=== PATIENT | female | born 1960 | race Caucasian/White ===

== ENCOUNTER 2017-03-10 05:35 | Inpatient (IN) | payer MEDICAID ==
[~2017-03-10] VITALS: Ht 157.5 cm; Wt 135.6 kg
[2017-03-10] VITALS (7 sets, daily range): BP systolic 151–189; BP diastolic 50–89
[~2017-03-10 05:35] MED LIST: AMARYL4 MG PO; AMLODIPINE BESY10 MG ORAL; APOTEX PO; APRESOLINE50 MG ORAL; ASPIR 8181 MG ORAL; ATORVASTATIN CA10 MG ORAL; ATORVASTATIN CA40 MG ORAL; BACITRACIN1 EACH TOPIC; CATAPRES0.2 MG ORAL; CEPHALEXIN500 MG ORAL; CLONIDINE 0.2M0.2 MG ORAL; COREG3.125 MG ORAL; COUMADIN7.5 MG ORAL; GLIPIZIDE5 MG ORAL; HUMALOG100 UNIT/3 SUBQ; HUMULIN N100 UNIT/1 SUBQ; HUMULIN R100 UNIT/1 SUBQ; HYDRALAZINE HC100 MG ORAL; HYDROCHLOROTHIA25 MG ORAL; INSULIN CHARG5 UNITS SUBQ; KENALOG IN ORABA1 EA APPLIC; LASIX40 MG ORAL; LEVEMIR FL100 UNIT/1 SUBQ; LOSARTAN POTASS50 MG ORAL; MECLIZINE HCL12.5 MG PO; METOPROLOL TAR100 M1 ORAL; NORMODYNE100 MG ORAL; NORMODYNE200 MG ORAL; NORVASC10 MG ORAL; NORVASC5 MG ORAL; NOVOLIN R100 UNIT/1 SUBQ; NOVOLOG100 UNIT/3 SUBQ; NOVOLOG100 UNITS1 SUBQ; TYLENOL #31 TAB PO
[2017-03-10] MEDS ORDERED: Morphine Sulfate 4mg/ml Inj IVP ONE ×2 (06:00→08:00)
--- NOTE | 2017-03-10 06:02 | Emergency Room Report ---
History of Present Illness General Chief Complaint: Abdominal Pain Source: Patient, Family Member (Jagdeep Tran M.D.) Present Illness HPI The patient presents with several problems this morning. Her primary complaint was right flank pain radiating to her groin. This began after midnight. The pain is 5/10, constant. She has had renal stones and renal infections in the past. She denies dysuria. In addition to that she's also had a dyspnea and an irregular heartbeat. She denies any chest pain but has dyspnea on exertion and feels weak. The patient has lymphedema and is on Coumadin. She has some pain in her left calf. She has had renal insufficiency. There is no evidence of prior dialysis in records. No fevers, no productive cough, chest pain (there is pressure). There is a chronic facial rash. No headache. She has diabetes and states her sugars are out of control. She has chronic anemia. Denies melena. (Jagdeep Tran M.D.) Allergies: Coded Allergies: BENAZEPRIL (Verified Allergy, Intermediate, Shortness of Breath, 07/01/14) FUROSEMIDE (Unverified Allergy, Intermediate, Rash, 11/18/16) Per Kyleigh Berrios TALENT DEVELOPMENT DIRECTOR, Pt does not have allegy to Lasix and able to start Lasxi tx. NIFEDIPINE (Verified Allergy, Intermediate, Shortness of Breath, 06/28/14) NITROGLYCERIN (Verified Allergy, Intermediate, Shortness of Breath, 06/28/14 ) SOB and BLE swelling Patient History Past Medical History: see triage record Social History: Denies: smoking Social History Narrative at home with daughter Last Menstrual Period: Menopause Now: No (Jagdeep Tran M.D.) Nursing Documentation-PMH Hx Cardiac Problems: Yes Hx Hypertension: Yes Hx Diabetes: Yes - Type 2 Hx Cancer: No Hx Gastrointestinal Problems: Yes Hx Neurological Problems: Yes Hx Cerebrovascular Accident: Yes - 1 years ago Hx Speech Problem: Yes Hx Dizziness: Yes Hx Numbness: Yes - LUE Hx Weakness: Yes - LUE (Jagdeep Tran M.D.) Review of Systems All Other Systems: negative except mentioned in HPI (Jagdeep Tran M.D.) Physical Exam Vital Signs Date Time Temp Pulse Resp B/P Pulse Ox O2 Delivery O2 Flow Rate FiO2 03/10/17 05:50 97.9 86 16 123/71 99 Room Air Sp02 EP Interpretation: reviewed, normal General Appearance: no apparent distress, GCS 15, Chronically Ill Head: normocephalic, atraumatic Eyes: bilateral eye EOMI, bilateral eye PERRL, bilateral eye normal inspection ENT: moist mucus membranes Neck: supple Respiratory: no respiratory distress, rales Cardiovascular #1: irregularly irregular, edema - bilateral Cardiovascular #2: 2+ radial (R) Gastrointestinal: normal inspection, normal bowel sounds, non tender, no mass, non-distended, overweight Genitourinary: CVA tenderness (R) Musculoskeletal: digits/nails normal, calf tenderness - L Neurologic: alert, oriented x3, grossly normal Psychiatric: anxious Skin: warm/dry, other - salkaylene (Jagdeep Tran M.D.) Medical Decision Making Diagnostic Impression: Primary Impression: Renal failure Additional Impressions: Diabetes Qualified Codes: E11.8 - Type 2 diabetes mellitus with unspecified complications UTI (urinary tract infection) Qualified Codes: N30.00 - Acute cystitis without hematuria Ureteropelvic junction calculus Atrial arrhythmia Hyperkalemia Anemia Qualified Codes: N18.9 - Chronic kidney disease, unspecified; D63.1 - Anemia in chronic kidney disease ER Course Patient presents with R flank pain, dyspnea and calf tenderness. Differential is broad - though renal stone and pyelonephritis are high on list. The dyspnea with rales suggests CHF though renal failure and pulmonary edema are also high on list. Due to calf tenderness, DVT and PE need to be excluded, though the patient is on anticoagulation. Evaluation is emergent with labs, CTA, non- invasive vascular testing, EKG. Treatment will be with analgesia. Evidence of renal failure and hyperkalemia. Treated with calcium, Kayexelate, insulin (hyperglycemia), and bicarb. With treatment of hyperkalemia, arrhythmia abolished. Pain treated with morphine. CT unable to use contrast - Chest and abdomen without contrast. Antibiotics begun for UTI. Admitted to Dr. Medina. CT pending. Signed out to Dr. Parson. Laboratory Tests Test 03/10/17 06:10 White Blood Count 10.1 K/UL (4.8-10.8) Red Blood Count 2.96 M/UL (4.20-5.40) L Hemoglobin 7.2 G/DL (12.0-16.0) L Hematocrit 24.1 % (37.0-47.0) L Mean Corpuscular Volume 82 FL (80-99) Mean Corpuscular Hemoglobin 24.3 PG (27.0-31.0) L Mean Corpuscular Hemoglobin Concent 29.8 G/DL (32.0-36.0) L Red Cell Distribution Width 16.8 % (11.6-14.8) H Platelet Count 231 K/UL (150-450) Mean Platelet Volume 7.2 FL (6.5-10.1) Neutrophils (%) (Auto) % (45.0-75.0) Lymphocytes (%) (Auto) % (20.0-45.0) Monocytes (%) (Auto) % (1.0-10.0) Eosinophils (%) (Auto) % (0.0-3.0) Basophils (%) (Auto) % (0.0-2.0) Differential Total Cells Counted 100 Neutrophils % (Manual) 96 % (45-75) H Lymphocytes % (Manual) 4 % (20-45) L Monocytes % (Manual) 0 % (1-10) L Eosinophils % (Manual) 0 % (0-3) Basophils % (Manual) 0 % (0-2) Band Neutrophils 0 % (0-8) Platelet Estimate Adequate Platelet Morphology Normal Hypochromasia 1+ Anisocytosis 1+ Prothrombin Time 25.3 SEC (9.30-11.50) H Prothrombin Time INR 2.4 (0.9-1.1) H PTT 36 SEC (23-33) H Urine Color Pale yellow Urine Appearance Clear Urine pH 5 (4.5-8.0) Urine Specific [place] 1.010 (1.005-1.035) Urine Protein 3+ (NEGATIVE) H Urine Glucose (UA) 4+ (NEGATIVE) H Urine Ketones 1+ (NEGATIVE) H Urine Occult Blood 2+ (NEGATIVE) H Urine Nitrite Negative (NEGATIVE) Urine Bilirubin Negative (NEGATIVE) Urine Urobilinogen Normal MG/DL (0.0-1.0) Urine Leukocyte Esterase 1+ (NEGATIVE) H Urine RBC 10-15 /HPF (0 - 2) H Urine WBC 10-15 /HPF (0 - 2) H Urine Squamous Epithelial Cells Few /LPF (NONE/OCC) Urine Bacteria Few /HPF (NONE) Sodium Level 137 mEQ/L (135-145) Potassium Level 6.0 mEQ/L (3.4-4.9) *H Chloride Level 100 mEQ/L (98-107) Carbon Dioxide Level 16 mEQ/L (20-30) L Anion Gap 21 (5-15) H Blood Urea Nitrogen 72 mg/dL (7-23) H Creatinine 2.8 mg/dL (0.5-0.9) H Estimate Glomerular Filtration Rate 17.4 mL/min (>60) Glucose Level 375 mg/dL (74-106) H Calcium Level 9.2 mg/dL (8.6-10.2) Total Bilirubin 0.8 mg/dL (0.0-1.2) Aspartate Amino Transferase (AST) 19 U/L (5-40) Alanine Aminotransferase (ALT) 27 U/L (3-33) Alkaline Phosphatase 121 U/L (35-104) H Total Creatine Kinase 94 U/L (26-140) Troponin I < 0.30 ng/mL (<=0.30) Pro-B-Type Natriuretic Peptide 1073 pg/mL (0-125) H Total Protein 7.7 g/dL (6.6-8.7) Albumin 4.0 g/dL (3.5-5.2) Globulin 3.7 g/dL Albumin/Globulin Ratio 1.0 (1.0-2.7) (Jagdeep Tran M.D.) ER Course The patient was endorsed to me by Dr. Tran. See his full history of present illness. CT abdomen pelvis read by radiology showed a right proximal UPJ stone 4mm with mild hydronephrosis. Multiple intrarenal stones were present. Ground glass opacity both lungs, small bilateral pleural effusions. The patient was given IV antibiotics. Patient was admitted to Dr. medina for inpatient management. Labs Test 03/10/17 06:10 White Blood Count 10.1 K/UL (4.8-10.8) Red Blood Count 2.96 M/UL (4.20-5.40) Hemoglobin 7.2 G/DL (12.0-16.0) Hematocrit 24.1 % (37.0-47.0) Mean Corpuscular Volume 82 FL (80-99) Mean Corpuscular Hemoglobin 24.3 PG (27.0-31.0) Mean Corpuscular Hemoglobin Concent 29.8 G/DL (32.0-36.0) Red Cell Distribution Width 16.8 % (11.6-14.8) Platelet Count 231 K/UL (150-450) Mean Platelet Volume 7.2 FL (6.5-10.1) Neutrophils (%) (Auto) % (45.0-75.0) Lymphocytes (%) (Auto) % (20.0-45.0) Monocytes (%) (Auto) % (1.0-10.0) Eosinophils (%) (Auto) % (0.0-3.0) Basophils (%) (Auto) % (0.0-2.0) Differential Total Cells Counted 100 Neutrophils % (Manual) 96 % (45-75) Lymphocytes % (Manual) 4 % (20-45) Monocytes % (Manual) 0 % (1-10) Eosinophils % (Manual) 0 % (0-3) Basophils % (Manual) 0 % (0-2) Band Neutrophils 0 % (0-8) Platelet Estimate Adequate Platelet Morphology Normal Hypochromasia 1+ Anisocytosis 1+ Prothrombin Time 25.3 SEC (9.30-11.50) Prothromb Time International Ratio 2.4 (0.9-1.1) Activated Partial Thromboplast Time 36 SEC (23-33) Urine Color Pale yellow Urine Appearance Clear Urine pH 5 (4.5-8.0) Urine Specific [place] 1.010 (1.005-1.035) Urine Protein 3+ (NEGATIVE) Urine Glucose (UA) 4+ (NEGATIVE) Urine Ketones 1+ (NEGATIVE) Urine Occult Blood 2+ (NEGATIVE) Urine Nitrite Negative (NEGATIVE) Urine Bilirubin Negative (NEGATIVE) Urine Urobilinogen Normal MG/DL (0.0-1.0) Urine Leukocyte Esterase 1+ (NEGATIVE) Urine RBC 10-15 /HPF (0 - 2) Urine WBC 10-15 /HPF (0 - 2) Urine Squamous Epithelial Cells Few /LPF (NONE/OCC) Urine Bacteria Few /HPF (NONE) Sodium Level 137 mEQ/L (135-145) Potassium Level 6.0 mEQ/L (3.4-4.9) Chloride Level 100 mEQ/L (98-107) Carbon Dioxide Level 16 mEQ/L (20-30) Anion Gap 21 (5-15) Blood Urea Nitrogen 72 mg/dL (7-23) Creatinine 2.8 mg/dL (0.5-0.9) Estimat Glomerular Filtration Rate 17.4 mL/min (>60) Glucose Level 375 mg/dL (74-106) Calcium Level 9.2 mg/dL (8.6-10.2) Total Bilirubin 0.8 mg/dL (0.0-1.2) Aspartate Amino Transf (AST/SGOT) 19 U/L (5-40) Alanine Aminotransferase (ALT/SGPT) 27 U/L (3-33) Alkaline Phosphatase 121 U/L (35-104) Total Creatine Kinase 94 U/L (26-140) Troponin I < 0.30 ng/mL (<=0.30) Pro-B-Type Natriuretic Peptide 1073 pg/mL (0-125) Total Protein 7.7 g/dL (6.6-8.7) Albumin 4.0 g/dL (3.5-5.2) Globulin 3.7 g/dL Albumin/Globulin Ratio 1.0 (1.0-2.7) (Mario Alberto Parson) EKG Diagnostic Results Rate: tachycardiac ST Segments: no acute changes (Jagdeep Tran M.D.) Rhythm Strip Diag. Results EP Interpretation: yes Rhythm: no PVC's, other - ST with PACs (Jagdeep Tran M.D.) Chest X-Ray Diagnostic Results EP Interpretation: Yes Findings: no effusion, no pneumothorax, other - pulm HTN Number of Views: 1 (Jagdeep Tran M.D.) Last Vital Signs Date Time Temp Pulse Resp B/P Pulse Ox O2 Delivery O2 Flow Rate FiO2 03/10/17 05:50 97.9 86 16 123/71 99 Room Air Status: improved (Jagdeep Tran M.D.) Status: unchanged (Mario Alberto Parson) Disposition: ADMITTED INPATIENT Condition: Serious Jagdeep Tran M.D. Mar 10, 2017 06:02 Mario Alberto Parson Mar 10, 2017 09:13
[2017-03-10 06:32] LABS: APPEARANCE,URINE CLEAR; KETONES,URINE 1+ (NEGATIVE); LEUKOCYTE ESTERASE ,URINE 1+ (NEGATIVE); NITRITE,URINE NEGATIVE (NEGATIVE); PH,URINE 5 (4.5-8.0); PROTEIN,URINE 3+ (NEGATIVE); UROBILINOGEN,URINE NORMAL MG/DL (0.0-1.0)
[2017-03-10 06:33] LABS: MEAN CORPUSCULAR HEMOGLOBIN 24.3 PG (27.0-31.0); MEAN CORPUSCULAR HGB CONC 29.8 G/DL (32.0-36.0); MEAN CORPUSCULAR VOLUME 82 FL (80-99); MEAN PLATELET VOLUME 7.2 FL (6.5-10.1); PLATELET COUNT 231 K/UL (150-450); RED BLOOD COUNT 2.96 M/UL (4.20-5.40); RED CELL DISTRIBUTION WIDTH 16.8 % (11.6-14.8); WHITE BLOOD COUNT 10.1 K/UL (4.8-10.8)
[2017-03-10 06:47] LABS: INR 2.4 (0.9-1.1); PROTHROMBIN TIME 25.3 SEC (9.30-11.50)
[2017-03-10 06:48] LABS: BACTERIA,URINE FEW /HPF; SQUAMOUS EPITHELIAL CELL,UR FEW /LPF (NONE/OCC)
[2017-03-10 06:50] LABS: TROPONIN I < 0.30 ng/mL (<=0.30)
[2017-03-10 06:51] LABS: ALANINE AMINOTRANSFERASE 27 U/L (3-33); ANION GAP 21 (5-15); ASPARTATE AMINO TRANSFERASE 19 U/L (5-40); CALCIUM 9.2 mg/dL (8.6-10.2); CARBON DIOXIDE 16 mEQ/L (20-30); CHLORIDE 100 mEQ/L (98-107); CREATININE 2.8 mg/dL (0.5-0.9); GLOMERULAR FILTRATION RATE 17.4 mL/min (>60); HEMOLYSIS 0; SODIUM 137 mEQ/L (135-145); TOTAL PROTEIN 7.7 g/dL (6.6-8.7)
[2017-03-10] MEDS ORDERED: Sodium Bicarbonate 8.4% 50ml Carp IV ONE (07:15)
[2017-03-10] MEDS ORDERED: Sodium Polystyrene Sulfonate 15gm Powder ORAL ONE ×2 (07:15→13:00)
[2017-03-10] MEDS ORDERED: Calcium Gluconate 1gm/10ml vial IVP ONE ×2 (07:15→10:15)
[2017-03-10] MEDS ORDERED: cefTRIAXone 1 GM in NS 55 ML IVPB ONE (08:00)
[2017-03-10 08:02] LABS: BAND NEUTROPHILS % (MANUAL) 0 % (0-8); BASOPHILS % (MANUAL) 0 % (0-2); EOSINOPHILS % (MANUAL) 0 % (0-3); LYMPHOCYTES % (MANUAL) 4 % (20-45); NEUTROPHILS % (MANUAL) 96 % (45-75); PLATELET ESTIMATE ADEQUATE; PLATELET MORPHOLOGY NORMAL; TOTAL CELLS COUNTED 100
[2017-03-10 08:03] LABS: ANISOCYTOSIS 1+; HYPOCHROMASIA 1+
--- NOTE | 2017-03-10 09:15 | Diagnostic Imaging Report ---
Indication: Dyspnea, right flank pain, vomiting Technique: No oral contrast, per emergency room physician request. No IV contrast, per emergency room physician request.. Spiral acquisitions obtained through the chest, abdomen, and pelvis. Multiplanar reconstructions were generated. Total dose length product 2162 mGycm. CTDIvol(s) 35 mGy. Radiation dose was minimized using automated exposure control Comparison: None Findings: Chest: There is groundglass opacity throughout both lungs, with interspersed areas of normal parenchymal attenuation. There is interstitial septal thickening bilaterally, particular the lung bases. There are small bilateral pleural effusions. The heart is enlarged. No focal airspace consolidation. No masses or nodules. There is trace pericardial fluid. There are prominent paratracheal lymph nodes. The esophagus is unremarkable. The included portions of the thyroid are unremarkable. No axillary or chest wall mass or adenopathy demonstrated. Abdomen pelvis: There is a 4 mm calculus in the proximal right ureter, just beyond ureteropelvic junction. This results in mild right hydronephrosis. There is perinephric fat. At least 3 calculi are seen within the right renal collecting system, largest measuring 6 mm diameter. Multiple calculi are seen in the left renal collecting system, including a cluster in the lower pole collecting system. Largest of these measures about 7 mm diameter. No left hydronephrosis. No left ureteral calculi. There is perinephric fat stranding on the left as well, which appears similar that on the right. Lack of IV contrast limits assessment of the renal parenchyma. No gross renal parenchymal mass or cyst demonstrated. Lack of IV contrast limits assessment of the other solid organs. The liver, gallbladder, bile ducts, pancreas, spleen, adrenals are unremarkable. No retroperitoneal or mesenteric mass or adenopathy. No pelvic mass or adenopathy. Normal uterus and adnexal structures. The appendix is normal. There is no evidence of diverticulosis or diverticulitis. No small bowel distention. No free or loculated intraperitoneal air or fluid is evident. The stomach and duodenum are unremarkable. There is mild edema of the subcutaneous fat of the back and bilateral flanks Impression: Positive for 4 mm proximal right ureteral calculus. This results in mild right hydronephrosis. There is also perinephric fat stranding, which is likely due to the stone, but similarity to the contralateral side raises possibility that this may be chronic. Bilateral nonobstructive intrarenal calculi Bilateral pulmonary parenchymal groundglass opacity and interstitial septal thickening. These findings are nonspecific. However, given associated findings of cardiomegaly and small bilateral pleural effusions, suspect on the basis of mild pulmonary edema Trace pericardial fluid Mild edema of the bilateral flank and lumbar region subcutaneous fat Findings discussed by phone with Dr. Parson in the emergency room at the time of interpretation The CT scanner at [facility] is accredited by the [employer] and the scans are performed using protocols designed to limit radiation exposure to as low as reasonably achievable to attain images of sufficient resolution adequate for diagnostic evaluation.
[2017-03-10] MEDS ORDERED: Nitroglycerin Subl 0.4mg tab (Bottle Of 25) SL PRN (10:15)
[2017-03-10] MEDS ORDERED: Morphine Sulfate 2mg/ml Inj IVP PRN (10:15)
[2017-03-10] MEDS ORDERED: DuoNeb 0.5-3(2.5)mg/3ml neb HHN PRN (10:15)
[2017-03-10] MEDS ORDERED: Miralax 17gm pkt ORAL PRN (10:15)
[2017-03-10] MEDS ORDERED: Tamsulosin 0.4mg cap ORAL STA (10:23)
[2017-03-10] MEDS ORDERED: NovoLOG Insulin Flexpen SUBQ SCH (11:30)
[2017-03-10] MEDS: Cefepime 1gm/D5W 55ml IVPB SCH ×2 (12:16)
--- NOTE | 2017-03-10 12:16 | History and Physical ---
History of Present Illness General Date patient seen: Mar 10, 2017 Reason for Hospitalization: Abdominal Pain Present Illness HPI 56 year old female with hx of HTN, DM, Obesity, presented to ER with several problems this morning. She had right flank pain radiating to her groin. In addition to that she's also had a dyspnea and an irregular heartbeat. She has diabetes and states her sugars are out of control. She was found to have hyperkalemia and severe anemia. She is admitted to [facility] for further evaluation. Currently she is c/o lower back pain. She is refusing Velasquez Catheter, which was ordered by Nephrology. Allergies: Coded Allergies: BENAZEPRIL (Verified Allergy, Intermediate, Shortness of Breath, 07/01/14) FUROSEMIDE (Unverified Allergy, Intermediate, Rash, 11/18/16) Per Kyleigh Berrios FIREWORKS ASSEMBLER, Pt does not have allegy to Lasix and able to start Lasxi tx. NIFEDIPINE (Verified Allergy, Intermediate, Shortness of Breath, 06/28/14) NITROGLYCERIN (Verified Allergy, Intermediate, Shortness of Breath, 06/28/14 ) SOB and BLE swelling Medication History Scheduled Amlodipine Besylate (Norvasc), 5 MG ORAL DAILY Amlodipine Besylate* (Amlodipine Besylate*), 10 MG ORAL DAILY, (Reported) Aspirin* (Aspir 81*), 81 MG ORAL DAILY, (Reported) Atorvastatin Calcium* (Atorvastatin Calcium*), 40 MG ORAL BEDTIME, (Reported) Carvedilol (Coreg), 6.125 MG ORAL EVERY 12 HOURS Clonidine HCl (Clonidine HCl), 0.2 MG ORAL Q8HR Clonidine Hcl* (Catapres*), 0.2 MG ORAL Q6HR, (Reported) Glipizide* (Glipizide*), 10 MG ORAL BIDAC, (Reported) Hydralazine HCl (Hydralazine HCl), 100 MG ORAL Q8HR Hydralazine HCl (Hydralazine HCl), 100 MG ORAL Q8HR Insulin Aspart (Novolog Flexpen), 8 UNITS SUBQ NOVOTIAC Insulin Detemir (Levemir Flexpen), 15 UNITS SUBQ Q12HR Insulin Human NPH (Novolin N), 30 UNITS SUBQ BIAC Labetalol HCl (Labetalol HCl), 200 MG ORAL BID, (Reported) Warfarin Sod (Coumadin*), 5 MG ORAL DAILY, (Reported) Miscellaneous Medications Insulin Lispro (Humalog), 35 SUBQ, (Reported) Patient History Healthcare decision maker Resuscitation status Full Code Advanced Directive on File No Past Medical/Surgical History Past Medical/Surgical History: (1) Atrial arrhythmia (2) Ureteropelvic junction calculus (3) Diabetes (4) HTN (hypertension) Review of Systems All Other Systems: negative except mentioned in HPI Physical Exam General Appearance: WD/WN, alert Lines, tubes and drains: peripheral, central line HEENT: normocephalic, atraumatic Neck: non-tender, normal alignment Respiratory/Chest: chest wall non-tender, lungs clear Breasts: no masses Abdomen: normal bowel sounds, hyperactive bowel sounds Extremities: severe edema Skin Exam: normal pigmentation Neurologic: parimutuel ticket cashier II-XII grossly normal, no motor/sensory deficits, abnormal gait Last 24 Hour Vital Signs Date Time Temp Pulse Resp B/P Pulse Ox O2 Delivery O2 Flow Rate FiO2 03/10/17 09:35 97.8 79 16 151/50 96 Room Air 03/10/17 09:00 79 16 151/50 96 Room Air 03/10/17 08:35 97.8 03/10/17 08:00 82 19 189/89 94 Room Air 03/10/17 07:19 97.8 03/10/17 07:00 84 18 169/66 99 Room Air 03/10/17 06:00 97.9 86 16 160/61 99 Room Air 03/10/17 05:50 97.9 86 16 123/71 99 Room Air Intake and Output 03/09/17 03/10/17 19:00 07:00 # Voids 1 Laboratory Tests Test 03/10/17 06:10 03/10/17 10:55 White Blood Count 10.1 K/UL (4.8-10.8) Red Blood Count 2.96 M/UL (4.20-5.40) L Hemoglobin 7.2 G/DL (12.0-16.0) L Hematocrit 24.1 % (37.0-47.0) L Mean Corpuscular Volume 82 FL (80-99) Mean Corpuscular Hemoglobin 24.3 PG (27.0-31.0) L Mean Corpuscular Hemoglobin Concent 29.8 G/DL (32.0-36.0) L Red Cell Distribution Width 16.8 % (11.6-14.8) H Platelet Count 231 K/UL (150-450) Mean Platelet Volume 7.2 FL (6.5-10.1) Neutrophils (%) (Auto) % (45.0-75.0) Lymphocytes (%) (Auto) % (20.0-45.0) Monocytes (%) (Auto) % (1.0-10.0) Eosinophils (%) (Auto) % (0.0-3.0) Basophils (%) (Auto) % (0.0-2.0) Differential Total Cells Counted 100 Neutrophils % (Manual) 96 % (45-75) H Lymphocytes % (Manual) 4 % (20-45) L Monocytes % (Manual) 0 % (1-10) L Eosinophils % (Manual) 0 % (0-3) Basophils % (Manual) 0 % (0-2) Band Neutrophils 0 % (0-8) Platelet Estimate Adequate Platelet Morphology Normal Hypochromasia 1+ Anisocytosis 1+ Prothrombin Time 25.3 SEC (9.30-11.50) H Prothromb Time International Ratio 2.4 (0.9-1.1) H Activated Partial Thromboplast Time 36 SEC (23-33) H Urine Color Pale yellow Urine Appearance Clear Urine pH 5 (4.5-8.0) Urine Specific [place] 1.010 (1.005-1.035) Urine Protein 3+ (NEGATIVE) H Urine Glucose (UA) 4+ (NEGATIVE) H Urine Ketones 1+ (NEGATIVE) H Urine Occult Blood 2+ (NEGATIVE) H Urine Nitrite Negative (NEGATIVE) Urine Bilirubin Negative (NEGATIVE) Urine Urobilinogen Normal MG/DL (0.0-1.0) Urine Leukocyte Esterase 1+ (NEGATIVE) H Urine RBC 10-15 /HPF (0 - 2) H Urine WBC 10-15 /HPF (0 - 2) H Urine Squamous Epithelial Cells Few /LPF (NONE/OCC) Urine Bacteria Few /HPF (NONE) Sodium Level 137 mEQ/L (135-145) Potassium Level 6.0 mEQ/L (3.4-4.9) *H 6.2 mEQ/L (3.4-4.9) *H Chloride Level 100 mEQ/L (98-107) Carbon Dioxide Level 16 mEQ/L (20-30) L Anion Gap 21 (5-15) H Blood Urea Nitrogen 72 mg/dL (7-23) H Creatinine 2.8 mg/dL (0.5-0.9) H Estimat Glomerular Filtration Rate 17.4 mL/min (>60) Glucose Level 375 mg/dL (74-106) H Calcium Level 9.2 mg/dL (8.6-10.2) Total Bilirubin 0.8 mg/dL (0.0-1.2) Aspartate Amino Transf (AST/SGOT) 19 U/L (5-40) Alanine Aminotransferase (ALT/SGPT) 27 U/L (3-33) Alkaline Phosphatase 121 U/L (35-104) H Total Creatine Kinase 94 U/L (26-140) Troponin I < 0.30 ng/mL (<=0.30) Pro-B-Type Natriuretic Peptide 1073 pg/mL (0-125) H Total Protein 7.7 g/dL (6.6-8.7) Albumin 4.0 g/dL (3.5-5.2) Globulin 3.7 g/dL Albumin/Globulin Ratio 1.0 (1.0-2.7) Height (Feet): 5 Height (Inches): 3.00 Weight (Pounds): 300 Medications Current Medications Medications (Trade) Dose Ordered Sig/Ifeanyi Route PRN Reason Start Time Stop Time Status Last Admin Dose Admin Acetaminophen (Tylenol) 650 mg Q4H PRN ORAL T>100.5 03/10/17 10:15 04/09/17 10:14 Albuterol/ Ipratropium (DuoNeb 0.5-3(2.5)mg/3ml) 3 ml Q4H PRN HHN Shortness of Breath 03/10/17 10:15 03/15/17 10:14 Amlodipine Besylate (Norvasc) 5 mg DAILY ORAL 03/11/17 09:00 04/10/17 08:59 UNV Aspirin (Ecotrin) 81 mg DAILY ORAL 03/11/17 09:00 04/10/17 08:59 Atorvastatin Calcium (Lipitor) 40 mg BEDTIME ORAL 03/10/17 21:00 04/09/17 20:59 Calcium Gluconate (Calcium Gluconate 10%) 1 gm ONCE ONCE IVP 03/10/17 10:15 03/10/17 10:16 UNV Calcium Gluconate/ Sodium Chloride (Calcium Gluconate 10%/ Sodium Chloride) 120 ml @ 240 mls/hr ONCE ONCE IVPB 03/10/17 13:00 03/10/17 13:29 Cefepime HCl/ Dextrose (Maxipime/D5W) 55 ml @ 110 mls/hr Q24H IVPB 03/10/17 12:00 03/17/17 11:59 Dextrose STAT PRN IV Hypoglycemia 03/10/17 10:15 04/09/17 10:14 Dextrose 100 ml 100 ml STAT ONCE IV 03/10/17 13:00 03/10/17 13:01 Heparin Sodium (Porcine) (Heparin 5000 units/ml) 5,000 units EVERY 12 HOURS SUBQ 03/10/17 21:00 04/09/17 20:59 Hydralazine HCl (Apresoline) 100 mg Q8HR ORAL 03/10/17 14:00 04/09/17 13:59 Insulin Aspart (NovoLOG) BEFORE MEALS AND HS SUBQ 03/10/17 12:00 04/09/17 11:59 Insulin Human Regular (NovoLIN R) 10 units ONCE ONCE IV 03/10/17 13:00 03/10/17 13:01 Labetalol HCl 200 mg 200 mg Q12HR ORAL 03/10/17 21:00 04/09/17 20:59 Morphine Sulfate (Morphine Sulfate) 2 mg Q4H PRN IVP Moderate Pain (Pain Scale 4-6) 03/10/17 10:15 03/17/17 10:14 Ondansetron HCl (Zofran) 4 mg Q6H PRN IVP Nausea & Vomiting 03/10/17 10:15 04/09/17 10:14 Polyethylene Glycol (Miralax) 17 gm DAILYPRN PRN ORAL Constipation 03/10/17 10:15 04/09/17 10:14 Sodium Polystyrene Sulfonate (Kayexalate) 45 gm ONCE ONCE ORAL 03/10/17 13:00 03/10/17 13:01 Sodium Chloride (Sodium Chloride 1000ml bag) 1,000 ml @ 50 mls/hr Q20H IVLG 03/10/17 11:00 04/09/17 10:59 Temazepam (Restoril) 15 mg HSPRN PRN ORAL Insomnia 03/10/17 21:00 03/17/17 20:59 Vancomycin HCl 1 ea 1 ea DAILY PRN MISC . 03/10/17 10:45 04/09/17 10:44 Vancomycin HCl/ Dextrose (Vancomycin/D5W) 325 ml @ 162.5 mls/ hr ONCE ONCE IVPB 03/10/17 13:00 03/10/17 14:59 Assessment/Plan Problem List: (1) Renal failure ICD Codes: N19 - Unspecified kidney failure SNOMED: 11506291 (2) Hyperkalemia ICD Codes: E87.5 - Hyperkalemia SNOMED: 22581277 (3) HTN (hypertension) ICD Codes: I10 - Essential (primary) hypertension SNOMED: 77974351 (4) Diabetes ICD Codes: E11.9 - Type 2 diabetes mellitus without complications SNOMED: 53475723 (5) Peripheral edema ICD Codes: R60.9 - Edema, unspecified SNOMED: 244582845 Assessment/Plan IV fluids renal evaluation prbc prn anemia prn sliding scale diabetic diet JEAN CLAUDE STUTON Mar 10, 2017 12:16
[2017-03-10] MEDS: NovoLOG Insulin Flexpen SUBQ SCH ×3 (12:26→20:32)
--- NOTE | 2017-03-10 12:45 | Consultation ---
Consult Note Consult Note ID Dic # [id number] NICOLE OH M.D. Mar 10, 2017 12:45
--- NOTE | 2017-03-10 12:52 | Consultation ---
Consult Note Consult Note HPI The patient presents with several problems this morning. Her primary complaint was right flank pain radiating to her groin. This began after midnight. The pain is 5/10, constant. She has had renal stones and renal infections in the past. She denies dysuria. In addition to that she's also had a dyspnea and an irregular heartbeat. She denies any chest pain but has dyspnea on exertion and feels weak. The patient has lymphedema and is on Coumadin. She has some pain in her left calf. She has had renal insufficiency. There is no evidence of prior dialysis in records. No fevers, no productive cough, chest pain (there is pressure). There is a chronic facial rash. No headache. She has diabetes and states her sugars are out of control. She has chronic anemia. Denies melena. Coded Allergies: BENAZEPRIL (Verified Allergy, Intermediate, Shortness of Breath, 07/01/14) FUROSEMIDE (Unverified Allergy, Intermediate, Rash, 11/18/16) Per Kyleigh Berrios NEUROSURGICAL PHYSICIAN ASSISTANT, Pt does not have allegy to Lasix and able to start Lasxi tx. NIFEDIPINE (Verified Allergy, Intermediate, Shortness of Breath, 06/28/14) NITROGLYCERIN (Verified Allergy, Intermediate, Shortness of Breath, 06/28/14 ) SOB and BLE swelling Hx Cardiac Problems: Yes Hx Hypertension: Yes Hx Diabetes: Yes - Type 2 Hx Gastrointestinal Problems: Yes Hx Neurological Problems: Yes Hx Cerebrovascular Accident: Yes - 1 years ago Hx Speech Problem: Yes Hx Dizziness: Yes Hx Numbness: Yes - LUE Hx Weakness: Yes - LUE Assessment/Plan Status; Acute renal failure- HyperKalemia ? Underlying CKD due to DM and HTN Anemia: Etiology? Ureteropelvic junction calculus Atrial arrhythmia UTI Plan: TAMIE kidney- 2 D echo Slow Hydrate EPO SQ Iron panel Anemia munoz gastric support- Avoid Nephrotoxics per orders ALE LOBATO Mar 10, 2017 12:52
[2017-03-10] MEDS ORDERED: Calcium Gluconate 1gm in NS 110ml IVPB ONE (13:00)
[2017-03-10] MEDS ORDERED: Vancomycin 1.5 GM in D5W 325 ML IVPB ONE (13:00)
[2017-03-10 13:03] LABS: CREATININE 2.8 mg/dL (0.5-0.9); GLOMERULAR FILTRATION RATE 17.4 mL/min (>60); POTASSIUM 6.2 mEQ/L (3.4-4.9)
--- NOTE | 2017-03-10 13:39 | Cardiology Report ---
APPROVED REPORT EKG Measurement Heart [id number] Sinus rhythm with occasional premature ventricular complexes and premature atrial complexes Prolonged QT Abnormal ECG
[2017-03-10 13:51] LABS: PATH BLOOD SMEAR/OMC SENT TO PATHOLOGIST
[2017-03-10 14:10] LABS: ERYTHROCYTE SEDIMENTATION RATE 95 MM/HR (0-30); RETICULOCYTE COUNT 2.1 % (0.0-2.0)
[2017-03-10] MEDS: HydrALAZINE 50mg tab ORAL SCH ×2 (14:33→21:25)
--- NOTE | 2017-03-10 14:48 | Diagnostic Imaging Report ---
Indication: Chest pain Technique: One view of the chest Comparison: 11/21/2016 Findings: Lungs and pleural spaces are clear. Heart size is upper limits normal . No significant change Impression: No acute process
--- NOTE | 2017-03-10 16:27 | Diagnostic Imaging Report ---
Indication: Acute renal failure Technique: Grayscale and duplex images of the kidneys, retroperitoneum, and bladder were obtained. Comparison:Reference made to CT chest abdomen pelvis dated 03/10/2017. Comparison prior ultrasound 11/09/2016 Findings: Exam is limited due to patient body habitus Right kidney measures 11.7 cm in length. Left kidney measures 10.7 cm in length. Both kidneys demonstrate normal echogenicity. There is mild right hydronephrosis. No left hydronephrosis This is a new finding since prior ultrasound, was described on prior CT. The intrarenal calculi described on recent CT are not evident on the right, but are barely visible on the left. Normal inferior vena cava. Bladder is normal. Impression: Mild right hydronephrosis, presumably from proximal right ureteral stone described on CT scan performed earlier the same day Left nephrolithiasis, also described on recent CT. No left hydronephrosis.
[2017-03-10] MEDS: Nateglinide 60mg tab ORAL SCH (16:52)
[2017-03-10] MEDS: Carvedilol 6.25mg Tab ORAL SCH (20:27)
[2017-03-10] MEDS: Heparin 5000 units/ml inj SUBQ SCH (20:31)
[2017-03-10] MEDS ORDERED: Labetalol 200mg tab ORAL SCH (21:00)
[2017-03-10] MEDS ORDERED: Cefepime HCl 2 GM in D5W 110 ML IV SCH (21:00)
[2017-03-10] MEDS: Morphine Sulfate 4mg/ml Inj IVP PRN (21:25)
--- NOTE | 2017-03-10 22:48 | Consultation ---
DATE OF CONSULTATION: INFECTIOUS DISEASES CONSULTATION CONSULTING PHYSICIAN: Oswald Grajeda M.D. REFERRING PHYSICIAN: Mirela Medina M.D. REASON FOR CONSULTATION: Evaluation of the patient for possible urinary tract infection, pyelonephritis, antibiotic management. HISTORY OF PRESENT ILLNESS: The patient is a 56-year-old female, who came to the hospital with a chief complaint of pain mainly in the right lower abdomen and groin area. CT scan showed right renal stone in the ureter with mild hydronephrosis. The patient has been started on IV antibiotics. Infectious diseases consultation has been requested for further evaluation of the patient and antibiotic management. UA showed some pyuria and patient's lab work suggested CKD. PAST MEDICAL HISTORY: 1. History of cataract surgery. 2. History of CVA. 3. History of hyperlipidemia. 4. Hypertension. 5. Gastroesophageal reflux disease. 6. History of x2. 7. History of chronic kidney disease. 8. Diabetes. 9. Anemia. MEDICATIONS: IV vancomycin and cefepime. ALLERGIES: No allergies to any antibiotics. FAMILY HISTORY: Noncontributory. REVIEW OF SYSTEMS: A 10-point review was done and except what is mentioned has been negative. LABORATORY AND DIAGNOSTIC DATA: White cell 10, hemoglobin 7, platelets 231,000. BUN 32, creatinine 2.8. ALT and AST unremarkable. Alkaline phosphatase of 121. UA shows 10 to 15 white blood cells and 10 to 15 red blood cells. Urine culture is pending. CT scan of the abdomen as mentioned above. ASSESSMENT: The patient is a 56-year-old female with multiple medical problems who has right renal stump with right hydronephrosis, possible urinary tract infection, and pyelonephritis. Especially in view of having pyuria and possible surgical intervention, the patient will benefit from broad-spectrum antibiotics for gram-negative coverage. PLAN: 1. We will continue the patient on cefepime. 2. Discontinue intravenous vancomycin. 3. Monitor CBC. 4. Monitor BMP. 5. Monitor urine culture. 6. Recommend Urology evaluation. 7. Based on patient's clinical course and labs, we will do further recommendation. Thank you, Dr. Medina, for allowing me to participate in the care of this patient. I will follow the patient with you during this hospitalization. Oswald Grajeda M.D. DR: Bertha JOB#: [id number] CC:
--- NOTE | 2017-03-10 22:53 | Cardiology Report ---
APPROVED REPORT EXAM: Two-dimensional and M-mode echocardiogram with Doppler and color Doppler. INDICATION Left Ventricular Function M-Mode DIMENSIONS IVSd1.1 (0.7-1.1cm)Left Atrium (MM)4.7 (1.6-4.0cm) LVDd5.5 (3.5-5.6cm)Aortic Root2.1 (2.0-3.7cm) PWd0.8 (0.7-1.1cm)Aortic Cusp Exc.1.8 (1.5-2.0cm) IVSs1.9 cm LVDs2.3 (2.5-4.0cm) PWs1.9 cm Normal left ventricular chamber size, systolic function and wall motion. Left ventricular ejection fraction estimated to be 60 %. No evidence of left ventricular hypertrophy. Anterior Echo-free space, may be due to pericardial fat or effusion. Mild left atrial enlargement. Righrt cardiac chamber sizes are within normal limits. Mild focal aortic valve sclerosis with adequate cusp excursion. Mildly thickened mitral valve leaflets with normal excursion. Mild mitral annulus and aortic root calcification. Normal pulmonic valve structure. Normal tricuspid valve structure. A color flow and spectral Doppler study was performed and revealed: No aortic regurgitation. Trace mitral regurgitation. Mitral inflow velocities indicates possible pseudo normalization pattern implying significant left ventricular diastolic dysfunction (Grade II). Trace tricuspid regurgitation. Tricuspid systolic velocities suggests peak right ventricular systolic pressure of 53 mmHg, consistent with moderate pulmonary hypertension. No pulmonic regurgitation present.
[2017-03-10] MEDS ORDERED: Ketorolac 30mg Inj IV ONE (23:00)
[2017-03-11] VITALS: BP 104/75
[2017-03-11] MEDS ORDERED: Vancomycin 1 GM in D5W 275 ML IV SCH (00:30)
[2017-03-11] MEDS: Morphine Sulfate 4mg/ml Inj IVP PRN ×4 (03:25→23:51)
--- NOTE | 2017-03-11 03:48 | Consultation ---
DATE OF CONSULTATION: 03/10/2017 UROLOGY CONSULTATION ATTENDING/CONSULTING PHYSICIAN: Mirela Medina M.D. CHIEF COMPLAINT/HISTORY OF PRESENT ILLNESS: I was asked by Dr. Medina to evaluate this 56-year-old Citizen Of [place] female regarding a history of an obstructing right ureteral stone. Briefly, the patient has a long-standing history of kidney stones. She reports that she has always passed stones spontaneously in the past. She has never needed intervention with either ESWL or ureteroscopy. She presented to the emergency room with several problems this morning, including right flank plain radiating towards her groin. She was also short of breath and had an irregular heartbeat. She was found to have hyperkalemia and uncontrolled diabetes. A CT scan of the abdomen and pelvis revealed a 4 mm right ureteral stone with mild hydronephrosis secondary to stone as well as bilateral nonobstructing renal stones. The patient was admitted to the hospital for medical management and given the above, I was asked to evaluate the patient. PAST MEDICAL HISTORY: 1. Kidney stones. 2. Atrial arrhythmias/fibrillation. 3. Diabetes. 4. Hypertension. 5. Chronic renal insufficiency. MEDICATIONS: Please see the chart for a full list of medications and administration details. Briefly, the patient is receiving Flomax in an effort to help her pass the stone. For antibiotic coverage, she is receiving cefepime and vancomycin. She is receiving morphine for pain control. ALLERGIES: Include Benazepril, furosemide, nifedipine, and nitroglycerin. SOCIAL HISTORY: Unremarkable for tobacco, alcohol, or drug use. FAMILY HISTORY: Noncontributory. REVIEW OF SYSTEMS: A 12-system review of systems was essentially unremarkable outside of what is described above. PHYSICAL EXAMINATION: GENERAL: The patient is a middle-aged Citizen Of [place] female, awake, alert, and oriented x4, pleasant in no significant distress. VITAL SIGNS: Afebrile. Vital signs stable. HEENT: NC/AT. EOMI. NECK: Supple. Full range of motion. Oropharynx clear. CHEST: Within normal limits. ABDOMEN: Soft, obese, nontender, and nondistended. EXTREMITIES: Warm and well perfused. No cyanosis, clubbing, or edema. BACK: Right mild CVA tenderness. NEUROLOGIC: Nonfocal. LABORATORY DATA: Sodium 138, potassium 6.2, chloride 100, bicarbonate 15, BUN 78, creatinine 2.8, glucose 383, calcium 9.0, white blood cells are 10.1, hematocrit 24.1, and platelets 231,000. PTT 25.3, INR 2.4, and PTT 36. Urinalysis - specific gravity 1.010, pH 5.0. Dip test notable for 3+ protein, 4+ glucose, 1+ ketones, 2+ occult blood. Microanalysis with 10 to 15 white and red blood cells per high-power field, and few bacteria seen. DIAGNOSTIC IMAGING: CT scan of the abdomen and pelvis without contrast reveals a right 4 mm proximal ureteral stone with mild hydronephrosis secondary to same. There is also some perinephric fat stranding, which may be chronic. There are bilateral nonobstructing intrarenal calculi. There are bilateral pulmonary parenchymal ground-glass opacity and interstitial septal thickening noted. There is cardiomegaly and small bilateral pleural effusions. There is trace pericardial fluid. ASSESSMENT AND PLAN: In summary, the patient is a 56-year-old female with a longstanding history of nephrolithiasis, who presents to the hospital with a multitude of medical issues including right-sided flank and abdominal pain. She was also found to be dyspneic and possibly pulmonary edema. Her blood sugars were out of control and she was hyperkalemic. She was admitted to the hospital for management of all these issues Physical exam reveals mild right CVA tenderness. Laboratory data is notable for renal insufficiency and hyperkalemia. Diagnostic imaging reveals the kidney stone described above. This patient has a small stone. We can start her on medical management of the same with fluid hydration and continuation of Flomax. Additionally, I will give her a one time dose of Toradol in an effort to improve her pain control, unless necessary we will only give it as a one time dose as I do not wish to further harm her renal function. If the patient's stone fails to pass with conservative management as it always has in the past, she may need surgical intervention for the same. Prior to undertaking the same, however, medical and cardiac clearance would have to be received and the patient's health has to be optimized. Currently, she is not in shape to go to the operating room. Thank you again for allowing me to participate in the care of this unfortunate lady. Please do not hesitate to contact me with any questions that you further have regarding her care. I will be happy to see her with you as needed. Rodrigo Fermin M.D. DR: KAYLEIGH JOB#: [id number] CC:
[2017-03-11 04:00] VITALS: BP 144/77
[2017-03-11 05:02] LABS: MEAN CORPUSCULAR HEMOGLOBIN 25.1 PG (27.0-31.0); MEAN CORPUSCULAR HGB CONC 30.3 G/DL (32.0-36.0); MEAN CORPUSCULAR VOLUME 83 FL (80-99); MEAN PLATELET VOLUME 7.6 FL (6.5-10.1); PLATELET COUNT 222 K/UL (150-450); RED BLOOD COUNT 2.81 M/UL (4.20-5.40); RED CELL DISTRIBUTION WIDTH 16.8 % (11.6-14.8); WHITE BLOOD COUNT 11.6 K/UL (4.8-10.8)
[2017-03-11 05:21] LABS: CRP QUANT 1.1 mg/dL (< 0.5); PHOSPHORUS 4.2 mg/dL (2.5-4.8); URIC ACID 9.9 mg/dL (3.0-7.5)
[2017-03-11 05:25] LABS: CALCIUM 9.2 mg/dL (8.6-10.2); CHOLESTEROL/HDL RATIO 2.7 (3.3-4.4); CREATININE 3.7 mg/dL (0.5-0.9); GLOMERULAR FILTRATION RATE 12.6 mL/min (>60); POTASSIUM 5.3 mEQ/L (3.4-4.9); TOTAL PROTEIN 6.7 g/dL (6.6-8.7)
[2017-03-11 05:26] LABS: THYROID STIMULATING HORMONE 1.84 uIU/mL (0.300-4.500)
[2017-03-11 05:27] LABS: HEMOGLOBIN A1C 8.6 % (< 6.0)
[2017-03-11 05:30] LABS: ANISOCYTOSIS 1+; BAND NEUTROPHILS % (MANUAL) 0 % (0-8); BASOPHILS % (MANUAL) 2 % (0-2); EOSINOPHILS % (MANUAL) 1 % (0-3); HYPOCHROMASIA 3+; LYMPHOCYTES % (MANUAL) 16 % (20-45); NEUTROPHILS % (MANUAL) 80 % (45-75); PLATELET ESTIMATE ADEQUATE; PLATELET MORPHOLOGY NORMAL; POIKILOCYTOSIS 2+; TOTAL CELLS COUNTED 100
[2017-03-11] MEDS: HydrALAZINE 50mg tab ORAL SCH ×4 (05:54→20:41)
[2017-03-11] MEDS: Nateglinide 60mg tab ORAL SCH ×3 (06:01→16:21)
[2017-03-11] MEDS: NovoLOG Insulin Flexpen SUBQ SCH ×4 (06:03→20:47)
[2017-03-11 08:00] VITALS: BP 142/68
[2017-03-11] MEDS: Aspirin EC 81mg tab ORAL SCH (08:57)
[2017-03-11] MEDS: Carvedilol 6.25mg Tab ORAL SCH (08:58)
[2017-03-11] MEDS: Heparin 5000 units/ml inj SUBQ SCH ×2 (09:00→20:48)
[2017-03-11] MEDS ORDERED: Tubing Blood Filter IV ONE (10:29)
[2017-03-11] MEDS ORDERED: NS 275ml ONE (10:29)
[2017-03-11] MEDS ORDERED: Tubing IV Secondary IV ONE (10:29)
--- NOTE | 2017-03-11 11:29 | Pulmonology Progress Note ---
Assessment/Plan Problems: (1) Renal failure (2) Hyperkalemia (3) HTN (hypertension) (4) Diabetes (5) Peripheral edema Assessment/Plan hold labetolol for bradycardia all consultants note reviewed and appreciated titrate cardiac meds f/u renal parameters f/u Urology recommendations Subjective ROS Limited/Unobtainable: No Interval Events: refusing cohen, Allergies: Coded Allergies: BENAZEPRIL (Verified Allergy, Intermediate, Shortness of Breath, 07/01/14) FUROSEMIDE (Unverified Allergy, Intermediate, Rash, 11/18/16) Per Kyleigh Berrios AIRPORT RAMP AGENT, Pt does not have allegy to Lasix and able to start Lasxi tx. NIFEDIPINE (Verified Allergy, Intermediate, Shortness of Breath, 06/28/14) NITROGLYCERIN (Verified Allergy, Intermediate, Shortness of Breath, 06/28/14 ) SOB and BLE swelling Objective Last 24 Hour Vital Signs Date Time Temp Pulse Resp B/P Pulse Ox O2 Delivery O2 Flow Rate FiO2 03/11/17 08:58 65 142/68 03/11/17 08:00 97.5 65 20 142/68 95 Nasal Cannula 2.0 03/11/17 08:00 63 03/11/17 07:26 Nasal Cannula 2.0 28 03/11/17 07:26 98 Nasal Cannula 2.0 28 03/11/17 07:26 64 16 Nasal Cannula 03/11/17 06:05 152/66 03/11/17 04:00 97.8 61 20 144/77 96 Room Air 03/11/17 03:55 97.7 03/11/17 03:21 67 03/11/17 03:13 32 03/11/17 00:00 97.7 61 20 104/75 97 Room Air 03/11/17 00:00 58 03/10/17 21:25 166/65 03/10/17 20:28 79 152/65 03/10/17 20:27 79 152/65 03/10/17 20:00 97.6 84 20 159/88 97 Room Air 03/10/17 19:10 79 16 Room Air 03/10/17 19:00 78 03/10/17 17:51 98.7 03/10/17 16:00 80 03/10/17 16:00 97.9 79 20 152/65 94 Room Air 03/10/17 14:33 178/72 03/10/17 12:00 80 03/10/17 12:00 97.4 80 20 178/72 97 Room Air Intake and Output 03/10/17 03/11/17 19:00 07:00 Intake Total 1288 ml 1225 ml Balance 1288 ml 1225 ml Intake Oral 990 ml 400 ml IV Total 298 ml 825 ml # Voids 2 4 # Bowel Movements 1 General Appearance: WD/WN HEENT: normocephalic, atraumatic Respiratory/Chest: chest wall non-tender, lungs clear Cardiovascular: normal peripheral pulses, normal rate Abdomen: normal bowel sounds, soft, non tender Genitourinary: normal external genitalia Extremities: no cyanosis 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 Microbiology Date/Time Source Procedure Growth Status 03/10/17 06:10 Urine,Clean Catch Urine Culture - Preliminary Gram Positive Cocci Resulted Laboratory Tests 03/10/17 19:20: Urine Random Sodium 36 03/11/17 03:00: Urine Eosinophils None seen 03/11/17 03:40: White Blood Count 11.6H, Red Blood Count 2.81L, Hemoglobin 7.0L, Hematocrit 23.2L, Mean Corpuscular Volume 83, Mean Corpuscular Hemoglobin 25.1L, Mean Corpuscular Hemoglobin Concent 30.3L, Red Cell Distribution Width 16.8H, Platelet Count 222, Mean Platelet Volume 7.6, Neutrophils (%) (Auto) , Lymphocytes (%) (Auto) , Monocytes (%) (Auto) , Eosinophils (%) (Auto) , Basophils (%) (Auto) , Differential Total Cells Counted 100, Neutrophils % ( Manual) 80H, Lymphocytes % (Manual) 16L, Monocytes % (Manual) 1, Eosinophils % ( Manual) 1, Basophils % (Manual) 2, Band Neutrophils 0, Platelet Estimate Adequate, Platelet Morphology Normal, Hypochromasia 3+, Poikilocytosis 2+, Anisocytosis 1+, Sodium Level 138, Potassium Level 5.3H, Chloride Level 102, Carbon Dioxide Level 17L, Anion Gap 19H, Blood Urea Nitrogen 71H, Creatinine 3.7H, Estimat Glomerular Filtration Rate 12.6, Glucose Level 274#H, Hemoglobin A1c 8.6H, Uric Acid 9.9H, Calcium Level 9.2, Phosphorus Level 4.2, Magnesium Level 2.0, Total Bilirubin 1.0, Gamma Glutamyl Transpeptidase 44H, Aspartate Amino Transf (AST/SGOT) 13, Alanine Aminotransferase (ALT/SGPT) 19, Alkaline Phosphatase 103, Total Creatine Kinase 71, C-Reactive Protein, Quantitative 1.1H , Pro-B-Type Natriuretic Peptide 4186H, Total Protein 6.7, Albumin 3.4L, Globulin 3.3, Albumin/Globulin Ratio 1.0, Triglycerides Level 101, Cholesterol Level 109, LDL Cholesterol 49L, HDL Cholesterol 40, Cholesterol/HDL Ratio 2.7L, Folate [Pending], Thyroid Stimulating Hormone (TSH) 1.840 Current Medications Medications (Trade) Dose Ordered Sig/Ifeanyi Route PRN Reason Start Time Stop Time Status Last Admin Dose Admin Acetaminophen (Tylenol) 650 mg Q4H PRN ORAL T>100.5 03/10/17 10:15 04/09/17 10:14 Albuterol/ Ipratropium (DuoNeb 0.5-3(2.5)mg/3ml) 3 ml Q4H PRN HHN Shortness of Breath 03/10/17 10:15 03/15/17 10:14 Aspirin (Ecotrin) 81 mg DAILY ORAL 03/11/17 09:00 04/10/17 08:59 03/11/17 08:57 Atorvastatin Calcium (Lipitor) 40 mg BEDTIME ORAL 03/10/17 21:00 04/09/17 20:59 03/10/17 20:27 Carvedilol (Coreg) 6.25 mg EVERY 12 HOURS ORAL 03/10/17 21:00 04/09/17 20:59 03/11/17 08:58 Cefepime HCl/ Dextrose (Maxipime/D5W) 55 ml @ 110 mls/hr Q24H IVPB 03/10/17 12:00 03/17/17 11:59 03/10/17 12:16 Dextrose STAT PRN IV Hypoglycemia 03/10/17 10:15 04/09/17 10:14 Heparin Sodium (Porcine) (Heparin 5000 units/ml) 5,000 units EVERY 12 HOURS SUBQ 03/10/17 21:00 04/09/17 20:59 03/10/17 20:31 Hydralazine HCl (Apresoline) 100 mg Q8HR ORAL 03/10/17 14:00 04/09/17 13:59 03/11/17 06:05 Insulin Aspart BEFORE MEALS AND HS SUBQ 03/10/17 12:00 04/09/17 11:59 03/11/17 06:03 Morphine Sulfate (Morphine Sulfate) 4 mg Q4H PRN IVP SEVERE PAIN 03/10/17 21:15 03/17/17 21:14 03/11/17 03:25 Nateglinide (Starlix) 60 mg TIAC ORAL 03/10/17 16:30 04/09/17 16:29 03/11/17 06:01 Ondansetron HCl (Zofran) 4 mg Q6H PRN IVP Nausea & Vomiting 03/10/17 10:15 04/09/17 10:14 03/11/17 03:24 Pantoprazole (Protonix) 40 mg EVERY 12 HOURS ORAL 03/10/17 21:00 04/09/17 20:59 03/11/17 08:58 Polyethylene Glycol (Miralax) 17 gm DAILYPRN PRN ORAL Constipation 03/10/17 10:15 04/09/17 10:14 Sodium Chloride (Sodium Chloride 1000ml bag) 1,000 ml @ 75 mls/hr [id number] IVLG 03/10/17 13:00 04/09/17 12:59 03/11/17 03:01 Temazepam (Restoril) 15 mg HSPRN PRN ORAL Insomnia 03/10/17 21:00 03/17/17 20:59 JEAN CLAUDE SUTTON Mar 11, 2017 11:29
--- NOTE | 2017-03-11 11:51 | Infectious Diseases Prog Note ---
Assessment/Plan Assessment/Plan A: The patient is a 56-year-old female UTI Pyelonephritis SP right lower abdomen and groin area Right ureteral stone and mild hydronephrosis Hx of cataract surgery History of CVA HLD HTN Gastroesophageal reflux disease. History of x2. History of chronic kidney disease. DM Anemia PLAN: continue the patient on cefepime d# 2 Monitor CBC. Monitor BMP. Monitor urine culture. Urology is following Subjective Allergies: Coded Allergies: BENAZEPRIL (Verified Allergy, Intermediate, Shortness of Breath, 07/01/14) FUROSEMIDE (Unverified Allergy, Intermediate, Rash, 11/18/16) Per Kyleigh Berrios ASSOCIATE CHIEF NURSE, Pt does not have allegy to Lasix and able to start Lasxi tx. NIFEDIPINE (Verified Allergy, Intermediate, Shortness of Breath, 06/28/14) NITROGLYCERIN (Verified Allergy, Intermediate, Shortness of Breath, 06/28/14 ) SOB and BLE swelling Subjective no new complain Objective Vital Signs Last 24 Hour Vital Signs Date Time Temp Pulse Resp B/P Pulse Ox O2 Delivery O2 Flow Rate FiO2 03/11/17 08:58 65 142/68 03/11/17 08:00 97.5 65 20 142/68 95 Nasal Cannula 2.0 03/11/17 08:00 63 03/11/17 07:26 Nasal Cannula 2.0 28 03/11/17 07:26 98 Nasal Cannula 2.0 28 03/11/17 07:26 64 16 Nasal Cannula 03/11/17 06:05 152/66 03/11/17 04:00 97.8 61 20 144/77 96 Room Air 03/11/17 03:55 97.7 03/11/17 03:21 67 03/11/17 03:13 32 03/11/17 00:00 97.7 61 20 104/75 97 Room Air 03/11/17 00:00 58 03/10/17 21:25 166/65 03/10/17 20:28 79 152/65 03/10/17 20:27 79 152/65 03/10/17 20:00 97.6 84 20 159/88 97 Room Air 03/10/17 19:10 79 16 Room Air 03/10/17 19:00 78 03/10/17 17:51 98.7 03/10/17 16:00 80 03/10/17 16:00 97.9 79 20 152/65 94 Room Air 03/10/17 14:33 178/72 03/10/17 12:00 80 03/10/17 12:00 97.4 80 20 178/72 97 Room Air Height (Feet): 5 Height (Inches): 3.00 Weight (Pounds): 300 HEENT: anicteric Respiratory/Chest: normal breath sounds Cardiovascular: regular rhythm Abdomen: no organomegaly Microbiology Date/Time Source Procedure Growth Status 03/10/17 06:10 Urine,Clean Catch Urine Culture - Preliminary Gram Positive Cocci Resulted Laboratory Tests Test 03/10/17 19:20 03/11/17 03:00 03/11/17 03:40 Urine Random Sodium 36 mmol/L Urine Eosinophils None seen White Blood Count 11.6 K/UL (4.8-10.8) H Red Blood Count 2.81 M/UL (4.20-5.40) L Hemoglobin 7.0 G/DL (12.0-16.0) L Hematocrit 23.2 % (37.0-47.0) L Mean Corpuscular Volume 83 FL (80-99) Mean Corpuscular Hemoglobin 25.1 PG (27.0-31.0) L Mean Corpuscular Hemoglobin Concent 30.3 G/DL (32.0-36.0) L Red Cell Distribution Width 16.8 % (11.6-14.8) H Platelet Count 222 K/UL (150-450) Mean Platelet Volume 7.6 FL (6.5-10.1) Neutrophils (%) (Auto) % (45.0-75.0) Lymphocytes (%) (Auto) % (20.0-45.0) Monocytes (%) (Auto) % (1.0-10.0) Eosinophils (%) (Auto) % (0.0-3.0) Basophils (%) (Auto) % (0.0-2.0) Differential Total Cells Counted 100 Neutrophils % (Manual) 80 % (45-75) H Lymphocytes % (Manual) 16 % (20-45) L Monocytes % (Manual) 1 % (1-10) Eosinophils % (Manual) 1 % (0-3) Basophils % (Manual) 2 % (0-2) Band Neutrophils 0 % (0-8) Platelet Estimate Adequate Platelet Morphology Normal Hypochromasia 3+ Poikilocytosis 2+ Anisocytosis 1+ Sodium Level 138 mEQ/L (135-145) Potassium Level 5.3 mEQ/L (3.4-4.9) H Chloride Level 102 mEQ/L (98-107) Carbon Dioxide Level 17 mEQ/L (20-30) L Anion Gap 19 (5-15) H Blood Urea Nitrogen 71 mg/dL (7-23) H Creatinine 3.7 mg/dL (0.5-0.9) H Estimat Glomerular Filtration Rate 12.6 mL/min (>60) Glucose Level 274 mg/dL (74-106) #H Hemoglobin A1c 8.6 % (< 6.0) H Uric Acid 9.9 mg/dL (3.0-7.5) H Calcium Level 9.2 mg/dL (8.6-10.2) Phosphorus Level 4.2 mg/dL (2.5-4.8) Magnesium Level 2.0 mg/dL (1.7-2.5) Total Bilirubin 1.0 mg/dL (0.0-1.2) Gamma Glutamyl Transpeptidase 44 U/L (5-36) H Aspartate Amino Transf (AST/SGOT) 13 U/L (5-40) Alanine Aminotransferase (ALT/SGPT) 19 U/L (3-33) Alkaline Phosphatase 103 U/L (35-104) Total Creatine Kinase 71 U/L (26-140) C-Reactive Protein, Quantitative 1.1 mg/dL (< 0.5) H Pro-B-Type Natriuretic Peptide 4186 pg/mL (0-125) H Total Protein 6.7 g/dL (6.6-8.7) Albumin 3.4 g/dL (3.5-5.2) L Globulin 3.3 g/dL Albumin/Globulin Ratio 1.0 (1.0-2.7) Triglycerides Level 101 mg/dL (< 150) Cholesterol Level 109 mg/dL (< 200) LDL Cholesterol 49 mg/dL (60-99) L HDL Cholesterol 40 mg/dL (> 60) Cholesterol/HDL Ratio 2.7 (3.3-4.4) L Folate Pending Thyroid Stimulating Hormone (TSH) 1.840 uIU/mL (0.300-4.500) Current Medications Medications (Trade) Dose Ordered Sig/Ifeanyi Route PRN Reason Start Time Stop Time Status Last Admin Dose Admin Acetaminophen (Tylenol) 650 mg Q4H PRN ORAL T>100.5 03/10/17 10:15 04/09/17 10:14 Albuterol/ Ipratropium (DuoNeb 0.5-3(2.5)mg/3ml) 3 ml Q4H PRN HHN Shortness of Breath 03/10/17 10:15 03/15/17 10:14 Aspirin (Ecotrin) 81 mg DAILY ORAL 03/11/17 09:00 04/10/17 08:59 03/11/17 08:57 Atorvastatin Calcium (Lipitor) 40 mg BEDTIME ORAL 03/10/17 21:00 04/09/17 20:59 03/10/17 20:27 Carvedilol (Coreg) 6.25 mg EVERY 12 HOURS ORAL 03/10/17 21:00 04/09/17 20:59 03/11/17 08:58 Cefepime HCl/ Dextrose (Maxipime/D5W) 55 ml @ 110 mls/hr Q24H IVPB 03/10/17 12:00 03/17/17 11:59 03/10/17 12:16 Dextrose STAT PRN IV Hypoglycemia 03/10/17 10:15 04/09/17 10:14 Heparin Sodium (Porcine) (Heparin 5000 units/ml) 5,000 units EVERY 12 HOURS SUBQ 03/10/17 21:00 04/09/17 20:59 03/10/17 20:31 Hydralazine HCl (Apresoline) 100 mg Q8HR ORAL 03/10/17 14:00 04/09/17 13:59 03/11/17 06:05 Insulin Aspart BEFORE MEALS AND HS SUBQ 03/10/17 12:00 04/09/17 11:59 03/11/17 06:03 Morphine Sulfate (Morphine Sulfate) 4 mg Q4H PRN IVP SEVERE PAIN 03/10/17 21:15 03/17/17 21:14 03/11/17 03:25 Nateglinide (Starlix) 60 mg TIAC ORAL 03/10/17 16:30 04/09/17 16:29 03/11/17 06:01 Ondansetron HCl (Zofran) 4 mg Q6H PRN IVP Nausea & Vomiting 03/10/17 10:15 04/09/17 10:14 03/11/17 03:24 Pantoprazole (Protonix) 40 mg EVERY 12 HOURS ORAL 03/10/17 21:00 04/09/17 20:59 03/11/17 08:58 Polyethylene Glycol (Miralax) 17 gm DAILYPRN PRN ORAL Constipation 03/10/17 10:15 04/09/17 10:14 Sodium Chloride (Sodium Chloride 1000ml bag) 1,000 ml @ 75 mls/hr [id number] IVLG 03/10/17 13:00 04/09/17 12:59 03/11/17 03:01 Temazepam (Restoril) 15 mg HSPRN PRN ORAL Insomnia 03/10/17 21:00 03/17/17 20:59 NICOLE OH M.D. Mar 11, 2017 11:51
[2017-03-11 12:00] VITALS: BP 163/78
[2017-03-11] MEDS: Cefepime 1gm/D5W 55ml IVPB SCH ×2 (12:01)
--- NOTE | 2017-03-11 12:16 | Cardiology Progress Note ---
Assessment/Plan Assessment/Plan diastolic heart failure brenna related meds now resolved renal fialure progresive htn abd pain vomittign watch bp needs diuretics if ok with renal [id number] Objective Last 24 Hour Vital Signs Date Time Temp Pulse Resp B/P Pulse Ox O2 Delivery O2 Flow Rate FiO2 03/11/17 08:58 65 142/68 03/11/17 08:00 97.5 65 20 142/68 95 Nasal Cannula 2.0 03/11/17 08:00 63 03/11/17 07:26 Nasal Cannula 2.0 28 03/11/17 07:26 98 Nasal Cannula 2.0 28 03/11/17 07:26 64 16 Nasal Cannula 03/11/17 06:05 152/66 03/11/17 04:00 97.8 61 20 144/77 96 Room Air 03/11/17 03:55 97.7 03/11/17 03:21 67 03/11/17 03:13 32 03/11/17 00:00 97.7 61 20 104/75 97 Room Air 03/11/17 00:00 58 03/10/17 21:25 166/65 03/10/17 20:28 79 152/65 03/10/17 20:27 79 152/65 03/10/17 20:00 97.6 84 20 159/88 97 Room Air 03/10/17 19:10 79 16 Room Air 03/10/17 19:00 78 03/10/17 17:51 98.7 03/10/17 16:00 80 03/10/17 16:00 97.9 79 20 152/65 94 Room Air 03/10/17 14:33 178/72 Intake and Output 03/10/17 03/11/17 19:00 07:00 Intake Total 1288 ml 1225 ml Balance 1288 ml 1225 ml Intake Oral 990 ml 400 ml IV Total 298 ml 825 ml # Voids 2 4 # Bowel Movements 1 Laboratory Tests Test 03/10/17 19:20 03/11/17 03:00 03/11/17 03:40 Urine Random Sodium 36 mmol/L Urine Eosinophils None seen White Blood Count 11.6 K/UL (4.8-10.8) H Red Blood Count 2.81 M/UL (4.20-5.40) L Hemoglobin 7.0 G/DL (12.0-16.0) L Hematocrit 23.2 % (37.0-47.0) L Mean Corpuscular Volume 83 FL (80-99) Mean Corpuscular Hemoglobin 25.1 PG (27.0-31.0) L Mean Corpuscular Hemoglobin Concent 30.3 G/DL (32.0-36.0) L Red Cell Distribution Width 16.8 % (11.6-14.8) H Platelet Count 222 K/UL (150-450) Mean Platelet Volume 7.6 FL (6.5-10.1) Neutrophils (%) (Auto) % (45.0-75.0) Lymphocytes (%) (Auto) % (20.0-45.0) Monocytes (%) (Auto) % (1.0-10.0) Eosinophils (%) (Auto) % (0.0-3.0) Basophils (%) (Auto) % (0.0-2.0) Differential Total Cells Counted 100 Neutrophils % (Manual) 80 % (45-75) H Lymphocytes % (Manual) 16 % (20-45) L Monocytes % (Manual) 1 % (1-10) Eosinophils % (Manual) 1 % (0-3) Basophils % (Manual) 2 % (0-2) Band Neutrophils 0 % (0-8) Platelet Estimate Adequate Platelet Morphology Normal Hypochromasia 3+ Poikilocytosis 2+ Anisocytosis 1+ Sodium Level 138 mEQ/L (135-145) Potassium Level 5.3 mEQ/L (3.4-4.9) H Chloride Level 102 mEQ/L (98-107) Carbon Dioxide Level 17 mEQ/L (20-30) L Anion Gap 19 (5-15) H Blood Urea Nitrogen 71 mg/dL (7-23) H Creatinine 3.7 mg/dL (0.5-0.9) H Estimat Glomerular Filtration Rate 12.6 mL/min (>60) Glucose Level 274 mg/dL (74-106) #H Hemoglobin A1c 8.6 % (< 6.0) H Uric Acid 9.9 mg/dL (3.0-7.5) H Calcium Level 9.2 mg/dL (8.6-10.2) Phosphorus Level 4.2 mg/dL (2.5-4.8) Magnesium Level 2.0 mg/dL (1.7-2.5) Total Bilirubin 1.0 mg/dL (0.0-1.2) Gamma Glutamyl Transpeptidase 44 U/L (5-36) H Aspartate Amino Transf (AST/SGOT) 13 U/L (5-40) Alanine Aminotransferase (ALT/SGPT) 19 U/L (3-33) Alkaline Phosphatase 103 U/L (35-104) Total Creatine Kinase 71 U/L (26-140) C-Reactive Protein, Quantitative 1.1 mg/dL (< 0.5) H Pro-B-Type Natriuretic Peptide 4186 pg/mL (0-125) H Total Protein 6.7 g/dL (6.6-8.7) Albumin 3.4 g/dL (3.5-5.2) L Globulin 3.3 g/dL Albumin/Globulin Ratio 1.0 (1.0-2.7) Triglycerides Level 101 mg/dL (< 150) Cholesterol Level 109 mg/dL (< 200) LDL Cholesterol 49 mg/dL (60-99) L HDL Cholesterol 40 mg/dL (> 60) Cholesterol/HDL Ratio 2.7 (3.3-4.4) L Folate Pending Thyroid Stimulating Hormone (TSH) 1.840 uIU/mL (0.300-4.500) Microbiology Date/Time Source Procedure Growth Status 03/10/17 06:10 Urine,Clean Catch Urine Culture - Preliminary Gram Positive Cocci Resulted JESSICA ACUNA Mar 11, 2017 12:16
--- NOTE | 2017-03-11 12:33 | General Progress Note ---
Assessment/Plan Status: deteriorating Status Narrative Cr higher- refused cohen Assessment/Plan status: Acute renal failure- HyperKalemia ? Underlying CKD due to DM and HTN Anemia: Etiology? Low Iron Ureteropelvic junction calculus Atrial arrhythmia UTI Plan: Cohen again- discussed with patient [facility] kidney- 2 D echo Ej Fx 60% Slow Hydrate IV Iron EPO SQ gastric support- Avoid Nephrotoxics monitor renal parameters Adjust BP meds- per orders Subjective ROS Limited/Unobtainable: No Constitutional: Reports: malaise Allergies: Coded Allergies: BENAZEPRIL (Verified Allergy, Intermediate, Shortness of Breath, 07/01/14) FUROSEMIDE (Unverified Allergy, Intermediate, Rash, 11/18/16) Per Kyleigh Berrios ASSEMBLING INSPECTOR, Pt does not have allegy to Lasix and able to start Lasxi tx. NIFEDIPINE (Verified Allergy, Intermediate, Shortness of Breath, 06/28/14) NITROGLYCERIN (Verified Allergy, Intermediate, Shortness of Breath, 06/28/14 ) SOB and BLE swelling Objective Last 24 Hour Vital Signs Date Time Temp Pulse Resp B/P Pulse Ox O2 Delivery O2 Flow Rate FiO2 03/11/17 08:58 65 142/68 03/11/17 08:00 97.5 65 20 142/68 95 Nasal Cannula 2.0 03/11/17 08:00 63 03/11/17 07:26 Nasal Cannula 2.0 28 03/11/17 07:26 98 Nasal Cannula 2.0 28 03/11/17 07:26 64 16 Nasal Cannula 03/11/17 06:05 152/66 03/11/17 04:00 97.8 61 20 144/77 96 Room Air 03/11/17 03:55 97.7 03/11/17 03:21 67 03/11/17 03:13 32 03/11/17 00:00 97.7 61 20 104/75 97 Room Air 03/11/17 00:00 58 03/10/17 21:25 166/65 03/10/17 20:28 79 152/65 03/10/17 20:27 79 152/65 03/10/17 20:00 97.6 84 20 159/88 97 Room Air 03/10/17 19:10 79 16 Room Air 03/10/17 19:00 78 03/10/17 17:51 98.7 03/10/17 16:00 80 03/10/17 16:00 97.9 79 20 152/65 94 Room Air 03/10/17 14:33 178/72 Intake and Output 03/10/17 03/11/17 19:00 07:00 Intake Total 1288 ml 1225 ml Balance 1288 ml 1225 ml Intake Oral 990 ml 400 ml IV Total 298 ml 825 ml # Voids 2 4 # Bowel Movements 1 Laboratory Tests 03/10/17 19:20: Urine Random Sodium 36 03/11/17 03:00: Urine Eosinophils None seen 03/11/17 03:40: White Blood Count 11.6H, Red Blood Count 2.81L, Hemoglobin 7.0L, Hematocrit 23.2L, Mean Corpuscular Volume 83, Mean Corpuscular Hemoglobin 25.1L, Mean Corpuscular Hemoglobin Concent 30.3L, Red Cell Distribution Width 16.8H, Platelet Count 222, Mean Platelet Volume 7.6, Neutrophils (%) (Auto) , Lymphocytes (%) (Auto) , Monocytes (%) (Auto) , Eosinophils (%) (Auto) , Basophils (%) (Auto) , Differential Total Cells Counted 100, Neutrophils % ( Manual) 80H, Lymphocytes % (Manual) 16L, Monocytes % (Manual) 1, Eosinophils % ( Manual) 1, Basophils % (Manual) 2, Band Neutrophils 0, Platelet Estimate Adequate, Platelet Morphology Normal, Hypochromasia 3+, Poikilocytosis 2+, Anisocytosis 1+, Sodium Level 138, Potassium Level 5.3H, Chloride Level 102, Carbon Dioxide Level 17L, Anion Gap 19H, Blood Urea Nitrogen 71H, Creatinine 3.7H, Estimat Glomerular Filtration Rate 12.6, Glucose Level 274#H, Hemoglobin A1c 8.6H, Uric Acid 9.9H, Calcium Level 9.2, Phosphorus Level 4.2, Magnesium Level 2.0, Total Bilirubin 1.0, Gamma Glutamyl Transpeptidase 44H, Aspartate Amino Transf (AST/SGOT) 13, Alanine Aminotransferase (ALT/SGPT) 19, Alkaline Phosphatase 103, Total Creatine Kinase 71, C-Reactive Protein, Quantitative 1.1H , Pro-B-Type Natriuretic Peptide 4186H, Total Protein 6.7, Albumin 3.4L, Globulin 3.3, Albumin/Globulin Ratio 1.0, Triglycerides Level 101, Cholesterol Level 109, LDL Cholesterol 49L, HDL Cholesterol 40, Cholesterol/HDL Ratio 2.7L, Folate [Pending], Thyroid Stimulating Hormone (TSH) 1.840 Height (Feet): 5 Height (Inches): 3.00 Weight (Pounds): 300 General Appearance: no apparent distress, lethargic Cardiovascular: normal rate Respiratory/Chest: decreased breath sounds Abdomen: distended, other - obese ALE LOBATO Mar 11, 2017 12:33
[2017-03-11] MEDS ORDERED: Sodium Polystyrene Sulfonate 15gm Powder ORAL ONE (13:00)
[2017-03-11 16:00] VITALS: BP 131/60
--- NOTE | 2017-03-11 17:37 | Consultation ---
DATE OF CONSULTATION: 03/11/2017 CARDIOLOGY CONSULTATION CONSULTING PHYSICIAN: José Manuel Lemos M.D. REFERRING PHYSICIAN: Mirela Medina M.D. REASON FOR REFERRAL: Bradycardia. HISTORY OF PRESENT ILLNESS: This is an elderly [place] female, who speaks French. The patient presented to the hospital because of right-sided abdominal pain, nausea, vomiting, and elevated blood pressure for the past two days. She has noticed increasing shortness of breath for the past two weeks as well. She uses two pillows for help with breathing issues. There is no PND. She has dyspnea on exertion. There is no chest pain or pressure or discomfort on exertion. No palpitation and no dizziness or lightheadedness on standing. PAST MEDICAL HISTORY: Extensive and includes history of diabetes mellitus and high blood pressure. She has had a history of three prior strokes. No cancer. No hepatitis or tuberculosis. No asthma or emphysema. No ulcers. She does have some kidney dysfunction and liver problems. No thyroid problems. She has had anemia before. Her chart indicates that she has had a history of bradycardia previously as well as hyperlipidemia as well as gastroesophageal reflux disease. She has chronic kidney disease as well. She has had history of cataract extraction on prior occasions. She has been treated for congestive heart failure with normal left ventricular systolic function. The patient has had renal insufficiency and hypertensive urgency as well on prior occasions. The patient does not smoke. Does not drink. She lives at home with her daughter. ALLERGIES: She is allergic to several medications including benazepril, Lasix, nifedipine, and nitroglycerin as listed here in the chart. She has previously been bradycardic in relationship with the combination of labetalol as well as clonidine and one of them was discontinued previously. SOCIAL HISTORY: She does not smoke. Does not drink alcoholic beverages and never did. REVIEW OF SYSTEMS: Gastrointestinal: As mentioned with the right-sided abdominal pain, nausea, and vomiting. No diarrhea. No bloody stools or black tarry stools. Genitourinary: Negative. Pulmonary: Negative. Constitutional: Negative, although she feels cold all the time. Neurologic: Negative. Musculoskeletal: Negative. PHYSICAL EXAMINATION: GENERAL: Shows to be elderly female in no apparent respiratory distress, sean cheeks bilaterally. NECK: Supple. No jugular venous distention is noted. LUNGS: Crackles noted bilaterally. CARDIAC: Regular rate and rhythm. Systolic ejection murmur is noted. There is no RV lift, heaves, or thrills noted. ABDOMEN: Soft and nontender. Positive bowel sounds. Obese. EXTREMITIES: There is no clubbing or cyanosis. However, there is significant edema of the lower extremities including pitting and nonpitting edema bilaterally. NEUROLOGIC: She is awake, alert, responsive, and in no apparent respiratory distress. LABORATORY DATA: Laboratory values with a white count of 11.2 with hemoglobin of 7 and a platelet count of 222,000. Sodium 138, potassium 5.3, chloride 102, bicarbonate of 19, BUN 71, creatinine 3.7, glucose of 278, A1c of 8.6, uric acid 9.9, GGTP of 41, proBNP is only 4100, she has been as low as 700 and as high as 4200 in this hospitalization. Her potassium was elevated yesterday. It has been elevated on several occasions prior to yesterday with levels in the 6s, but today is down to 5.3. Creatinine 3.7 is one of the highest that she has had before. She has had a previous level in the 2.8 range. Coags, INR 2.4 and a PTT of 36. Her urinalysis is 10 to 15 WBCs and RBCs. Sodium of . EKG shows normal sinus rhythm with right-freeman axis. No significant ST-T wave abnormalities. She does have some premature ventricular complexes. Her last chest x-ray actually from yesterday shows no acute processes. She did have a CT scan of her chest, abdomen, and pelvis, ground-glass opacities throughout the lung friedman with a small bilateral pleural effusions, enlarged heart, no focal consolidation, trace pericardial effusion, calculus in the right ureter above the gallbladder junction, mild right hydronephrosis, and mild edema of the bilateral flank and lumbar regions. ASSESSMENT: 1. Diastolic heart failure. 2. Morbid obesity. 3. Renal insufficiency. 4. Anemia. 5. Medication-induced bradycardia. 6. Abdominal pain and vomiting. PLAN: Dr. Medina, this patient was seen in cardiac consultation. The patient had been given some labetalol and that is likely the cause of the bradycardia that she sustained earlier today. Although her telemetry data was reviewed, no evidence of further bradycardia has been noted. Her blood pressure is adequately controlled at the present time, although she may have had some medication on as-needed basis. It appears that the combination of Coreg of 6.25 mg and hydralazine 100 mg q.8 hours may be effective. She had been on labetalol earlier, but that was discontinued. She may need addition of amlodipine and certainly, she may require diureses, however, I am concerned about her renal dysfunction that seems to be deteriorating and hyperkalemia as well as mild degree of acidosis that is ensuing and therefore has to temper the diuretic dosing unless she shows signs of shortness of breath at rest and at that point, she may need to be considered for other types of treatment for getting rid of excess fluids and that would be discussed with Dr. Hurtado, who is seeing the patient in Nephrology consultation. Dr. Medina, thank you for allowing me to participate in the care of this patient. José Manuel Lemos M.D. DR: KOKI JOB#: [id number] CC:
[2017-03-11 20:00] VITALS: BP 154/60
[2017-03-11] MEDS: Carvedilol 12.5mg tab ORAL SCH (20:42)
[2017-03-12] VITALS: BP 154/69
[2017-03-12 04:00] VITALS: BP 148/62
[2017-03-12] MEDS: Morphine Sulfate 4mg/ml Inj IVP PRN (04:27)
[2017-03-12] MEDS: HydrALAZINE 50mg tab ORAL SCH ×3 (05:45→22:59)
[2017-03-12] MEDS: Nateglinide 60mg tab ORAL SCH ×3 (05:46→17:18)
[2017-03-12] MEDS: NovoLOG Insulin Flexpen SUBQ SCH ×4 (05:46→22:58)
[2017-03-12 08:00] VITALS: BP 147/66
[2017-03-12] MEDS: Aspirin EC 81mg tab ORAL SCH (09:15)
[2017-03-12] MEDS: Carvedilol 12.5mg tab ORAL SCH ×2 (09:16→20:54)
[2017-03-12] MEDS: Heparin 5000 units/ml inj SUBQ SCH ×2 (09:19→20:57)
[2017-03-12 09:38] LABS: BASOPHILS % (AUTO) 0.7 % (0.0-2.0); EOSINOPHILS % (AUTO) 1.3 % (0.0-3.0); LYMPHOCYTES % (AUTO) 10.1 % (20.0-45.0); MEAN CORPUSCULAR HEMOGLOBIN 25.2 PG (27.0-31.0); MEAN CORPUSCULAR HGB CONC 30.3 G/DL (32.0-36.0); MEAN CORPUSCULAR VOLUME 83 FL (80-99); MEAN PLATELET VOLUME 7.7 FL (6.5-10.1); MONOCYTES % (AUTO) 6.9 % (1.0-10.0); PLATELET COUNT 212 K/UL (150-450); RED BLOOD COUNT 3.29 M/UL (4.20-5.40); RED CELL DISTRIBUTION WIDTH 16.5 % (11.6-14.8); WHITE BLOOD COUNT 13.1 K/UL (4.8-10.8)
[2017-03-12] MEDS ORDERED: Tubing Blood Filter IV ONE (09:50)
[2017-03-12] MEDS ORDERED: NS 275ml ONE (09:50)
[2017-03-12 09:56] LABS: ALBUMIN/GLOBULIN RATIO 0.9 (1.0-2.7); CALCIUM 9.1 mg/dL (8.6-10.2); CREATININE 4.3 mg/dL (0.5-0.9); CRP QUANT 3.8 mg/dL (< 0.5); GLOMERULAR FILTRATION RATE 10.6 mL/min (>60); PHOSPHORUS 4.8 mg/dL (2.5-4.8); POTASSIUM 4.8 mEQ/L (3.4-4.9); URIC ACID 9.8 mg/dL (3.0-7.5)
[2017-03-12 10:17] LABS: BILIRUBIN,DIRECT 0.2 mg/dL (0.1-0.3)
--- NOTE | 2017-03-12 10:47 | Pulmonology Progress Note ---
Assessment/Plan Problems: (1) Renal failure (2) Hyperkalemia (3) HTN (hypertension) (4) Diabetes (5) Peripheral edema Assessment/Plan pt agreed with Velasquez renal function worsening all consultants note reviewed and appreciated titrate cardiac meds f/u renal parameters f/u Urology recommendations Subjective ROS Limited/Unobtainable: No Constitutional: Reports: no symptoms HEENT: Repors: no symptoms Respiratory: Reports: no symptoms Allergies: Coded Allergies: BENAZEPRIL (Verified Allergy, Intermediate, Shortness of Breath, 07/01/14) FUROSEMIDE (Unverified Allergy, Intermediate, Rash, 11/18/16) Per Kyleigh Berrios ACOUSTICAL ENGINEER, Pt does not have allegy to Lasix and able to start Lasxi tx. NIFEDIPINE (Verified Allergy, Intermediate, Shortness of Breath, 06/28/14) NITROGLYCERIN (Verified Allergy, Intermediate, Shortness of Breath, 06/28/14 ) SOB and BLE swelling Objective Last 24 Hour Vital Signs Date Time Temp Pulse Resp B/P Pulse Ox O2 Delivery O2 Flow Rate FiO2 03/12/17 09:16 70 147/60 03/12/17 09:00 71 03/12/17 08:00 97.7 70 18 147/66 97 Room Air 03/12/17 06:59 Nasal Cannula 2.0 28 03/12/17 06:59 77 16 Nasal Cannula 2.0 28 03/12/17 06:59 98 Nasal Cannula 2.0 28 03/12/17 05:45 148/62 03/12/17 04:57 98.4 03/12/17 04:00 71 03/12/17 04:00 98.1 70 16 148/62 98 Nasal Cannula 2.0 28 03/12/17 00:00 97.7 69 16 154/69 98 Nasal Cannula 2.0 28 03/12/17 00:00 66 03/11/17 20:42 82 145/60 03/11/17 20:41 136/63 03/11/17 20:00 62 03/11/17 20:00 98.2 75 16 154/60 98 Nasal Cannula 2.0 28 03/11/17 18:59 Nasal Cannula 2.0 28 03/11/17 18:58 98 Nasal Cannula 2.0 28 03/11/17 18:58 74 16 Nasal Cannula 4/18/17 16:00 56 03/11/17 16:00 98.2 60 18 131/60 98 Nasal Cannula 2.0 03/11/17 14:06 133/55 03/11/17 12:00 97.0 66 21 163/78 98 Nasal Cannula 2.0 03/11/17 12:00 61 Intake and Output 03/11/17 03/12/17 19:00 07:00 Intake Total 1883 ml 600 ml Output Total 251 ml Balance 1883 ml 349 ml Intake Oral 940 ml IV Total 693 ml 600 ml Blood Product 250 ml Output Urine Total 250 ml Emesis 1 ml # Voids 1 3 General Appearance: WD/WN HEENT: normocephalic Respiratory/Chest: chest wall non-tender Cardiovascular: normal peripheral pulses, normal rate Abdomen: normal bowel sounds, soft, non tender Extremities: no cyanosis, no clubbing Skin: no rash Microbiology Date/Time Source Procedure Growth Status 03/10/17 06:10 Urine,Clean Catch Urine Culture - Final Strep Agalactiae Group B Mixed Gram Positive Organism Complete Laboratory Tests 03/12/17 08:45: White Blood Count 13.1H, Red Blood Count 3.29L, Hemoglobin 8.3L, Hematocrit 27.3L, Mean Corpuscular Volume 83, Mean Corpuscular Hemoglobin 25.2L, Mean Corpuscular Hemoglobin Concent 30.3L, Red Cell Distribution Width 16.5H, Platelet Count 212, Mean Platelet Volume 7.7, Neutrophils (%) (Auto) 81.0H, Lymphocytes (%) (Auto) 10.1L, Monocytes (%) (Auto) 6.9, Eosinophils (%) (Auto) 1.3, Basophils (%) (Auto) 0.7, Sodium Level 140, Potassium Level 4.8, Chloride Level 103, Carbon Dioxide Level 18L, Anion Gap 19H, Blood Urea Nitrogen 69H, Creatinine 4.3H, Estimat Glomerular Filtration Rate 10.6, Glucose Level 213H, Uric Acid 9.8H, Calcium Level 9.1, Phosphorus Level 4.8, Total Bilirubin 1.2, Direct Bilirubin 0.2, Aspartate Amino Transf (AST/SGOT) 8, Alanine Aminotransferase (ALT/SGPT) 14, Alkaline Phosphatase 96, C-Reactive Protein, Quantitative 3.8H, Pro-B-Type Natriuretic Peptide 2842H, Total Protein 7.0, Albumin 3.4L, Globulin 3.6, Albumin/Globulin Ratio 0.9L, Carcinoembryonic Antigen 2.1, Folate [Pending] Current Medications Medications (Trade) Dose Ordered Sig/Ifeanyi Route PRN Reason Start Time Stop Time Status Last Admin Dose Admin Acetaminophen (Tylenol) 650 mg Q4H PRN ORAL T>100.5 03/10/17 10:15 04/09/17 10:14 Albuterol/ Ipratropium (DuoNeb 0.5-3(2.5)mg/3ml) 3 ml Q4H PRN HHN Shortness of Breath 03/10/17 10:15 03/15/17 10:14 Aspirin (Ecotrin) 81 mg DAILY ORAL 03/11/17 09:00 04/10/17 08:59 03/12/17 09:15 Atorvastatin Calcium (Lipitor) 40 mg BEDTIME ORAL 03/10/17 21:00 04/09/17 20:59 03/11/17 20:41 Carvedilol (Coreg) 12.5 mg EVERY 12 HOURS ORAL 03/11/17 21:00 04/10/17 20:59 03/12/17 09:16 Cefepime HCl/ Dextrose (Maxipime/D5W) 55 ml @ 110 mls/hr Q24H IVPB 03/10/17 12:00 03/17/17 11:59 03/11/17 12:01 Dextrose STAT PRN IV Hypoglycemia 03/10/17 10:15 04/09/17 10:14 Heparin Sodium (Porcine) (Heparin 5000 units/ml) 5,000 units EVERY 12 HOURS SUBQ 03/10/17 21:00 04/09/17 20:59 03/12/17 09:19 Hydralazine HCl (Apresoline) 100 mg Q8HR ORAL 03/10/17 14:00 04/09/17 13:59 03/12/17 05:45 Insulin Aspart BEFORE MEALS AND HS SUBQ 03/10/17 12:00 04/09/17 11:59 03/12/17 05:46 Iron Sucrose 200 mg/Sodium Chloride 120 ml @ 240 mls/hr ONCE ONCE IVPB 03/12/17 21:00 03/12/17 21:29 Iron Sucrose/ Sodium Chloride (Venofer/Sodium Chloride) 60 ml @ 240 mls/hr BEDTIME IVPB 03/13/17 21:00 03/17/17 21:14 Morphine Sulfate 4 mg 4 mg Q4H PRN IVP SEVERE PAIN 03/10/17 21:15 03/17/17 21:14 03/12/17 04:27 Nateglinide (Starlix) 60 mg TIAC ORAL 03/10/17 16:30 04/09/17 16:29 03/12/17 05:46 Ondansetron HCl (Zofran) 4 mg Q6H PRN IVP Nausea & Vomiting 03/10/17 10:15 04/09/17 10:14 03/12/17 10:15 Pantoprazole (Protonix) 40 mg EVERY 12 HOURS ORAL 03/10/17 21:00 04/09/17 20:59 03/12/17 09:17 Polyethylene Glycol (Miralax) 17 gm DAILYPRN PRN ORAL Constipation 03/10/17 10:15 04/09/17 10:14 Sodium Chloride (Sodium Chloride 1000ml bag) 1,000 ml @ 75 mls/hr [id number] IVLG 03/10/17 13:00 04/09/17 12:59 03/12/17 04:19 Temazepam (Restoril) 15 mg HSPRN PRN ORAL Insomnia 03/10/17 21:00 03/17/17 20:59 JEAN CLAUDE SUTTON Mar 12, 2017 10:47
[2017-03-12 12:00] VITALS: BP 150/64
[2017-03-12] MEDS: Cefepime 1gm/D5W 55ml IVPB SCH ×2 (12:33)
--- NOTE | 2017-03-12 15:12 | General Progress Note ---
Assessment/Plan Status: deteriorating - renal function Status Narrative rising Cr Assessment/Plan status: Acute renal failure- HyperKalemia ? Underlying CKD due to DM and HTN Anemia: Etiology? Low Iron Ureteropelvic junction calculus Atrial arrhythmia UTI Plan: Velasquez in [facility] kidney- Mild right hydronephrosis, presumably from proximal right ureteral stone described on CT scan performed earlier the same day 2 D echo Ej Fx 60% Slow Hydrate IV Iron EPO SQ gastric support- Avoid Nephrotoxics monitor renal parameters Adjust BP meds- per orders Subjective ROS Limited/Unobtainable: No Constitutional: Reports: malaise Allergies: Coded Allergies: BENAZEPRIL (Verified Allergy, Intermediate, Shortness of Breath, 07/01/14) FUROSEMIDE (Unverified Allergy, Intermediate, Rash, 11/18/16) Per Kyleigh Berrios MAIL SORTER AND DELIVERY, Pt does not have allegy to Lasix and able to start Lasxi tx. NIFEDIPINE (Verified Allergy, Intermediate, Shortness of Breath, 06/28/14) NITROGLYCERIN (Verified Allergy, Intermediate, Shortness of Breath, 06/28/14 ) SOB and BLE swelling Objective Last 24 Hour Vital Signs Date Time Temp Pulse Resp B/P Pulse Ox O2 Delivery O2 Flow Rate FiO2 03/12/17 14:40 150/64 03/12/17 12:40 70 03/12/17 12:00 98.1 69 18 150/64 96 Room Air 03/12/17 09:16 70 147/60 03/12/17 09:00 71 03/12/17 08:00 97.7 70 18 147/66 97 Room Air 03/12/17 06:59 Nasal Cannula 2.0 28 03/12/17 06:59 77 16 Nasal Cannula 2.0 28 03/12/17 06:59 98 Nasal Cannula 2.0 28 03/12/17 05:45 148/62 03/12/17 04:57 98.4 03/12/17 04:00 71 03/12/17 04:00 98.1 70 16 148/62 98 Nasal Cannula 2.0 28 03/12/17 00:00 97.7 69 16 154/69 98 Nasal Cannula 2.0 28 03/12/17 00:00 66 03/11/17 20:42 82 145/60 03/11/17 20:41 136/63 03/11/17 20:00 62 03/11/17 20:00 98.2 75 16 154/60 98 Nasal Cannula 2.0 28 03/11/17 18:59 Nasal Cannula 2.0 28 03/11/17 18:58 98 Nasal Cannula 2.0 28 03/11/17 18:58 74 16 Nasal Cannula 03/11/17 16:00 56 03/11/17 16:00 98.2 60 18 131/60 98 Nasal Cannula 2.0 Intake and Output 03/11/17 03/12/17 19:00 07:00 Intake Total 1883 ml 600 ml Output Total 251 ml Balance 1883 ml 349 ml Intake Oral 940 ml IV Total 693 ml 600 ml Blood Product 250 ml Output Urine Total 250 ml Emesis 1 ml # Voids 1 3 Laboratory Tests 03/12/17 08:45: White Blood Count 13.1H, Red Blood Count 3.29L, Hemoglobin 8.3L, Hematocrit 27.3L, Mean Corpuscular Volume 83, Mean Corpuscular Hemoglobin 25.2L, Mean Corpuscular Hemoglobin Concent 30.3L, Red Cell Distribution Width 16.5H, Platelet Count 212, Mean Platelet Volume 7.7, Neutrophils (%) (Auto) 81.0H, Lymphocytes (%) (Auto) 10.1L, Monocytes (%) (Auto) 6.9, Eosinophils (%) (Auto) 1.3, Basophils (%) (Auto) 0.7, Sodium Level 140, Potassium Level 4.8, Chloride Level 103, Carbon Dioxide Level 18L, Anion Gap 19H, Blood Urea Nitrogen 69H, Creatinine 4.3H, Estimat Glomerular Filtration Rate 10.6, Glucose Level 213H, Uric Acid 9.8H, Calcium Level 9.1, Phosphorus Level 4.8, Total Bilirubin 1.2, Direct Bilirubin 0.2, Aspartate Amino Transf (AST/SGOT) 8, Alanine Aminotransferase (ALT/SGPT) 14, Alkaline Phosphatase 96, C-Reactive Protein, Quantitative 3.8H, Pro-B-Type Natriuretic Peptide 2842H, Total Protein 7.0, Albumin 3.4L, Globulin 3.6, Albumin/Globulin Ratio 0.9L, Carcinoembryonic Antigen 2.1, Folate [Pending] Height (Feet): 5 Height (Inches): 3.00 Weight (Pounds): 300 General Appearance: no apparent distress Cardiovascular: normal rate Respiratory/Chest: decreased breath sounds Abdomen: soft, other - obese Objective other PE not changed ALE LOBATO Mar 12, 2017 15:12
[2017-03-12 16:44] VITALS: BP 161/74
--- NOTE | 2017-03-12 16:58 | Infectious Diseases Prog Note ---
Assessment/Plan Assessment/Plan A: The patient is a 56-year-old female UTI Pyelonephritis SP right lower abdomen and groin area Right ureteral stone and mild hydronephrosis Hx of cataract surgery History of CVA HLD HTN Gastroesophageal reflux disease. History of x2. History of chronic kidney disease. DM Anemia PLAN: continue the patient on cefepime d# 3 / 10 Monitor CBC. Monitor BMP. Monitor urine culture. Urology is following Subjective Constitutional: Denies: anorexia, chills, drenching sweats, fatigue, fever, no symptoms, other Allergies: Coded Allergies: BENAZEPRIL (Verified Allergy, Intermediate, Shortness of Breath, 07/01/14) FUROSEMIDE (Unverified Allergy, Intermediate, Rash, 11/18/16) Per Kyleigh Berrios [employer], Pt does not have allegy to Lasix and able to start Lasxi tx. NIFEDIPINE (Verified Allergy, Intermediate, Shortness of Breath, 06/28/14) NITROGLYCERIN (Verified Allergy, Intermediate, Shortness of Breath, 06/28/14 ) SOB and BLE swelling Subjective no new complain Objective Vital Signs Last 24 Hour Vital Signs Date Time Temp Pulse Resp B/P Pulse Ox O2 Delivery O2 Flow Rate FiO2 03/12/17 16:44 97.7 71 20 161/74 98 Nasal Cannula 2.0 03/12/17 14:40 150/64 03/12/17 12:40 70 03/12/17 12:00 98.1 69 18 150/64 96 Room Air 03/12/17 09:16 70 147/60 03/12/17 09:00 71 03/12/17 08:00 97.7 70 18 147/66 97 Room Air 03/12/17 06:59 Nasal Cannula 2.0 28 03/12/17 06:59 77 16 Nasal Cannula 2.0 28 03/12/17 06:59 98 Nasal Cannula 2.0 28 03/12/17 05:45 148/62 03/12/17 04:57 98.4 03/12/17 04:00 71 03/12/17 04:00 98.1 70 16 148/62 98 Nasal Cannula 2.0 28 03/12/17 00:00 97.7 69 16 154/69 98 Nasal Cannula 2.0 28 03/12/17 00:00 66 03/11/17 20:42 82 145/60 03/11/17 20:41 136/63 03/11/17 20:00 62 03/11/17 20:00 98.2 75 16 154/60 98 Nasal Cannula 2.0 28 03/11/17 18:59 Nasal Cannula 2.0 28 03/11/17 18:58 98 Nasal Cannula 2.0 28 03/11/17 18:58 74 16 Nasal Cannula Height (Feet): 5 Height (Inches): 3.00 Weight (Pounds): 300 HEENT: anicteric Respiratory/Chest: no respiratory distress Cardiovascular: regular rhythm Abdomen: no organomegaly Microbiology Date/Time Source Procedure Growth Status 03/10/17 06:10 Urine,Clean Catch Urine Culture - Final Strep Agalactiae Group B Mixed Gram Positive Organism Complete Laboratory Tests Test 03/12/17 08:45 White Blood Count 13.1 K/UL (4.8-10.8) H Red Blood Count 3.29 M/UL (4.20-5.40) L Hemoglobin 8.3 G/DL (12.0-16.0) L Hematocrit 27.3 % (37.0-47.0) L Mean Corpuscular Volume 83 FL (80-99) Mean Corpuscular Hemoglobin 25.2 PG (27.0-31.0) L Mean Corpuscular Hemoglobin Concent 30.3 G/DL (32.0-36.0) L Red Cell Distribution Width 16.5 % (11.6-14.8) H Platelet Count 212 K/UL (150-450) Mean Platelet Volume 7.7 FL (6.5-10.1) Neutrophils (%) (Auto) 81.0 % (45.0-75.0) H Lymphocytes (%) (Auto) 10.1 % (20.0-45.0) L Monocytes (%) (Auto) 6.9 % (1.0-10.0) Eosinophils (%) (Auto) 1.3 % (0.0-3.0) Basophils (%) (Auto) 0.7 % (0.0-2.0) Sodium Level 140 mEQ/L (135-145) Potassium Level 4.8 mEQ/L (3.4-4.9) Chloride Level 103 mEQ/L (98-107) Carbon Dioxide Level 18 mEQ/L (20-30) L Anion Gap 19 (5-15) H Blood Urea Nitrogen 69 mg/dL (7-23) H Creatinine 4.3 mg/dL (0.5-0.9) H Estimat Glomerular Filtration Rate 10.6 mL/min (>60) Glucose Level 213 mg/dL (74-106) H Uric Acid 9.8 mg/dL (3.0-7.5) H Calcium Level 9.1 mg/dL (8.6-10.2) Phosphorus Level 4.8 mg/dL (2.5-4.8) Total Bilirubin 1.2 mg/dL (0.0-1.2) Direct Bilirubin 0.2 mg/dL (0.1-0.3) Aspartate Amino Transf (AST/SGOT) 8 U/L (5-40) Alanine Aminotransferase (ALT/SGPT) 14 U/L (3-33) Alkaline Phosphatase 96 U/L (35-104) C-Reactive Protein, Quantitative 3.8 mg/dL (< 0.5) H Pro-B-Type Natriuretic Peptide 2842 pg/mL (0-125) H Total Protein 7.0 g/dL (6.6-8.7) Albumin 3.4 g/dL (3.5-5.2) L Globulin 3.6 g/dL Albumin/Globulin Ratio 0.9 (1.0-2.7) L Carcinoembryonic Antigen 2.1 ng/mL Folate Pending Current Medications Medications (Trade) Dose Ordered Sig/Ifeanyi Route PRN Reason Start Time Stop Time Status Last Admin Dose Admin Acetaminophen (Tylenol) 650 mg Q4H PRN ORAL T>100.5 03/12/17 18:15 04/11/17 18:14 Albuterol/ Ipratropium (DuoNeb 0.5-3(2.5)mg/3ml) 3 ml Q4H PRN HHN Shortness of Breath 03/12/17 17:00 03/17/17 16:59 Aspirin (Ecotrin) 81 mg DAILY ORAL 03/13/17 09:00 04/12/17 08:59 Atorvastatin Calcium (Lipitor) 40 mg BEDTIME ORAL 03/12/17 21:00 04/11/17 20:59 Carvedilol (Coreg) 12.5 mg EVERY 12 HOURS ORAL 03/12/17 21:00 04/11/17 20:59 Cefepime HCl 1 gm/ Dextrose 55 ml @ 110 mls/hr Q24H IVPB 03/13/17 12:00 03/20/17 11:59 Dextrose (Dextrose 50%) STAT PRN IV Hypoglycemia 03/12/17 17:00 04/11/17 16:59 Heparin Sodium (Porcine) (Heparin 5000 units/ml) 5,000 units EVERY 12 HOURS SUBQ 03/12/17 21:00 04/11/17 20:59 Hydralazine HCl (Apresoline) 100 mg Q8HR ORAL 03/12/17 22:00 04/11/17 21:59 Insulin Aspart (NovoLOG) BEFORE MEALS AND HS SUBQ 03/12/17 17:00 04/11/17 16:59 Iron Sucrose 100 mg/Sodium Chloride 60 ml @ 120 mls/hr BEDTIME IVPB 03/13/17 21:00 03/16/17 21:29 Iron Sucrose 200 mg/Sodium Chloride 120 ml @ 240 mls/hr ONCE ONCE IVPB 03/12/17 21:00 03/12/17 21:29 Morphine Sulfate (Morphine Sulfate) 4 mg Q4H PRN IVP SEVERE PAIN 03/12/17 17:00 03/19/17 16:59 Nateglinide (Starlix) 60 mg TIAC ORAL 03/12/17 16:30 04/11/17 16:29 Ondansetron HCl (Zofran) 4 mg Q6H PRN IVP Nausea & Vomiting 03/12/17 16:15 04/11/17 16:14 Pantoprazole (Protonix) 40 mg EVERY 12 HOURS ORAL 03/12/17 21:00 04/11/17 20:59 Polyethylene Glycol (Miralax) 17 gm DAILYPRN PRN ORAL Constipation 03/12/17 17:00 04/11/17 16:59 Sodium Chloride (Sodium Chloride 1000ml bag) 1,000 ml @ 75 mls/hr [id number] IVLG 03/12/17 17:00 04/11/17 16:59 Temazepam (Restoril) 15 mg HSPRN PRN ORAL Insomnia 03/12/17 21:00 03/19/17 20:59 NICOLE OH M.D. Mar 12, 2017 16:58
[2017-03-12] MEDS ORDERED: Miralax 17gm pkt ORAL PRN (17:00)
[2017-03-12] MEDS ORDERED: DuoNeb 0.5-3(2.5)mg/3ml neb HHN PRN (17:00)
--- NOTE | 2017-03-12 19:55 | Cardiology Progress Note ---
Assessment/Plan Assessment/Plan diastolic heart failure sever diastilic dysfucntion brenna related meds now resolved renal fialure progressive htn abd pain vomiting bp seem fien hr is fine cr worse despite fluid echo normal systolic function sig diastolic dysfunction diuresis when ok with renal note hydro and stone Subjective Cardiovascular: Denies: chest pain, lightheadedness, palpitations Respiratory: Reports: SOB with excertion Gastrointestinal/Abdominal: Denies: abdominal pain Objective Last 24 Hour Vital Signs Date Time Temp Pulse Resp B/P Pulse Ox O2 Delivery O2 Flow Rate FiO2 03/12/17 19:23 Nasal Cannula 2.0 28 03/12/17 19:23 99 Nasal Cannula 2.0 28 03/12/17 19:22 67 16 Nasal Cannula 2.0 28 03/12/17 17:00 65 03/12/17 16:44 97.7 71 20 161/74 98 Nasal Cannula 2.0 03/12/17 14:40 150/64 03/12/17 12:40 70 03/12/17 12:00 98.1 69 18 150/64 96 Room Air 03/12/17 09:16 70 147/60 03/12/17 09:00 71 03/12/17 08:00 97.7 70 18 147/66 97 Room Air 03/12/17 06:59 Nasal Cannula 2.0 28 03/12/17 06:59 77 16 Nasal Cannula 2.0 28 03/12/17 06:59 98 Nasal Cannula 2.0 28 03/12/17 05:45 148/62 03/12/17 04:57 98.4 03/12/17 04:00 71 03/12/17 04:00 98.1 70 16 148/62 98 Nasal Cannula 2.0 28 03/12/17 00:00 97.7 69 16 154/69 98 Nasal Cannula 2.0 28 03/12/17 00:00 66 03/11/17 20:42 82 145/60 03/11/17 20:41 136/63 03/11/17 20:00 62 03/11/17 20:00 98.2 75 16 154/60 98 Nasal Cannula 2.0 28 General Appearance: no apparent distress, alert Neck: supple Cardiovascular: normal rate, regular rhythm Respiratory/Chest: lungs clear Abdomen: normal bowel sounds, non tender, soft Extremities: moderate edema Intake and Output 03/11/17 03/12/17 19:00 07:00 Intake Total 1883 ml 600 ml Output Total 251 ml Balance 1883 ml 349 ml Intake Oral 940 ml IV Total 693 ml 600 ml Blood Product 250 ml Output Urine Total 250 ml Emesis 1 ml # Voids 1 3 Laboratory Tests Test 03/12/17 08:45 White Blood Count 13.1 K/UL (4.8-10.8) H Red Blood Count 3.29 M/UL (4.20-5.40) L Hemoglobin 8.3 G/DL (12.0-16.0) L Hematocrit 27.3 % (37.0-47.0) L Mean Corpuscular Volume 83 FL (80-99) Mean Corpuscular Hemoglobin 25.2 PG (27.0-31.0) L Mean Corpuscular Hemoglobin Concent 30.3 G/DL (32.0-36.0) L Red Cell Distribution Width 16.5 % (11.6-14.8) H Platelet Count 212 K/UL (150-450) Mean Platelet Volume 7.7 FL (6.5-10.1) Neutrophils (%) (Auto) 81.0 % (45.0-75.0) H Lymphocytes (%) (Auto) 10.1 % (20.0-45.0) L Monocytes (%) (Auto) 6.9 % (1.0-10.0) Eosinophils (%) (Auto) 1.3 % (0.0-3.0) Basophils (%) (Auto) 0.7 % (0.0-2.0) Sodium Level 140 mEQ/L (135-145) Potassium Level 4.8 mEQ/L (3.4-4.9) Chloride Level 103 mEQ/L (98-107) Carbon Dioxide Level 18 mEQ/L (20-30) L Anion Gap 19 (5-15) H Blood Urea Nitrogen 69 mg/dL (7-23) H Creatinine 4.3 mg/dL (0.5-0.9) H Estimat Glomerular Filtration Rate 10.6 mL/min (>60) Glucose Level 213 mg/dL (74-106) H Uric Acid 9.8 mg/dL (3.0-7.5) H Calcium Level 9.1 mg/dL (8.6-10.2) Phosphorus Level 4.8 mg/dL (2.5-4.8) Total Bilirubin 1.2 mg/dL (0.0-1.2) Direct Bilirubin 0.2 mg/dL (0.1-0.3) Aspartate Amino Transf (AST/SGOT) 8 U/L (5-40) Alanine Aminotransferase (ALT/SGPT) 14 U/L (3-33) Alkaline Phosphatase 96 U/L (35-104) C-Reactive Protein, Quantitative 3.8 mg/dL (< 0.5) H Pro-B-Type Natriuretic Peptide 2842 pg/mL (0-125) H Total Protein 7.0 g/dL (6.6-8.7) Albumin 3.4 g/dL (3.5-5.2) L Globulin 3.6 g/dL Albumin/Globulin Ratio 0.9 (1.0-2.7) L Carcinoembryonic Antigen 2.1 ng/mL Folate Pending Microbiology Date/Time Source Procedure Growth Status 03/10/17 06:10 Urine,Clean Catch Urine Culture - Final Strep Agalactiae Group B Mixed Gram Positive Organism Complete JESSICA ACUNA Mar 12, 2017 19:55
[2017-03-12 20:00] VITALS: BP 121/63
[2017-03-12] MEDS ORDERED: Iron Sucrose 200 MG in NS 110 ML IVPB ONE ×4 (21:00)
[2017-03-13] VITALS: BP 141/56
[2017-03-13 04:00] VITALS: BP 150/56
[2017-03-13] MEDS: NovoLOG Insulin Flexpen SUBQ SCH ×4 (06:09→21:34)
[2017-03-13] MEDS: Nateglinide 60mg tab ORAL SCH ×3 (06:09→16:29)
[2017-03-13] MEDS: HydrALAZINE 50mg tab ORAL SCH ×3 (06:11→21:32)
[2017-03-13 08:00] VITALS: BP 161/72
[2017-03-13 08:05] LABS: MEAN CORPUSCULAR HEMOGLOBIN 24.9 PG (27.0-31.0); MEAN CORPUSCULAR HGB CONC 30.3 G/DL (32.0-36.0); MEAN CORPUSCULAR VOLUME 82 FL (80-99); MEAN PLATELET VOLUME 7.8 FL (6.5-10.1); PLATELET COUNT 200 K/UL (150-450); RED BLOOD COUNT 3.04 M/UL (4.20-5.40); WHITE BLOOD COUNT 10.4 K/UL (4.8-10.8)
[2017-03-13] MEDS: Heparin 5000 units/ml inj SUBQ SCH ×2 (08:10→21:00)
[2017-03-13 08:11] LABS: CALCIUM 8.7 mg/dL (8.6-10.2); CREATININE 4.6 mg/dL (0.5-0.9); CRP QUANT 7.7 mg/dL (< 0.5); GLOMERULAR FILTRATION RATE 9.8 mL/min (>60); MAGNESIUM 1.9 mg/dL (1.7-2.5); PHOSPHORUS 4.9 mg/dL (2.5-4.8); POTASSIUM 4.3 mEQ/L (3.4-4.9); TOTAL PROTEIN 6.5 g/dL (6.6-8.7); URIC ACID 10.5 mg/dL (3.0-7.5)
[2017-03-13] MEDS: Carvedilol 12.5mg tab ORAL SCH ×2 (08:15→21:32)
[2017-03-13 08:30] LABS: BILIRUBIN,DIRECT 0.3 mg/dL (0.1-0.3)
[2017-03-13] MEDS ORDERED: Aspirin EC 81mg tab ORAL SCH (09:00)
[2017-03-13] MEDS: Morphine Sulfate 4mg/ml Inj IVP PRN ×3 (09:31→20:09)
[2017-03-13] MEDS ORDERED: Tubing IV Secondary IV ONE (09:49)
[2017-03-13 10:26] LABS: EOSINOPHILS % (MANUAL) 3 % (0-3); LYMPHOCYTES % (MANUAL) 3 % (20-45); NEUTROPHILS % (MANUAL) 92 % (45-75); TOTAL CELLS COUNTED 100
[2017-03-13 10:27] LABS: ANISOCYTOSIS 1+; BAND NEUTROPHILS % (MANUAL) 0 % (0-8); BASOPHILS % (MANUAL) 0 % (0-2); HYPOCHROMASIA 1+; PLATELET ESTIMATE ADEQUATE; PLATELET MORPHOLOGY NORMAL
--- NOTE | 2017-03-13 10:49 | Infectious Diseases Prog Note ---
Assessment/Plan Assessment/Plan A: The patient is a 56-year-old female UTI UCx :Strp GrB and Mixed GNR Pyelonephritis leukocytosis, SP FORREST : Cr increasing SP right lower abdomen and groin area Right ureteral stone and mild hydronephrosis Hx of cataract surgery History of CVA HLD HTN Gastroesophageal reflux disease. History of x2. History of chronic kidney disease. DM Anemia PLAN: continue the patient on cefepime d# 4/ 10 Monitor CBC. Monitor BMP. Monitor urine culture. Urology is following Subjective Constitutional: Denies: anorexia, chills, drenching sweats, fatigue, fever, no symptoms, other Allergies: Coded Allergies: BENAZEPRIL (Verified Allergy, Intermediate, Shortness of Breath, 07/01/14) FUROSEMIDE (Unverified Allergy, Intermediate, Rash, 11/18/16) Per Kyleigh Berrios [employer]IANCE TECHNICIAN, Pt does not have allegy to Lasix and able to start Lasxi tx. NIFEDIPINE (Verified Allergy, Intermediate, Shortness of Breath, 06/28/14) NITROGLYCERIN (Verified Allergy, Intermediate, Shortness of Breath, 06/28/14 ) SOB and BLE swelling Subjective no new complain Objective Vital Signs Last 24 Hour Vital Signs Date Time Temp Pulse Resp B/P Pulse Ox O2 Delivery O2 Flow Rate FiO2 03/13/17 08:16 83 18 Nasal Cannula 2.0 28 03/13/17 08:16 Nasal Cannula 2.0 28 03/13/17 08:16 98 Nasal Cannula 2.0 28 03/13/17 08:15 69 150/80 03/13/17 08:00 97.5 68 19 161/72 98 Room Air 03/13/17 06:11 150/56 03/13/17 04:00 97.7 66 20 150/56 97 Nasal Cannula 2.0 28 03/13/17 03:55 63 03/13/17 03:55 63 03/13/17 00:00 97.7 66 20 141/56 97 Nasal Cannula 2.0 28 03/12/17 23:48 63 03/12/17 22:59 121/63 03/12/17 21:27 69 03/12/17 20:54 69 121/63 03/12/17 20:00 99.3 69 20 121/63 97 Nasal Cannula 2.0 28 03/12/17 19:23 Nasal Cannula 2.0 28 03/12/17 19:23 99 Nasal Cannula 2.0 28 03/12/17 19:22 67 16 Nasal Cannula 2.0 28 03/12/17 17:00 65 03/12/17 16:44 97.7 71 20 161/74 98 Nasal Cannula 2.0 03/12/17 14:40 150/64 03/12/17 12:40 70 03/12/17 12:00 98.1 69 18 150/64 96 Room Air Height (Feet): 5 Height (Inches): 3.00 Weight (Pounds): 300 Respiratory/Chest: no accessory muscle use Cardiovascular: no JVD Abdomen: no organomegaly Laboratory Tests Test 03/12/17 17:00 03/13/17 07:30 Urine Eosinophils None seen White Blood Count 10.4 K/UL (4.8-10.8) Red Blood Count 3.04 M/UL (4.20-5.40) L Hemoglobin 7.6 G/DL (12.0-16.0) L Hematocrit 25.0 % (37.0-47.0) L Mean Corpuscular Volume 82 FL (80-99) Mean Corpuscular Hemoglobin 24.9 PG (27.0-31.0) L Mean Corpuscular Hemoglobin Concent 30.3 G/DL (32.0-36.0) L Red Cell Distribution Width 17.0 % (11.6-14.8) H Platelet Count 200 K/UL (150-450) Mean Platelet Volume 7.8 FL (6.5-10.1) Neutrophils (%) (Auto) % (45.0-75.0) Lymphocytes (%) (Auto) % (20.0-45.0) Monocytes (%) (Auto) % (1.0-10.0) Eosinophils (%) (Auto) % (0.0-3.0) Basophils (%) (Auto) % (0.0-2.0) Differential Total Cells Counted 100 Neutrophils % (Manual) 92 % (45-75) H Lymphocytes % (Manual) 3 % (20-45) L Monocytes % (Manual) 2 % (1-10) Eosinophils % (Manual) 3 % (0-3) Basophils % (Manual) 0 % (0-2) Band Neutrophils 0 % (0-8) Platelet Estimate Adequate Platelet Morphology Normal Hypochromasia 1+ Anisocytosis 1+ Sodium Level 139 mEQ/L (135-145) Potassium Level 4.3 mEQ/L (3.4-4.9) Chloride Level 103 mEQ/L (98-107) Carbon Dioxide Level 19 mEQ/L (20-30) L Anion Gap 17 (5-15) H Blood Urea Nitrogen 69 mg/dL (7-23) H Creatinine 4.6 mg/dL (0.5-0.9) H Estimat Glomerular Filtration Rate 9.8 mL/min (>60) Glucose Level 222 mg/dL (74-106) H Uric Acid 10.5 mg/dL (3.0-7.5) H Calcium Level 8.7 mg/dL (8.6-10.2) Phosphorus Level 4.9 mg/dL (2.5-4.8) H Magnesium Level 1.9 mg/dL (1.7-2.5) Total Bilirubin 1.2 mg/dL (0.0-1.2) Direct Bilirubin 0.3 mg/dL (0.1-0.3) Aspartate Amino Transf (AST/SGOT) 7 U/L (5-40) Alanine Aminotransferase (ALT/SGPT) 12 U/L (3-33) Alkaline Phosphatase 85 U/L (35-104) C-Reactive Protein, Quantitative 7.7 mg/dL (< 0.5) H Total Protein 6.5 g/dL (6.6-8.7) L Albumin 3.3 g/dL (3.5-5.2) L Globulin 3.2 g/dL Albumin/Globulin Ratio 1.0 (1.0-2.7) Current Medications Medications (Trade) Dose Ordered Sig/Ifeanyi Route PRN Reason Start Time Stop Time Status Last Admin Dose Admin Acetaminophen (Tylenol) 650 mg Q4H PRN ORAL T>100.5 03/12/17 18:15 04/11/17 18:14 Albuterol/ Ipratropium (DuoNeb 0.5-3(2.5)mg/3ml) 3 ml Q4H PRN HHN Shortness of Breath 03/12/17 17:00 03/17/17 16:59 Aspirin (Ecotrin) 81 mg DAILY ORAL 03/13/17 09:00 04/12/17 08:59 03/13/17 08:08 Atorvastatin Calcium (Lipitor) 40 mg BEDTIME ORAL 03/12/17 21:00 04/11/17 20:59 03/12/17 20:55 Carvedilol (Coreg) 12.5 mg EVERY 12 HOURS ORAL 03/12/17 21:00 04/11/17 20:59 03/13/17 08:15 Cefepime HCl 1 gm/ Dextrose 55 ml @ 110 mls/hr Q24H IVPB 03/13/17 12:00 03/20/17 11:59 Dextrose (Dextrose 50%) STAT PRN IV Hypoglycemia 03/12/17 17:00 04/11/17 16:59 Heparin Sodium (Porcine) (Heparin 5000 units/ml) 5,000 units EVERY 12 HOURS SUBQ 03/12/17 21:00 04/11/17 20:59 03/13/17 08:10 Hydralazine HCl (Apresoline) 100 mg Q8HR ORAL 03/12/17 22:00 04/11/17 21:59 03/13/17 06:11 Insulin Aspart (NovoLOG) BEFORE MEALS AND HS SUBQ 03/12/17 17:00 04/11/17 16:59 03/13/17 06:09 Iron Sucrose 100 mg/Sodium Chloride 60 ml @ 120 mls/hr BEDTIME IVPB 03/13/17 21:00 03/16/17 21:29 Morphine Sulfate (Morphine Sulfate) 4 mg Q4H PRN IVP SEVERE PAIN 03/12/17 17:00 03/19/17 16:59 03/13/17 09:31 Nateglinide (Starlix) 60 mg TIAC ORAL 03/12/17 16:30 04/11/17 16:29 03/13/17 06:09 Ondansetron HCl (Zofran) 4 mg Q6H PRN IVP Nausea & Vomiting 03/12/17 16:15 04/11/17 16:14 03/13/17 08:08 Pantoprazole (Protonix) 40 mg EVERY 12 HOURS ORAL 03/12/17 21:00 04/11/17 20:59 03/13/17 08:08 Polyethylene Glycol (Miralax) 17 gm DAILYPRN PRN ORAL Constipation 03/12/17 17:00 5/19/17 16:59 Sodium Chloride (Sodium Chloride 1000ml bag) 1,000 ml @ 75 mls/hr [id number] IVLG 03/12/17 17:00 04/11/17 16:59 03/13/17 06:14 Temazepam (Restoril) 15 mg HSPRN PRN ORAL Insomnia 03/12/17 21:00 03/19/17 20:59 NICOLE OH M.D. Mar 13, 2017 10:49
[2017-03-13 12:00] VITALS: BP 154/63
[2017-03-13] MEDS ORDERED: Cefepime HCl 1 GM in D5W 55 ML IVPB SCH (12:00)
--- NOTE | 2017-03-13 14:39 | General Progress Note ---
Assessment/Plan Status: unchanged Status Narrative Cr rising- Hgb lower Assessment/Plan status: Acute renal failure- HyperKalemia ? Underlying CKD due to DM and HTN Anemia: Etiology? Low Iron Ureteropelvic junction calculus Atrial arrhythmia UTI Plan: being transfused adding cardura Velasquez in [facility] kidney- Mild right hydronephrosis, presumably from proximal right ureteral stone described on CT scan performed earlier the same day 2 D echo Ej Fx 60% Slow Hydrate IV Iron EPO SQ gastric support- Avoid Nephrotoxics monitor renal parameters Adjust BP meds- per orders Subjective ROS Limited/Unobtainable: No Constitutional: Reports: malaise, weakness Allergies: Coded Allergies: BENAZEPRIL (Verified Allergy, Intermediate, Shortness of Breath, 07/01/14) FUROSEMIDE (Unverified Allergy, Intermediate, Rash, 11/18/16) Per Kyleigh Berrios [employer]CH [employer]KER, Pt does not have allegy to Lasix and able to start Lasxi tx. NIFEDIPINE (Verified Allergy, Intermediate, Shortness of Breath, 06/28/14) NITROGLYCERIN (Verified Allergy, Intermediate, Shortness of Breath, 06/28/14 ) SOB and BLE swelling Objective Last 24 Hour Vital Signs Date Time Temp Pulse Resp B/P Pulse Ox O2 Delivery O2 Flow Rate FiO2 03/13/17 13:15 154/63 03/13/17 12:00 97.9 64 18 154/63 98 Nasal Cannula 2.0 03/13/17 08:16 83 18 Nasal Cannula 2.0 28 03/13/17 08:16 Nasal Cannula 2.0 28 03/13/17 08:16 98 Nasal Cannula 2.0 28 03/13/17 08:15 69 150/80 03/13/17 08:00 97.5 68 19 161/72 98 Room Air 03/13/17 06:11 150/56 03/13/17 04:00 97.7 66 20 150/56 97 Nasal Cannula 2.0 28 03/13/17 03:55 63 03/13/17 03:55 63 03/13/17 00:00 97.7 66 20 141/56 97 Nasal Cannula 2.0 28 03/12/17 23:48 63 03/12/17 22:59 121/63 03/12/17 21:27 69 03/12/17 20:54 69 121/63 03/12/17 20:00 99.3 69 20 121/63 97 Nasal Cannula 2.0 28 03/12/17 19:23 Nasal Cannula 2.0 28 03/12/17 19:23 99 Nasal Cannula 2.0 28 03/12/17 19:22 67 16 Nasal Cannula 2.0 28 03/12/17 17:00 65 03/12/17 16:44 97.7 71 20 161/74 98 Nasal Cannula 2.0 03/12/17 14:40 150/64 Intake and Output 03/12/17 03/13/17 19:00 07:00 Intake Total 770 ml 825 ml Output Total 300 ml 600 ml Balance 470 ml 225 ml Intake Oral 170 ml IV Total 600 ml 825 ml Output Urine Total 300 ml 600 ml # Voids 1 Laboratory Tests 03/12/17 17:00: Urine Eosinophils None seen 03/13/17 07:30: White Blood Count 10.4, Red Blood Count 3.04L, Hemoglobin 7.6L, Hematocrit 25.0L , Mean Corpuscular Volume 82, Mean Corpuscular Hemoglobin 24.9L, Mean Corpuscular Hemoglobin Concent 30.3L, Red Cell Distribution Width 17.0H, Platelet Count 200, Mean Platelet Volume 7.8, Neutrophils (%) (Auto) , Lymphocytes (%) (Auto) , Monocytes (%) (Auto) , Eosinophils (%) (Auto) , Basophils (%) (Auto) , Differential Total Cells Counted 100, Neutrophils % ( Manual) 92H, Lymphocytes % (Manual) 3L, Monocytes % (Manual) 2, Eosinophils % ( Manual) 3, Basophils % (Manual) 0, Band Neutrophils 0, Platelet Estimate Adequate, Platelet Morphology Normal, Hypochromasia 1+, Anisocytosis 1+, Sodium Level 139, Potassium Level 4.3, Chloride Level 103, Carbon Dioxide Level 19L, Anion Gap 17H, Blood Urea Nitrogen 69H, Creatinine 4.6H, Estimat Glomerular Filtration Rate 9.8, Glucose Level 222H, Uric Acid 10.5H, Calcium Level 8.7, Phosphorus Level 4.9H, Magnesium Level 1.9, Total Bilirubin 1.2, Direct Bilirubin 0.3, Aspartate Amino Transf (AST/SGOT) 7, Alanine Aminotransferase ( ALT/SGPT) 12, Alkaline Phosphatase 85, C-Reactive Protein, Quantitative 7.7H, Total Protein 6.5L, Albumin 3.3L, Globulin 3.2, Albumin/Globulin Ratio 1.0 Height (Feet): 5 Height (Inches): 3.00 Weight (Pounds): 300 General Appearance: no apparent distress Respiratory/Chest: decreased breath sounds Objective other PE not changed ALE LOBATO Mar 13, 2017 14:39
[2017-03-13] MEDS ORDERED: Doxazosin 4mg tab ORAL SCH (15:30)
[2017-03-13] MEDS ORDERED: Allopurinol 100mg Tab ORAL SCH (15:30)
[2017-03-13 15:51] VITALS: BP 134/57
--- NOTE | 2017-03-13 17:57 | Pulmonology Progress Note ---
Assessment/Plan Problems: (1) Renal failure (2) Hyperkalemia (3) HTN (hypertension) (4) Diabetes (5) Peripheral edema Assessment/Plan renal function worsening all consultants note reviewed and appreciated titrate cardiac meds f/u renal parameters f/u Urology recommendations if no improvement in renal function, she will need HD DW dr Hurtado Subjective ROS Limited/Unobtainable: No Interval Events: no new complains Allergies: Coded Allergies: BENAZEPRIL (Verified Allergy, Intermediate, Shortness of Breath, 07/01/14) FUROSEMIDE (Unverified Allergy, Intermediate, Rash, 11/18/16) Per Kyleigh Berrios TRAY DRIER OPERATOR, Pt does not have allegy to Lasix and able to start Lasxi tx. NIFEDIPINE (Verified Allergy, Intermediate, Shortness of Breath, 06/28/14) NITROGLYCERIN (Verified Allergy, Intermediate, Shortness of Breath, 06/28/14 ) SOB and BLE swelling Objective Last 24 Hour Vital Signs Date Time Temp Pulse Resp B/P Pulse Ox O2 Delivery O2 Flow Rate FiO2 03/13/17 16:00 59 03/13/17 15:51 98.1 58 20 134/57 99 Nasal Cannula 2.0 03/13/17 13:15 154/63 03/13/17 12:00 97.9 64 18 154/63 98 Nasal Cannula 2.0 03/13/17 12:00 59 03/13/17 08:16 83 18 Nasal Cannula 2.0 28 03/13/17 08:16 Nasal Cannula 2.0 28 03/13/17 08:16 98 Nasal Cannula 2.0 28 03/13/17 08:15 69 150/80 03/13/17 08:00 97.5 68 19 161/72 98 Room Air 03/13/17 06:11 150/56 03/13/17 04:00 97.7 66 20 150/56 97 Nasal Cannula 2.0 28 03/13/17 03:55 63 03/13/17 03:55 63 03/13/17 00:00 97.7 66 20 141/56 97 Nasal Cannula 2.0 28 03/12/17 23:48 63 03/12/17 22:59 121/63 03/12/17 21:27 69 03/12/17 20:54 69 121/63 03/12/17 20:00 99.3 69 20 121/63 97 Nasal Cannula 2.0 28 03/12/17 19:23 Nasal Cannula 2.0 28 03/12/17 19:23 99 Nasal Cannula 2.0 28 03/12/17 19:22 67 16 Nasal Cannula 2.0 28 Intake and Output 03/12/17 03/13/17 19:00 07:00 Intake Total 770 ml 825 ml Output Total 300 ml 600 ml Balance 470 ml 225 ml Intake Oral 170 ml IV Total 600 ml 825 ml Output Urine Total 300 ml 600 ml # Voids 1 General Appearance: WD/WN HEENT: normocephalic Respiratory/Chest: chest wall non-tender, lungs clear, normal breath sounds, no respiratory distress Cardiovascular: normal peripheral pulses, normal rate, regular rhythm Abdomen: normal bowel sounds, soft, non tender, no organomegaly, non distended Skin: no rash Neurologic/Psychiatric: farm service adviser II-XII grossly normal Lymphatic: no neck adenopathy Laboratory Tests 03/13/17 07:30: White Blood Count 10.4, Red Blood Count 3.04L, Hemoglobin 7.6L, Hematocrit 25.0L , Mean Corpuscular Volume 82, Mean Corpuscular Hemoglobin 24.9L, Mean Corpuscular Hemoglobin Concent 30.3L, Red Cell Distribution Width 17.0H, Platelet Count 200, Mean Platelet Volume 7.8, Neutrophils (%) (Auto) , Lymphocytes (%) (Auto) , Monocytes (%) (Auto) , Eosinophils (%) (Auto) , Basophils (%) (Auto) , Differential Total Cells Counted 100, Neutrophils % ( Manual) 92H, Lymphocytes % (Manual) 3L, Monocytes % (Manual) 2, Eosinophils % ( Manual) 3, Basophils % (Manual) 0, Band Neutrophils 0, Platelet Estimate Adequate, Platelet Morphology Normal, Hypochromasia 1+, Anisocytosis 1+, Sodium Level 139, Potassium Level 4.3, Chloride Level 103, Carbon Dioxide Level 19L, Anion Gap 17H, Blood Urea Nitrogen 69H, Creatinine 4.6H, Estimat Glomerular Filtration Rate 9.8, Glucose Level 222H, Uric Acid 10.5H, Calcium Level 8.7, Phosphorus Level 4.9H, Magnesium Level 1.9, Total Bilirubin 1.2, Direct Bilirubin 0.3, Aspartate Amino Transf (AST/SGOT) 7, Alanine Aminotransferase ( ALT/SGPT) 12, Alkaline Phosphatase 85, C-Reactive Protein, Quantitative 7.7H, Total Protein 6.5L, Albumin 3.3L, Globulin 3.2, Albumin/Globulin Ratio 1.0 03/13/17 16:00: Urine Eosinophils [Pending] Current Medications Medications (Trade) Dose Ordered Sig/Ifeanyi Route PRN Reason Start Time Stop Time Status Last Admin Dose Admin Acetaminophen (Tylenol) 650 mg Q4H PRN ORAL T>100.5 03/12/17 18:15 04/11/17 18:14 Albuterol/ Ipratropium (DuoNeb 0.5-3(2.5)mg/3ml) 3 ml Q4H PRN HHN Shortness of Breath 03/12/17 17:00 03/17/17 16:59 Allopurinol (Zyloprim) 200 mg DAILY ORAL 03/13/17 15:30 04/12/17 15:29 03/13/17 16:29 Aspirin (Ecotrin) 81 mg DAILY ORAL 03/13/17 09:00 04/12/17 08:59 03/13/17 08:08 Atorvastatin Calcium (Lipitor) 40 mg BEDTIME ORAL 03/12/17 21:00 04/11/17 20:59 03/12/17 20:55 Carvedilol (Coreg) 12.5 mg EVERY 12 HOURS ORAL 03/12/17 21:00 04/11/17 20:59 03/13/17 08:15 Cefepime HCl 1 gm/ Dextrose 55 ml @ 110 mls/hr Q24H IVPB 03/13/17 12:00 03/20/17 11:59 03/13/17 13:16 Dextrose (Dextrose 50%) STAT PRN IV Hypoglycemia 03/12/17 17:00 04/11/17 16:59 Doxazosin Mesylate (Cardura) 1 mg BID ORAL 03/13/17 15:30 04/12/17 15:29 03/13/17 16:30 Heparin Sodium (Porcine) (Heparin 5000 units/ml) 5,000 units EVERY 12 HOURS SUBQ 03/12/17 21:00 04/11/17 20:59 03/13/17 08:10 Hydralazine HCl (Apresoline) 100 mg Q8HR ORAL 03/12/17 22:00 04/11/17 21:59 03/13/17 13:15 Insulin Aspart (NovoLOG) BEFORE MEALS AND HS SUBQ 03/12/17 17:00 04/11/17 16:59 03/13/17 16:34 Iron Sucrose 100 mg/Sodium Chloride 60 ml @ 120 mls/hr BEDTIME IVPB 03/13/17 21:00 03/16/17 21:29 Morphine Sulfate (Morphine Sulfate) 4 mg Q4H PRN IVP SEVERE PAIN 03/12/17 17:00 03/19/17 16:59 03/13/17 13:15 Nateglinide (Starlix) 60 mg TIAC ORAL 03/12/17 16:30 04/11/17 16:29 03/13/17 16:29 Ondansetron HCl (Zofran) 4 mg Q6H PRN IVP Nausea & Vomiting 03/12/17 16:15 04/11/17 16:14 03/13/17 08:08 Pantoprazole (Protonix) 40 mg EVERY 12 HOURS ORAL 03/12/17 21:00 04/11/17 20:59 03/13/17 08:08 Polyethylene Glycol (Miralax) 17 gm DAILYPRN PRN ORAL Constipation 03/12/17 17:00 04/11/17 16:59 Sodium Chloride (Sodium Chloride 1000ml bag) 1,000 ml @ 75 mls/hr [id number] IVLG 03/12/17 17:00 04/11/17 16:59 03/13/17 06:14 Temazepam (Restoril) 15 mg HSPRN PRN ORAL Insomnia 03/12/17 21:00 03/19/17 20:59 JEAN CLAUDE SUTTON Mar 13, 2017 17:57
[2017-03-13 20:00] VITALS: BP 142/63
--- NOTE | 2017-03-13 20:08 | Cardiology Progress Note ---
Assessment/Plan Assessment/Plan diastolic heart failure sever diastilic dysfucntion brenna related meds now resolved renal fialure progressive htn abd pain vomiting bp seem fine hr is fine cr worse despite fluid echo normal systolic function sig diastolic dysfunction diuresis when ok with renal note hydro and stone d/w pat adn dtr , they are trying to avoid dilaysis Subjective Cardiovascular: Reports: lightheadedness - some , Denies: chest pain Respiratory: Reports: SOB with excertion Gastrointestinal/Abdominal: Denies: abdominal pain Genitourinary: Denies: burning Objective Last 24 Hour Vital Signs Date Time Temp Pulse Resp B/P Pulse Ox O2 Delivery O2 Flow Rate FiO2 03/13/17 16:00 59 03/13/17 15:51 98.1 58 20 134/57 99 Nasal Cannula 2.0 03/13/17 13:15 154/63 03/13/17 12:00 97.9 64 18 154/63 98 Nasal Cannula 2.0 03/13/17 12:00 59 03/13/17 08:16 83 18 Nasal Cannula 2.0 28 03/13/17 08:16 Nasal Cannula 2.0 28 03/13/17 08:16 98 Nasal Cannula 2.0 28 03/13/17 08:15 69 150/80 03/13/17 08:00 97.5 68 19 161/72 98 Room Air 03/13/17 06:11 150/56 03/13/17 04:00 97.7 66 20 150/56 97 Nasal Cannula 2.0 28 03/13/17 03:55 63 03/13/17 03:55 63 03/13/17 00:00 97.7 66 20 141/56 97 Nasal Cannula 2.0 28 03/12/17 23:48 63 03/12/17 22:59 121/63 03/12/17 21:27 69 03/12/17 20:54 69 121/63 General Appearance: no apparent distress, alert, obese Cardiovascular: normal rate, regular rhythm Respiratory/Chest: decreased breath sounds - left base Abdomen: normal bowel sounds, non tender, soft Extremities: moderate edema Intake and Output 03/12/17 03/13/17 19:00 07:00 Intake Total 770 ml 825 ml Output Total 300 ml 600 ml Balance 470 ml 225 ml Intake Oral 170 ml IV Total 600 ml 825 ml Output Urine Total 300 ml 600 ml # Voids 1 Laboratory Tests Test 03/13/17 07:30 03/13/17 16:00 White Blood Count 10.4 K/UL (4.8-10.8) Red Blood Count 3.04 M/UL (4.20-5.40) L Hemoglobin 7.6 G/DL (12.0-16.0) L Hematocrit 25.0 % (37.0-47.0) L Mean Corpuscular Volume 82 FL (80-99) Mean Corpuscular Hemoglobin 24.9 PG (27.0-31.0) L Mean Corpuscular Hemoglobin Concent 30.3 G/DL (32.0-36.0) L Red Cell Distribution Width 17.0 % (11.6-14.8) H Platelet Count 200 K/UL (150-450) Mean Platelet Volume 7.8 FL (6.5-10.1) Neutrophils (%) (Auto) % (45.0-75.0) Lymphocytes (%) (Auto) % (20.0-45.0) Monocytes (%) (Auto) % (1.0-10.0) Eosinophils (%) (Auto) % (0.0-3.0) Basophils (%) (Auto) % (0.0-2.0) Differential Total Cells Counted 100 Neutrophils % (Manual) 92 % (45-75) H Lymphocytes % (Manual) 3 % (20-45) L Monocytes % (Manual) 2 % (1-10) Eosinophils % (Manual) 3 % (0-3) Basophils % (Manual) 0 % (0-2) Band Neutrophils 0 % (0-8) Platelet Estimate Adequate Platelet Morphology Normal Hypochromasia 1+ Anisocytosis 1+ Sodium Level 139 mEQ/L (135-145) Potassium Level 4.3 mEQ/L (3.4-4.9) Chloride Level 103 mEQ/L (98-107) Carbon Dioxide Level 19 mEQ/L (20-30) L Anion Gap 17 (5-15) H Blood Urea Nitrogen 69 mg/dL (7-23) H Creatinine 4.6 mg/dL (0.5-0.9) H Estimat Glomerular Filtration Rate 9.8 mL/min (>60) Glucose Level 222 mg/dL (74-106) H Uric Acid 10.5 mg/dL (3.0-7.5) H Calcium Level 8.7 mg/dL (8.6-10.2) Phosphorus Level 4.9 mg/dL (2.5-4.8) H Magnesium Level 1.9 mg/dL (1.7-2.5) Total Bilirubin 1.2 mg/dL (0.0-1.2) Direct Bilirubin 0.3 mg/dL (0.1-0.3) Aspartate Amino Transf (AST/SGOT) 7 U/L (5-40) Alanine Aminotransferase (ALT/SGPT) 12 U/L (3-33) Alkaline Phosphatase 85 U/L (35-104) C-Reactive Protein, Quantitative 7.7 mg/dL (< 0.5) H Total Protein 6.5 g/dL (6.6-8.7) L Albumin 3.3 g/dL (3.5-5.2) L Globulin 3.2 g/dL Albumin/Globulin Ratio 1.0 (1.0-2.7) Urine Eosinophils None seen JESSICA ACUNA Mar 13, 2017 20:08
[2017-03-13] MEDS ORDERED: Iron Sucrose 100 MG in NS 55 ML IVPB SCH ×4 (21:00)
--- NOTE | 2017-03-13 23:11 | Diagnostic Imaging Report ---
APPROVED REPORT CPT Code: 58927 Present Symptoms Comments: R/O DVT BILATERAL: Imaging reveals a patent deep venous system bilaterally. There is no evidence of thrombus within the femoral, popliteal or tibial segments. The greater saphenous veins are also within normal limits. Doppler indicates normal spontaneous flow within these segments.
[2017-03-14] VITALS (14 sets, daily range): BP systolic 132–159; BP diastolic 46–72
[2017-03-14] MEDS: Nateglinide 60mg tab ORAL SCH ×3 (06:06→15:38)
[2017-03-14] MEDS: HydrALAZINE 50mg tab ORAL SCH ×3 (06:07→22:48)
[2017-03-14] MEDS: NovoLOG Insulin Flexpen SUBQ SCH ×4 (06:07→21:18)
[2017-03-14] MEDS ORDERED: Miralax 17gm pkt ORAL PRN (07:30)
[2017-03-14] MEDS ORDERED: DuoNeb 0.5-3(2.5)mg/3ml neb HHN PRN (08:00)
[2017-03-14 08:01] LABS: BASOPHILS % (AUTO) 0.7 % (0.0-2.0); EOSINOPHILS % (AUTO) 2.3 % (0.0-3.0); LYMPHOCYTES % (AUTO) 5.9 % (20.0-45.0); MEAN CORPUSCULAR VOLUME 84 FL (80-99); MEAN PLATELET VOLUME 7.9 FL (6.5-10.1); MONOCYTES % (AUTO) 8.6 % (1.0-10.0); NEUTROPHILS % (AUTO) 82.6 % (45.0-75.0); PLATELET COUNT 189 K/UL (150-450); RED BLOOD COUNT 3.15 M/UL (4.20-5.40); RED CELL DISTRIBUTION WIDTH 16.7 % (11.6-14.8); WHITE BLOOD COUNT 11.9 K/UL (4.8-10.8)
[2017-03-14] MEDS: Aspirin EC 81mg tab ORAL SCH (08:20)
[2017-03-14] MEDS: Allopurinol 100mg Tab ORAL SCH (08:21)
[2017-03-14] MEDS: Carvedilol 12.5mg tab ORAL SCH ×2 (08:21→20:59)
[2017-03-14 08:25] LABS: CALCIUM 8.4 mg/dL (8.6-10.2); CRP QUANT 7.5 mg/dL (< 0.5); GLOMERULAR FILTRATION RATE 8.9 mL/min (>60); MAGNESIUM 1.9 mg/dL (1.7-2.5); PHOSPHORUS 5.3 mg/dL (2.5-4.8); POTASSIUM 4.3 mEQ/L (3.4-4.9); TOTAL PROTEIN 6.5 g/dL (6.6-8.7); URIC ACID 10.5 mg/dL (3.0-7.5)
[2017-03-14 08:26] LABS: THYROID STIMULATING HORMONE 0.972 uIU/mL (0.300-4.500)
[2017-03-14] MEDS: Heparin 5000 units/ml inj SUBQ SCH ×2 (08:29→21:02)
[2017-03-14] MEDS ORDERED: Doxazosin 1mg Tab ORAL SCH (09:00)
[2017-03-14 09:11] LABS: BILIRUBIN,DIRECT 0.2 mg/dL (0.1-0.3)
[2017-03-14] MEDS ORDERED: NS 275ml ONE (10:17)
[2017-03-14] MEDS ORDERED: Tubing Blood Filter IV ONE (10:17)
--- NOTE | 2017-03-14 10:59 | General Progress Note ---
Assessment/Plan Status: unchanged, deteriorating - serum Cr Assessment/Plan status: Acute renal failure- HyperKalemia ? Underlying CKD due to DM and HTN Anemia: Etiology? Low Iron Ureteropelvic junction calculus Atrial arrhythmia UTI Plan: Uro re eval for stent- discussed with Dr Fermin discussed the need for dialysis - Radiology to put Jose- transfused adding cardura Velasquez in [facility] kidney- Mild right hydronephrosis, presumably from proximal right ureteral stone described on CT scan performed earlier the same day 2 D echo Ej Fx 60% Slow Hydrate IV Iron EPO SQ gastric support- Avoid Nephrotoxics monitor renal parameters Adjust BP meds- per orders Subjective ROS Limited/Unobtainable: No Constitutional: Reports: malaise, weakness Allergies: Coded Allergies: BENAZEPRIL (Verified Allergy, Intermediate, Shortness of Breath, 07/01/14) FUROSEMIDE (Unverified Allergy, Intermediate, Rash, 11/18/16) Per Kyleigh Berrios NET MAKING SUPERVISOR, Pt does not have allegy to Lasix and able to start Lasxi tx. NIFEDIPINE (Verified Allergy, Intermediate, Shortness of Breath, 06/28/14) NITROGLYCERIN (Verified Allergy, Intermediate, Shortness of Breath, 06/28/14 ) SOB and BLE swelling Objective Last 24 Hour Vital Signs Date Time Temp Pulse Resp B/P Pulse Ox O2 Delivery O2 Flow Rate FiO2 03/14/17 08:57 97.9 69 22 159/70 97 Nasal Cannula 03/14/17 08:21 64 159/70 03/14/17 06:45 97.7 70 20 145/60 95 Room Air 03/14/17 06:07 149/62 03/14/17 04:04 98.6 65 19 149/62 98 Room Air 03/14/17 04:00 62 03/14/17 00:18 98.4 61 17 146/72 97 Room Air 03/14/17 00:00 61 03/13/17 21:32 142/63 03/13/17 21:32 68 142/63 03/13/17 20:38 Nasal Cannula 2.0 28 03/13/17 20:37 68 18 Nasal Cannula 2.0 28 03/13/17 20:37 98 Nasal Cannula 2.0 28 03/13/17 20:00 64 03/13/17 20:00 97.9 60 18 142/63 97 Nasal Cannula 2.0 03/13/17 16:00 59 03/13/17 15:51 98.1 58 20 134/57 99 Nasal Cannula 2.0 03/13/17 13:15 154/63 03/13/17 12:00 97.9 64 18 154/63 98 Nasal Cannula 2.0 03/13/17 12:00 59 Intake and Output 03/13/17 03/14/17 19:00 07:00 Intake Total 1330 ml 750 ml Output Total 750 ml 300 ml Balance 580 ml 450 ml Intake Oral 490 ml IV Total 590 ml 750 ml Blood Product 250 ml Output Urine Total 750 ml 300 ml Laboratory Tests 03/13/17 16:00: Urine Eosinophils None seen 03/14/17 06:20: White Blood Count 11.9H, Red Blood Count 3.15L, Hemoglobin 8.2L, Hematocrit 26.4L, Mean Corpuscular Volume 84, Mean Corpuscular Hemoglobin 26.0L, Mean Corpuscular Hemoglobin Concent 31.0L, Red Cell Distribution Width 16.7H, Platelet Count 189, Mean Platelet Volume 7.9, Neutrophils (%) (Auto) 82.6H, Lymphocytes (%) (Auto) 5.9L, Monocytes (%) (Auto) 8.6, Eosinophils (%) (Auto) 2.3, Basophils (%) (Auto) 0.7, Sodium Level 141, Potassium Level 4.3, Chloride Level 103, Carbon Dioxide Level 17L, Anion Gap 21H, Blood Urea Nitrogen 70H, Creatinine 5.0H, Estimat Glomerular Filtration Rate 8.9, Glucose Level 154H, Uric Acid 10.5H, Calcium Level 8.4L, Phosphorus Level 5.3H, Magnesium Level 1.9 , Total Bilirubin 1.1, Direct Bilirubin 0.2, Gamma Glutamyl Transpeptidase 30, Aspartate Amino Transf (AST/SGOT) 8, Alanine Aminotransferase (ALT/SGPT) 10, Alkaline Phosphatase 80, C-Reactive Protein, Quantitative 7.5H, Pro-B-Type Natriuretic Peptide 2854H, Total Protein 6.5L, Albumin 3.3L, Globulin 3.2, Albumin/Globulin Ratio 1.0, Thyroid Stimulating Hormone (TSH) 0.972 Height (Feet): 5 Height (Inches): 3.00 Weight (Pounds): 300 General Appearance: no apparent distress Cardiovascular: normal rate Respiratory/Chest: decreased breath sounds Abdomen: soft, other - obese Objective other PE not changed ALE LOBATO Mar 14, 2017 10:59
[2017-03-14] MEDS: Cefepime HCl 1 GM in D5W 55 ML IVPB SCH (12:07)
[2017-03-14] MEDS: Doxazosin 1mg Tab ORAL SCH ×2 (13:36→22:47)
[2017-03-14] MEDS ORDERED: Lidocaine 1% Plain 30 ml INJ ONE (14:34)
--- NOTE | 2017-03-14 14:46 | Pre-Procedure Note/Attestation ---
Pre-Procedure Note/Attestation Complete Prior to Procedure Planned Procedure: not applicable Procedure Narrative: temporary dialysis catheter Indications for Procedure Pre-Operative Diagnosis: renal failure Attestation I attest that I discussed the nature of the procedure; its benefits; risks and complications; and alternatives (and the risks and benefits of such alternatives ), prior to the procedure, with the patient (or the patient's legal education courses sales representative). I attest that, if there was a reasonable possibility of needing a blood transfusion, the patient (or the patient's legal education courses sales representative) was given the [facility] standardized written summary, pursuant to the [place] Blood Safety Act ([place] Health and Safety Code # 1645, as amended). I attest that I re-evaluated the patient just prior to the surgery and that there has been no change in the patient's H&P, except as documented below: CALEB BEAR M.D. Mar 14, 2017 14:46
[2017-03-14] MEDS ORDERED: Heparin Sod 1000 units/ml 10ml ONE (15:02)
[2017-03-14] MEDS: Morphine Sulfate 4mg/ml Inj IVP PRN ×2 (15:38→21:22)
--- NOTE | 2017-03-14 16:43 | Diagnostic Imaging Report ---
Subsequent Indication: Renal failure Technique: Procedure timeout performed. Total sterile technique, including sterile probe cover and sterile gel, sterile gloves, hand hygiene, hat, mask, sterile gown, large sterile drape, and preparation with 2% chlorhexidine utilized. Local anesthesia with 1% lidocaine. Under real-time ultrasound guidance, puncture right internal jugular vein using 1-gauge micropuncture needle, passage 0.18 guidewire, insertion 4 [place] micropuncture introducer, passage 0.035 guidewire, over which was passed serial dilators and then a 12.5 [place] 16 cm triple-lumen temporary dialysis catheter. Guidewire was removed. Catheter ports were aspirated and flushed. The catheter was fixed to the skin. Patient tolerated procedure well. A saved fluoroscopic image was archived, documents catheter tip position at the high right atrium. Total fluoroscopy time 0.4 minutes. Total dose area product 16 dGycm2 Comparison: None Findings: None Impression: Successful bedside placement of right transjugular temporary dialysis catheter, as described.
--- NOTE | 2017-03-14 18:14 | Infectious Diseases Prog Note ---
Assessment/Plan Assessment/Plan A: The patient is a 56-year-old female UTI UCx :Strp GrB and Mixed GNR Pyelonephritis leukocytosis, mild FORREST : Cr increasing SP right lower abdomen and groin area Right ureteral stone and mild hydronephrosis Hx of cataract surgery History of CVA HLD HTN Gastroesophageal reflux disease. History of x2. History of chronic kidney disease. DM Anemia PLAN: continue the patient on cefepime d# 5 / 10 Monitor CBC. Monitor BMP Urology is following Subjective Constitutional: Denies: anorexia, chills, drenching sweats, fatigue, fever, no symptoms, other Allergies: Coded Allergies: BENAZEPRIL (Verified Allergy, Intermediate, Shortness of Breath, 07/01/14) FUROSEMIDE (Unverified Allergy, Intermediate, Rash, 11/18/16) Per Kyleigh Berrios ACCOUNT SUPPORT SPECIALIST, Pt does not have allegy to Lasix and able to start Lasxi tx. NIFEDIPINE (Verified Allergy, Intermediate, Shortness of Breath, 06/28/14) NITROGLYCERIN (Verified Allergy, Intermediate, Shortness of Breath, 06/28/14 ) SOB and BLE swelling Objective Vital Signs Last 24 Hour Vital Signs Date Time Temp Pulse Resp B/P Pulse Ox O2 Delivery O2 Flow Rate FiO2 03/14/17 15:34 98.2 66 20 137/64 95 Room Air 03/14/17 15:04 66 17 132/46 97 03/14/17 15:01 64 23 138/48 97 Room Air 03/14/17 14:56 66 21 153/66 97 Room Air 03/14/17 14:51 66 21 149/65 97 Room Air 03/14/17 14:46 65 18 150/65 98 Room Air 03/14/17 14:45 64 19 03/14/17 14:40 64 21 140/59 98 Room Air 03/14/17 13:36 145/53 03/14/17 12:00 97.7 64 19 145/53 94 Nasal Cannula 03/14/17 08:57 97.9 69 22 159/70 97 Nasal Cannula 03/14/17 08:21 64 159/70 03/14/17 06:45 97.7 70 20 145/60 95 Room Air 03/14/17 06:07 149/62 03/14/17 04:04 98.6 65 19 149/62 98 Room Air 03/14/17 04:00 62 03/14/17 00:18 98.4 61 17 146/72 97 Room Air 03/14/17 00:00 61 03/13/17 21:32 142/63 03/13/17 21:32 68 142/63 03/13/17 20:38 Nasal Cannula 2.0 28 03/13/17 20:37 68 18 Nasal Cannula 2.0 28 03/13/17 20:37 98 Nasal Cannula 2.0 28 03/13/17 20:00 64 03/13/17 20:00 97.9 60 18 142/63 97 Nasal Cannula 2.0 Height (Feet): 5 Height (Inches): 3.00 Weight (Pounds): 300 HEENT: mucous membranes moist Respiratory/Chest: no respiratory distress Cardiovascular: regularly irregular Abdomen: no organomegaly Laboratory Tests Test 03/14/17 06:20 White Blood Count 11.9 K/UL (4.8-10.8) H Red Blood Count 3.15 M/UL (4.20-5.40) L Hemoglobin 8.2 G/DL (12.0-16.0) L Hematocrit 26.4 % (37.0-47.0) L Mean Corpuscular Volume 84 FL (80-99) Mean Corpuscular Hemoglobin 26.0 PG (27.0-31.0) L Mean Corpuscular Hemoglobin Concent 31.0 G/DL (32.0-36.0) L Red Cell Distribution Width 16.7 % (11.6-14.8) H Platelet Count 189 K/UL (150-450) Mean Platelet Volume 7.9 FL (6.5-10.1) Neutrophils (%) (Auto) 82.6 % (45.0-75.0) H Lymphocytes (%) (Auto) 5.9 % (20.0-45.0) L Monocytes (%) (Auto) 8.6 % (1.0-10.0) Eosinophils (%) (Auto) 2.3 % (0.0-3.0) Basophils (%) (Auto) 0.7 % (0.0-2.0) Sodium Level 141 mEQ/L (135-145) Potassium Level 4.3 mEQ/L (3.4-4.9) Chloride Level 103 mEQ/L (98-107) Carbon Dioxide Level 17 mEQ/L (20-30) L Anion Gap 21 (5-15) H Blood Urea Nitrogen 70 mg/dL (7-23) H Creatinine 5.0 mg/dL (0.5-0.9) H Estimat Glomerular Filtration Rate 8.9 mL/min (>60) Glucose Level 154 mg/dL (74-106) H Uric Acid 10.5 mg/dL (3.0-7.5) H Calcium Level 8.4 mg/dL (8.6-10.2) L Phosphorus Level 5.3 mg/dL (2.5-4.8) H Magnesium Level 1.9 mg/dL (1.7-2.5) Total Bilirubin 1.1 mg/dL (0.0-1.2) Direct Bilirubin 0.2 mg/dL (0.1-0.3) Gamma Glutamyl Transpeptidase 30 U/L (5-36) Aspartate Amino Transf (AST/SGOT) 8 U/L (5-40) Alanine Aminotransferase (ALT/SGPT) 10 U/L (3-33) Alkaline Phosphatase 80 U/L (35-104) C-Reactive Protein, Quantitative 7.5 mg/dL (< 0.5) H Pro-B-Type Natriuretic Peptide 2854 pg/mL (0-125) H Total Protein 6.5 g/dL (6.6-8.7) L Albumin 3.3 g/dL (3.5-5.2) L Globulin 3.2 g/dL Albumin/Globulin Ratio 1.0 (1.0-2.7) Thyroid Stimulating Hormone (TSH) 0.972 uIU/mL (0.300-4.500) Current Medications Medications (Trade) Dose Ordered Sig/Ifeanyi Route PRN Reason Start Time Stop Time Status Last Admin Dose Admin Acetaminophen (Tylenol) 650 mg Q4H PRN ORAL T>100.5 03/14/17 07:00 04/13/17 06:59 Albuterol/ Ipratropium (DuoNeb 0.5-3(2.5)mg/3ml) 3 ml Q4H PRN HHN Shortness of Breath 03/14/17 08:00 03/19/17 07:59 Allopurinol (Zyloprim) 200 mg DAILY ORAL 03/14/17 09:00 04/13/17 08:59 03/14/17 08:21 Aspirin (Ecotrin) 81 mg DAILY ORAL 03/14/17 09:00 04/13/17 08:59 03/14/17 08:20 Atorvastatin Calcium (Lipitor) 40 mg BEDTIME ORAL 03/14/17 21:00 04/13/17 20:59 Carvedilol (Coreg) 12.5 mg EVERY 12 HOURS ORAL 03/14/17 09:00 04/13/17 08:59 03/14/17 08:21 Cefepime HCl 1 gm/ Dextrose 55 ml @ 110 mls/hr Q24H IVPB 03/14/17 12:00 03/21/17 11:59 03/14/17 12:07 Dextrose (Dextrose 50%) STAT PRN IV Hypoglycemia 03/14/17 07:30 04/13/17 07:29 Doxazosin Mesylate (Cardura) 1 mg Q8HR ORAL 03/14/17 14:00 04/13/17 13:59 Heparin Sodium (Porcine) (Heparin 5000 units/ml) 5,000 units EVERY 12 HOURS SUBQ 03/14/17 09:00 04/13/17 08:59 Hydralazine HCl (Apresoline) 100 mg Q8HR ORAL 03/14/17 14:00 04/13/17 13:59 Insulin Aspart (NovoLOG) BEFORE MEALS AND HS SUBQ 03/14/17 11:30 04/13/17 11:29 03/14/17 15:45 Iron Sucrose 100 mg/Sodium Chloride 60 ml @ 120 mls/hr BEDTIME IVPB 03/14/17 21:00 03/17/17 21:01 Morphine Sulfate (Morphine Sulfate) 4 mg Q4H PRN IVP Severe Pain (Pain Scale 7-10) 03/14/17 07:30 03/21/17 07:29 03/14/17 15:38 Nateglinide (Starlix) 60 mg TIAC ORAL 03/14/17 11:30 04/13/17 11:29 03/14/17 15:38 Ondansetron HCl (Zofran) 4 mg Q6H PRN IVP Nausea & Vomiting 03/14/17 07:30 04/13/17 07:29 03/14/17 15:39 Pantoprazole (Protonix) 40 mg EVERY 12 HOURS ORAL 03/14/17 09:00 04/13/17 08:59 03/14/17 08:22 Polyethylene Glycol (Miralax) 17 gm DAILYPRN PRN ORAL Constipation 03/14/17 07:30 04/13/17 07:29 Sodium Chloride (Sodium Chloride 1000ml bag) 1,000 ml @ 75 mls/hr [id number] IVLG 03/14/17 07:00 04/13/17 06:59 03/14/17 08:20 Temazepam (Restoril) 15 mg HSPRN PRN ORAL Insomnia 03/14/17 21:00 03/21/17 20:59 NICOLE OH M.D. Mar 14, 2017 18:14
--- NOTE | 2017-03-14 20:18 | Cardiology Progress Note ---
Assessment/Plan Assessment/Plan diastolic heart failure sever diastilic dysfucntion brenna related meds now resolved renal fialure progressive htn abd pain vomiting bp seem fine hr is fine cr worse despite fluid echo normal systolic function sig diastolic dysfunction dialysis planned i agree cale placed already note hydro and stone should be able to tolerate urlogic stent placment which is expected to be a quick procedure Subjective Cardiovascular: Denies: chest pain Respiratory: Reports: shortness of breath Gastrointestinal/Abdominal: Denies: abdominal pain Genitourinary: Denies: burning Objective Last 24 Hour Vital Signs Date Time Temp Pulse Resp B/P Pulse Ox O2 Delivery O2 Flow Rate FiO2 03/14/17 15:34 98.2 66 20 137/64 95 Room Air 03/14/17 15:04 66 17 132/46 97 03/14/17 15:01 64 23 138/48 97 Room Air 03/14/17 14:56 66 21 153/66 97 Room Air 03/14/17 14:51 66 21 149/65 97 Room Air 03/14/17 14:46 65 18 150/65 98 Room Air 03/14/17 14:45 64 19 03/14/17 14:40 64 21 140/59 98 Room Air 03/14/17 13:36 145/53 03/14/17 12:00 97.7 64 19 145/53 94 Nasal Cannula 03/14/17 08:57 97.9 69 22 159/70 97 Nasal Cannula 03/14/17 08:21 64 159/70 03/14/17 06:45 97.7 70 20 145/60 95 Room Air 03/14/17 06:07 149/62 03/14/17 04:04 98.6 65 19 149/62 98 Room Air 03/14/17 04:00 62 03/14/17 00:18 98.4 61 17 146/72 97 Room Air 03/14/17 00:00 61 03/13/17 21:32 142/63 03/13/17 21:32 68 142/63 03/13/17 20:38 Nasal Cannula 2.0 28 03/13/17 20:37 68 18 Nasal Cannula 2.0 28 03/13/17 20:37 98 Nasal Cannula 2.0 28 General Appearance: no apparent distress, alert Cardiovascular: normal rate, regular rhythm Respiratory/Chest: lungs clear Abdomen: non tender, soft Extremities: moderate edema Intake and Output 03/13/17 03/14/17 19:00 07:00 Intake Total 1330 ml 750 ml Output Total 750 ml 300 ml Balance 580 ml 450 ml Intake Oral 490 ml IV Total 590 ml 750 ml Blood Product 250 ml Output Urine Total 750 ml 300 ml Laboratory Tests Test 03/14/17 06:20 White Blood Count 11.9 K/UL (4.8-10.8) H Red Blood Count 3.15 M/UL (4.20-5.40) L Hemoglobin 8.2 G/DL (12.0-16.0) L Hematocrit 26.4 % (37.0-47.0) L Mean Corpuscular Volume 84 FL (80-99) Mean Corpuscular Hemoglobin 26.0 PG (27.0-31.0) L Mean Corpuscular Hemoglobin Concent 31.0 G/DL (32.0-36.0) L Red Cell Distribution Width 16.7 % (11.6-14.8) H Platelet Count 189 K/UL (150-450) Mean Platelet Volume 7.9 FL (6.5-10.1) Neutrophils (%) (Auto) 82.6 % (45.0-75.0) H Lymphocytes (%) (Auto) 5.9 % (20.0-45.0) L Monocytes (%) (Auto) 8.6 % (1.0-10.0) Eosinophils (%) (Auto) 2.3 % (0.0-3.0) Basophils (%) (Auto) 0.7 % (0.0-2.0) Sodium Level 141 mEQ/L (135-145) Potassium Level 4.3 mEQ/L (3.4-4.9) Chloride Level 103 mEQ/L (98-107) Carbon Dioxide Level 17 mEQ/L (20-30) L Anion Gap 21 (5-15) H Blood Urea Nitrogen 70 mg/dL (7-23) H Creatinine 5.0 mg/dL (0.5-0.9) H Estimat Glomerular Filtration Rate 8.9 mL/min (>60) Glucose Level 154 mg/dL (74-106) H Uric Acid 10.5 mg/dL (3.0-7.5) H Calcium Level 8.4 mg/dL (8.6-10.2) L Phosphorus Level 5.3 mg/dL (2.5-4.8) H Magnesium Level 1.9 mg/dL (1.7-2.5) Total Bilirubin 1.1 mg/dL (0.0-1.2) Direct Bilirubin 0.2 mg/dL (0.1-0.3) Gamma Glutamyl Transpeptidase 30 U/L (5-36) Aspartate Amino Transf (AST/SGOT) 8 U/L (5-40) Alanine Aminotransferase (ALT/SGPT) 10 U/L (3-33) Alkaline Phosphatase 80 U/L (35-104) C-Reactive Protein, Quantitative 7.5 mg/dL (< 0.5) H Pro-B-Type Natriuretic Peptide 2854 pg/mL (0-125) H Total Protein 6.5 g/dL (6.6-8.7) L Albumin 3.3 g/dL (3.5-5.2) L Globulin 3.2 g/dL Albumin/Globulin Ratio 1.0 (1.0-2.7) Thyroid Stimulating Hormone (TSH) 0.972 uIU/mL (0.300-4.500) JESSICA ACUNA Mar 14, 2017 20:18
[2017-03-14] MEDS: Iron Sucrose 100 MG in NS 55 ML IVPB SCH (20:57)
--- NOTE | 2017-03-14 22:04 | Pulmonology Progress Note ---
Assessment/Plan Problems: (1) Renal failure (2) Hyperkalemia (3) HTN (hypertension) (4) Diabetes (5) Peripheral edema Assessment/Plan renal function worsening all consultants note reviewed and appreciated titrate cardiac meds f/u renal parameters f/u Urology recommendations if no improvement in renal function, she will need HD DW dr Hurtado Subjective ROS Limited/Unobtainable: No Interval Events: pain is better controlled Constitutional: Reports: no symptoms Allergies: Coded Allergies: BENAZEPRIL (Verified Allergy, Intermediate, Shortness of Breath, 07/01/14) FUROSEMIDE (Unverified Allergy, Intermediate, Rash, 11/18/16) Per Kyleigh Berrios [employer]ER, Pt does not have allegy to Lasix and able to start Lasxi tx. NIFEDIPINE (Verified Allergy, Intermediate, Shortness of Breath, 06/28/14) NITROGLYCERIN (Verified Allergy, Intermediate, Shortness of Breath, 06/28/14 ) SOB and BLE swelling Objective Last 24 Hour Vital Signs Date Time Temp Pulse Resp B/P Pulse Ox O2 Delivery O2 Flow Rate FiO2 03/14/17 20:59 64 145/63 03/14/17 20:00 97.9 64 19 145/63 96 Room Air 03/14/17 15:34 98.2 66 20 137/64 95 Room Air 03/14/17 15:04 66 17 132/46 97 03/14/17 15:01 64 23 138/48 97 Room Air 03/14/17 14:56 66 21 153/66 97 Room Air 03/14/17 14:51 66 21 149/65 97 Room Air 03/14/17 14:46 65 18 150/65 98 Room Air 03/14/17 14:45 64 19 03/14/17 14:40 64 21 140/59 98 Room Air 03/14/17 13:36 145/53 03/14/17 12:00 97.7 64 19 145/53 94 Nasal Cannula 03/14/17 08:57 97.9 69 22 159/70 97 Nasal Cannula 03/14/17 08:21 64 159/70 03/14/17 06:45 97.7 70 20 145/60 95 Room Air 03/14/17 06:07 149/62 03/14/17 04:04 98.6 65 19 149/62 98 Room Air 03/14/17 04:00 62 03/14/17 00:18 98.4 61 17 146/72 97 Room Air 03/14/17 00:00 61 Intake and Output 03/13/17 03/14/17 19:00 07:00 Intake Total 1330 ml 750 ml Output Total 750 ml 300 ml Balance 580 ml 450 ml Intake Oral 490 ml IV Total 590 ml 750 ml Blood Product 250 ml Output Urine Total 750 ml 300 ml General Appearance: WD/WN HEENT: normocephalic, atraumatic Respiratory/Chest: chest wall non-tender, lungs clear, normal breath sounds Cardiovascular: normal peripheral pulses, normal rate Abdomen: normal bowel sounds, soft, non tender Genitourinary: normal external genitalia Extremities: no cyanosis Skin: no rash Neurologic/Psychiatric: speech and language specialist II-XII grossly normal Laboratory Tests 03/14/17 06:20: White Blood Count 11.9H, Red Blood Count 3.15L, Hemoglobin 8.2L, Hematocrit 26.4L, Mean Corpuscular Volume 84, Mean Corpuscular Hemoglobin 26.0L, Mean Corpuscular Hemoglobin Concent 31.0L, Red Cell Distribution Width 16.7H, Platelet Count 189, Mean Platelet Volume 7.9, Neutrophils (%) (Auto) 82.6H, Lymphocytes (%) (Auto) 5.9L, Monocytes (%) (Auto) 8.6, Eosinophils (%) (Auto) 2.3, Basophils (%) (Auto) 0.7, Sodium Level 141, Potassium Level 4.3, Chloride Level 103, Carbon Dioxide Level 17L, Anion Gap 21H, Blood Urea Nitrogen 70H, Creatinine 5.0H, Estimat Glomerular Filtration Rate 8.9, Glucose Level 154H, Uric Acid 10.5H, Calcium Level 8.4L, Phosphorus Level 5.3H, Magnesium Level 1.9 , Total Bilirubin 1.1, Direct Bilirubin 0.2, Gamma Glutamyl Transpeptidase 30, Aspartate Amino Transf (AST/SGOT) 8, Alanine Aminotransferase (ALT/SGPT) 10, Alkaline Phosphatase 80, C-Reactive Protein, Quantitative 7.5H, Pro-B-Type Natriuretic Peptide 2854H, Total Protein 6.5L, Albumin 3.3L, Globulin 3.2, Albumin/Globulin Ratio 1.0, Thyroid Stimulating Hormone (TSH) 0.972 Current Medications Medications (Trade) Dose Ordered Sig/Ifeanyi Route PRN Reason Start Time Stop Time Status Last Admin Dose Admin Acetaminophen (Tylenol) 650 mg Q4H PRN ORAL T>100.5 03/14/17 07:00 04/13/17 06:59 Albuterol/ Ipratropium (DuoNeb 0.5-3(2.5)mg/3ml) 3 ml Q4H PRN HHN Shortness of Breath 03/14/17 08:00 03/19/17 07:59 Allopurinol (Zyloprim) 200 mg DAILY ORAL 03/14/17 09:00 04/13/17 08:59 03/14/17 08:21 Aspirin (Ecotrin) 81 mg DAILY ORAL 03/14/17 09:00 04/13/17 08:59 03/14/17 08:20 Atorvastatin Calcium (Lipitor) 40 mg BEDTIME ORAL 03/14/17 21:00 04/13/17 20:59 03/14/17 20:58 Carvedilol (Coreg) 12.5 mg EVERY 12 HOURS ORAL 03/14/17 09:00 04/13/17 08:59 03/14/17 20:59 Cefepime HCl 1 gm/ Dextrose 55 ml @ 110 mls/hr Q24H IVPB 03/14/17 12:00 03/21/17 11:59 03/14/17 12:07 Dextrose (Dextrose 50%) STAT PRN IV Hypoglycemia 03/14/17 07:30 04/13/17 07:29 Doxazosin Mesylate (Cardura) 1 mg Q8HR ORAL 03/14/17 14:00 04/13/17 13:59 Heparin Sodium (Porcine) (Heparin 5000 units/ml) 5,000 units EVERY 12 HOURS SUBQ 03/14/17 09:00 04/13/17 08:59 03/14/17 21:02 Hydralazine HCl (Apresoline) 100 mg Q8HR ORAL 03/14/17 14:00 04/13/17 13:59 Insulin Aspart (NovoLOG) BEFORE MEALS AND HS SUBQ 03/14/17 11:30 04/13/17 11:29 03/14/17 21:18 Iron Sucrose 100 mg/Sodium Chloride 60 ml @ 120 mls/hr BEDTIME IVPB 03/14/17 21:00 03/17/17 21:01 03/14/17 20:57 Morphine Sulfate (Morphine Sulfate) 4 mg Q4H PRN IVP Severe Pain (Pain Scale 7-10) 03/14/17 07:30 03/21/17 07:29 03/14/17 21:22 Nateglinide (Starlix) 60 mg TIAC ORAL 03/14/17 11:30 04/13/17 11:29 03/14/17 15:38 Ondansetron HCl (Zofran) 4 mg Q6H PRN IVP Nausea & Vomiting 03/14/17 07:30 04/13/17 07:29 03/14/17 21:21 Pantoprazole (Protonix) 40 mg EVERY 12 HOURS ORAL 03/14/17 09:00 04/13/17 08:59 03/14/17 20:59 Polyethylene Glycol (Miralax) 17 gm DAILYPRN PRN ORAL Constipation 03/14/17 07:30 04/13/17 07:29 Sodium Chloride (Sodium Chloride 1000ml bag) 1,000 ml @ 75 mls/hr [id number] IVLG 03/14/17 07:00 04/13/17 06:59 03/14/17 18:52 Temazepam (Restoril) 15 mg HSPRN PRN ORAL Insomnia 03/14/17 21:00 03/21/17 20:59 JEAN CLAUDE SUTTON Mar 14, 2017 22:04
[2017-03-15] VITALS (13 sets, daily range): BP systolic 127–174; BP diastolic 56–86
[2017-03-15] MEDS: Doxazosin 1mg Tab ORAL SCH ×3 (06:00→21:43)
[2017-03-15] MEDS: HydrALAZINE 50mg tab ORAL SCH ×3 (06:00→21:43)
[2017-03-15] MEDS: Nateglinide 60mg tab ORAL SCH ×3 (06:21→16:32)
[2017-03-15] MEDS: NovoLOG Insulin Flexpen SUBQ SCH ×4 (06:22→21:49)
[2017-03-15 07:00] LABS: BASOPHILS % (AUTO) 0.6 % (0.0-2.0); EOSINOPHILS % (AUTO) 2.3 % (0.0-3.0); LYMPHOCYTES % (AUTO) 6.2 % (20.0-45.0); MEAN CORPUSCULAR HEMOGLOBIN 25.4 PG (27.0-31.0); MEAN CORPUSCULAR HGB CONC 30.4 G/DL (32.0-36.0); MEAN CORPUSCULAR VOLUME 83 FL (80-99); MEAN PLATELET VOLUME 8.5 FL (6.5-10.1); MONOCYTES % (AUTO) 7.6 % (1.0-10.0); NEUTROPHILS % (AUTO) 83.3 % (45.0-75.0); PLATELET COUNT 203 K/UL (150-450); RED BLOOD COUNT 3.21 M/UL (4.20-5.40); RED CELL DISTRIBUTION WIDTH 16.2 % (11.6-14.8); WHITE BLOOD COUNT 12.2 K/UL (4.8-10.8)
[2017-03-15] MEDS ORDERED: Iothalamate Meglumine 60% 30ML INJ ONE (07:44)
[2017-03-15] MEDS ORDERED: Propofol 10mg/ml 20ml IV ONE (08:00)
[2017-03-15] MEDS ORDERED: Lidocaine 1% MPF 10mg/ml 5ml ONE (08:00)
[2017-03-15] MEDS ORDERED: Midazolam 2mg/2ml Inj ONE (08:00)
--- NOTE | 2017-03-15 08:03 | Pre-Procedure Note/Attestation ---
Pre-Procedure Note/Attestation Complete Prior to Procedure Planned Procedure: right Procedure Narrative: Cystoscopy, right JJ stent placement and fluoroscopy Indications for Procedure Pre-Operative Diagnosis: Right ureteral stone/ hydro Attestation I attest that I discussed the nature of the procedure; its benefits; risks and complications; and alternatives (and the risks and benefits of such alternatives ), prior to the procedure, with the patient (or the patient's legal petroleum products sales representative). I attest that, if there was a reasonable possibility of needing a blood transfusion, the patient (or the patient's legal petroleum products sales representative) was given the [facility] standardized written summary, pursuant to the [place] Blood Safety Act ([place] Health and Safety Code # 1645, as amended). I attest that I re-evaluated the patient just prior to the surgery and that there has been no change in the patient's H&P, except as documented below: Rodrigo Fermin M.D. Mar 15, 2017 08:03
[2017-03-15] MEDS ORDERED: Sterile Water For Irrig 2000ml IRRIG ONE (08:21)
[2017-03-15 08:39] LABS: ALBUMIN/GLOBULIN RATIO 0.8 (1.0-2.7); CALCIUM 8.4 mg/dL (8.6-10.2); CREATININE 5.4 mg/dL (0.5-0.9); CRP QUANT 9.4 mg/dL (< 0.5); GLOMERULAR FILTRATION RATE 8.2 mL/min (>60); PHOSPHORUS 5.8 mg/dL (2.5-4.8); POTASSIUM 4.2 mEQ/L (3.4-4.9); TOTAL PROTEIN 6.7 g/dL (6.6-8.7); URIC ACID 10.5 mg/dL (3.0-7.5)
--- NOTE | 2017-03-15 08:49 | Operative Note - PDOC ---
Operative Note Operative Note Pre-op Diagnosis: Right ureteral stone/ hydro Procedure: Cystoscopy, right JJ stent placement, fluoroscopy Post-op Diagnosis: Same Post-op Diagnosis: same as pre-op Surgeon: Zander Anesthesia: general Specimen: none Complications: none Condition: stable Estimated Blood Loss: none Drains: other Implant(s) used?: Yes Indications for Procedure Obstructing stone/ hydro/ colic Rodrigo Fermin M.D. Mar 15, 2017 08:49
[2017-03-15] MEDS ORDERED: LR 1000ml 1,000 ML IVLG SCH (08:57)
--- NOTE | 2017-03-15 08:57 | Anethesia Preoperative Eval ---
Anesthesia Pre-op PMH/ROS General Date of Evaluation: Mar 15, 2017 Time of Evaluation: 08:01 Anesthesiologist: Shar ASA Score: ASA 3 - Emergency Mallampati Score Class I : Soft palate, uvula, fauces, pillars visible Class II: Soft palate, uvula, fauces visible Class III: Soft palate, base of uvula visible Class IV: Only hard plate visible Mallampati Classification: Class III Surgeon: Zander Diagnosis: Obstructive Uropathy Surgical Procedure: Cystoscopy, Stent Placement Anesthesia History: none Family History: no anesthesia problems Allergies: Coded Allergies: BENAZEPRIL (Verified Allergy, Intermediate, Shortness of Breath, 07/01/14) FUROSEMIDE (Unverified Allergy, Intermediate, Rash, 11/18/16) Per Kyleigh Berrios [employer]ISH LECTURER, Pt does not have allegy to Lasix and able to start Lasxi tx. NIFEDIPINE (Verified Allergy, Intermediate, Shortness of Breath, 06/28/14) NITROGLYCERIN (Verified Allergy, Intermediate, Shortness of Breath, 06/28/14 ) SOB and BLE swelling Medications: see eMAR Past Medical History Cardiovascular: Reports: CAD, HTN, other - HL Gastrointestinal/Genitourinary: Reports: ESRD, GERD Neurologic/Psychiatric: Reports: CVA Endocrine: Reports: DM Hematology/Immune: Reports: anemia Other: obesity - BMI 55 Anesthesia Pre-op Phys. Exam Physician Exam Last Vital Signs Date Time Temp Pulse Resp B/P Pulse Ox O2 Delivery O2 Flow Rate FiO2 03/15/17 06:00 127/51 03/15/17 04:12 97.7 57 19 93 Room Air 03/13/17 20:38 2.0 28 Constitutional: NAD Neurologic: CN 2-12 intact Cardiovascular: RRR Respiratory: CTA Gastrointestinal: S/NT/ND Airway Exam Mallampati Score: Class III MO: limited ROM: limited Teeth: intact Anesthesia Pre-op A/P Labs Hematology Test 03/15/17 05:15 White Blood Count 12.2 K/UL (4.8-10.8) H Red Blood Count 3.21 M/UL (4.20-5.40) L Hemoglobin 8.1 G/DL (12.0-16.0) L Hematocrit 26.8 % (37.0-47.0) L Mean Corpuscular Volume 83 FL (80-99) Mean Corpuscular Hemoglobin 25.4 PG (27.0-31.0) L Mean Corpuscular Hemoglobin Concent 30.4 G/DL (32.0-36.0) L Red Cell Distribution Width 16.2 % (11.6-14.8) H Platelet Count 203 K/UL (150-450) Mean Platelet Volume 8.5 FL (6.5-10.1) Neutrophils (%) (Auto) 83.3 % (45.0-75.0) H Lymphocytes (%) (Auto) 6.2 % (20.0-45.0) L Monocytes (%) (Auto) 7.6 % (1.0-10.0) Eosinophils (%) (Auto) 2.3 % (0.0-3.0) Basophils (%) (Auto) 0.6 % (0.0-2.0) Chemistry Test 03/15/17 05:15 Sodium Level 143 mEQ/L (135-145) Potassium Level 4.2 mEQ/L (3.4-4.9) Chloride Level 105 mEQ/L (98-107) Carbon Dioxide Level 17 mEQ/L (20-30) L Anion Gap 21 (5-15) H Blood Urea Nitrogen 75 mg/dL (7-23) H Creatinine 5.4 mg/dL (0.5-0.9) H Estimat Glomerular Filtration Rate 8.2 mL/min (>60) Glucose Level 109 mg/dL (74-106) H Uric Acid 10.5 mg/dL (3.0-7.5) H Calcium Level 8.4 mg/dL (8.6-10.2) L Phosphorus Level 5.8 mg/dL (2.5-4.8) H Magnesium Level 2.0 mg/dL (1.7-2.5) Total Bilirubin 1.1 mg/dL (0.0-1.2) Direct Bilirubin Pending Aspartate Amino Transf (AST/SGOT) 8 U/L (5-40) Alanine Aminotransferase (ALT/SGPT) 9 U/L (3-33) Alkaline Phosphatase 84 U/L (35-104) C-Reactive Protein, Quantitative 9.4 mg/dL (< 0.5) H Pro-B-Type Natriuretic Peptide 3477 pg/mL (0-125) H Total Protein 6.7 g/dL (6.6-8.7) Albumin 3.1 g/dL (3.5-5.2) L Globulin 3.6 g/dL Albumin/Globulin Ratio 0.8 (1.0-2.7) L Risk Assessment & Plan Assessment: ASA 3E Plan: GA, BIS Status Change Before Surgery: No Pre-Antibiotics Drug: On Given Within 1 Hr of Incision: Yes Minor Myles MD Mar 15, 2017 08:57
[2017-03-15] MEDS: Allopurinol 100mg Tab ORAL SCH (09:00)
[2017-03-15] MEDS ORDERED: Ketorolac 30mg Inj IV PRN (09:00)
[2017-03-15] MEDS ORDERED: Ketorolac 60mg Inj IV PRN (09:00)
[2017-03-15] MEDS ORDERED: fentaNYL 100 mcg/2 mL IV PRN (09:00)
[2017-03-15] MEDS ORDERED: Hydromorphone 0.5mg/0.5ml inj IVP PRN (09:00)
[2017-03-15] MEDS ORDERED: DiphenhydrAMINE 50mg/ml Inj IVP PRN (09:00)
[2017-03-15] MEDS ORDERED: Atropine Inj 1mg/10ml Syr IV PRN (09:00)
[2017-03-15] MEDS: Heparin 5000 units/ml inj SUBQ SCH ×2 (09:00→21:45)
[2017-03-15] MEDS ORDERED: Metoclopramide 10mg/2ml Inj IVP PRN (09:00)
[2017-03-15] MEDS ORDERED: LORazepam Inj 2mg/ml 1ml IV PRN (09:00)
[2017-03-15] MEDS ORDERED: Oxycodone/Acetaminophen 5-325 ORAL PRN (09:00)
[2017-03-15] MEDS ORDERED: Norco 7.5mg/325mg tab ORAL PRN (09:00)
[2017-03-15] MEDS: Aspirin EC 81mg tab ORAL SCH (09:00)
[2017-03-15] MEDS ORDERED: Norco 5mg/325mg tab ORAL PRN (09:00)
[2017-03-15] MEDS ORDERED: Meperidine 25mg/ml Inj IV PRN (09:00)
[2017-03-15] MEDS ORDERED: Labetalol 5mg/ml 20ml vial IV PRN (09:00)
[2017-03-15] MEDS ORDERED: Midazolam 2mg/2ml Inj IVP PRN (09:00)
[2017-03-15] MEDS: Carvedilol 12.5mg tab ORAL SCH ×2 (09:00→21:43)
--- NOTE | 2017-03-15 09:01 | Immediate Post-Op Evaluation ---
Immediate Post-Op Evalulation Immediate Post-Op Evalulation Procedure: Cystoscopy, stent Placement Date of Evaluation: Mar 15, 2017 Time of Evaluation: 09:17 IV Fluids: 50 NS Blood Products: 0 Estimated Blood Loss: 2 Urinary Output: 0 Blood Pressure Systolic: 174 Blood Pressure Diastolic: 75 Pulse Rate: 64 Respiratory Rate: 16 O2 Sat by Pulse Oximetry: 100 Pain Score (1-10): 2 Nausea: No Vomiting: No Complications 0 Patient Status: awake, reacts, patent, extubated, none Hydration Status: adequate Drug: On Minor Myles MD Mar 15, 2017 09:01
--- NOTE | 2017-03-15 09:02 | General Progress Note ---
Assessment/Plan Status: unchanged Status Narrative Cr rising- 5.4 today Assessment/Plan status: Acute renal failure- HyperKalemia ? Underlying CKD due to DM and HTN Anemia: Etiology? Low Iron Ureteropelvic junction calculus Atrial arrhythmia UTI Plan: Uro re eval for stent- discussed with Dr Fermin- will have it in today discussed the need for dialysis - Radiology to put Jose- will dialyse today transfused adding cardura Velasquez in [facility] kidney- Mild right hydronephrosis, presumably from proximal right ureteral stone described on CT scan performed earlier the same day 2 D echo Ej Fx 60% Slow Hydrate IV Iron EPO SQ gastric support- Avoid Nephrotoxics monitor renal parameters Adjust BP meds- per orders Subjective ROS Limited/Unobtainable: No Constitutional: Reports: malaise Allergies: Coded Allergies: BENAZEPRIL (Verified Allergy, Intermediate, Shortness of Breath, 07/01/14) FUROSEMIDE (Unverified Allergy, Intermediate, Rash, 11/18/16) Per Kyleigh Berrios [employer] PREVENTION SPECIALIST, Pt does not have allegy to Lasix and able to start Lasxi tx. NIFEDIPINE (Verified Allergy, Intermediate, Shortness of Breath, 06/28/14) NITROGLYCERIN (Verified Allergy, Intermediate, Shortness of Breath, 06/28/14 ) SOB and BLE swelling Objective Last 24 Hour Vital Signs Date Time Temp Pulse Resp B/P Pulse Ox O2 Delivery O2 Flow Rate FiO2 03/15/17 06:00 127/51 03/15/17 04:12 97.7 57 19 127/61 93 Room Air 03/15/17 00:00 97.8 56 20 129/56 98 Room Air 03/14/17 22:48 145/63 03/14/17 20:59 64 145/63 03/14/17 20:00 97.9 64 19 145/63 96 Room Air 03/14/17 15:34 98.2 66 20 137/64 95 Room Air 03/14/17 15:04 66 17 132/46 97 03/14/17 15:01 64 23 138/48 97 Room Air 03/14/17 14:56 66 21 153/66 97 Room Air 03/14/17 14:51 66 21 149/65 97 Room Air 03/14/17 14:46 65 18 150/65 98 Room Air 03/14/17 14:45 64 19 03/14/17 14:40 64 21 140/59 98 Room Air 03/14/17 13:36 145/53 03/14/17 12:00 97.7 64 19 145/53 94 Nasal Cannula Intake and Output 03/14/17 03/15/17 18:59 06:59 Intake Total 855 ml 240 ml Output Total 300 ml 250 ml Balance 555 ml -10 ml Intake Oral 200 ml 240 ml IV Total 655 ml Output Urine Total 300 ml 250 ml # Voids 1 Laboratory Tests 03/15/17 05:15: White Blood Count 12.2H, Red Blood Count 3.21L, Hemoglobin 8.1L, Hematocrit 26.8L, Mean Corpuscular Volume 83, Mean Corpuscular Hemoglobin 25.4L, Mean Corpuscular Hemoglobin Concent 30.4L, Red Cell Distribution Width 16.2H, Platelet Count 203, Mean Platelet Volume 8.5, Neutrophils (%) (Auto) 83.3H, Lymphocytes (%) (Auto) 6.2L, Monocytes (%) (Auto) 7.6, Eosinophils (%) (Auto) 2.3, Basophils (%) (Auto) 0.6, Sodium Level 143, Potassium Level 4.2, Chloride Level 105, Carbon Dioxide Level 17L, Anion Gap 21H, Blood Urea Nitrogen 75H, Creatinine 5.4H, Estimat Glomerular Filtration Rate 8.2, Glucose Level 109H, Uric Acid 10.5H, Calcium Level 8.4L, Phosphorus Level 5.8H, Magnesium Level 2.0 , Total Bilirubin 1.1, Direct Bilirubin [Pending], Aspartate Amino Transf (AST/ SGOT) 8, Alanine Aminotransferase (ALT/SGPT) 9, Alkaline Phosphatase 84, C- Reactive Protein, Quantitative 9.4H, Pro-B-Type Natriuretic Peptide 3477H, Total Protein 6.7, Albumin 3.1L, Globulin 3.6, Albumin/Globulin Ratio 0.8L Height (Feet): 5 Height (Inches): 2.00 Weight (Pounds): 299 General Appearance: no apparent distress Respiratory/Chest: decreased breath sounds Abdomen: soft Objective other PE not changed ALE LOBATO Mar 15, 2017 09:02
--- NOTE | 2017-03-15 09:04 | 48 Hour Post Anesthesia Eval ---
Post Anesthesia Evaluation Procedure: Cystoscopy, stent Placement Date of Evaluation: Mar 15, 2017 Time of Evaluation: 11:31 Blood Pressure Systolic: 184 0: 66 Pulse Rate: 64 Respiratory Rate: 18 Temperature (Fahrenheit): 98.2 O2 Sat by Pulse Oximetry: 98 Airway: patent Nausea: No Vomiting: No Pain Intensity: 2 Hydration Status: adequate Cardiopulmonary Status: Stable Mental Status/LOC: patient returned to baseline Follow-up Care/Observations: 0 Post-Anesthesia Complications: 0 Follow-up care needed: N/A Minor Myles MD Mar 15, 2017 09:04
[2017-03-15 09:21] LABS: BILIRUBIN,DIRECT 0.3 mg/dL (0.1-0.3)
[2017-03-15] MEDS: Cefepime HCl 1 GM in D5W 55 ML IVPB SCH (11:47)
--- NOTE | 2017-03-15 18:29 | Cardiology Progress Note ---
Assessment/Plan Assessment/Plan diastolic heart failure sever diastilic dysfucntion brenna related meds now resolved renal fialure progressive htn abd pain vomiting bp seem fine hr is fine cr worse despite fluid echo normal systolic function sig diastolic dysfunction dialysis planned i agree cale candelaria already note hydro and stone should be able to tolerate urlogic stent placment which is expected to be a quick procedure Objective Last 24 Hour Vital Signs Date Time Temp Pulse Resp B/P Pulse Ox O2 Delivery O2 Flow Rate FiO2 03/15/17 16:00 Room Air 03/15/17 16:00 97.2 68 17 147/64 93 Room Air 03/15/17 12:55 Room Air 03/15/17 12:00 97.5 69 17 160/70 93 Room Air 03/15/17 10:20 97.3 67 20 163/74 93 Room Air 03/15/17 10:00 97.8 66 14 165/67 99 Nasal Cannula 3.0 03/15/17 09:45 68 20 160/67 99 Nasal Cannula 3.0 03/15/17 09:30 64 12 155/70 100 Nasal Cannula 3.0 03/15/17 09:30 71 15 158/86 100 Nasal Cannula 3.0 03/15/17 09:15 64 12 155/70 100 Simple Mask 6.0 03/15/17 09:14 64 18 98 03/15/17 09:12 64 16 100 03/15/17 09:10 65 21 165/85 100 Simple Mask 6.0 03/15/17 09:06 97.2 65 21 174/75 100 Simple Mask 6.0 03/15/17 08:00 97.3 67 20 163/74 93 Room Air 03/15/17 06:00 127/51 03/15/17 04:12 97.7 57 19 127/61 93 Room Air 03/15/17 00:00 97.8 56 20 129/56 98 Room Air 03/14/17 22:48 145/63 03/14/17 20:59 64 145/63 03/14/17 20:00 97.9 64 19 145/63 96 Room Air Intake and Output 03/14/17 03/15/17 19:00 07:00 Intake Total 855 ml 240 ml Output Total 300 ml 250 ml Balance 555 ml -10 ml Intake Oral 200 ml 240 ml IV Total 655 ml Output Urine Total 300 ml 250 ml # Voids 1 Laboratory Tests Test 03/15/17 05:15 White Blood Count 12.2 K/UL (4.8-10.8) H Red Blood Count 3.21 M/UL (4.20-5.40) L Hemoglobin 8.1 G/DL (12.0-16.0) L Hematocrit 26.8 % (37.0-47.0) L Mean Corpuscular Volume 83 FL (80-99) Mean Corpuscular Hemoglobin 25.4 PG (27.0-31.0) L Mean Corpuscular Hemoglobin Concent 30.4 G/DL (32.0-36.0) L Red Cell Distribution Width 16.2 % (11.6-14.8) H Platelet Count 203 K/UL (150-450) Mean Platelet Volume 8.5 FL (6.5-10.1) Neutrophils (%) (Auto) 83.3 % (45.0-75.0) H Lymphocytes (%) (Auto) 6.2 % (20.0-45.0) L Monocytes (%) (Auto) 7.6 % (1.0-10.0) Eosinophils (%) (Auto) 2.3 % (0.0-3.0) Basophils (%) (Auto) 0.6 % (0.0-2.0) Sodium Level 143 mEQ/L (135-145) Potassium Level 4.2 mEQ/L (3.4-4.9) Chloride Level 105 mEQ/L (98-107) Carbon Dioxide Level 17 mEQ/L (20-30) L Anion Gap 21 (5-15) H Blood Urea Nitrogen 75 mg/dL (7-23) H Creatinine 5.4 mg/dL (0.5-0.9) H Estimat Glomerular Filtration Rate 8.2 mL/min (>60) Glucose Level 109 mg/dL (74-106) H Uric Acid 10.5 mg/dL (3.0-7.5) H Calcium Level 8.4 mg/dL (8.6-10.2) L Phosphorus Level 5.8 mg/dL (2.5-4.8) H Magnesium Level 2.0 mg/dL (1.7-2.5) Total Bilirubin 1.1 mg/dL (0.0-1.2) Direct Bilirubin 0.3 mg/dL (0.1-0.3) Aspartate Amino Transf (AST/SGOT) 8 U/L (5-40) Alanine Aminotransferase (ALT/SGPT) 9 U/L (3-33) Alkaline Phosphatase 84 U/L (35-104) C-Reactive Protein, Quantitative 9.4 mg/dL (< 0.5) H Pro-B-Type Natriuretic Peptide 3477 pg/mL (0-125) H Total Protein 6.7 g/dL (6.6-8.7) Albumin 3.1 g/dL (3.5-5.2) L Globulin 3.6 g/dL Albumin/Globulin Ratio 0.8 (1.0-2.7) L JESSICA ACUNA Mar 15, 2017 18:29
[2017-03-15] MEDS: Iron Sucrose 100 MG in NS 55 ML IVPB SCH (21:42)
[2017-03-16] VITALS (8 sets, daily range): BP systolic 129–164; BP diastolic 58–88
--- NOTE | 2017-03-16 03:48 | Operative Note - Dictated ---
DATE OF OPERATION: 03/15/2017 UROLOGY OPERATIVE NOTE PREOPERATIVE DIAGNOSIS: Right ureteral stone with hydronephrosis and colic secondary to same. POSTOPERATIVE DIAGNOSIS: Right ureteral stone with hydronephrosis and colic secondary to same. PROCEDURE PERFORMED: 1. Cystoscopy. 2. Right double-J stent placement. 3. Fluoroscopy. SURGEON: Rodrigo Fermin M.D. ANESTHESIA: General/LMA. ESTIMATED BLOOD LOSS: None. IV FLUIDS: IV crystalloid only. DRAINS: 1. Tubes and catheters, 6-Bruneian 22 cm double-J stent left indwelling. 2. Velasquez catheter to gravity drainage. SPECIMENS: None. COMPLICATIONS: None. OPERATIVE INDICATION: The patient is a 56-year-old female with a history of nephrolithiasis. She presented with a right ureteral stone, hydronephrosis, and colic secondary to same among other issues. The stone failed to pass just by current conservative management and she was counseled and elected to undergo the procedure described above. Once medical and cardiac clearance was obtained, she was scheduled for this procedure on 03/15/2017. OPERATIVE DETAILS: The patient was brought to the operative room, placed on table in supine position. General anesthesia was induced. Once the patient had her LMA placed, she was repositioned in dorsal lithotomy and draped and prepped in usual sterile fashion. A 22-Bruneian cystoscope was calibrated through urethral meatus and passed into the patient's bladder. The bladder was within normal limits. There was no evidence of mass, tumors, or stones and both ureteral orifices were identified. Attention was turned to the right ureteral orifice, into which a 0.035 Glidewire was cannulated and passed up in the right renal collecting system with a good curl noted fluoroscopically within the kidney. Once this was in place, it was used to pass a 6-Bruneian x 22 cm double-J stent over it with good curl noted fluoroscopically within the kidney and cystoscopically within the bladder. Once the stent was in place, the bladder was evacuated through the scope and the scope was removed. Velasquez catheter was replaced. The patient was taken out of dorsal lithotomy and placed back in supine position. She was cleaned, dried, and dressed. She was awakened and extubated in the operating room without difficulty and transferred to recovery in stable condition. I was present and scrubbed for the entire duration of this case. All needle, sponge, and instruments counts were reported correct. Rodrigo Fermin M.D. DR: ELIO JOB#: [id number] CC:
[2017-03-16] MEDS: Doxazosin 1mg Tab ORAL SCH ×3 (06:00→23:11)
[2017-03-16] MEDS: Nateglinide 60mg tab ORAL SCH ×3 (06:00→16:41)
[2017-03-16] MEDS: HydrALAZINE 50mg tab ORAL SCH ×3 (06:02→23:12)
[2017-03-16] MEDS: NovoLOG Insulin Flexpen SUBQ SCH ×4 (06:06→21:28)
[2017-03-16 07:09] LABS: MEAN CORPUSCULAR HEMOGLOBIN 24.7 PG (27.0-31.0); MEAN CORPUSCULAR HGB CONC 29.7 G/DL (32.0-36.0); MEAN CORPUSCULAR VOLUME 83 FL (80-99); MEAN PLATELET VOLUME 8.6 FL (6.5-10.1); PLATELET COUNT 208 K/UL (150-450); RED BLOOD COUNT 3.11 M/UL (4.20-5.40); RED CELL DISTRIBUTION WIDTH 16.6 % (11.6-14.8); WHITE BLOOD COUNT 12.3 K/UL (4.8-10.8)
[2017-03-16 07:40] LABS: ALBUMIN/GLOBULIN RATIO 0.9 (1.0-2.7); CALCIUM 7.6 mg/dL (8.6-10.2); CREATININE 3.8 mg/dL (0.5-0.9); CRP QUANT 9.9 mg/dL (< 0.5); GLOMERULAR FILTRATION RATE 12.2 mL/min (>60); POTASSIUM 3.5 mEQ/L (3.4-4.9); TOTAL PROTEIN 6.2 g/dL (6.6-8.7); URIC ACID 7.2 mg/dL (3.0-7.5)
[2017-03-16 08:24] LABS: BILIRUBIN,DIRECT 0.2 mg/dL (0.1-0.3)
[2017-03-16] MEDS: Aspirin EC 81mg tab ORAL SCH (08:33)
[2017-03-16] MEDS: Allopurinol 100mg Tab ORAL SCH (08:33)
[2017-03-16] MEDS: Carvedilol 12.5mg tab ORAL SCH ×2 (08:34→21:24)
[2017-03-16] MEDS: Heparin 5000 units/ml inj SUBQ SCH ×2 (08:37→21:29)
[2017-03-16 09:58] LABS: ANISOCYTOSIS 1+; BAND NEUTROPHILS % (MANUAL) 0 % (0-8); BASOPHILS % (MANUAL) 0 % (0-2); EOSINOPHILS % (MANUAL) 3 % (0-3); HYPOCHROMASIA 1+; LYMPHOCYTES % (MANUAL) 8 % (20-45); NEUTROPHILS % (MANUAL) 83 % (45-75); PLATELET ESTIMATE ADEQUATE; PLATELET MORPHOLOGY NORMAL; TOTAL CELLS COUNTED 100
--- NOTE | 2017-03-16 10:24 | Infectious Diseases Prog Note ---
Assessment/Plan Assessment/Plan A: Pyelonephritis T ureteral stone & Hydronephrosis ESRD on HD DM Anemia Morbid obesity P: continue Cefepime Subjective ROS Limited/Unobtainable: No Constitutional: Reports: no symptoms Respiratory: Reports: no symptoms Cardiovascular: Reports: no symptoms Gastrointestinal/Abdominal: Reports: no symptoms Genitourinary: Reports: no symptoms Allergies: Coded Allergies: BENAZEPRIL (Verified Allergy, Intermediate, Shortness of Breath, 07/01/14) FUROSEMIDE (Unverified Allergy, Intermediate, Rash, 11/18/16) Per Kyleigh Berrios PIPE LINE WALKER, Pt does not have allegy to Lasix and able to start Lasxi tx. NIFEDIPINE (Verified Allergy, Intermediate, Shortness of Breath, 06/28/14) NITROGLYCERIN (Verified Allergy, Intermediate, Shortness of Breath, 06/28/14 ) SOB and BLE swelling Objective Vital Signs Last 24 Hour Vital Signs Date Time Temp Pulse Resp B/P Pulse Ox O2 Delivery O2 Flow Rate FiO2 03/16/17 08:34 65 129/58 03/16/17 08:05 97.9 65 17 129/58 95 Room Air 65 03/16/17 06:34 Room Air 03/16/17 06:34 94 Room Air 03/16/17 06:34 75 18 Room Air 03/16/17 06:02 162/76 03/16/17 04:00 98.4 76 20 162/76 93 Room Air 03/15/17 21:43 148/63 03/15/17 21:43 70 148/63 03/15/17 20:00 97.9 70 18 148/63 92 Room Air 03/15/17 19:47 Room Air 03/15/17 19:47 66 18 Room Air 03/15/17 19:47 95 Room Air 03/15/17 16:00 Room Air 03/15/17 16:00 97.2 68 17 147/64 93 Room Air 03/15/17 12:55 Room Air 03/15/17 12:00 97.5 69 17 160/70 93 Room Air Height (Feet): 5 Height (Inches): 2.00 Weight (Pounds): 299 General Appearance: no acute distress HEENT: mucous membranes moist Respiratory/Chest: lungs clear Cardiovascular: normal rate, other - RIJ Jose's catheter Abdomen: soft, non tender Extremities: other - severe edema Neurologic/Psychiatric: alert, oriented x 3, responsive Laboratory Tests Test 03/16/17 05:25 White Blood Count 12.3 K/UL (4.8-10.8) H Red Blood Count 3.11 M/UL (4.20-5.40) L Hemoglobin 7.7 G/DL (12.0-16.0) L Hematocrit 25.8 % (37.0-47.0) L Mean Corpuscular Volume 83 FL (80-99) Mean Corpuscular Hemoglobin 24.7 PG (27.0-31.0) L Mean Corpuscular Hemoglobin Concent 29.7 G/DL (32.0-36.0) L Red Cell Distribution Width 16.6 % (11.6-14.8) H Platelet Count 208 K/UL (150-450) Mean Platelet Volume 8.6 FL (6.5-10.1) Neutrophils (%) (Auto) % (45.0-75.0) Lymphocytes (%) (Auto) % (20.0-45.0) Monocytes (%) (Auto) % (1.0-10.0) Eosinophils (%) (Auto) % (0.0-3.0) Basophils (%) (Auto) % (0.0-2.0) Differential Total Cells Counted 100 Neutrophils % (Manual) 83 % (45-75) H Lymphocytes % (Manual) 8 % (20-45) L Monocytes % (Manual) 6 % (1-10) Eosinophils % (Manual) 3 % (0-3) Basophils % (Manual) 0 % (0-2) Band Neutrophils 0 % (0-8) Platelet Estimate Adequate Platelet Morphology Normal Hypochromasia 1+ Anisocytosis 1+ Sodium Level 142 mEQ/L (135-145) Potassium Level 3.5 mEQ/L (3.4-4.9) Chloride Level 101 mEQ/L (98-107) Carbon Dioxide Level 25 mEQ/L (20-30) Anion Gap 16 (5-15) H Blood Urea Nitrogen 47 mg/dL (7-23) #H Creatinine 3.8 mg/dL (0.5-0.9) H Estimat Glomerular Filtration Rate 12.2 mL/min (>60) Glucose Level 199 mg/dL (74-106) H Uric Acid 7.2 mg/dL (3.0-7.5) Calcium Level 7.6 mg/dL (8.6-10.2) L Phosphorus Level 4.0 mg/dL (2.5-4.8) Total Bilirubin 1.2 mg/dL (0.0-1.2) Direct Bilirubin 0.2 mg/dL (0.1-0.3) Aspartate Amino Transf (AST/SGOT) 9 U/L (5-40) Alanine Aminotransferase (ALT/SGPT) 9 U/L (3-33) Alkaline Phosphatase 72 U/L (35-104) C-Reactive Protein, Quantitative 9.9 mg/dL (< 0.5) H Pro-B-Type Natriuretic Peptide 2186 pg/mL (0-125) H Total Protein 6.2 g/dL (6.6-8.7) L Albumin 3.0 g/dL (3.5-5.2) L Globulin 3.2 g/dL Albumin/Globulin Ratio 0.9 (1.0-2.7) L Current Medications Medications (Trade) Dose Ordered Sig/Ifeanyi Route PRN Reason Start Time Stop Time Status Last Admin Dose Admin Acetaminophen (Tylenol) 650 mg Q4H PRN ORAL T>100.5 03/14/17 07:00 04/13/17 06:59 Albuterol/ Ipratropium (DuoNeb 0.5-3(2.5)mg/3ml) 3 ml Q4H PRN HHN Shortness of Breath 03/14/17 08:00 03/19/17 07:59 Allopurinol (Zyloprim) 200 mg DAILY ORAL 03/14/17 09:00 04/13/17 08:59 03/16/17 08:33 Aspirin (Ecotrin) 81 mg DAILY ORAL 03/14/17 09:00 04/13/17 08:59 03/16/17 08:33 Atorvastatin Calcium (Lipitor) 40 mg BEDTIME ORAL 03/14/17 21:00 04/13/17 20:59 03/15/17 21:42 Carvedilol (Coreg) 12.5 mg EVERY 12 HOURS ORAL 03/14/17 09:00 04/13/17 08:59 03/16/17 08:34 Cefepime HCl/ Dextrose (Maxipime/D5W) 55 ml @ 110 mls/hr Q24H IV 03/16/17 18:00 03/23/17 17:59 Dextrose (Dextrose 50%) STAT PRN IV Hypoglycemia 03/14/17 07:30 04/13/17 07:29 Doxazosin Mesylate 1 mg 1 mg Q8HR ORAL 03/14/17 14:00 04/13/17 13:59 03/16/17 06:00 Heparin Sodium (Porcine) (Heparin 5000 units/ml) 5,000 units EVERY 12 HOURS SUBQ 03/14/17 09:00 04/13/17 08:59 03/16/17 08:37 Hydralazine HCl (Apresoline) 100 mg Q8HR ORAL 03/14/17 14:00 04/13/17 13:59 03/16/17 06:02 Insulin Aspart (NovoLOG) BEFORE MEALS AND HS SUBQ 03/14/17 11:30 04/13/17 11:29 03/16/17 06:06 Iron Sucrose/ Sodium Chloride (Venofer/Sodium Chloride) 60 ml @ 120 mls/hr BEDTIME IVPB 03/14/17 21:00 03/17/17 21:01 03/15/17 21:42 Morphine Sulfate (Morphine Sulfate) 4 mg Q4H PRN IVP Severe Pain (Pain Scale 7-10) 03/14/17 07:30 03/21/17 07:29 03/14/17 21:22 Nateglinide (Starlix) 60 mg TIAC ORAL 03/14/17 11:30 04/13/17 11:29 03/16/17 06:00 Ondansetron HCl (Zofran) 4 mg Q6H PRN IVP Nausea & Vomiting 03/14/17 07:30 04/13/17 07:29 03/14/17 21:21 Pantoprazole (Protonix) 40 mg EVERY 12 HOURS ORAL 03/14/17 09:00 04/13/17 08:59 03/16/17 08:33 Polyethylene Glycol (Miralax) 17 gm DAILYPRN PRN ORAL Constipation 03/14/17 07:30 04/13/17 07:29 Temazepam (Restoril) 15 mg HSPRN PRN ORAL Insomnia 03/14/17 21:00 03/21/17 20:59 CARLOS GUILLEN Mar 16, 2017 10:24
--- NOTE | 2017-03-16 11:03 | General Progress Note ---
Assessment/Plan Status: stable Status Narrative H&H lower Assessment/Plan status: Acute renal failure- HyperKalemia ? Underlying CKD due to DM and HTN Anemia: Etiology? Low Iron Ureteropelvic junction calculus Atrial arrhythmia UTI Plan: had stent 03/15 had dialysis 03/15 due transfusion today adding cardura Velasquez in DC IV TAMIE kidney- Mild right hydronephrosis, presumably from proximal right ureteral stone described on CT scan performed earlier the same day 2 D echo Ej Fx 60% Slow Hydrate IV Iron EPO SQ gastric support- Avoid Nephrotoxics monitor renal parameters Adjust BP meds- per orders Subjective ROS Limited/Unobtainable: No Constitutional: Reports: malaise, weakness Allergies: Coded Allergies: BENAZEPRIL (Verified Allergy, Intermediate, Shortness of Breath, 07/01/14) FUROSEMIDE (Unverified Allergy, Intermediate, Rash, 11/18/16) Per Kyleigh Berrios LEAD NITRATE PROCESSOR, Pt does not have allegy to Lasix and able to start Lasxi tx. NIFEDIPINE (Verified Allergy, Intermediate, Shortness of Breath, 06/28/14) NITROGLYCERIN (Verified Allergy, Intermediate, Shortness of Breath, 06/28/14 ) SOB and BLE swelling Objective Last 24 Hour Vital Signs Date Time Temp Pulse Resp B/P Pulse Ox O2 Delivery O2 Flow Rate FiO2 03/16/17 08:34 65 129/58 03/16/17 08:05 97.9 65 17 129/58 95 Room Air 65 03/16/17 06:34 Room Air 03/16/17 06:34 94 Room Air 03/16/17 06:34 75 18 Room Air 03/16/17 06:02 162/76 03/16/17 04:00 98.4 76 20 162/76 93 Room Air 03/15/17 21:43 148/63 03/15/17 21:43 70 148/63 03/15/17 20:00 97.9 70 18 148/63 92 Room Air 03/15/17 19:47 Room Air 03/15/17 19:47 66 18 Room Air 03/15/17 19:47 95 Room Air 03/15/17 16:00 Room Air 03/15/17 16:00 97.2 68 17 147/64 93 Room Air 03/15/17 12:55 Room Air 03/15/17 12:00 97.5 69 17 160/70 93 Room Air Intake and Output 03/15/17 03/16/17 19:00 07:00 Intake Total 1095 ml 1065 ml Output Total 1482 ml 790 ml Balance -387 ml 275 ml Intake Oral 540 ml 240 ml IV Total 555 ml 825 ml Output Urine Total 450 ml 790 ml Peritoneal Dialysis UF 1030 ml Estimated Blood Loss 2 ml Laboratory Tests 03/16/17 05:25: White Blood Count 12.3H, Red Blood Count 3.11L, Hemoglobin 7.7L, Hematocrit 25.8L, Mean Corpuscular Volume 83, Mean Corpuscular Hemoglobin 24.7L, Mean Corpuscular Hemoglobin Concent 29.7L, Red Cell Distribution Width 16.6H, Platelet Count 208, Mean Platelet Volume 8.6, Neutrophils (%) (Auto) , Lymphocytes (%) (Auto) , Monocytes (%) (Auto) , Eosinophils (%) (Auto) , Basophils (%) (Auto) , Differential Total Cells Counted 100, Neutrophils % ( Manual) 83H, Lymphocytes % (Manual) 8L, Monocytes % (Manual) 6, Eosinophils % ( Manual) 3, Basophils % (Manual) 0, Band Neutrophils 0, Platelet Estimate Adequate, Platelet Morphology Normal, Hypochromasia 1+, Anisocytosis 1+, Sodium Level 142, Potassium Level 3.5, Chloride Level 101, Carbon Dioxide Level 25, Anion Gap 16H, Blood Urea Nitrogen 47#H, Creatinine 3.8H, Estimat Glomerular Filtration Rate 12.2, Glucose Level 199H, Uric Acid 7.2, Calcium Level 7.6L, Phosphorus Level 4.0, Total Bilirubin 1.2, Direct Bilirubin 0.2, Aspartate Amino Transf (AST/SGOT) 9, Alanine Aminotransferase (ALT/SGPT) 9, Alkaline Phosphatase 72, C-Reactive Protein, Quantitative 9.9H, Pro-B-Type Natriuretic Peptide 2186H, Total Protein 6.2L, Albumin 3.0L, Globulin 3.2, Albumin/Globulin Ratio 0.9L Height (Feet): 5 Height (Inches): 2.00 Weight (Pounds): 299 General Appearance: no apparent distress Respiratory/Chest: decreased breath sounds Abdomen: other - obese Objective other PE not changed ALE LOBATO Mar 16, 2017 11:03
[2017-03-16] MEDS ORDERED: NS 275ml ONE (15:04)
[2017-03-16] MEDS ORDERED: Tubing IV Blood Pump IV ONE (15:04)
[2017-03-16] MEDS: Cefepime HCl 500 MG in D5W 55 ML IV SCH (17:43)
[2017-03-16] MEDS: Iron Sucrose 100 MG in NS 55 ML IVPB SCH (21:23)
--- NOTE | 2017-03-16 23:12 | Pulmonology Progress Note ---
Assessment/Plan Problems: (1) Renal failure (2) Hyperkalemia (3) HTN (hypertension) (4) Diabetes (5) Peripheral edema Assessment/Plan tolerated surgery very well all consultants note reviewed and appreciated titrate cardiac meds f/u renal parameters if no improvement in renal function, she will need HD DW dr Hurtado Subjective ROS Limited/Unobtainable: No Interval Events: late note for 03/15 tolerated the urolgoical surgery very well Allergies: Coded Allergies: BENAZEPRIL (Verified Allergy, Intermediate, Shortness of Breath, 07/01/14) FUROSEMIDE (Unverified Allergy, Intermediate, Rash, 11/18/16) Per Kyleigh Berrios STORAGE SPECIALIST, Pt does not have allegy to Lasix and able to start Lasxi tx. NIFEDIPINE (Verified Allergy, Intermediate, Shortness of Breath, 06/28/14) NITROGLYCERIN (Verified Allergy, Intermediate, Shortness of Breath, 06/28/14 ) SOB and BLE swelling Objective Last 24 Hour Vital Signs Date Time Temp Pulse Resp B/P Pulse Ox O2 Delivery O2 Flow Rate FiO2 03/16/17 21:24 61 140/62 03/16/17 20:00 98.2 61 20 140/62 95 Room Air 03/16/17 16:08 98.2 63 20 146/74 95 Room Air 70 03/16/17 14:13 144/77 03/16/17 14:00 98.4 63 20 144/77 100 Room Air 63 03/16/17 12:00 98.4 62 20 129/88 96 Room Air 62 03/16/17 11:11 97.5 65 18 135/65 98 Nasal Cannula 2.0 65 03/16/17 08:34 65 129/58 03/16/17 08:05 97.9 65 17 129/58 95 Room Air 65 03/16/17 06:34 Room Air 03/16/17 06:34 94 Room Air 03/16/17 06:34 75 18 Room Air 03/16/17 06:02 162/76 03/16/17 04:00 98.4 76 20 162/76 93 Room Air Intake and Output 03/15/17 03/16/17 19:00 07:00 Intake Total 1095 ml 1065 ml Output Total 1482 ml 790 ml Balance -387 ml 275 ml Intake Oral 540 ml 240 ml IV Total 555 ml 825 ml Output Urine Total 450 ml 790 ml Peritoneal Dialysis UF 1030 ml Estimated Blood Loss 2 ml Objective General Appearance: WD/WN HEENT: normocephalic Respiratory/Chest: chest wall non-tender, lungs clear, normal breath sounds Cardiovascular: normal peripheral pulses, normal rate, regular rhythm Abdomen: normal bowel sounds, soft, non tender, no organomegaly, non distended Extremities: no cyanosis, no clubbing Skin: no rash, no lesions 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 Laboratory Tests 03/16/17 05:25: White Blood Count 12.3H, Red Blood Count 3.11L, Hemoglobin 7.7L, Hematocrit 25.8L, Mean Corpuscular Volume 83, Mean Corpuscular Hemoglobin 24.7L, Mean Corpuscular Hemoglobin Concent 29.7L, Red Cell Distribution Width 16.6H, Platelet Count 208, Mean Platelet Volume 8.6, Neutrophils (%) (Auto) , Lymphocytes (%) (Auto) , Monocytes (%) (Auto) , Eosinophils (%) (Auto) , Basophils (%) (Auto) , Differential Total Cells Counted 100, Neutrophils % ( Manual) 83H, Lymphocytes % (Manual) 8L, Monocytes % (Manual) 6, Eosinophils % ( Manual) 3, Basophils % (Manual) 0, Band Neutrophils 0, Platelet Estimate Adequate, Platelet Morphology Normal, Hypochromasia 1+, Anisocytosis 1+, Sodium Level 142, Potassium Level 3.5, Chloride Level 101, Carbon Dioxide Level 25, Anion Gap 16H, Blood Urea Nitrogen 47#H, Creatinine 3.8H, Estimat Glomerular Filtration Rate 12.2, Glucose Level 199H, Uric Acid 7.2, Calcium Level 7.6L, Phosphorus Level 4.0, Total Bilirubin 1.2, Direct Bilirubin 0.2, Aspartate Amino Transf (AST/SGOT) 9, Alanine Aminotransferase (ALT/SGPT) 9, Alkaline Phosphatase 72, C-Reactive Protein, Quantitative 9.9H, Pro-B-Type Natriuretic Peptide 2186H, Total Protein 6.2L, Albumin 3.0L, Globulin 3.2, Albumin/Globulin Ratio 0.9L Current Medications Medications (Trade) Dose Ordered Sig/Ifeanyi Route PRN Reason Start Time Stop Time Status Last Admin Dose Admin Acetaminophen (Tylenol) 650 mg Q4H PRN ORAL T>100.5 03/14/17 07:00 04/13/17 06:59 Albuterol/ Ipratropium (DuoNeb 0.5-3(2.5)mg/3ml) 3 ml Q4H PRN HHN Shortness of Breath 03/14/17 08:00 03/19/17 07:59 Allopurinol (Zyloprim) 200 mg DAILY ORAL 03/14/17 09:00 04/13/17 08:59 03/16/17 08:33 Aspirin (Ecotrin) 81 mg DAILY ORAL 03/14/17 09:00 04/13/17 08:59 03/16/17 08:33 Atorvastatin Calcium (Lipitor) 40 mg BEDTIME ORAL 03/14/17 21:00 04/13/17 20:59 03/16/17 21:24 Carvedilol (Coreg) 12.5 mg EVERY 12 HOURS ORAL 03/14/17 09:00 04/13/17 08:59 03/16/17 21:24 Cefepime HCl/ Dextrose (Maxipime/D5W) 55 ml @ 110 mls/hr Q24H IV 03/16/17 18:00 03/23/17 17:59 03/16/17 17:43 Dextrose (Dextrose 50%) STAT PRN IV Hypoglycemia 03/14/17 07:30 04/13/17 07:29 Doxazosin Mesylate 1 mg 1 mg Q8HR ORAL 03/14/17 14:00 04/13/17 13:59 03/16/17 14:12 Heparin Sodium (Porcine) (Heparin 5000 units/ml) 5,000 units EVERY 12 HOURS SUBQ 03/14/17 09:00 04/13/17 08:59 03/16/17 21:29 Hydralazine HCl (Apresoline) 100 mg Q8HR ORAL 03/14/17 14:00 04/13/17 13:59 03/16/17 14:13 Insulin Aspart (NovoLOG) BEFORE MEALS AND HS SUBQ 03/14/17 11:30 04/13/17 11:29 03/16/17 21:28 Iron Sucrose/ Sodium Chloride (Venofer/Sodium Chloride) 60 ml @ 120 mls/hr BEDTIME IVPB 03/14/17 21:00 03/17/17 21:01 03/16/17 21:23 Morphine Sulfate (Morphine Sulfate) 4 mg Q4H PRN IVP Severe Pain (Pain Scale 7-10) 03/14/17 07:30 03/21/17 07:29 03/14/17 21:22 Nateglinide (Starlix) 60 mg TIAC ORAL 03/14/17 11:30 04/13/17 11:29 03/16/17 16:41 Ondansetron HCl (Zofran) 4 mg Q6H PRN IVP Nausea & Vomiting 03/14/17 07:30 04/13/17 07:29 03/14/17 21:21 Pantoprazole (Protonix) 40 mg EVERY 12 HOURS ORAL 03/14/17 09:00 04/13/17 08:59 03/16/17 21:23 Polyethylene Glycol (Miralax) 17 gm DAILYPRN PRN ORAL Constipation 03/14/17 07:30 04/13/17 07:29 Temazepam (Restoril) 15 mg HSPRN PRN ORAL Insomnia 03/14/17 21:00 03/21/17 20:59 JEAN CLAUDE SUTTON Mar 16, 2017 23:12
--- NOTE | 2017-03-16 23:16 | Pulmonology Progress Note ---
Assessment/Plan Problems: (1) Renal failure (2) Hyperkalemia (3) HTN (hypertension) (4) Diabetes (5) Peripheral edema Assessment/Plan tolerated surgery very well got HD, bun/creatinine much less, 1+ liter removed titrate cardiac meds f/u renal parameters DW dr Hurtado Subjective ROS Limited/Unobtainable: No Interval Events: bloody urine, d/w daughter at bed site Allergies: Coded Allergies: BENAZEPRIL (Verified Allergy, Intermediate, Shortness of Breath, 07/01/14) FUROSEMIDE (Unverified Allergy, Intermediate, Rash, 11/18/16) Per Kyleigh Berrios GRAIN INSPECTOR, Pt does not have allegy to Lasix and able to start Lasxi tx. NIFEDIPINE (Verified Allergy, Intermediate, Shortness of Breath, 06/28/14) NITROGLYCERIN (Verified Allergy, Intermediate, Shortness of Breath, 06/28/14 ) SOB and BLE swelling Objective Last 24 Hour Vital Signs Date Time Temp Pulse Resp B/P Pulse Ox O2 Delivery O2 Flow Rate FiO2 03/16/17 21:24 61 140/62 03/16/17 20:00 98.2 61 20 140/62 95 Room Air 03/16/17 16:08 98.2 63 20 146/74 95 Room Air 70 03/16/17 14:13 144/77 03/16/17 14:00 98.4 63 20 144/77 100 Room Air 63 03/16/17 12:00 98.4 62 20 129/88 96 Room Air 62 03/16/17 11:11 97.5 65 18 135/65 98 Nasal Cannula 2.0 65 03/16/17 08:34 65 129/58 03/16/17 08:05 97.9 65 17 129/58 95 Room Air 65 03/16/17 06:34 Room Air 03/16/17 06:34 94 Room Air 03/16/17 06:34 75 18 Room Air 03/16/17 06:02 162/76 03/16/17 04:00 98.4 76 20 162/76 93 Room Air Intake and Output 03/15/17 03/16/17 19:00 07:00 Intake Total 1095 ml 1065 ml Output Total 1482 ml 790 ml Balance -387 ml 275 ml Intake Oral 540 ml 240 ml IV Total 555 ml 825 ml Output Urine Total 450 ml 790 ml Peritoneal Dialysis UF 1030 ml Estimated Blood Loss 2 ml Objective General Appearance: WD/WN HEENT: normocephalic Respiratory/Chest: chest wall non-tender, lungs clear, normal breath sounds Cardiovascular: normal peripheral pulses, normal rate, regular rhythm Abdomen: normal bowel sounds, soft, non tender, no organomegaly, non distended Extremities: no cyanosis, no clubbing Skin: no rash, no lesions 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 Laboratory Tests 03/16/17 05:25: White Blood Count 12.3H, Red Blood Count 3.11L, Hemoglobin 7.7L, Hematocrit 25.8L, Mean Corpuscular Volume 83, Mean Corpuscular Hemoglobin 24.7L, Mean Corpuscular Hemoglobin Concent 29.7L, Red Cell Distribution Width 16.6H, Platelet Count 208, Mean Platelet Volume 8.6, Neutrophils (%) (Auto) , Lymphocytes (%) (Auto) , Monocytes (%) (Auto) , Eosinophils (%) (Auto) , Basophils (%) (Auto) , Differential Total Cells Counted 100, Neutrophils % ( Manual) 83H, Lymphocytes % (Manual) 8L, Monocytes % (Manual) 6, Eosinophils % ( Manual) 3, Basophils % (Manual) 0, Band Neutrophils 0, Platelet Estimate Adequate, Platelet Morphology Normal, Hypochromasia 1+, Anisocytosis 1+, Sodium Level 142, Potassium Level 3.5, Chloride Level 101, Carbon Dioxide Level 25, Anion Gap 16H, Blood Urea Nitrogen 47#H, Creatinine 3.8H, Estimat Glomerular Filtration Rate 12.2, Glucose Level 199H, Uric Acid 7.2, Calcium Level 7.6L, Phosphorus Level 4.0, Total Bilirubin 1.2, Direct Bilirubin 0.2, Aspartate Amino Transf (AST/SGOT) 9, Alanine Aminotransferase (ALT/SGPT) 9, Alkaline Phosphatase 72, C-Reactive Protein, Quantitative 9.9H, Pro-B-Type Natriuretic Peptide 2186H, Total Protein 6.2L, Albumin 3.0L, Globulin 3.2, Albumin/Globulin Ratio 0.9L Current Medications Medications (Trade) Dose Ordered Sig/Ifeanyi Route PRN Reason Start Time Stop Time Status Last Admin Dose Admin Acetaminophen (Tylenol) 650 mg Q4H PRN ORAL T>100.5 03/14/17 07:00 04/13/17 06:59 Albuterol/ Ipratropium (DuoNeb 0.5-3(2.5)mg/3ml) 3 ml Q4H PRN HHN Shortness of Breath 03/14/17 08:00 03/19/17 07:59 Allopurinol (Zyloprim) 200 mg DAILY ORAL 03/14/17 09:00 04/13/17 08:59 03/16/17 08:33 Aspirin (Ecotrin) 81 mg DAILY ORAL 03/14/17 09:00 04/13/17 08:59 03/16/17 08:33 Atorvastatin Calcium (Lipitor) 40 mg BEDTIME ORAL 03/14/17 21:00 04/13/17 20:59 03/16/17 21:24 Carvedilol (Coreg) 12.5 mg EVERY 12 HOURS ORAL 03/14/17 09:00 04/13/17 08:59 03/16/17 21:24 Cefepime HCl/ Dextrose (Maxipime/D5W) 55 ml @ 110 mls/hr Q24H IV 03/16/17 18:00 03/23/17 17:59 03/16/17 17:43 Dextrose (Dextrose 50%) STAT PRN IV Hypoglycemia 03/14/17 07:30 04/13/17 07:29 Doxazosin Mesylate 1 mg 1 mg Q8HR ORAL 03/14/17 14:00 04/13/17 13:59 03/16/17 14:12 Heparin Sodium (Porcine) (Heparin 5000 units/ml) 5,000 units EVERY 12 HOURS SUBQ 03/14/17 09:00 04/13/17 08:59 03/16/17 21:29 Hydralazine HCl (Apresoline) 100 mg Q8HR ORAL 03/14/17 14:00 04/13/17 13:59 03/16/17 14:13 Insulin Aspart (NovoLOG) BEFORE MEALS AND HS SUBQ 03/14/17 11:30 04/13/17 11:29 03/16/17 21:28 Iron Sucrose/ Sodium Chloride (Venofer/Sodium Chloride) 60 ml @ 120 mls/hr BEDTIME IVPB 03/14/17 21:00 03/17/17 21:01 03/16/17 21:23 Morphine Sulfate (Morphine Sulfate) 4 mg Q4H PRN IVP Severe Pain (Pain Scale 7-10) 03/14/17 07:30 03/21/17 07:29 03/14/17 21:22 Nateglinide (Starlix) 60 mg TIAC ORAL 03/14/17 11:30 04/13/17 11:29 03/16/17 16:41 Ondansetron HCl (Zofran) 4 mg Q6H PRN IVP Nausea & Vomiting 03/14/17 07:30 04/13/17 07:29 03/14/17 21:21 Pantoprazole (Protonix) 40 mg EVERY 12 HOURS ORAL 03/14/17 09:00 04/13/17 08:59 03/16/17 21:23 Polyethylene Glycol (Miralax) 17 gm DAILYPRN PRN ORAL Constipation 03/14/17 07:30 04/13/17 07:29 Temazepam (Restoril) 15 mg HSPRN PRN ORAL Insomnia 03/14/17 21:00 03/21/17 20:59 JEAN CLAUDE SUTTON Mar 16, 2017 23:16
[2017-03-17 04:00] VITALS: BP 167/71
[2017-03-17] MEDS: NovoLOG Insulin Flexpen SUBQ SCH ×4 (05:47→21:00)
[2017-03-17] MEDS: HydrALAZINE 50mg tab ORAL SCH ×3 (05:48→20:35)
[2017-03-17] MEDS: Doxazosin 1mg Tab ORAL SCH ×3 (05:48→20:36)
[2017-03-17] MEDS: Nateglinide 60mg tab ORAL SCH ×3 (05:48→17:37)
[2017-03-17 07:43] LABS: MEAN CORPUSCULAR HGB CONC 30.2 G/DL (32.0-36.0); MEAN CORPUSCULAR VOLUME 83 FL (80-99); MEAN PLATELET VOLUME 8.5 FL (6.5-10.1); PLATELET COUNT 194 K/UL (150-450); RED BLOOD COUNT 3.22 M/UL (4.20-5.40); RED CELL DISTRIBUTION WIDTH 16.4 % (11.6-14.8); WHITE BLOOD COUNT 10.7 K/UL (4.8-10.8)
[2017-03-17 07:57] LABS: ALBUMIN/GLOBULIN RATIO 0.9 (1.0-2.7); CALCIUM 7.9 mg/dL (8.6-10.2); CREATININE 3.3 mg/dL (0.5-0.9); CRP QUANT 7.2 mg/dL (< 0.5); GLOMERULAR FILTRATION RATE 14.4 mL/min (>60); MAGNESIUM 1.7 mg/dL (1.7-2.5); PHOSPHORUS 3.7 mg/dL (2.5-4.8); POTASSIUM 3.4 mEQ/L (3.4-4.9); TOTAL PROTEIN 6.5 g/dL (6.6-8.7); URIC ACID 7.6 mg/dL (3.0-7.5)
[2017-03-17 08:00] VITALS: BP 154/64
[2017-03-17 08:12] LABS: BILIRUBIN,DIRECT 0.3 mg/dL (0.1-0.3)
[2017-03-17] MEDS: Allopurinol 100mg Tab ORAL SCH (08:41)
[2017-03-17] MEDS: Carvedilol 12.5mg tab ORAL SCH ×2 (08:42→20:35)
[2017-03-17] MEDS: Aspirin EC 81mg tab ORAL SCH (08:42)
[2017-03-17] MEDS: Heparin 5000 units/ml inj SUBQ SCH (09:00)
[2017-03-17 09:06] LABS: ANISOCYTOSIS 1+; BAND NEUTROPHILS % (MANUAL) 0 % (0-8); BASOPHILS % (MANUAL) 0 % (0-2); EOSINOPHILS % (MANUAL) 4 % (0-3); HYPOCHROMASIA 1+; LYMPHOCYTES % (MANUAL) 11 % (20-45); NEUTROPHILS % (MANUAL) 82 % (45-75); PLATELET ESTIMATE ADEQUATE; PLATELET MORPHOLOGY NORMAL; TOTAL CELLS COUNTED 100
--- NOTE | 2017-03-17 10:31 | Infectious Diseases Prog Note ---
Assessment/Plan Assessment/Plan A: The patient is a 56-year-old female UTI UCx :Strp GrB and Mixed GNR Pyelonephritis leukocytosis, mild FORREST :on HD , nephro is following SP right lower abdomen and groin area Right ureteral stone and mild hydronephrosis Hx of cataract surgery History of CVA HLD HTN Gastroesophageal reflux disease. History of x2. History of chronic kidney disease. DM Anemia PLAN: continue the patient on cefepime d# 8 / Monitor CBC. Monitor BMP Urology is following Subjective Constitutional: Denies: anorexia, chills, drenching sweats, fatigue, fever, no symptoms, other Allergies: Coded Allergies: BENAZEPRIL (Verified Allergy, Intermediate, Shortness of Breath, 07/01/14) FUROSEMIDE (Unverified Allergy, Intermediate, Rash, 11/18/16) Per Kyleigh Berrios OPERATING ROOM MANAGER, Pt does not have allegy to Lasix and able to start Lasxi tx. NIFEDIPINE (Verified Allergy, Intermediate, Shortness of Breath, 06/28/14) NITROGLYCERIN (Verified Allergy, Intermediate, Shortness of Breath, 06/28/14 ) SOB and BLE swelling Objective Vital Signs Last 24 Hour Vital Signs Date Time Temp Pulse Resp B/P Pulse Ox O2 Delivery O2 Flow Rate FiO2 03/17/17 08:42 66 154/64 03/17/17 08:02 65 18 Room Air 03/17/17 08:01 Room Air 03/17/17 08:01 97 Room Air 03/17/17 08:00 98.9 66 18 154/64 95 Room Air 03/17/17 05:48 167/71 03/17/17 04:00 97.5 64 20 167/71 64 Room Air 03/16/17 23:41 164/68 03/16/17 23:12 164/68 03/16/17 21:24 61 140/62 03/16/17 20:00 98.2 61 20 140/62 95 Room Air 03/16/17 19:01 Room Air 03/16/17 19:00 72 18 Room Air 03/16/17 19:00 95 Room Air 03/16/17 16:08 98.2 63 20 146/74 95 Room Air 70 03/16/17 14:13 144/77 03/16/17 14:00 98.4 63 20 144/77 100 Room Air 63 03/16/17 12:00 98.4 62 20 129/88 96 Room Air 62 03/16/17 11:11 97.5 65 18 135/65 98 Nasal Cannula 2.0 65 Height (Feet): 5 Height (Inches): 2.00 Weight (Pounds): 299 HEENT: atraumatic Respiratory/Chest: normal breath sounds Cardiovascular: normal peripheral pulses Abdomen: no organomegaly Extremities: no cyanosis Laboratory Tests Test 03/17/17 06:50 White Blood Count 10.7 K/UL (4.8-10.8) Red Blood Count 3.22 M/UL (4.20-5.40) L Hemoglobin 8.0 G/DL (12.0-16.0) L Hematocrit 26.7 % (37.0-47.0) L Mean Corpuscular Volume 83 FL (80-99) Mean Corpuscular Hemoglobin 25.0 PG (27.0-31.0) L Mean Corpuscular Hemoglobin Concent 30.2 G/DL (32.0-36.0) L Red Cell Distribution Width 16.4 % (11.6-14.8) H Platelet Count 194 K/UL (150-450) Mean Platelet Volume 8.5 FL (6.5-10.1) Neutrophils (%) (Auto) % (45.0-75.0) Lymphocytes (%) (Auto) % (20.0-45.0) Monocytes (%) (Auto) % (1.0-10.0) Eosinophils (%) (Auto) % (0.0-3.0) Basophils (%) (Auto) % (0.0-2.0) Differential Total Cells Counted 100 Neutrophils % (Manual) 82 % (45-75) H Lymphocytes % (Manual) 11 % (20-45) L Monocytes % (Manual) 3 % (1-10) Eosinophils % (Manual) 4 % (0-3) H Basophils % (Manual) 0 % (0-2) Band Neutrophils 0 % (0-8) Platelet Estimate Adequate Platelet Morphology Normal Hypochromasia 1+ Anisocytosis 1+ Sodium Level 142 mEQ/L (135-145) Potassium Level 3.4 mEQ/L (3.4-4.9) Chloride Level 100 mEQ/L (98-107) Carbon Dioxide Level 21 mEQ/L (20-30) Anion Gap 21 (5-15) H Blood Urea Nitrogen 48 mg/dL (7-23) H Creatinine 3.3 mg/dL (0.5-0.9) H Estimat Glomerular Filtration Rate 14.4 mL/min (>60) Glucose Level 173 mg/dL (74-106) H Uric Acid 7.6 mg/dL (3.0-7.5) H Calcium Level 7.9 mg/dL (8.6-10.2) L Phosphorus Level 3.7 mg/dL (2.5-4.8) Magnesium Level 1.7 mg/dL (1.7-2.5) Total Bilirubin 1.6 mg/dL (0.0-1.2) H Direct Bilirubin 0.3 mg/dL (0.1-0.3) Aspartate Amino Transf (AST/SGOT) 11 U/L (5-40) Alanine Aminotransferase (ALT/SGPT) 9 U/L (3-33) Alkaline Phosphatase 68 U/L (35-104) C-Reactive Protein, Quantitative 7.2 mg/dL (< 0.5) H Pro-B-Type Natriuretic Peptide 2035 pg/mL (0-125) H Total Protein 6.5 g/dL (6.6-8.7) L Albumin 3.1 g/dL (3.5-5.2) L Globulin 3.4 g/dL Albumin/Globulin Ratio 0.9 (1.0-2.7) L Current Medications Medications (Trade) Dose Ordered Sig/Ifeanyi Route PRN Reason Start Time Stop Time Status Last Admin Dose Admin Acetaminophen (Tylenol) 650 mg Q4H PRN ORAL T>100.5 03/14/17 07:00 04/13/17 06:59 Albuterol/ Ipratropium (DuoNeb 0.5-3(2.5)mg/3ml) 3 ml Q4H PRN HHN Shortness of Breath 03/14/17 08:00 03/19/17 07:59 Allopurinol (Zyloprim) 200 mg DAILY ORAL 03/14/17 09:00 04/13/17 08:59 03/17/17 08:41 Aspirin (Ecotrin) 81 mg DAILY ORAL 03/14/17 09:00 04/13/17 08:59 03/17/17 08:42 Atorvastatin Calcium (Lipitor) 40 mg BEDTIME ORAL 03/14/17 21:00 04/13/17 20:59 03/16/17 21:24 Carvedilol (Coreg) 12.5 mg EVERY 12 HOURS ORAL 03/14/17 09:00 04/13/17 08:59 03/17/17 08:42 Cefepime HCl/ Dextrose (Maxipime/D5W) 55 ml @ 110 mls/hr Q24H IV 03/16/17 18:00 03/23/17 17:59 03/16/17 17:43 Dextrose (Dextrose 50%) STAT PRN IV Hypoglycemia 03/14/17 07:30 04/13/17 07:29 Doxazosin Mesylate 1 mg 1 mg Q8HR ORAL 03/14/17 14:00 04/13/17 13:59 03/17/17 05:48 Heparin Sodium (Porcine) (Heparin 5000 units/ml) 5,000 units EVERY 12 HOURS SUBQ 03/14/17 09:00 04/13/17 08:59 03/16/17 21:29 Hydralazine HCl (Apresoline) 100 mg Q8HR ORAL 03/14/17 14:00 04/13/17 13:59 03/17/17 05:48 Insulin Aspart (NovoLOG) BEFORE MEALS AND HS SUBQ 03/14/17 11:30 04/13/17 11:29 03/17/17 05:47 Iron Sucrose/ Sodium Chloride (Venofer/Sodium Chloride) 60 ml @ 120 mls/hr BEDTIME IVPB 03/14/17 21:00 03/17/17 21:01 03/16/17 21:23 Morphine Sulfate (Morphine Sulfate) 4 mg Q4H PRN IVP Severe Pain (Pain Scale 7-10) 03/14/17 07:30 03/21/17 07:29 03/14/17 21:22 Nateglinide (Starlix) 60 mg TIAC ORAL 03/14/17 11:30 04/13/17 11:29 03/17/17 05:48 Ondansetron HCl (Zofran) 4 mg Q6H PRN IVP Nausea & Vomiting 03/14/17 07:30 04/13/17 07:29 03/14/17 21:21 Pantoprazole (Protonix) 40 mg EVERY 12 HOURS ORAL 03/14/17 09:00 04/13/17 08:59 03/17/17 08:42 Polyethylene Glycol (Miralax) 17 gm DAILYPRN PRN ORAL Constipation 03/14/17 07:30 04/13/17 07:29 Temazepam (Restoril) 15 mg HSPRN PRN ORAL Insomnia 03/14/17 21:00 03/21/17 20:59 NICOLE OH M.D. Mar 17, 2017 10:31
[2017-03-17 12:00] VITALS: BP 147/70
--- NOTE | 2017-03-17 13:06 | General Progress Note ---
Assessment/Plan Status: stable Status Narrative Cr lowering Assessment/Plan status: Acute renal failure- HyperKalemia ? Underlying CKD due to DM and HTN Anemia: Etiology? Low Iron Ureteropelvic junction calculus Atrial arrhythmia UTI Plan: had stent 03/15 had dialysis 03/15 transfusion 03/16 On cardura Cohen in [place] IV DC ASA and Heparin TAMIE kidney- Mild right hydronephrosis, presumably from proximal right ureteral stone described on CT scan performed earlier the same day 2 D echo Ej Fx 60% Slow Hydrate IV Iron EPO SQ gastric support- Avoid Nephrotoxics monitor renal parameters Adjust BP meds- per orders Subjective ROS Limited/Unobtainable: No Constitutional: Reports: malaise Allergies: Coded Allergies: BENAZEPRIL (Verified Allergy, Intermediate, Shortness of Breath, 07/01/14) FUROSEMIDE (Unverified Allergy, Intermediate, Rash, 11/18/16) Per Kyleigh Berrios ORDER ENTRY, Pt does not have allegy to Lasix and able to start Lasxi tx. NIFEDIPINE (Verified Allergy, Intermediate, Shortness of Breath, 06/28/14) NITROGLYCERIN (Verified Allergy, Intermediate, Shortness of Breath, 06/28/14 ) SOB and BLE swelling Objective Last 24 Hour Vital Signs Date Time Temp Pulse Resp B/P Pulse Ox O2 Delivery O2 Flow Rate FiO2 03/17/17 12:00 97.7 69 18 147/70 97 Room Air 03/17/17 08:42 66 154/64 03/17/17 08:02 65 18 Room Air 03/17/17 08:01 Room Air 03/17/17 08:01 97 Room Air 03/17/17 08:00 98.9 66 18 154/64 95 Room Air 03/17/17 05:48 167/71 03/17/17 04:00 97.5 64 20 167/71 64 Room Air 03/16/17 23:41 164/68 03/16/17 23:12 164/68 03/16/17 21:24 61 140/62 03/16/17 20:00 98.2 61 20 140/62 95 Room Air 03/16/17 19:01 Room Air 03/16/17 19:00 72 18 Room Air 03/16/17 19:00 95 Room Air 03/16/17 16:08 98.2 63 20 146/74 95 Room Air 70 03/16/17 14:13 144/77 03/16/17 14:00 98.4 63 20 144/77 100 Room Air 63 Intake and Output 03/16/17 03/17/17 19:00 07:00 Intake Total 1180 ml 400 ml Output Total 225 ml 500 ml Balance 955 ml -100 ml Intake Oral 550 ml IV Total 280 ml Blood Product 350 ml Other 400 ml Output Urine Total 225 ml 500 ml Laboratory Tests 03/17/17 06:50: White Blood Count 10.7, Red Blood Count 3.22L, Hemoglobin 8.0L, Hematocrit 26.7L , Mean Corpuscular Volume 83, Mean Corpuscular Hemoglobin 25.0L, Mean Corpuscular Hemoglobin Concent 30.2L, Red Cell Distribution Width 16.4H, Platelet Count 194, Mean Platelet Volume 8.5, Neutrophils (%) (Auto) , Lymphocytes (%) (Auto) , Monocytes (%) (Auto) , Eosinophils (%) (Auto) , Basophils (%) (Auto) , Differential Total Cells Counted 100, Neutrophils % ( Manual) 82H, Lymphocytes % (Manual) 11L, Monocytes % (Manual) 3, Eosinophils % ( Manual) 4H, Basophils % (Manual) 0, Band Neutrophils 0, Platelet Estimate Adequate, Platelet Morphology Normal, Hypochromasia 1+, Anisocytosis 1+, Sodium Level 142, Potassium Level 3.4, Chloride Level 100, Carbon Dioxide Level 21, Anion Gap 21H, Blood Urea Nitrogen 48H, Creatinine 3.3H, Estimat Glomerular Filtration Rate 14.4, Glucose Level 173H, Uric Acid 7.6H, Calcium Level 7.9L, Phosphorus Level 3.7, Magnesium Level 1.7, Total Bilirubin 1.6H, Direct Bilirubin 0.3, Aspartate Amino Transf (AST/SGOT) 11, Alanine Aminotransferase ( ALT/SGPT) 9, Alkaline Phosphatase 68, C-Reactive Protein, Quantitative 7.2H, Pro -B-Type Natriuretic Peptide 2035H, Total Protein 6.5L, Albumin 3.1L, Globulin 3.4, Albumin/Globulin Ratio 0.9L Height (Feet): 5 Height (Inches): 2.00 Weight (Pounds): 299 General Appearance: no apparent distress, lethargic Cardiovascular: regular rhythm Respiratory/Chest: decreased breath sounds Abdomen: soft, other - obese Genitourinary/Rectal: other - cohen , bloody urine Edema: 1+ Arm (L), 1+ Arm (R), 1+ Leg (L), 1+ Leg (R), 1+ Pedal (L), 1+ Pedal ( R), 1+ Generalized Objective other PE not changed ALE LOBATO Mar 17, 2017 13:06
--- NOTE | 2017-03-17 15:44 | Pulmonology Progress Note ---
Assessment/Plan Problems: (1) Renal failure (2) Hyperkalemia (3) HTN (hypertension) (4) Diabetes (5) Peripheral edema Assessment/Plan creatinine decreasing f/u bun/creatinine in am titrate cardiac meds f/u renal parameters DW dr Hurtado Subjective ROS Limited/Unobtainable: No Constitutional: Reports: no symptoms HEENT: Repors: no symptoms Respiratory: Reports: no symptoms Allergies: Coded Allergies: BENAZEPRIL (Verified Allergy, Intermediate, Shortness of Breath, 07/01/14) FUROSEMIDE (Unverified Allergy, Intermediate, Rash, 11/18/16) Per Kyleigh Berrios WOOL BRUSHER, Pt does not have allegy to Lasix and able to start Lasxi tx. NIFEDIPINE (Verified Allergy, Intermediate, Shortness of Breath, 06/28/14) NITROGLYCERIN (Verified Allergy, Intermediate, Shortness of Breath, 06/28/14 ) SOB and BLE swelling Objective Last 24 Hour Vital Signs Date Time Temp Pulse Resp B/P Pulse Ox O2 Delivery O2 Flow Rate FiO2 03/17/17 14:17 147/70 03/17/17 12:00 97.7 69 18 147/70 97 Room Air 03/17/17 08:42 66 154/64 03/17/17 08:02 65 18 Room Air 03/17/17 08:01 Room Air 03/17/17 08:01 97 Room Air 03/17/17 08:00 98.9 66 18 154/64 95 Room Air 03/17/17 05:48 167/71 03/17/17 04:00 97.5 64 20 167/71 64 Room Air 03/16/17 23:41 164/68 03/16/17 23:12 164/68 03/16/17 21:24 61 140/62 03/16/17 20:00 98.2 61 20 140/62 95 Room Air 03/16/17 19:01 Room Air 03/16/17 19:00 72 18 Room Air 03/16/17 19:00 95 Room Air 03/16/17 16:08 98.2 63 20 146/74 95 Room Air 70 Intake and Output 03/16/17 03/17/17 19:00 07:00 Intake Total 1180 ml 400 ml Output Total 225 ml 500 ml Balance 955 ml -100 ml Intake Oral 550 ml IV Total 280 ml Blood Product 350 ml Other 400 ml Output Urine Total 225 ml 500 ml Objective General Appearance: WD/WN HEENT: normocephalic Respiratory/Chest: chest wall non-tender, lungs clear, normal breath sounds Cardiovascular: normal peripheral pulses, normal rate, regular rhythm Abdomen: normal bowel sounds, soft, non tender, no organomegaly, non distended Extremities: no cyanosis, no clubbing Skin: no rash, no lesions 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 Laboratory Tests 03/17/17 06:50: White Blood Count 10.7, Red Blood Count 3.22L, Hemoglobin 8.0L, Hematocrit 26.7L , Mean Corpuscular Volume 83, Mean Corpuscular Hemoglobin 25.0L, Mean Corpuscular Hemoglobin Concent 30.2L, Red Cell Distribution Width 16.4H, Platelet Count 194, Mean Platelet Volume 8.5, Neutrophils (%) (Auto) , Lymphocytes (%) (Auto) , Monocytes (%) (Auto) , Eosinophils (%) (Auto) , Basophils (%) (Auto) , Differential Total Cells Counted 100, Neutrophils % ( Manual) 82H, Lymphocytes % (Manual) 11L, Monocytes % (Manual) 3, Eosinophils % ( Manual) 4H, Basophils % (Manual) 0, Band Neutrophils 0, Platelet Estimate Adequate, Platelet Morphology Normal, Hypochromasia 1+, Anisocytosis 1+, Sodium Level 142, Potassium Level 3.4, Chloride Level 100, Carbon Dioxide Level 21, Anion Gap 21H, Blood Urea Nitrogen 48H, Creatinine 3.3H, Estimat Glomerular Filtration Rate 14.4, Glucose Level 173H, Uric Acid 7.6H, Calcium Level 7.9L, Phosphorus Level 3.7, Magnesium Level 1.7, Total Bilirubin 1.6H, Direct Bilirubin 0.3, Aspartate Amino Transf (AST/SGOT) 11, Alanine Aminotransferase ( ALT/SGPT) 9, Alkaline Phosphatase 68, C-Reactive Protein, Quantitative 7.2H, Pro -B-Type Natriuretic Peptide 2035H, Total Protein 6.5L, Albumin 3.1L, Globulin 3.4, Albumin/Globulin Ratio 0.9L Current Medications Medications (Trade) Dose Ordered Sig/Ifeanyi Route PRN Reason Start Time Stop Time Status Last Admin Dose Admin Acetaminophen (Tylenol) 650 mg Q4H PRN ORAL T>100.5 03/14/17 07:00 04/13/17 06:59 Albuterol/ Ipratropium (DuoNeb 0.5-3(2.5)mg/3ml) 3 ml Q4H PRN HHN Shortness of Breath 03/14/17 08:00 03/19/17 07:59 Allopurinol (Zyloprim) 200 mg DAILY ORAL 03/14/17 09:00 04/13/17 08:59 03/17/17 08:41 Atorvastatin Calcium (Lipitor) 40 mg BEDTIME ORAL 03/14/17 21:00 04/13/17 20:59 03/16/17 21:24 Carvedilol (Coreg) 12.5 mg EVERY 12 HOURS ORAL 03/14/17 09:00 04/13/17 08:59 03/17/17 08:42 Cefepime HCl/ Dextrose (Maxipime/D5W) 55 ml @ 110 mls/hr Q24H IV 03/16/17 18:00 03/23/17 17:59 03/16/17 17:43 Dextrose (Dextrose 50%) STAT PRN IV Hypoglycemia 03/14/17 07:30 04/13/17 07:29 Doxazosin Mesylate 1 mg 1 mg Q8HR ORAL 03/14/17 14:00 04/13/17 13:59 03/17/17 14:17 Hydralazine HCl (Apresoline) 100 mg Q8HR ORAL 03/14/17 14:00 04/13/17 13:59 03/17/17 14:17 Insulin Aspart (NovoLOG) BEFORE MEALS AND HS SUBQ 03/14/17 11:30 04/13/17 11:29 03/17/17 11:44 Iron Sucrose/ Sodium Chloride (Venofer/Sodium Chloride) 60 ml @ 120 mls/hr BEDTIME IVPB 03/14/17 21:00 03/17/17 21:01 03/16/17 21:23 Morphine Sulfate (Morphine Sulfate) 4 mg Q4H PRN IVP Severe Pain (Pain Scale 7-10) 03/14/17 07:30 03/21/17 07:29 03/14/17 21:22 Nateglinide (Starlix) 60 mg TIAC ORAL 03/14/17 11:30 04/13/17 11:29 03/17/17 11:38 Ondansetron HCl (Zofran) 4 mg Q6H PRN IVP Nausea & Vomiting 03/14/17 07:30 04/13/17 07:29 03/14/17 21:21 Pantoprazole (Protonix) 40 mg EVERY 12 HOURS ORAL 03/14/17 09:00 04/13/17 08:59 03/17/17 08:42 Polyethylene Glycol (Miralax) 17 gm DAILYPRN PRN ORAL Constipation 03/14/17 07:30 04/13/17 07:29 Temazepam (Restoril) 15 mg HSPRN PRN ORAL Insomnia 03/14/17 21:00 03/21/17 20:59 JEAN CLAUDE SUTTON Mar 17, 2017 15:44
[2017-03-17 16:00] VITALS: BP 134/68
[2017-03-17] MEDS: Cefepime HCl 500 MG in D5W 55 ML IV SCH (17:36)
[2017-03-17 20:00] VITALS: BP 167/70
--- NOTE | 2017-03-17 20:14 | Cardiology Progress Note ---
Assessment/Plan Assessment/Plan diastolic heart failure sever diastilic dysfucntion brenna related meds now resolved renal fialure progressive htn abd pain vomiting bp seem fine hr is fine cr improved echo normal systolic function sig diastolic dysfunction dialysis performed 1 tiem may not be having any more done doign better Subjective Cardiovascular: Denies: chest pain, lightheadedness, palpitations Respiratory: Denies: shortness of breath Gastrointestinal/Abdominal: Denies: abdominal pain Genitourinary: Denies: burning Objective Last 24 Hour Vital Signs Date Time Temp Pulse Resp B/P Pulse Ox O2 Delivery O2 Flow Rate FiO2 03/17/17 16:00 98.7 77 20 134/68 98 Room Air 03/17/17 14:17 147/70 03/17/17 12:00 97.7 69 18 147/70 97 Room Air 03/17/17 08:42 66 154/64 03/17/17 08:02 65 18 Room Air 03/17/17 08:01 Room Air 03/17/17 08:01 97 Room Air 03/17/17 08:00 98.9 66 18 154/64 95 Room Air 03/17/17 05:48 167/71 03/17/17 04:00 97.5 64 20 167/71 64 Room Air 03/16/17 23:41 164/68 03/16/17 23:12 164/68 03/16/17 21:24 61 140/62 General Appearance: no apparent distress, alert Neck: no JVD Cardiovascular: normal rate, regular rhythm Respiratory/Chest: lungs clear, normal breath sounds Abdomen: normal bowel sounds, non tender, soft Extremities: moderate edema Intake and Output 03/16/17 03/17/17 19:00 07:00 Intake Total 1180 ml 400 ml Output Total 225 ml 500 ml Balance 955 ml -100 ml Intake Oral 550 ml IV Total 280 ml Blood Product 350 ml Other 400 ml Output Urine Total 225 ml 500 ml Laboratory Tests Test 03/17/17 06:50 White Blood Count 10.7 K/UL (4.8-10.8) Red Blood Count 3.22 M/UL (4.20-5.40) L Hemoglobin 8.0 G/DL (12.0-16.0) L Hematocrit 26.7 % (37.0-47.0) L Mean Corpuscular Volume 83 FL (80-99) Mean Corpuscular Hemoglobin 25.0 PG (27.0-31.0) L Mean Corpuscular Hemoglobin Concent 30.2 G/DL (32.0-36.0) L Red Cell Distribution Width 16.4 % (11.6-14.8) H Platelet Count 194 K/UL (150-450) Mean Platelet Volume 8.5 FL (6.5-10.1) Neutrophils (%) (Auto) % (45.0-75.0) Lymphocytes (%) (Auto) % (20.0-45.0) Monocytes (%) (Auto) % (1.0-10.0) Eosinophils (%) (Auto) % (0.0-3.0) Basophils (%) (Auto) % (0.0-2.0) Differential Total Cells Counted 100 Neutrophils % (Manual) 82 % (45-75) H Lymphocytes % (Manual) 11 % (20-45) L Monocytes % (Manual) 3 % (1-10) Eosinophils % (Manual) 4 % (0-3) H Basophils % (Manual) 0 % (0-2) Band Neutrophils 0 % (0-8) Platelet Estimate Adequate Platelet Morphology Normal Hypochromasia 1+ Anisocytosis 1+ Sodium Level 142 mEQ/L (135-145) Potassium Level 3.4 mEQ/L (3.4-4.9) Chloride Level 100 mEQ/L (98-107) Carbon Dioxide Level 21 mEQ/L (20-30) Anion Gap 21 (5-15) H Blood Urea Nitrogen 48 mg/dL (7-23) H Creatinine 3.3 mg/dL (0.5-0.9) H Estimat Glomerular Filtration Rate 14.4 mL/min (>60) Glucose Level 173 mg/dL (74-106) H Uric Acid 7.6 mg/dL (3.0-7.5) H Calcium Level 7.9 mg/dL (8.6-10.2) L Phosphorus Level 3.7 mg/dL (2.5-4.8) Magnesium Level 1.7 mg/dL (1.7-2.5) Total Bilirubin 1.6 mg/dL (0.0-1.2) H Direct Bilirubin 0.3 mg/dL (0.1-0.3) Aspartate Amino Transf (AST/SGOT) 11 U/L (5-40) Alanine Aminotransferase (ALT/SGPT) 9 U/L (3-33) Alkaline Phosphatase 68 U/L (35-104) C-Reactive Protein, Quantitative 7.2 mg/dL (< 0.5) H Pro-B-Type Natriuretic Peptide 2035 pg/mL (0-125) H Total Protein 6.5 g/dL (6.6-8.7) L Albumin 3.1 g/dL (3.5-5.2) L Globulin 3.4 g/dL Albumin/Globulin Ratio 0.9 (1.0-2.7) L JESSICA ACUNA Mar 17, 2017 20:14
[2017-03-17] MEDS: Iron Sucrose 100 MG in NS 55 ML IVPB SCH (21:00)
[2017-03-18] VITALS: BP 144/73
[2017-03-18 04:00] VITALS: BP 172/72
[2017-03-18] MEDS: Doxazosin 1mg Tab ORAL SCH ×3 (05:26→21:03)
[2017-03-18] MEDS: HydrALAZINE 50mg tab ORAL SCH ×3 (05:26→21:05)
[2017-03-18] MEDS: Nateglinide 60mg tab ORAL SCH ×3 (05:26→17:50)
[2017-03-18] MEDS: NovoLOG Insulin Flexpen SUBQ SCH ×4 (06:30→21:06)
[2017-03-18 07:46] LABS: BASOPHILS % (AUTO) 0.8 % (0.0-2.0); EOSINOPHILS % (AUTO) 3.6 % (0.0-3.0); LYMPHOCYTES % (AUTO) 10.5 % (20.0-45.0); MEAN CORPUSCULAR HEMOGLOBIN 25.6 PG (27.0-31.0); MEAN CORPUSCULAR HGB CONC 30.7 G/DL (32.0-36.0); MEAN CORPUSCULAR VOLUME 83 FL (80-99); MONOCYTES % (AUTO) 7.3 % (1.0-10.0); NEUTROPHILS % (AUTO) 77.9 % (45.0-75.0); PLATELET COUNT 209 K/UL (150-450); RED BLOOD COUNT 3.16 M/UL (4.20-5.40); RED CELL DISTRIBUTION WIDTH 16.6 % (11.6-14.8); WHITE BLOOD COUNT 11.5 K/UL (4.8-10.8)
[2017-03-18 08:00] VITALS: BP 169/86
[2017-03-18] MEDS: Allopurinol 100mg Tab ORAL SCH (08:05)
[2017-03-18] MEDS: Carvedilol 12.5mg tab ORAL SCH ×2 (08:07→21:04)
[2017-03-18 08:12] LABS: ALBUMIN/GLOBULIN RATIO 0.9 (1.0-2.7); CALCIUM 8.4 mg/dL (8.6-10.2); CREATININE 3.1 mg/dL (0.5-0.9); CRP QUANT 5.4 mg/dL (< 0.5); GLOMERULAR FILTRATION RATE 15.4 mL/min (>60); MAGNESIUM 1.7 mg/dL (1.7-2.5); PHOSPHORUS 3.3 mg/dL (2.5-4.8); POTASSIUM 3.5 mEQ/L (3.4-4.9); TOTAL PROTEIN 6.7 g/dL (6.6-8.7); URIC ACID 7.4 mg/dL (3.0-7.5)
[2017-03-18 08:38] LABS: BILIRUBIN,DIRECT 0.3 mg/dL (0.1-0.3)
--- NOTE | 2017-03-18 09:49 | Infectious Diseases Prog Note ---
Assessment/Plan Assessment/Plan A: The patient is a 56-year-old female UTI UCx :Strp GrB and Mixed GNR Pyelonephritis leukocytosis, mild FORREST :on HD , nephro is following SP right lower abdomen and groin area Right ureteral stone and mild hydronephrosis Hx of cataract surgery History of CVA HLD HTN Gastroesophageal reflux disease. History of x2. History of chronic kidney disease. DM Anemia PLAN: continue the patient on cefepime d# 9 / 10 Monitor CBC. Monitor BMP Urology is following Subjective Constitutional: Denies: anorexia, chills, drenching sweats, fatigue, fever, no symptoms, other Allergies: Coded Allergies: BENAZEPRIL (Verified Allergy, Intermediate, Shortness of Breath, 07/01/14) FUROSEMIDE (Unverified Allergy, Intermediate, Rash, 11/18/16) Per Kyleigh Berrios CHIEF SCIENCE OFFICER, Pt does not have allegy to Lasix and able to start Lasxi tx. NIFEDIPINE (Verified Allergy, Intermediate, Shortness of Breath, 06/28/14) NITROGLYCERIN (Verified Allergy, Intermediate, Shortness of Breath, 06/28/14 ) SOB and BLE swelling Objective Vital Signs Last 24 Hour Vital Signs Date Time Temp Pulse Resp B/P Pulse Ox O2 Delivery O2 Flow Rate FiO2 03/18/17 08:07 73 169/86 03/18/17 08:00 98.2 73 18 169/86 94 Room Air 03/18/17 07:50 97 Room Air 03/18/17 07:50 Room Air 03/18/17 07:50 73 18 Room Air 21 03/18/17 05:26 176/83 03/18/17 04:00 97.9 73 22 172/72 98 Nasal Cannula 2.0 03/18/17 00:00 97.8 72 18 144/73 96 Room Air 03/17/17 20:35 142/65 03/17/17 20:35 78 142/65 03/17/17 20:00 98.1 67 16 167/70 97 Room Air 03/17/17 19:30 97 Room Air 03/17/17 19:30 Room Air 21 03/17/17 19:30 78 20 Room Air 21 03/17/17 16:00 98.7 77 20 134/68 98 Room Air 03/17/17 14:17 147/70 03/17/17 12:00 97.7 69 18 147/70 97 Room Air Height (Feet): 5 Height (Inches): 2.00 Weight (Pounds): 299 HEENT: mucous membranes moist Respiratory/Chest: lungs clear Cardiovascular: regular rhythm Abdomen: normal bowel sounds Laboratory Tests Test 03/18/17 07:25 White Blood Count 11.5 K/UL (4.8-10.8) H Red Blood Count 3.16 M/UL (4.20-5.40) L Hemoglobin 8.1 G/DL (12.0-16.0) L Hematocrit 26.3 % (37.0-47.0) L Mean Corpuscular Volume 83 FL (80-99) Mean Corpuscular Hemoglobin 25.6 PG (27.0-31.0) L Mean Corpuscular Hemoglobin Concent 30.7 G/DL (32.0-36.0) L Red Cell Distribution Width 16.6 % (11.6-14.8) H Platelet Count 209 K/UL (150-450) Mean Platelet Volume 7.0 FL (6.5-10.1) Neutrophils (%) (Auto) 77.9 % (45.0-75.0) H Lymphocytes (%) (Auto) 10.5 % (20.0-45.0) L Monocytes (%) (Auto) 7.3 % (1.0-10.0) Eosinophils (%) (Auto) 3.6 % (0.0-3.0) H Basophils (%) (Auto) 0.8 % (0.0-2.0) Sodium Level 144 mEQ/L (135-145) Potassium Level 3.5 mEQ/L (3.4-4.9) Chloride Level 103 mEQ/L (98-107) Carbon Dioxide Level 24 mEQ/L (20-30) Anion Gap 17 (5-15) H Blood Urea Nitrogen 48 mg/dL (7-23) H Creatinine 3.1 mg/dL (0.5-0.9) H Estimat Glomerular Filtration Rate 15.4 mL/min (>60) Glucose Level 168 mg/dL (74-106) H Uric Acid 7.4 mg/dL (3.0-7.5) Calcium Level 8.4 mg/dL (8.6-10.2) L Phosphorus Level 3.3 mg/dL (2.5-4.8) Magnesium Level 1.7 mg/dL (1.7-2.5) Total Bilirubin 1.3 mg/dL (0.0-1.2) H Direct Bilirubin 0.3 mg/dL (0.1-0.3) Gamma Glutamyl Transpeptidase 28 U/L (5-36) Aspartate Amino Transf (AST/SGOT) 14 U/L (5-40) Alanine Aminotransferase (ALT/SGPT) 11 U/L (3-33) Alkaline Phosphatase 66 U/L (35-104) C-Reactive Protein, Quantitative 5.4 mg/dL (< 0.5) H Pro-B-Type Natriuretic Peptide 2221 pg/mL (0-125) H Total Protein 6.7 g/dL (6.6-8.7) Albumin 3.2 g/dL (3.5-5.2) L Globulin 3.5 g/dL Albumin/Globulin Ratio 0.9 (1.0-2.7) L Current Medications Medications (Trade) Dose Ordered Sig/Ifeanyi Route PRN Reason Start Time Stop Time Status Last Admin Dose Admin Acetaminophen (Tylenol) 650 mg Q4H PRN ORAL T>100.5 03/14/17 07:00 04/13/17 06:59 Albuterol/ Ipratropium (DuoNeb 0.5-3(2.5)mg/3ml) 3 ml Q4H PRN HHN Shortness of Breath 03/14/17 08:00 03/19/17 07:59 Allopurinol (Zyloprim) 200 mg DAILY ORAL 03/14/17 09:00 04/13/17 08:59 03/18/17 08:05 Atorvastatin Calcium (Lipitor) 40 mg BEDTIME ORAL 03/14/17 21:00 04/13/17 20:59 03/17/17 20:35 Carvedilol (Coreg) 12.5 mg EVERY 12 HOURS ORAL 03/14/17 09:00 04/13/17 08:59 03/18/17 08:07 Cefepime HCl/ Dextrose (Maxipime/D5W) 55 ml @ 110 mls/hr Q24H IV 03/16/17 18:00 03/23/17 17:59 03/17/17 17:36 Dextrose (Dextrose 50%) STAT PRN IV Hypoglycemia 03/14/17 07:30 04/13/17 07:29 Doxazosin Mesylate 1 mg 1 mg Q8HR ORAL 03/14/17 14:00 04/13/17 13:59 03/18/17 05:26 Hydralazine HCl (Apresoline) 100 mg Q8HR ORAL 03/14/17 14:00 04/13/17 13:59 03/18/17 05:26 Insulin Aspart (NovoLOG) BEFORE MEALS AND HS SUBQ 03/14/17 11:30 04/13/17 11:29 03/18/17 06:30 Morphine Sulfate (Morphine Sulfate) 4 mg Q4H PRN IVP Severe Pain (Pain Scale 7-10) 03/14/17 07:30 03/21/17 07:29 03/14/17 21:22 Nateglinide (Starlix) 60 mg TIAC ORAL 03/14/17 11:30 04/13/17 11:29 03/18/17 05:26 Ondansetron HCl (Zofran) 4 mg Q6H PRN IVP Nausea & Vomiting 03/14/17 07:30 04/13/17 07:29 03/14/17 21:21 Pantoprazole (Protonix) 40 mg EVERY 12 HOURS ORAL 03/14/17 09:00 04/13/17 08:59 03/18/17 08:06 Polyethylene Glycol (Miralax) 17 gm DAILYPRN PRN ORAL Constipation 03/14/17 07:30 04/13/17 07:29 Temazepam (Restoril) 15 mg HSPRN PRN ORAL Insomnia 03/14/17 21:00 03/21/17 20:59 NICOLE OH M.D. Mar 18, 2017 09:49
--- NOTE | 2017-03-18 10:30 | General Progress Note ---
Assessment/Plan Status: stable Status Narrative Cr lower Assessment/Plan status: Acute renal failure- HyperKalemia resolving after one HD and stent ? Underlying CKD due to DM and HTN Anemia: Etiology? Low Iron Ureteropelvic junction calculus Atrial arrhythmia UTI Plan: had stent 03/15 had dialysis 03/15 transfusion 03/16 On cardura Velasquez in DC IV DC ASA and Heparin TAMIE kidney- Mild right hydronephrosis, presumably from proximal right ureteral stone described on CT scan performed earlier the same day 2 D echo Ej Fx 60% Slow Hydrate IV Iron EPO SQ gastric support- Avoid Nephrotoxics monitor renal parameters Adjust BP meds- per orders Subjective ROS Limited/Unobtainable: No Constitutional: Reports: malaise, weakness Allergies: Coded Allergies: BENAZEPRIL (Verified Allergy, Intermediate, Shortness of Breath, 07/01/14) FUROSEMIDE (Unverified Allergy, Intermediate, Rash, 11/18/16) Per Kyleigh Berrios CASE PACKER AND SEALER, Pt does not have allegy to Lasix and able to start Lasxi tx. NIFEDIPINE (Verified Allergy, Intermediate, Shortness of Breath, 06/28/14) NITROGLYCERIN (Verified Allergy, Intermediate, Shortness of Breath, 06/28/14 ) SOB and BLE swelling Objective Last 24 Hour Vital Signs Date Time Temp Pulse Resp B/P Pulse Ox O2 Delivery O2 Flow Rate FiO2 03/18/17 08:07 73 169/86 03/18/17 08:00 98.2 73 18 169/86 94 Room Air 03/18/17 07:50 97 Room Air 03/18/17 07:50 Room Air 03/18/17 07:50 73 18 Room Air 03/18/17 05:26 176/83 03/18/17 04:00 97.9 73 22 172/72 98 Nasal Cannula 2.0 03/18/17 00:00 97.8 72 18 144/73 96 Room Air 03/17/17 20:35 142/65 03/17/17 20:35 78 142/65 03/17/17 20:00 98.1 67 16 167/70 97 Room Air 03/17/17 19:30 97 Room Air 03/17/17 19:30 Room Air 21 03/17/17 19:30 78 20 Room Air 21 03/17/17 16:00 98.7 77 20 134/68 98 Room Air 03/17/17 14:17 147/70 03/17/17 12:00 97.7 69 18 147/70 97 Room Air Intake and Output 03/17/17 03/18/17 19:00 07:00 Intake Total 800 ml 240 ml Output Total 900 ml 1000 ml Balance -100 ml -760 ml Intake Oral 800 ml 240 ml Output Urine Total 900 ml 1000 ml Laboratory Tests 03/18/17 07:25: White Blood Count 11.5H, Red Blood Count 3.16L, Hemoglobin 8.1L, Hematocrit 26.3L, Mean Corpuscular Volume 83, Mean Corpuscular Hemoglobin 25.6L, Mean Corpuscular Hemoglobin Concent 30.7L, Red Cell Distribution Width 16.6H, Platelet Count 209, Mean Platelet Volume 7.0, Neutrophils (%) (Auto) 77.9H, Lymphocytes (%) (Auto) 10.5L, Monocytes (%) (Auto) 7.3, Eosinophils (%) (Auto) 3.6H, Basophils (%) (Auto) 0.8, Sodium Level 144, Potassium Level 3.5, Chloride Level 103, Carbon Dioxide Level 24, Anion Gap 17H, Blood Urea Nitrogen 48H, Creatinine 3.1H, Estimat Glomerular Filtration Rate 15.4, Glucose Level 168H, Uric Acid 7.4, Calcium Level 8.4L, Phosphorus Level 3.3, Magnesium Level 1.7, Total Bilirubin 1.3H, Direct Bilirubin 0.3, Gamma Glutamyl Transpeptidase 28, Aspartate Amino Transf (AST/SGOT) 14, Alanine Aminotransferase (ALT/SGPT) 11, Alkaline Phosphatase 66, C-Reactive Protein, Quantitative 5.4H, Pro-B-Type Natriuretic Peptide 2221H, Total Protein 6.7, Albumin 3.2L, Globulin 3.5, Albumin/Globulin Ratio 0.9L Height (Feet): 5 Height (Inches): 2.00 Weight (Pounds): 299 General Appearance: no apparent distress, lethargic Objective other PE not changed ALE LOBATO Mar 18, 2017 10:30
[2017-03-18 12:00] VITALS: BP 185/75
[2017-03-18 16:00] VITALS: BP 183/85
[2017-03-18] MEDS: Cefepime HCl 500 MG in D5W 55 ML IV SCH (17:52)
[2017-03-18 21:00] VITALS: BP 178/69
--- NOTE | 2017-03-18 21:47 | Pulmonology Progress Note ---
Assessment/Plan Problems: (1) Renal failure (2) Hyperkalemia (3) HTN (hypertension) (4) Diabetes (5) Peripheral edema Assessment/Plan creatinine decreasing f/u bun/creatinine in am titrate cardiac meds f/u renal parameters DW dr Hurtado Subjective ROS Limited/Unobtainable: No Constitutional: Reports: anorexia, fatigue Neurologic: Reports: weakness Allergies: Coded Allergies: BENAZEPRIL (Verified Allergy, Intermediate, Shortness of Breath, 07/01/14) FUROSEMIDE (Unverified Allergy, Intermediate, Rash, 11/18/16) Per Kyleigh Berrios [employer], Pt does not have allegy to Lasix and able to start Lasxi tx. NIFEDIPINE (Verified Allergy, Intermediate, Shortness of Breath, 06/28/14) NITROGLYCERIN (Verified Allergy, Intermediate, Shortness of Breath, 06/28/14 ) SOB and BLE swelling Objective Last 24 Hour Vital Signs Date Time Temp Pulse Resp B/P Pulse Ox O2 Delivery O2 Flow Rate FiO2 03/18/17 21:05 178/69 03/18/17 21:04 70 178/69 03/18/17 16:00 98.7 69 16 183/85 97 Nasal Cannula 2.0 03/18/17 15:02 185/75 03/18/17 12:00 98.6 69 16 185/75 99 Room Air 03/18/17 08:07 73 169/86 03/18/17 08:00 98.2 73 18 169/86 94 Room Air 03/18/17 07:50 97 Room Air 03/18/17 07:50 Room Air 21 03/18/17 07:50 73 18 Room Air 21 03/18/17 05:26 176/83 03/18/17 04:00 97.9 73 22 172/72 98 Nasal Cannula 2.0 03/18/17 00:00 97.8 72 18 144/73 96 Room Air Intake and Output 03/17/17 03/18/17 19:00 07:00 Intake Total 800 ml 240 ml Output Total 900 ml 1000 ml Balance -100 ml -760 ml Intake Oral 800 ml 240 ml Output Urine Total 900 ml 1000 ml Objective General Appearance: WD/WN HEENT: normocephalic Respiratory/Chest: chest wall non-tender, lungs clear, normal breath sounds Cardiovascular: normal peripheral pulses, normal rate, regular rhythm Abdomen: normal bowel sounds, soft, non tender, no organomegaly, non distended Extremities: no cyanosis, no clubbing Skin: no rash, no lesions Neurologic/Psychiatric: back tender fourdrinier II-XII grossly normal General Appearance: no acute distress HEENT: normocephalic, atraumatic, PERRL Respiratory/Chest: chest wall non-tender, decreased breath sounds, accessory muscle use Breasts: no masses Cardiovascular: normal peripheral pulses, normal rate, regular rhythm, no JVD Abdomen: normal bowel sounds, soft, non tender, no organomegaly, non distended Genitourinary: normal external genitalia Extremities: no cyanosis Skin: no rash, no lesions Neurologic/Psychiatric: back tender fourdrinier II-XII grossly normal, no motor/sensory deficits Laboratory Tests 03/18/17 07:25: White Blood Count 11.5H, Red Blood Count 3.16L, Hemoglobin 8.1L, Hematocrit 26.3L, Mean Corpuscular Volume 83, Mean Corpuscular Hemoglobin 25.6L, Mean Corpuscular Hemoglobin Concent 30.7L, Red Cell Distribution Width 16.6H, Platelet Count 209, Mean Platelet Volume 7.0, Neutrophils (%) (Auto) 77.9H, Lymphocytes (%) (Auto) 10.5L, Monocytes (%) (Auto) 7.3, Eosinophils (%) (Auto) 3.6H, Basophils (%) (Auto) 0.8, Sodium Level 144, Potassium Level 3.5, Chloride Level 103, Carbon Dioxide Level 24, Anion Gap 17H, Blood Urea Nitrogen 48H, Creatinine 3.1H, Estimat Glomerular Filtration Rate 15.4, Glucose Level 168H, Uric Acid 7.4, Calcium Level 8.4L, Phosphorus Level 3.3, Magnesium Level 1.7, Total Bilirubin 1.3H, Direct Bilirubin 0.3, Gamma Glutamyl Transpeptidase 28, Aspartate Amino Transf (AST/SGOT) 14, Alanine Aminotransferase (ALT/SGPT) 11, Alkaline Phosphatase 66, C-Reactive Protein, Quantitative 5.4H, Pro-B-Type Natriuretic Peptide 2221H, Total Protein 6.7, Albumin 3.2L, Globulin 3.5, Albumin/Globulin Ratio 0.9L Current Medications Medications (Trade) Dose Ordered Sig/Ifeanyi Route PRN Reason Start Time Stop Time Status Last Admin Dose Admin Acetaminophen (Tylenol) 650 mg Q4H PRN ORAL T>100.5 4/21/17 07:00 04/13/17 06:59 Albuterol/ Ipratropium (DuoNeb 0.5-3(2.5)mg/3ml) 3 ml Q4H PRN HHN Shortness of Breath 03/14/17 08:00 03/19/17 07:59 Allopurinol (Zyloprim) 200 mg DAILY ORAL 03/14/17 09:00 04/13/17 08:59 03/18/17 08:05 Atorvastatin Calcium (Lipitor) 40 mg BEDTIME ORAL 03/14/17 21:00 04/13/17 20:59 03/18/17 21:05 Carvedilol (Coreg) 12.5 mg EVERY 12 HOURS ORAL 03/14/17 09:00 04/13/17 08:59 03/18/17 21:04 Cefepime HCl/ Dextrose (Maxipime/D5W) 55 ml @ 110 mls/hr Q24H IV 03/16/17 18:00 03/19/17 23:59 03/18/17 17:52 Dextrose (Dextrose 50%) STAT PRN IV Hypoglycemia 03/14/17 07:30 04/13/17 07:29 Doxazosin Mesylate 1 mg 1 mg Q8HR ORAL 03/14/17 14:00 04/13/17 13:59 03/18/17 21:03 Hydralazine HCl (Apresoline) 100 mg Q8HR ORAL 03/14/17 14:00 04/13/17 13:59 03/18/17 21:05 Insulin Aspart (NovoLOG) BEFORE MEALS AND HS SUBQ 03/14/17 11:30 04/13/17 11:29 03/18/17 21:06 Morphine Sulfate (Morphine Sulfate) 4 mg Q4H PRN IVP Severe Pain (Pain Scale 7-10) 03/14/17 07:30 03/21/17 07:29 03/14/17 21:22 Nateglinide (Starlix) 60 mg TIAC ORAL 03/14/17 11:30 04/13/17 11:29 03/18/17 17:50 Ondansetron HCl (Zofran) 4 mg Q6H PRN IVP Nausea & Vomiting 03/14/17 07:30 04/13/17 07:29 03/14/17 21:21 Pantoprazole (Protonix) 40 mg EVERY 12 HOURS ORAL 03/14/17 09:00 04/13/17 08:59 03/18/17 21:05 Polyethylene Glycol (Miralax) 17 gm DAILYPRN PRN ORAL Constipation 03/14/17 07:30 04/13/17 07:29 Temazepam (Restoril) 15 mg HSPRN PRN ORAL Insomnia 03/14/17 21:00 03/21/17 20:59 JEAN CLAUDE SUTTON Mar 18, 2017 21:47
[2017-03-19] VITALS: BP 158/63
[2017-03-19 04:00] VITALS: BP 171/72
--- NOTE | 2017-03-19 05:18 | Progress Note ---
DATE: 03/18/2017 UROLOGY PROGRESS REPORT SUBJECTIVE: The patient's right abdominal flank pain much improved after placement of right double-J stent. OBJECTIVE: VITAL SIGNS: Afebrile. Vital signs stable with hypertension. Last blood pressure 178/69. I's and O's 1 liter in yesterday and 1.9 liters out of urine output. ABDOMEN: Soft, nontender, and nondistended. EXTREMITIES: Warm and well perfused. No cyanosis, clubbing, or edema. BACK: No right CVA tenderness to percussion. LABORATORY DATA: White blood cell count 11.5, hematocrit 26.3, and platelets 209,000. Sodium 144, potassium 3.5, chloride 103, bicarbonate 24, BUN 48, creatinine 3.1 decreasing without dialysis since Friday, glucose 168, and calcium 8.4. LFTs within normal limits. ASSESSMENT AND PLAN: 1. Acute on chronic renal insufficiency in the setting of right ureteral stone and hydronephrosis and colic. 2. Colic resolved, status post stent placement. 3. Renal failure improving although appears to have underlying renal insufficiency, likely secondary to diabetes and hypertension. 4. Continue dialysis/supportive care is warranted. 5. The patient will eventually need ureteroscopy with laser lithotripsy and removal versus exchange of double-J stent. Rodrigo Fermin M.D. DR: MICH JOB#: [id number] CC:
[2017-03-19] MEDS: HydrALAZINE 50mg tab ORAL SCH ×2 (06:30→14:04)
[2017-03-19] MEDS: Nateglinide 60mg tab ORAL SCH ×3 (06:30→16:30)
[2017-03-19] MEDS: Doxazosin 1mg Tab ORAL SCH (06:31)
[2017-03-19] MEDS: NovoLOG Insulin Flexpen SUBQ SCH ×3 (06:33→16:30)
[2017-03-19 08:10] LABS: ALBUMIN/GLOBULIN RATIO 0.8 (1.0-2.7); CALCIUM 8.4 mg/dL (8.6-10.2); CREATININE 2.7 mg/dL (0.5-0.9); GLOMERULAR FILTRATION RATE 18.1 mL/min (>60); PHOSPHORUS 2.9 mg/dL (2.5-4.8); POTASSIUM 3.5 mEQ/L (3.4-4.9); TOTAL PROTEIN 6.6 g/dL (6.6-8.7)
[2017-03-19 08:23] VITALS: BP 169/62
[2017-03-19 08:26] LABS: BILIRUBIN,DIRECT 0.3 mg/dL (0.1-0.3)
[2017-03-19] MEDS: Carvedilol 12.5mg tab ORAL SCH (08:34)
[2017-03-19] MEDS: Allopurinol 100mg Tab ORAL SCH (08:34)
--- NOTE | 2017-03-19 10:19 | General Progress Note ---
Assessment/Plan Status: stable Status Narrative Cr 2.7 Assessment/Plan status: Acute renal failure- HyperKalemia resolving after one HD and stent ? Underlying CKD due to DM and HTN Anemia: Etiology? Low Iron Ureteropelvic junction calculus Atrial arrhythmia UTI Plan: DC right jugular dialysis cath OK to DC from renal stand had stent 03/15 had dialysis 03/15 transfusion 03/16 increase cardura Velasquez in DC IV DC ASA and Heparin TAMIE kidney- Mild right hydronephrosis, presumably from proximal right ureteral stone described on CT scan performed earlier the same day 2 D echo Ej Fx 60% Slow Hydrate IV Iron EPO SQ gastric support- Avoid Nephrotoxics monitor renal parameters Adjust BP meds- per orders Subjective ROS Limited/Unobtainable: No Constitutional: Reports: malaise Allergies: Coded Allergies: BENAZEPRIL (Verified Allergy, Intermediate, Shortness of Breath, 07/01/14) FUROSEMIDE (Unverified Allergy, Intermediate, Rash, 11/18/16) Per Kyleigh Berrios FRONT OFFICE ASSISTANT, Pt does not have allegy to Lasix and able to start Lasxi tx. NIFEDIPINE (Verified Allergy, Intermediate, Shortness of Breath, 06/28/14) NITROGLYCERIN (Verified Allergy, Intermediate, Shortness of Breath, 06/28/14 ) SOB and BLE swelling Objective Last 24 Hour Vital Signs Date Time Temp Pulse Resp B/P Pulse Ox O2 Delivery O2 Flow Rate FiO2 03/19/17 08:34 72 169/62 03/19/17 08:32 75 18 Room Air 21 03/19/17 08:32 Room Air 21 03/19/17 08:32 96 Room Air 21 03/19/17 08:23 98.1 72 20 169/62 97 Nasal Cannula 2.0 03/19/17 06:30 171/72 03/19/17 04:00 98.1 72 18 171/72 95 Nasal Cannula 2.0 03/19/17 00:00 97.7 81 16 158/63 96 Nasal Cannula 2.0 03/18/17 21:05 178/69 03/18/17 21:04 70 178/69 03/18/17 21:00 97.9 70 18 178/69 96 Nasal Cannula 2.0 03/18/17 19:30 70 18 Room Air 21 03/18/17 19:30 Room Air 21 03/18/17 19:30 95 Room Air 21 03/18/17 16:00 98.7 69 16 183/85 97 Nasal Cannula 2.0 03/18/17 15:02 185/75 03/18/17 12:00 98.6 69 16 185/75 99 Room Air Intake and Output 03/18/17 03/19/17 19:00 07:00 Intake Total 950 ml 500 ml Output Total 900 ml 950 ml Balance 50 ml -450 ml Intake Oral 950 ml 500 ml Output Urine Total 900 ml 950 ml Laboratory Tests 03/19/17 07:20: Sodium Level 142, Potassium Level 3.5, Chloride Level 101, Carbon Dioxide Level 22, Anion Gap 19H, Blood Urea Nitrogen 44H, Creatinine 2.7H, Estimat Glomerular Filtration Rate 18.1, Glucose Level 193H, Calcium Level 8.4L, Phosphorus Level 2.9, Total Bilirubin 1.4H, Direct Bilirubin 0.3, Aspartate Amino Transf (AST/ SGOT) 15, Alanine Aminotransferase (ALT/SGPT) 14, Alkaline Phosphatase 69, Total Protein 6.6, Albumin 3.1L, Globulin 3.5, Albumin/Globulin Ratio 0.8L Height (Feet): 5 Height (Inches): 2.00 Weight (Pounds): 299 General Appearance: no apparent distress Objective other PE not changed ALE LOBATO Mar 19, 2017 10:19
[2017-03-19 11:56] VITALS: BP 150/67
--- NOTE | 2017-03-19 12:42 | Infectious Diseases Prog Note ---
Assessment/Plan Assessment/Plan A: The patient is a 56-year-old female UTI UCx :Strp GrB and Mixed GNR Pyelonephritis leukocytosis, mild FORREST : resolving after one HD and stent. 03/15 Right ureteral stone and mild hydronephrosis SP 03/15 Hx of cataract surgery History of CVA HLD HTN Gastroesophageal reflux disease. History of x2. History of chronic kidney disease. DM Anemia PLAN: DC cefepime d# 10 / and monitor pt off of AB Rx Monitor CBC. Monitor BMP Urology is following Subjective Constitutional: Denies: anorexia, chills, drenching sweats, fatigue, fever, no symptoms, other Allergies: Coded Allergies: BENAZEPRIL (Verified Allergy, Intermediate, Shortness of Breath, 07/01/14) FUROSEMIDE (Unverified Allergy, Intermediate, Rash, 11/18/16) Per Kyleigh Berrios FIBERGLASS FINISHER, Pt does not have allegy to Lasix and able to start Lasxi tx. NIFEDIPINE (Verified Allergy, Intermediate, Shortness of Breath, 06/28/14) NITROGLYCERIN (Verified Allergy, Intermediate, Shortness of Breath, 06/28/14 ) SOB and BLE swelling Objective Vital Signs Last 24 Hour Vital Signs Date Time Temp Pulse Resp B/P Pulse Ox O2 Delivery O2 Flow Rate FiO2 03/19/17 11:56 97.2 63 22 150/67 100 Nasal Cannula 2.0 03/19/17 08:34 72 169/62 03/19/17 08:32 75 18 Room Air 21 03/19/17 08:32 Room Air 21 03/19/17 08:32 96 Room Air 21 03/19/17 08:23 98.1 72 20 169/62 97 Nasal Cannula 2.0 03/19/17 06:30 171/72 03/19/17 04:00 98.1 72 18 171/72 95 Nasal Cannula 2.0 03/19/17 00:00 97.7 81 16 158/63 96 Nasal Cannula 2.0 03/18/17 21:05 178/69 03/18/17 21:04 70 178/69 03/18/17 21:00 97.9 70 18 178/69 96 Nasal Cannula 2.0 03/18/17 19:30 70 18 Room Air 21 03/18/17 19:30 Room Air 21 4/25/17 19:30 95 Room Air 21 03/18/17 16:00 98.7 69 16 183/85 97 Nasal Cannula 2.0 03/18/17 15:02 185/75 Height (Feet): 5 Height (Inches): 2.00 Weight (Pounds): 299 HEENT: anicteric Respiratory/Chest: normal breath sounds Cardiovascular: normal rate Abdomen: soft, non tender Laboratory Tests Test 03/19/17 07:20 Sodium Level 142 mEQ/L (135-145) Potassium Level 3.5 mEQ/L (3.4-4.9) Chloride Level 101 mEQ/L (98-107) Carbon Dioxide Level 22 mEQ/L (20-30) Anion Gap 19 (5-15) H Blood Urea Nitrogen 44 mg/dL (7-23) H Creatinine 2.7 mg/dL (0.5-0.9) H Estimat Glomerular Filtration Rate 18.1 mL/min (>60) Glucose Level 193 mg/dL (74-106) H Calcium Level 8.4 mg/dL (8.6-10.2) L Phosphorus Level 2.9 mg/dL (2.5-4.8) Total Bilirubin 1.4 mg/dL (0.0-1.2) H Direct Bilirubin 0.3 mg/dL (0.1-0.3) Aspartate Amino Transf (AST/SGOT) 15 U/L (5-40) Alanine Aminotransferase (ALT/SGPT) 14 U/L (3-33) Alkaline Phosphatase 69 U/L (35-104) Total Protein 6.6 g/dL (6.6-8.7) Albumin 3.1 g/dL (3.5-5.2) L Globulin 3.5 g/dL Albumin/Globulin Ratio 0.8 (1.0-2.7) L Current Medications Medications (Trade) Dose Ordered Sig/Ifeanyi Route PRN Reason Start Time Stop Time Status Last Admin Dose Admin Acetaminophen (Tylenol) 650 mg Q4H PRN ORAL T>100.5 03/14/17 07:00 04/13/17 06:59 Allopurinol (Zyloprim) 200 mg DAILY ORAL 03/14/17 09:00 04/13/17 08:59 03/19/17 08:34 Atorvastatin Calcium (Lipitor) 40 mg BEDTIME ORAL 03/14/17 21:00 04/13/17 20:59 03/18/17 21:05 Carvedilol (Coreg) 12.5 mg EVERY 12 HOURS ORAL 03/14/17 09:00 04/13/17 08:59 03/19/17 08:34 Cefepime HCl/ Dextrose (Maxipime/D5W) 55 ml @ 110 mls/hr Q24H IV 03/16/17 18:00 03/19/17 23:59 03/18/17 17:52 Dextrose (Dextrose 50%) STAT PRN IV Hypoglycemia 03/14/17 07:30 04/13/17 07:29 Doxazosin Mesylate (Cardura) 2 mg Q8HR ORAL 03/19/17 14:00 04/18/17 13:59 Hydralazine HCl (Apresoline) 100 mg Q8HR ORAL 03/14/17 14:00 04/13/17 13:59 03/19/17 06:30 Insulin Aspart (NovoLOG) BEFORE MEALS AND HS SUBQ 03/14/17 11:30 04/13/17 11:29 03/19/17 11:35 Morphine Sulfate (Morphine Sulfate) 4 mg Q4H PRN IVP Severe Pain (Pain Scale 7-10) 03/14/17 07:30 03/21/17 07:29 03/14/17 21:22 Nateglinide (Starlix) 60 mg TIAC ORAL 03/14/17 11:30 04/13/17 11:29 03/19/17 11:32 Ondansetron HCl (Zofran) 4 mg Q6H PRN IVP Nausea & Vomiting 03/14/17 07:30 04/13/17 07:29 03/14/17 21:21 Pantoprazole (Protonix) 40 mg EVERY 12 HOURS ORAL 03/14/17 09:00 04/13/17 08:59 03/19/17 08:34 Polyethylene Glycol (Miralax) 17 gm DAILYPRN PRN ORAL Constipation 03/14/17 07:30 04/13/17 07:29 Temazepam 15 mg 15 mg HSPRN PRN ORAL Insomnia 03/14/17 21:00 03/21/17 20:59 NICOLE OH M.D. Mar 19, 2017 12:42
[2017-03-19] MEDS ORDERED: Doxazosin 1mg Tab ORAL SCH (14:00)
[2017-03-19 14:04] VITALS: BP 150/67
[2017-03-19] MEDS ORDERED: FUROSEMIDE40 MG ORAL (14:17)
[2017-03-19] MEDS ORDERED: Tubing IV Secondary IV ONE (16:49)
--- NOTE | 2017-03-20 08:36 | Diagnostic Imaging Report ---
Indication: PAIN Technique: Digital intraoperative images Comparison: None Findings: Single digital intraoperative demonstrates a right ureteral stent, with the proximal pigtail in the expected region of the renal pelvis. Impression: Intraoperative imaging, as described
--- NOTE | 2017-03-20 15:54 | Discharge Summary ---
Discharge Summary Hospital Course Date of Admission Mar 10, 2017 at 07:25 Date of Discharge Mar 19, 2017 at 16:50 Admitting Diagnosis cp/dyspnea HPI Melissa Means is a 56 year old female who was admitted on Mar 10, 2017 at 07: 25 for Chest Pain,Dypnea Hospital Course [id number] Discharge Discharge Disposition Patient was discharged to Home () Discharge Diagnoses: Amanda Lassiter NP Mar 20, 2017 15:54
--- NOTE | 2017-03-21 09:38 | Discharge Summary 2 SIG ---
DATE OF ADMISSION: 03/10/2017 DATE OF DISCHARGE: 03/19/2017 CONSULTANTS: 1. Rodrigo Fermin M.D. 2. Oneil Hurtado M.D. 3. José Manuel Lemos M.D. 4. Oswald Grajeda M.D. BRIEF HOSPITAL COURSE: The patient is a 56-year-old female with history of hypertension, diabetes mellitus, and obesity presented to ED with several problems. The patient had a right flank pain radiating to the groin and was also having dyspnea and irregular heart beat. She has a lymphedema and had a pain on the left calf and blood sugar has been out of control. She presented to ED complaining of right flank pain, dyspnea, and calf tenderness. On evaluation, laboratories showed evidence of renal failure. Creatinine level was 2.8. Potassium was elevated to 6. She was treated with calcium, Kayexalate, insulin, and bicarbonate with treatment of hyperkalemia. Arrhythmia resolved. She was admitted to [facility] for further evaluation and was followed by Dr. Hurtado for kidney evaluation. She was given IV hydration. Ultrasound of the kidneys showed mild right hydronephrosis with a proximal right ureteral stone. CT of the abdomen and pelvis showed a 4 millimeter proximal right ureteral calculus resulting in mild right hydronephrosis with perinephric fat stranding. She was seen by Dr. Fermin and was started on medical management with fluid hydration. She was given Flomax. Hopefully, she will eventually normally pass the stone. Dr. Grajeda was consulted for antibiotic management. Vancomycin was discontinued and the patient was given cefepime. She had episodes of bradycardia and labetalol was discontinued, which is likely the cause of bradycardia. Per the review of telemetry, there was no further bradycardia noted. Blood pressure was adequately controlled on combination of Coreg and hydralazine. EKG showed normal sinus rhythm with rightward axis and no significant ST to T-wave abnormalities. Renal function was monitored. Initially, refused Velasquez catheterization and later on agreed. She continued to have worsening renal failure. Creatinine increased to 5.0. A temporary hemodialysis catheter was placed and the patient underwent cystoscopy with right double-J stent placement on 03/15/2017 and also underwent hemodialysis. She tolerated procedure well. Creatinine improved post hemodialysis. At time of discharge, dialysis catheter was removed. Cefepime was discontinued and the patient was discharged home. Advised to follow up with PMD. FINAL DIAGNOSES: 1. Acute renal failure, resolving. 2. Hyperkalemia. 3. Underlying chronic kidney disease due to diabetes mellitus and hypertension. 4. Iron deficiency anemia. 5. Ureteropelvic junction calculus, status post cystoscopy and stent placement. 6. Urinary tract infection with Streptococcus and gram-negative rods. 7. Pyelonephritis. 8. Hypertension. 9. Diabetes mellitus. 10. Hyperlipidemia. 11. Renal colic. 12. Status post on dialysis. 13. Acute on chronic diastolic heart failure. 14. Severe diastolic dysfunction. 15. Bradycardia, related to medications resolved. Mirela Medina M.D. I have been assigned to dictate discharge summary on this account and I was not involved in the patient's management. Amanda Lassiter N.P. DR: KENDRA JOB#: [id number] CC: [email or web address]
== END 2017-03-19 16:50 | disposition home or self-care (01) | DRG 465 ==
LOC: EMR 06:28 → 2W 07:25 → EDBEDREQ 09:18 → 2E 03-12 15:49 → 3E 03-14 06:54
PROC: 05HM33Z Insertion of Infusion Device into Right Internal Jugular Vein, Percutaneous Approach (ICD-10-PCS; 2017-03-14)
PROC: B513ZZA Fluoroscopy of Right Jugular Veins, Guidance (ICD-10-PCS; 2017-03-14)
PROC: 5A1D00Z (ICD-10-PCS; 2017-03-15)
PROC: 0T768DZ Dilation of Right Ureter with Intraluminal Device, Via Natural or Artificial Opening Endoscopic (ICD-10-PCS; principal; 2017-03-15 08:00)
DX: N13.2 Hydronephrosis with renal and ureteral calculous obstruction (principal); I50.33 Acute on chronic diastolic (congestive) heart failure; N17.9 Acute kidney failure, unspecified; E11.22 Type 2 diabetes mellitus with diabetic chronic kidney disease; N39.0 Urinary tract infection, site not specified; E87.5 Hyperkalemia; I49.8 Other specified cardiac arrhythmias; I13.0 Hypertensive heart and chronic kidney disease with heart failure and stage 1 through stage 4 chronic kidney disease, or unspecified chronic kidney disease; N18.9 Chronic kidney disease, unspecified; E66.01 Morbid (severe) obesity due to excess calories; Z68.43 Body mass index [BMI] 50.0-59.9, adult; E11.65 Type 2 diabetes mellitus with hyperglycemia; D50.9 Iron deficiency anemia, unspecified; R00.1 Bradycardia, unspecified; T44.8X5A Adverse effect of centrally-acting and adrenergic-neuron-blocking agents, initial encounter; Y92.239 Unspecified place in hospital as the place of occurrence of the external cause
CPT/HCPCS: 36415; 36569; 71010; 71250; 74176; 74420; 76000; 76775; 76937; 80048; 80053; 80061; 81003; 82248; 82270; 82378; 82550; 82607; 82728; 82746; 82962; 82977; 83036; 83540; 83550; 83615; 83735; 83880; 84100; 84132; 84300; 84443; 84484; 84550; 85007; 85025; 85044; 85060; 85610; 85651; 85730; 86140; 86850; 86900; 86901; 86920; 87086; 87181; 89050; 93005; 93306; 93970; 94003; 94150; 94664; 94760; J1815; J2250; J2405

== ENCOUNTER 2017-10-06 19:05 | Inpatient (IN) | payer MEDICARE, MEDICAID ==
[~2017-10-06] VITALS: Ht 160 cm; Wt 124.5 kg
[~2017-10-06 19:05] MED LIST changes: +FUROSEMIDE40 MG ORAL
[2017-10-06 19:20] VITALS: BP 118/106
--- NOTE | 2017-10-06 19:25 | Emergency Room Report ---
History of Present Illness General Chief Complaint: Dyspnea/Respdistress Source: Patient, Family Member Present Illness HPI 57-year-old female with pmhx of HTN, DM, ? Atrial fibrillation on Coumadin, chronic kidney disease, CHF p/w SOB for 3 days. SOB was gradual in onset, occurs both at rest and on exertion, worsened with laying flat. Patient sleeps with 3 pillows. Associated with worsening b/l lower extremity edema for 7 days. Denies chest pain. Patient has experienced this SOB in the past and states it feels similar to previous CHF exacerbations. Patient takes 40 mg of Lasix daily and has been compliant with medications. Denies fever, chills, cough, n/v/d. 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 NIFEDIPINE (Verified Allergy, Intermediate, Shortness of Breath, 06/28/14) NITROGLYCERIN (Verified Allergy, Intermediate, Shortness of Breath, 06/28/14 ) SOB and BLE swelling Patient History Past Medical History: see triage record Past Surgical History: none Pertinent Family History: none Last Menstrual Period: none Now: No Reviewed Nursing Documentation: PMH: Agreed, PSxH: Agreed Nursing Documentation-PMH Hx Cardiac Problems: Yes Hx Hypertension: Yes Hx Diabetes: Yes - Type 2 Hx Cancer: No Hx Gastrointestinal Problems: Yes Hx Neurological Problems: Yes Hx Cerebrovascular Accident: Yes - 1 years ago Hx Speech Problem: Yes Hx Dizziness: Yes Hx Numbness: Yes - LUE Hx Weakness: Yes - LUE Review of Systems All Other Systems: negative except mentioned in HPI Physical Exam Vital Signs Date Time Temp Pulse Resp B/P (MAP) Pulse Ox O2 Delivery O2 Flow Rate FiO2 10/06/17 19:15 98.8 86 18 118/106 94 Room Air Sp02 EP Interpretation: reviewed, normal General Appearance: moderate distress, other - Appears to be in respiratory distress however is speaking in complete sentences Head: normocephalic, atraumatic Eyes: bilateral eye normal inspection, bilateral eye PERRL, bilateral eye EOMI ENT: normal ENT inspection, normal pharynx, normal voice, moist mucus membranes Neck: normal inspection, full range of motion, supple Respiratory: other - crackles b/l, tachypneic, satting 95 on RA Cardiovascular #1: normal inspection, regular rate, rhythm, no edema, normal capillary refill Cardiovascular #2: 2+ radial (R), 2+ radial (L) Gastrointestinal: normal inspection, non tender, soft, non-distended, no guarding Musculoskeletal: normal inspection, back normal, normal range of motion, non- tender Neurologic: normal inspection, alert, oriented x3, responsive, motor strength/ tone normal, sensory intact, normal gait, speech normal Psychiatric: normal inspection, judgement/insight normal, memory normal Skin: normal inspection, normal color, no rash, warm/dry, well hydrated, normal turgor Procedures Critical Care Time Critical Care Time 40 minutes of CC time 57-year-old female with respiratory distress / chf exacerbation VS: Tachypneic Airway patent. PLAN: IV access, labs, diuresis Anticipate admission to Tele vs. [facility] CC time also includes review of labs, review of EMR, discussion with family and paperwork from SNF, d/w hospitalist CC could include dosing of pressors, additional Abx CC time does not include procedures Medical Decision Making Diagnostic Impression: Primary Impression: Respiratory distress Additional Impressions: Acute exacerbation of CHF (congestive heart failure) Supratherapeutic INR CKD (chronic kidney disease) ER Course 57-year-old female with pmhx of HTN, DM, chronic kidney disease CHF p/w SOB for 3-4 days. DDX: CHF exacerbation, ACS, pneumonia, asthma/copd Plan: IV access, front desk monitor, O2 nasal cannula obtain basic labs including blood gas, troponin, BNP Nitro will be held as blood pressure not optimal at this time IV lasix Will consider BIPAP for persistent or worsening respiratory status Anticipate admission ER course: Lasix was given. Patient has remained on the monitor. Continues to be tachypneic, however speaking in complete sentences lasix 40mg given nitro SL given HR ranges from 90-120 afib Patient's condition remains serious. Disposition: Patient to be admitted to Tele Patient requires inpatient admission for close monitoring of respiratory status , further workup including serial troponin and EKGs, possible additional diuresis and monitoring of electrolytes. D/w hospitalist Dr Medina who has accepted patient for admission Please note that this Emergency Department Report was dictated using [employer] compiler technology software, occasionally this can lead to erroneous entry secondary to interpretation by the dictation equipment. EKG Diagnostic Results EP Interpretation: Yes Rate: tachy Rhythm: atrial fibrillation ST Segments: No acute changes ASA given to patient: No Rhythm Strip EP Interpretation: Yes Rate: 118 Rhythm: afib, no PVCs, no ectopy Chest X-ray CXR: Ordered: Yes 1 view Indication: Shortness of breath EP interpretation: Yes Interpretation: Cardiomegaly with bilateral pulmonary vascular congestion Impression: CHF/fluid overload Electronically signed by Brandon Aggarwal MD Laboratory Tests Test 10/06/17 19:35 White Blood Count 12.2 K/UL (4.8-10.8) H Red Blood Count 3.82 M/UL (4.20-5.40) L Hemoglobin 9.1 G/DL (12.0-16.0) L Hematocrit 31.5 % (37.0-47.0) L Mean Corpuscular Volume 83 FL (80-99) Mean Corpuscular Hemoglobin 23.9 PG (27.0-31.0) L Mean Corpuscular Hemoglobin Concent 29.0 G/DL (32.0-36.0) L Red Cell Distribution Width 16.6 % (11.6-14.8) H Platelet Count 210 K/UL (150-450) Mean Platelet Volume 8.4 FL (6.5-10.1) Neutrophils (%) (Auto) % (45.0-75.0) Lymphocytes (%) (Auto) % (20.0-45.0) Monocytes (%) (Auto) % (1.0-10.0) Eosinophils (%) (Auto) % (0.0-3.0) Basophils (%) (Auto) % (0.0-2.0) Neutrophils % (Manual) Pending Lymphocytes % (Manual) Pending Platelet Estimate Pending Platelet Morphology Pending Prothrombin Time 76.9 SEC (9.30-11.50) H Prothrombin Time INR 7.2 (0.9-1.1) *H PTT 72 SEC (23-33) H Sodium Level 134 MMOL/L (136-145) L Potassium Level 4.8 MMOL/L (3.5-5.1) Chloride Level 101 MMOL/L (98-107) Carbon Dioxide Level 17 MMOL/L (21-32) L Anion Gap 17 mmol/L (5-15) H Blood Urea Nitrogen 134 mg/dL (7-18) H Creatinine 4.2 MG/DL (0.55-1.30) H Estimate Glomerular Filtration Rate 10.8 mL/min (>60) Glucose Level 431 MG/DL (74-106) H Calcium Level 9.2 MG/DL (8.5-10.1) Total Bilirubin 1.3 MG/DL (0.2-1.0) H Direct Bilirubin 0.3 MG/DL (0.0-0.3) Aspartate Amino Transferase (AST) 18 U/L (15-37) Alanine Aminotransferase (ALT) 35 U/L (12-78) Alkaline Phosphatase 128 U/L (46-116) H Total Creatine Kinase 164 U/L (26-308) Creatine Kinase MB 1.8 NG/ML (0.0-3.6) Creatine Kinase MB Relative Index 1.0 Troponin I 0.009 ng/mL (0.000-0.056) Pro-B-Type Natriuretic Peptide 3828 pg/mL (0-125) H Total Protein 9.1 G/DL (6.4-8.2) H Albumin 3.9 G/DL (3.4-5.0) Globulin 5.2 g/dL Albumin/Globulin Ratio 0.8 (1.0-2.7) L Last Vital Signs Date Time Temp Pulse Resp B/P (MAP) Pulse Ox O2 Delivery O2 Flow Rate FiO2 10/06/17 19:15 98.8 86 18 118/106 94 Room Air Disposition: ADMITTED INPATIENT Condition: Critical Brandon Aggarwal M.D. Oct 06, 2017 19:25
[2017-10-06 20:08] LABS: ANION GAP 17 mmol/L (5-15); CALCIUM 9.2 MG/DL (8.5-10.1); CARBON DIOXIDE 17 MMOL/L (21-32); CHLORIDE 101 MMOL/L (98-107); CREATININE 4.2 MG/DL (0.55-1.30); GLOMERULAR FILTRATION RATE 10.8 mL/min (>60); POTASSIUM 4.8 MMOL/L (3.5-5.1); SODIUM 134 MMOL/L (136-145)
[2017-10-06 20:16] LABS: PROTHROMBIN TIME 76.9 SEC (9.30-11.50)
[2017-10-06] MEDS ORDERED: HUMULIN N100 UNIT/1 SUBQ (20:21)
[2017-10-06 20:22] LABS: ALANINE AMINOTRANSFERASE 35 U/L (12-78); ALBUMIN/GLOBULIN RATIO 0.8 (1.0-2.7); ASPARTATE AMINO TRANSFERASE 18 U/L (15-37); CKMB 1.8 NG/ML (0.0-3.6); TOTAL PROTEIN 9.1 G/DL (6.4-8.2)
[2017-10-06] MEDS ORDERED: CARVEDILOL3.125 MG ORAL (20:23)
[2017-10-06 20:25] LABS: MEAN CORPUSCULAR HEMOGLOBIN 23.9 PG (27.0-31.0); MEAN CORPUSCULAR VOLUME 83 FL (80-99); MEAN PLATELET VOLUME 8.4 FL (6.5-10.1); PLATELET COUNT 210 K/UL (150-450); RED BLOOD COUNT 3.82 M/UL (4.20-5.40); RED CELL DISTRIBUTION WIDTH 16.6 % (11.6-14.8); WHITE BLOOD COUNT 12.2 K/UL (4.8-10.8)
[2017-10-06 20:27] LABS: INR 7.2 (0.9-1.1)
[2017-10-06 20:34] LABS: BILIRUBIN,DIRECT 0.3 MG/DL (0.0-0.3)
[2017-10-06 21:30] VITALS: BP 146/79
[2017-10-06 21:36] LABS: LYMPHOCYTES % (MANUAL) 5 % (20-45); NEUTROPHILS % (MANUAL) 91 % (45-75); TOTAL CELLS COUNTED 100
[2017-10-06 21:37] LABS: ANISOCYTOSIS 1+; BAND NEUTROPHILS % (MANUAL) 0 % (0-8); BASOPHILS % (MANUAL) 0 % (0-2); EOSINOPHILS % (MANUAL) 0 % (0-3); HYPOCHROMASIA 1+; PLATELET ESTIMATE ADEQUATE; PLATELET MORPHOLOGY NORMAL
[2017-10-06] MEDS ORDERED: Albuterol/Ipratropium 3ml neb HHN PRN (21:45)
[2017-10-06] MEDS ORDERED: Miralax 17gm pkt ORAL PRN (21:45)
[2017-10-06] MEDS ORDERED: cloNIDine 0.2mg Tab ORAL SCH ×2 (22:00→23:42)
[2017-10-06 22:19] LABS: APPEARANCE,URINE CLEAR; KETONES,URINE NEGATIVE (NEGATIVE); LEUKOCYTE ESTERASE ,URINE 1+ (NEGATIVE); NITRITE,URINE NEGATIVE (NEGATIVE); PH,URINE 5 (4.5-8.0); PROTEIN,URINE 2+ (NEGATIVE); UROBILINOGEN,URINE NORMAL MG/DL (0.0-1.0)
[2017-10-06 22:20] VITALS: BP 155/57
[2017-10-06 22:33] LABS: BACTERIA,URINE FEW /HPF; SQUAMOUS EPITHELIAL CELL,UR FEW /LPF (NONE/OCC)
[2017-10-07] VITALS: BP 153/75
[2017-10-07 04:00] VITALS: BP 150/64
[2017-10-07] MEDS: NovoLOG Insulin Flexpen SUBQ SCH ×4 (06:28→21:18)
[2017-10-07 07:32] LABS: BASOPHILS % (AUTO) 0.7 % (0.0-2.0); EOSINOPHILS % (AUTO) 0.8 % (0.0-3.0); LYMPHOCYTES % (AUTO) 9.6 % (20.0-45.0); MEAN CORPUSCULAR HEMOGLOBIN 26.1 PG (27.0-31.0); MEAN CORPUSCULAR VOLUME 82 FL (80-99); MEAN PLATELET VOLUME 9.7 FL (6.5-10.1); NEUTROPHILS % (AUTO) 82.8 % (45.0-75.0); PLATELET COUNT 192 K/UL (150-450); RED BLOOD COUNT 3.08 M/UL (4.20-5.40); RED CELL DISTRIBUTION WIDTH 16.2 % (11.6-14.8); WHITE BLOOD COUNT 11.3 K/UL (4.8-10.8)
[2017-10-07 08:00] VITALS: BP 147/64
[2017-10-07] MEDS ORDERED: cloNIDine 0.2mg Tab ORAL SCH (08:00)
[2017-10-07 08:03] LABS: ANION GAP 15 mmol/L (5-15); CALCIUM 8.9 MG/DL (8.5-10.1); CARBON DIOXIDE 18 MMOL/L (21-32); CHLORIDE 104 MMOL/L (98-107); CREATININE 3.9 MG/DL (0.55-1.30); GLOMERULAR FILTRATION RATE 11.8 mL/min (>60); POTASSIUM 4.3 MMOL/L (3.5-5.1); SODIUM 137 MMOL/L (136-145)
[2017-10-07 08:10] LABS: PROTHROMBIN TIME 78.3 SEC (9.30-11.50)
[2017-10-07 08:27] LABS: INR 7.3 (0.9-1.1)
[2017-10-07 08:38] LABS: PATH BLOOD SMEAR/OMC SENT TO PATHOLOGIST
[2017-10-07 08:39] LABS: RETICULOCYTE COUNT 0.9 % (0.0-2.0)
[2017-10-07 08:47] LABS: ERYTHROCYTE SEDIMENTATION RATE 104 MM/HR (0-30)
[2017-10-07] MEDS ORDERED: Warfarin Sodium 7.5mg ORAL SCH (09:00)
[2017-10-07] MEDS ORDERED: Heparin 5000 units/ml inj SUBQ SCH (09:00)
[2017-10-07] MEDS ORDERED: Labetalol 200mg tab ORAL SCH (09:00)
[2017-10-07 09:14] LABS: FOLIC ACID 11.3 NG/ML (3.1-17.5)
[2017-10-07 09:16] LABS: LACTATE DEHYDROGENASE 219 U/L (81-234)
[2017-10-07 09:25] LABS: IRON 14 ug/dL (50-175); TOTAL IRON BINDING CAPACITY 273 ug/dL (250-450)
--- NOTE | 2017-10-07 10:49 | Diagnostic Imaging Report ---
Indication: Shortness of breath and chest pain Technique: One view of the chest Comparison: 03/10/2017 Findings: The heart is enlarged. There is diffuse bilateral interstitial disease, which appears similar to, perhaps slightly increased from, the previous exam. No focal airspace consolidation. The pleural spaces are clear Impression: Cardiomegaly Bilateral interstitial disease, may reflect interstitial congestion
--- NOTE | 2017-10-07 11:16 | Cardiology Progress Note ---
Assessment/Plan Assessment/Plan paf coagulopathy inr 7 diastolic heart failure sever diastolic dysfunction hx hs of brenna related meds now resolved renal failure / azotemia htn multiple drug intolerances did get diuretic lasix last ntei she reports allergy to lasix on her record in light of elelvated bun i am hesitatn to diurese more although may be able to use bumex or demadex will await eval by nephrology echo tele observation keep off Coumadin for now may need vit k [id number] Objective Last 24 Hour Vital Signs Date Time Temp Pulse Resp B/P (MAP) Pulse Ox O2 Delivery O2 Flow Rate FiO2 10/07/17 10:12 147/64 10/07/17 10:09 74 147/64 10/07/17 10:09 74 147/64 10/07/17 08:29 77 24 Nasal Cannula 4.0 36 10/07/17 08:29 95 Nasal Cannula 4.0 36 10/07/17 08:29 Nasal Cannula 4.0 36 10/07/17 08:00 98.2 74 26 147/64 97 Nasal Cannula 5.0 10/07/17 04:16 64 10/07/17 04:00 98.6 66 22 150/64 96 Nasal Cannula 4.0 10/07/17 00:13 146/79 10/07/17 00:00 98.2 69 20 153/75 99 Nasal Cannula 4.0 10/06/17 23:47 79 10/06/17 22:52 81 10/06/17 22:22 98.8 81 22 155/57 100 Room Air 10/06/17 22:20 81 22 155/57 100 Room Air 10/06/17 21:30 107 24 146/79 99 Room Air 10/06/17 19:20 98.8 18 118/106 94 Room Air 10/06/17 19:20 86 18 Room Air 10/06/17 19:15 98.8 86 18 118/106 94 Room Air Laboratory Tests Test 10/06/17 19:35 10/06/17 22:00 10/07/17 06:45 White Blood Count 12.2 K/UL (4.8-10.8) H 11.3 K/UL (4.8-10.8) H Red Blood Count 3.82 M/UL (4.20-5.40) L 3.08 M/UL (4.20-5.40) L Hemoglobin 9.1 G/DL (12.0-16.0) L 8.0 G/DL (12.0-16.0) L Hematocrit 31.5 % (37.0-47.0) L 25.2 % (37.0-47.0) L Mean Corpuscular Volume 83 FL (80-99) 82 FL (80-99) Mean Corpuscular Hemoglobin 23.9 PG (27.0-31.0) L 26.1 PG (27.0-31.0) L Mean Corpuscular Hemoglobin Concent 29.0 G/DL (32.0-36.0) L 32.0 G/DL (32.0-36.0) Red Cell Distribution Width 16.6 % (11.6-14.8) H 16.2 % (11.6-14.8) H Platelet Count 210 K/UL (150-450) 192 K/UL (150-450) Mean Platelet Volume 8.4 FL (6.5-10.1) 9.7 FL (6.5-10.1) Neutrophils (%) (Auto) % (45.0-75.0) 82.8 % (45.0-75.0) H Lymphocytes (%) (Auto) % (20.0-45.0) 9.6 % (20.0-45.0) L Monocytes (%) (Auto) % (1.0-10.0) 6.0 % (1.0-10.0) Eosinophils (%) (Auto) % (0.0-3.0) 0.8 % (0.0-3.0) Basophils (%) (Auto) % (0.0-2.0) 0.7 % (0.0-2.0) Differential Total Cells Counted 100 Neutrophils % (Manual) 91 % (45-75) H Lymphocytes % (Manual) 5 % (20-45) L Monocytes % (Manual) 4 % (1-10) Eosinophils % (Manual) 0 % (0-3) Basophils % (Manual) 0 % (0-2) Band Neutrophils 0 % (0-8) Platelet Estimate Adequate Platelet Morphology Normal Hypochromasia 1+ Anisocytosis 1+ Prothrombin Time 76.9 SEC (9.30-11.50) H 78.3 SEC (9.30-11.50) H Prothromb Time International Ratio 7.2 (0.9-1.1) *H 7.3 (0.9-1.1) *H Activated Partial Thromboplast Time 72 SEC (23-33) H 84 SEC (23-33) H Sodium Level 134 MMOL/L (136-145) L 137 MMOL/L (136-145) Potassium Level 4.8 MMOL/L (3.5-5.1) 4.3 MMOL/L (3.5-5.1) Chloride Level 101 MMOL/L (98-107) 104 MMOL/L (98-107) Carbon Dioxide Level 17 MMOL/L (21-32) L 18 MMOL/L (21-32) L Anion Gap 17 mmol/L (5-15) H 15 mmol/L (5-15) Blood Urea Nitrogen 134 mg/dL (7-18) H 128 mg/dL (7-18) H Creatinine 4.2 MG/DL (0.55-1.30) H 3.9 MG/DL (0.55-1.30) H Estimat Glomerular Filtration Rate 10.8 mL/min (>60) 11.8 mL/min (>60) Glucose Level 431 MG/DL (74-106) H 332 MG/DL (74-106) #H Calcium Level 9.2 MG/DL (8.5-10.1) 8.9 MG/DL (8.5-10.1) Total Bilirubin 1.3 MG/DL (0.2-1.0) H Direct Bilirubin 0.3 MG/DL (0.0-0.3) Aspartate Amino Transf (AST/SGOT) 18 U/L (15-37) Alanine Aminotransferase (ALT/SGPT) 35 U/L (12-78) Alkaline Phosphatase 128 U/L (46-116) H Total Creatine Kinase 164 U/L (26-308) Creatine Kinase MB 1.8 NG/ML (0.0-3.6) Creatine Kinase MB Relative Index 1.0 Troponin I 0.009 ng/mL (0.000-0.056) 0.030 ng/mL (0.000-0.056) Pro-B-Type Natriuretic Peptide 3828 pg/mL (0-125) H Total Protein 9.1 G/DL (6.4-8.2) H Albumin 3.9 G/DL (3.4-5.0) Globulin 5.2 g/dL Albumin/Globulin Ratio 0.8 (1.0-2.7) L Urine Color Pale yellow Urine Appearance Clear Urine pH 5 (4.5-8.0) Urine Specific [place] 1.010 (1.005-1.035) Urine Protein 2+ (NEGATIVE) H Urine Glucose (UA) 3+ (NEGATIVE) H Urine Ketones Negative (NEGATIVE) Urine Occult Blood 3+ (NEGATIVE) H Urine Nitrite Negative (NEGATIVE) Urine Bilirubin Negative (NEGATIVE) Urine Urobilinogen Normal MG/DL (0.0-1.0) Urine Leukocyte Esterase 1+ (NEGATIVE) H Urine RBC 2-4 /HPF (0 - 2) H Urine WBC 2-4 /HPF (0 - 2) Urine Squamous Epithelial Cells Few /LPF (NONE/OCC) Urine Bacteria Few /HPF (NONE) Erythrocyte Sedimentation Rate 104 MM/HR (0-30) H Reticulocyte Count 0.9 % (0.0-2.0) Iron Level 14 ug/dL (50-175) L Total Iron Binding Capacity 273 ug/dL (250-450) Percent Iron Saturation 5 % (15-50) L Unsaturated Iron Binding 259 ug/dL (112-346) Lactate Dehydrogenase 219 U/L (81-234) Vitamin B12 Level 872 PG/ML (193-986) Folate 11.3 NG/ML (3.1-17.5) JESSICA ACUNA Oct 07, 2017 11:16
--- NOTE | 2017-10-07 11:26 | Diagnostic Imaging Report ---
Indication: DYSPNEA Technique: One view of the chest Comparison: 10/06/2017 Findings: Again demonstrated is bilateral interstitial edema, unchanged. The heart size is normal Impression: Unchanged, over one day, findings as above.
[2017-10-07 11:50] VITALS: BP 156/69
--- NOTE | 2017-10-07 12:08 | Wound Care Consultation ---
Wound Assessment Wound Assessment : Wound Number: 1 Wound Present on Admission: Yes New Wound: No Status Change of Wound: No Wound Location Body Site Modif: mid Wound Location Body Site: coccyx Wound Type: pressure ulcer Lesley Test: Does not Lesley Pressure Ulcer Stage: II Wound Thickness: Partial Thickness Wound Length: 1.5 Wound Width: 0.2 Wound Depth: 0.1 Percent of Wound [place]/Red: 100 Wound Drainage Description: Serosanguineous Wound Drainage Amount: Moderate Wound Drainage Odor: None/Absent Tissue Surrounding Wound: Erythemic Wound General Appearance: Reddened, Draining Wound Comment #1 Coccyx stage II pressure ulcer #2 psoriasis on left buttock and thigh. Follow MD order Recommendation -Cleanse with saline pat dry apply Triad cream cover with [place] silicone drg daily and PRN soiled/dislodged -Low air loss mattress -Keep clean and dry -Turn and reposition -Optimize nutrition -Offload both heels -Heel protector on both heels -Assess and f/u accordingly foe any changes NITIN PECK RN Oct 07, 2017 12:08
--- NOTE | 2017-10-07 12:50 | History and Physical ---
History of Present Illness General Date patient seen: Oct 06, 2017 Time patient seen: 22:00 Reason for Hospitalization: Dyspnea/Respdistress Present Illness HPI 57-year-old female with pmhx of CHF, HTN, DM, chronic kidney disease, presented to [facility] with CC of SOB for 3 days, worsened with laying flat. She was in respiratory failure and received some lasix in Er which help her a little. She is admitted to telemetry for further work up. Allergies: Coded Allergies: BENAZEPRIL (Verified Allergy, Intermediate, Shortness of Breath, 07/01/14) NIFEDIPINE (Verified Allergy, Intermediate, Shortness of Breath, 06/28/14) NITROGLYCERIN (Verified Allergy, Intermediate, Shortness of Breath, 06/28/14 ) SOB and BLE swelling Medication History Scheduled Amlodipine Besylate* (Amlodipine Besylate*), 10 MG ORAL BID, (Reported) Atorvastatin Calcium* (Atorvastatin Calcium*), 40 MG ORAL BEDTIME, (Reported) Carvedilol* (Carvedilol*), 3.125 MG ORAL EVERY 12 HOURS, (Reported) Clonidine HCl (Clonidine HCl), 0.2 MG ORAL Q8HR Furosemide* (Lasix*), 40 MG ORAL BID, (Reported) Glipizide* (Glipizide*), 10 MG ORAL DAILY, (Reported) Labetalol HCl (Labetalol HCl), 200 MG ORAL DAILY, (Reported) Warfarin Sod (Coumadin*), 5 MG ORAL DAILY, (Reported) Miscellaneous Medications Insulin Lispro (Humalog), 35 SUBQ, (Reported) Nph, Human Insulin Isophane (Humulin N), 0 SUBQ, (Reported) Discontinued Medications Amlodipine Besylate (Norvasc), 5 MG ORAL DAILY Discontinued Reason: Pt stopped taking med Aspirin* (Aspir 81*), 81 MG ORAL DAILY, (Reported) Discontinued Reason: Pt stopped taking med Carvedilol (Coreg), 6.125 MG ORAL EVERY 12 HOURS Discontinued Reason: Pt stopped taking med Hydralazine HCl (Hydralazine HCl), 100 MG ORAL Q8HR Discontinued Reason: Pt stopped taking med Hydralazine HCl (Hydralazine HCl), 100 MG ORAL Q8HR Discontinued Reason: Pt stopped taking med Insulin Aspart (Novolog Flexpen), 8 UNITS SUBQ NOVOTIAC Discontinued Reason: Pt stopped taking med Insulin Detemir (Levemir Flexpen), 15 UNITS SUBQ Q12HR Discontinued Reason: Pt stopped taking med Insulin Human NPH (Novolin N), 30 UNITS SUBQ BIAC Discontinued Reason: Pt stopped taking med Patient History Healthcare decision maker Resuscitation status Full Code Advanced Directive on File No Past Medical/Surgical History Past Medical/Surgical History: (1) CKD (chronic kidney disease) (2) HTN (hypertension) (3) Diabetes (4) Cerebral vascular disease Review of Systems Constitutional: Reports: no symptoms Eye: Reports: no symptoms ENT: Reports: no symptoms Respiratory: Reports: shortness of breath Musculoskeletal: Reports: other Physical Exam General Appearance: WD/WN, no apparent distress Lines, tubes and drains: peripheral HEENT: normocephalic, atraumatic Neck: non-tender, normal alignment Respiratory/Chest: chest wall non-tender, rhonchi - left, rhonchi - right Abdomen: normal bowel sounds, non tender Genitourinary/Rectal: normal genital exam, normal rectal exam Extremities: normal range of motion, non-tender Skin Exam: normal pigmentation Last 24 Hour Vital Signs Date Time Temp Pulse Resp B/P (MAP) Pulse Ox O2 Delivery O2 Flow Rate FiO2 10/07/17 11:50 97.9 78 24 156/69 95 Nasal Cannula 5.0 10/07/17 10:12 147/64 10/07/17 10:09 74 147/64 10/07/17 10:09 74 147/64 10/07/17 08:29 77 24 Nasal Cannula 4.0 36 10/07/17 08:29 95 Nasal Cannula 4.0 36 10/07/17 08:29 Nasal Cannula 4.0 36 10/07/17 08:00 98.2 74 26 147/64 97 Nasal Cannula 5.0 10/07/17 04:16 64 10/07/17 04:00 98.6 66 22 150/64 96 Nasal Cannula 4.0 10/07/17 00:13 146/79 10/07/17 00:00 98.2 69 20 153/75 99 Nasal Cannula 4.0 10/06/17 23:47 79 10/06/17 22:52 81 10/06/17 22:22 98.8 81 22 155/57 100 Room Air 10/06/17 22:20 81 22 155/57 100 Room Air 10/06/17 21:30 107 24 146/79 99 Room Air 10/06/17 19:20 98.8 18 118/106 94 Room Air 10/06/17 19:20 86 18 Room Air 10/06/17 19:15 98.8 86 18 118/106 94 Room Air Intake and Output 10/07/17 10/08/17 19:00 07:00 Intake Total 120 ml Output Total 250 ml Balance -130 ml Intake Oral 120 ml Output Urine Total 250 ml # Voids 1 Laboratory Tests Test 10/06/17 19:35 10/06/17 22:00 10/07/17 06:45 White Blood Count 12.2 K/UL (4.8-10.8) H 11.3 K/UL (4.8-10.8) H Red Blood Count 3.82 M/UL (4.20-5.40) L 3.08 M/UL (4.20-5.40) L Hemoglobin 9.1 G/DL (12.0-16.0) L 8.0 G/DL (12.0-16.0) L Hematocrit 31.5 % (37.0-47.0) L 25.2 % (37.0-47.0) L Mean Corpuscular Volume 83 FL (80-99) 82 FL (80-99) Mean Corpuscular Hemoglobin 23.9 PG (27.0-31.0) L 26.1 PG (27.0-31.0) L Mean Corpuscular Hemoglobin Concent 29.0 G/DL (32.0-36.0) L 32.0 G/DL (32.0-36.0) Red Cell Distribution Width 16.6 % (11.6-14.8) H 16.2 % (11.6-14.8) H Platelet Count 210 K/UL (150-450) 192 K/UL (150-450) Mean Platelet Volume 8.4 FL (6.5-10.1) 9.7 FL (6.5-10.1) Neutrophils (%) (Auto) % (45.0-75.0) 82.8 % (45.0-75.0) H Lymphocytes (%) (Auto) % (20.0-45.0) 9.6 % (20.0-45.0) L Monocytes (%) (Auto) % (1.0-10.0) 6.0 % (1.0-10.0) Eosinophils (%) (Auto) % (0.0-3.0) 0.8 % (0.0-3.0) Basophils (%) (Auto) % (0.0-2.0) 0.7 % (0.0-2.0) Differential Total Cells Counted 100 Neutrophils % (Manual) 91 % (45-75) H Lymphocytes % (Manual) 5 % (20-45) L Monocytes % (Manual) 4 % (1-10) Eosinophils % (Manual) 0 % (0-3) Basophils % (Manual) 0 % (0-2) Band Neutrophils 0 % (0-8) Platelet Estimate Adequate Platelet Morphology Normal Hypochromasia 1+ Anisocytosis 1+ Prothrombin Time 76.9 SEC (9.30-11.50) H 78.3 SEC (9.30-11.50) H Prothromb Time International Ratio 7.2 (0.9-1.1) *H 7.3 (0.9-1.1) *H Activated Partial Thromboplast Time 72 SEC (23-33) H 84 SEC (23-33) H Sodium Level 134 MMOL/L (136-145) L 137 MMOL/L (136-145) Potassium Level 4.8 MMOL/L (3.5-5.1) 4.3 MMOL/L (3.5-5.1) Chloride Level 101 MMOL/L (98-107) 104 MMOL/L (98-107) Carbon Dioxide Level 17 MMOL/L (21-32) L 18 MMOL/L (21-32) L Anion Gap 17 mmol/L (5-15) H 15 mmol/L (5-15) Blood Urea Nitrogen 134 mg/dL (7-18) H 128 mg/dL (7-18) H Creatinine 4.2 MG/DL (0.55-1.30) H 3.9 MG/DL (0.55-1.30) H Estimat Glomerular Filtration Rate 10.8 mL/min (>60) 11.8 mL/min (>60) Glucose Level 431 MG/DL (74-106) H 332 MG/DL (74-106) #H Calcium Level 9.2 MG/DL (8.5-10.1) 8.9 MG/DL (8.5-10.1) Total Bilirubin 1.3 MG/DL (0.2-1.0) H Direct Bilirubin 0.3 MG/DL (0.0-0.3) Aspartate Amino Transf (AST/SGOT) 18 U/L (15-37) Alanine Aminotransferase (ALT/SGPT) 35 U/L (12-78) Alkaline Phosphatase 128 U/L (46-116) H Total Creatine Kinase 164 U/L (26-308) Creatine Kinase MB 1.8 NG/ML (0.0-3.6) Creatine Kinase MB Relative Index 1.0 Troponin I 0.009 ng/mL (0.000-0.056) 0.030 ng/mL (0.000-0.056) Pro-B-Type Natriuretic Peptide 3828 pg/mL (0-125) H Total Protein 9.1 G/DL (6.4-8.2) H Albumin 3.9 G/DL (3.4-5.0) Globulin 5.2 g/dL Albumin/Globulin Ratio 0.8 (1.0-2.7) L Urine Color Pale yellow Urine Appearance Clear Urine pH 5 (4.5-8.0) Urine Specific [place] 1.010 (1.005-1.035) Urine Protein 2+ (NEGATIVE) H Urine Glucose (UA) 3+ (NEGATIVE) H Urine Ketones Negative (NEGATIVE) Urine Occult Blood 3+ (NEGATIVE) H Urine Nitrite Negative (NEGATIVE) Urine Bilirubin Negative (NEGATIVE) Urine Urobilinogen Normal MG/DL (0.0-1.0) Urine Leukocyte Esterase 1+ (NEGATIVE) H Urine RBC 2-4 /HPF (0 - 2) H Urine WBC 2-4 /HPF (0 - 2) Urine Squamous Epithelial Cells Few /LPF (NONE/OCC) Urine Bacteria Few /HPF (NONE) Erythrocyte Sedimentation Rate 104 MM/HR (0-30) H Reticulocyte Count 0.9 % (0.0-2.0) Iron Level 14 ug/dL (50-175) L Total Iron Binding Capacity 273 ug/dL (250-450) Percent Iron Saturation 5 % (15-50) L Unsaturated Iron Binding 259 ug/dL (112-346) Lactate Dehydrogenase 219 U/L (81-234) Vitamin B12 Level 872 PG/ML (193-986) Folate 11.3 NG/ML (3.1-17.5) Height (Feet): 5 Height (Inches): 3.00 Weight (Pounds): 270 Medications Current Medications Medications (Trade) Dose Ordered Sig/Ifeanyi Route PRN Reason Start Time Stop Time Status Last Admin Dose Admin Acetaminophen (Tylenol) 650 mg Q4H PRN ORAL Fever 10/06/17 21:45 11/05/17 21:44 Albuterol/ Ipratropium (Albuterol/ Ipratropium) 3 ml EVERY 4 HOURS PRN HHN Shortness of Breath 10/06/17 21:45 10/11/17 21:44 Amlodipine Besylate (Norvasc) 10 mg BID ORAL 10/07/17 09:00 11/06/17 08:59 10/07/17 10:09 Atorvastatin Calcium (Lipitor) 40 mg BEDTIME ORAL 10/07/17 21:00 11/06/17 20:59 Carvedilol (Coreg) 3.125 mg EVERY 12 HOURS ORAL 10/07/17 09:00 11/06/17 08:59 10/07/17 10:09 Clonidine HCl (Catapres) 0.2 mg Q8H ORAL 10/07/17 08:00 11/06/17 07:59 10/07/17 10:12 Dextrose (Dextrose 50%) STAT PRN IV Hypoglycemia 10/06/17 21:45 11/05/17 21:44 Insulin Aspart (NovoLOG) BEFORE MEALS AND HS SUBQ 10/07/17 06:30 11/06/17 06:29 10/07/17 06:28 Labetalol HCl (Normodyne) 200 mg DAILY ORAL 10/07/17 09:00 11/06/17 08:59 Ondansetron HCl (Zofran) 4 mg Q6H PRN IVP Nausea & Vomiting 10/06/17 21:45 11/05/17 21:44 Polyethylene Glycol (Miralax) 17 gm DAILYPRN PRN ORAL Constipation 10/06/17 21:45 11/05/17 21:44 Temazepam (Restoril) 15 mg HSPRN PRN ORAL Insomnia 10/06/17 21:45 10/13/17 21:44 Assessment/Plan Problem List: (1) Acute exacerbation of CHF (congestive heart failure) ICD Codes: I50.9 - Heart failure, unspecified SNOMED: 00331571 (2) Acute on chronic renal insufficiency ICD Codes: N17.9 - Acute on chronic renal insufficiency; N18.9 - Chronic kidney disease, unspecified SNOMED: 270520274 (3) Coagulopathy ICD Codes: D68.9 - Coagulation defect, unspecified SNOMED: 70512418 (4) Diabetes ICD Codes: E11.9 - Type 2 diabetes mellitus without complications SNOMED: 69935087 (5) HTN (hypertension) ICD Codes: I10 - Essential (primary) hypertension SNOMED: 53885807 (6) Morbid obesity ICD Codes: E66.01 - Morbid (severe) obesity due to excess calories SNOMED: 303398121, [id number] Assessment/Plan renal work up diuretics Nephrology and cardio to see Correct coagulopathy JEAN CLAUDE SUTTON Oct 07, 2017 12:50
--- NOTE | 2017-10-07 12:53 | Pulmonology Progress Note ---
Assessment/Plan Problems: (1) Acute exacerbation of CHF (congestive heart failure) (2) Acute on chronic renal insufficiency (3) Coagulopathy (4) Diabetes (5) HTN (hypertension) (6) Morbid obesity Assessment/Plan slightly better awaiting renal evaluation cardiology evaluation appreciated sliding scale might need HD check renal function Endo to see Subjective ROS Limited/Unobtainable: No Allergies: Coded Allergies: BENAZEPRIL (Verified Allergy, Intermediate, Shortness of Breath, 07/01/14) NIFEDIPINE (Verified Allergy, Intermediate, Shortness of Breath, 06/28/14) NITROGLYCERIN (Verified Allergy, Intermediate, Shortness of Breath, 06/28/14 ) SOB and BLE swelling Objective Last 24 Hour Vital Signs Date Time Temp Pulse Resp B/P (MAP) Pulse Ox O2 Delivery O2 Flow Rate FiO2 10/07/17 11:50 97.9 78 24 156/69 95 Nasal Cannula 5.0 10/07/17 10:12 147/64 10/07/17 10:09 74 147/64 10/07/17 10:09 74 147/64 10/07/17 08:29 77 24 Nasal Cannula 4.0 36 10/07/17 08:29 95 Nasal Cannula 4.0 36 10/07/17 08:29 Nasal Cannula 4.0 36 10/07/17 08:00 98.2 74 26 147/64 97 Nasal Cannula 5.0 10/07/17 04:16 64 10/07/17 04:00 98.6 66 22 150/64 96 Nasal Cannula 4.0 10/07/17 00:13 146/79 10/07/17 00:00 98.2 69 20 153/75 99 Nasal Cannula 4.0 10/06/17 23:47 79 10/06/17 22:52 81 10/06/17 22:22 98.8 81 22 155/57 100 Room Air 10/06/17 22:20 81 22 155/57 100 Room Air 10/06/17 21:30 107 24 146/79 99 Room Air 10/06/17 19:20 98.8 18 118/106 94 Room Air 10/06/17 19:20 86 18 Room Air 10/06/17 19:15 98.8 86 18 118/106 94 Room Air Intake and Output 10/07/17 10/08/17 19:00 07:00 Intake Total 120 ml Output Total 250 ml Balance -130 ml Intake Oral 120 ml Output Urine Total 250 ml # Voids 1 General Appearance: WD/WN, no acute distress HEENT: normocephalic, atraumatic Respiratory/Chest: chest wall non-tender, lungs clear Cardiovascular: normal peripheral pulses, normal rate, regular rhythm Abdomen: normal bowel sounds, soft, non tender Skin: no lesions, no ulcers Laboratory Tests 10/06/17 19:35: White Blood Count 12.2H, Red Blood Count 3.82L, Hemoglobin 9.1L, Hematocrit 31.5L, Mean Corpuscular Volume 83, Mean Corpuscular Hemoglobin 23.9L, Mean Corpuscular Hemoglobin Concent 29.0L, Red Cell Distribution Width 16.6H, Platelet Count 210, Mean Platelet Volume 8.4, Neutrophils (%) (Auto) , Lymphocytes (%) (Auto) , Monocytes (%) (Auto) , Eosinophils (%) (Auto) , Basophils (%) (Auto) , Differential Total Cells Counted 100, Neutrophils % ( Manual) 91H, Lymphocytes % (Manual) 5L, Monocytes % (Manual) 4, Eosinophils % ( Manual) 0, Basophils % (Manual) 0, Band Neutrophils 0, Platelet Estimate Adequate, Platelet Morphology Normal, Hypochromasia 1+, Anisocytosis 1+, Prothrombin Time 76.9H, Prothromb Time International Ratio 7.2*H, Activated Partial Thromboplast Time 72H, Sodium Level 134L, Potassium Level 4.8, Chloride Level 101, Carbon Dioxide Level 17L, Anion Gap 17H, Blood Urea Nitrogen 134H, Creatinine 4.2H, Estimat Glomerular Filtration Rate 10.8, Glucose Level 431H, Calcium Level 9.2, Total Bilirubin 1.3H, Direct Bilirubin 0.3, Aspartate Amino Transf (AST/SGOT) 18, Alanine Aminotransferase (ALT/SGPT) 35, Alkaline Phosphatase 128H, Total Creatine Kinase 164, Creatine Kinase MB 1.8, Creatine Kinase MB Relative Index 1.0, Troponin I 0.009, Pro-B-Type Natriuretic Peptide 3828H, Total Protein 9.1H, Albumin 3.9, Globulin 5.2, Albumin/Globulin Ratio 0.8L 10/06/17 22:00: Urine Color Pale yellow, Urine Appearance Clear, Urine pH 5, Urine Specific [place] 1.010, Urine Protein 2+H, Urine Glucose (UA) 3+H, Urine Ketones Negative , Urine Occult Blood 3+H, Urine Nitrite Negative, Urine Bilirubin Negative, Urine Urobilinogen Normal, Urine Leukocyte Esterase 1+H, Urine RBC 2-4H, Urine WBC 2-4, Urine Squamous Epithelial Cells Few, Urine Bacteria Few 10/07/17 06:45: White Blood Count 11.3H, Red Blood Count 3.08L, Hemoglobin 8.0L, Hematocrit 25.2L, Mean Corpuscular Volume 82, Mean Corpuscular Hemoglobin 26.1L, Mean Corpuscular Hemoglobin Concent 32.0, Red Cell Distribution Width 16.2H, Platelet Count 192, Mean Platelet Volume 9.7, Neutrophils (%) (Auto) 82.8H, Lymphocytes (%) (Auto) 9.6L, Monocytes (%) (Auto) 6.0, Eosinophils (%) (Auto) 0.8, Basophils (%) (Auto) 0.7, Prothrombin Time 78.3H, Prothromb Time International Ratio 7.3*H, Activated Partial Thromboplast Time 84H, Sodium Level 137, Potassium Level 4.3, Chloride Level 104, Carbon Dioxide Level 18L, Anion Gap 15, Blood Urea Nitrogen 128H, Creatinine 3.9H, Estimat Glomerular Filtration Rate 11.8, Glucose Level 332#H, Calcium Level 8.9, Troponin I 0.030, Erythrocyte Sedimentation Rate 104H, Reticulocyte Count 0.9, Iron Level 14L, Total Iron Binding Capacity 273, Percent Iron Saturation 5L, Unsaturated Iron Binding 259, Lactate Dehydrogenase 219, Vitamin B12 Level 872, Folate 11.3 Current Medications Medications (Trade) Dose Ordered Sig/Ifeanyi Route PRN Reason Start Time Stop Time Status Last Admin Dose Admin Acetaminophen (Tylenol) 650 mg Q4H PRN ORAL Fever 10/06/17 21:45 11/05/17 21:44 Albuterol/ Ipratropium (Albuterol/ Ipratropium) 3 ml EVERY 4 HOURS PRN HHN Shortness of Breath 10/06/17 21:45 10/11/17 21:44 Amlodipine Besylate (Norvasc) 10 mg BID ORAL 10/07/17 09:00 11/06/17 08:59 10/07/17 10:09 Atorvastatin Calcium (Lipitor) 40 mg BEDTIME ORAL 10/07/17 21:00 11/06/17 20:59 Carvedilol (Coreg) 3.125 mg EVERY 12 HOURS ORAL 10/07/17 09:00 11/06/17 08:59 10/07/17 10:09 Clonidine HCl (Catapres) 0.2 mg Q8H ORAL 10/07/17 08:00 11/06/17 07:59 10/07/17 10:12 Dextrose (Dextrose 50%) STAT PRN IV Hypoglycemia 10/06/17 21:45 11/05/17 21:44 Insulin Aspart (NovoLOG) BEFORE MEALS AND HS SUBQ 10/07/17 06:30 11/06/17 06:29 10/07/17 06:28 Labetalol HCl (Normodyne) 200 mg DAILY ORAL 10/07/17 09:00 11/06/17 08:59 Ondansetron HCl (Zofran) 4 mg Q6H PRN IVP Nausea & Vomiting 10/06/17 21:45 11/05/17 21:44 Polyethylene Glycol (Miralax) 17 gm DAILYPRN PRN ORAL Constipation 10/06/17 21:45 11/05/17 21:44 Temazepam (Restoril) 15 mg HSPRN PRN ORAL Insomnia 10/06/17 21:45 10/13/17 21:44 JEAN CLAUDE SUTTON Oct 07, 2017 12:53
--- NOTE | 2017-10-07 12:54 | Cardiology Report ---
APPROVED REPORT EXAM: Two-dimensional and M-mode echocardiogram with Doppler and color Doppler. INDICATION Left ventricular function M-Mode DIMENSIONS IVSd1.3 (0.7-1.1cm)Left Atrium (MM)4.3 (1.6-4.0cm) LVDd5.1 (3.5-5.6cm)Aortic Root2.9 (2.0-3.7cm) PWd1.0 (0.7-1.1cm)Aortic Cusp Exc.1.9 (1.5-2.0cm) LVDs3.7 (2.5-4.0cm) PWs1.2 cm Technically difficult study due to patients position and body habitus. Normal left ventricular chamber size, systolic function and wall motion to extent visualized. Left ventricular ejection fraction estimated to be 60-65%. Study quality precludes accurate assessment of regional wall motion. Borderline mild left ventricular hypertrophy. No evidence of pericardial effusion. Mild bi-atrial enlargement. Right ventricular size is within normal limits. Focal aortic valve sclerosis with adequate cusp excursion. Thickened mitral valve leaflets with normal excursion. Mitral annulus and aortic root calcification. Pulmonic valve not well visualized. Normal tricuspid valve structure. IVC dilated at 2.5 cm and slightly collapsing with respiration suggestive of increased RA pressure. A color flow and spectral Doppler study was performed and revealed: Trace aortic insufficiency. Trace mitral regurgitation. Mitral inflow velocities indicates modearte diastolic dysfunction. Moderate tricuspid regurgitation. Tricuspid systolic velocities suggests peak right ventricular systolic pressure of 64 mmHg, consistent with severe pulmonary hypertension. No pulmonic regurgitation present.
[2017-10-07] MEDS ORDERED: Phytonadione 10 mg/mL 1ml amp SUBQ ONE (13:40)
--- NOTE | 2017-10-07 14:15 | Consultation ---
Consult Note Consult Note Asked to eval for renal failure- 57-year-old female with pmhx of HTN, DM, ? Atrial fibrillation on Coumadin, chronic kidney disease, CHF p/w SOB for 3 days. SOB was gradual in onset, occurs both at rest and on exertion, worsened with laying flat. Patient sleeps with 3 pillows. Associated with worsening b/l lower extremity edema for 7 days. Denies chest pain. Patient has experienced this SOB in the past and states it feels similar to previous CHF exacerbations. Patient takes 40 mg of Lasix daily and has been compliant with medications. Denies fever, chills, cough, n/v/d. Daughter states that she had an echocardiogram performed within the last month but does not know the results Allergies: Coded Allergies: BENAZEPRIL (Verified Allergy, Intermediate, Shortness of Breath, 07/01/14) FUROSEMIDE (Unverified Allergy, Intermediate, Rash, 11/18/16) Per Kyleigh Berrios MAINTENA[employer], Pt does not have allegy to Lasix and able to start Lasxi tx. NIFEDIPINE (Verified Allergy, Intermediate, Shortness of Breath, 06/28/14) NITROGLYCERIN (Verified Allergy, Intermediate, Shortness of Breath, 06/28/14 ) SOB and BLE swelling Patient History Past Medical History: see triage record Past Surgical History: none Pertinent Family History: none Last Menstrual Period: none Now: No Reviewed Nursing Documentation: PMH: Agreed, PSxH: Agreed Nursing Documentation-PMH Hx Cardiac Problems: Yes Hx Hypertension: Yes Hx Diabetes: Yes - Type 2 Hx Cancer: No Hx Gastrointestinal Problems: Yes Hx Neurological Problems: Yes Hx Cerebrovascular Accident: Yes - 1 years ago Hx Speech Problem: Yes Hx Dizziness: Yes Hx Numbness: Yes - LUE Hx Weakness: Yes - LUE examined- data reviewed Assessment/Plan status: Acute renal failure- Previously on HD February ? Underlying CKD due to DM and HTN Anemia: Etiology? Low Iron, CKD Ureteropelvic junction calculus Atrial arrhythmia UTI Plan: Velasquez in Optimize cardiac status Previous TAMIE kidney- Mild right hydronephrosis, presumably from proximal right ureteral stone described on CT scan performed earlier the same day. Previous 2 D echo Ej Fx 60% Slow Hydrate IV Iron EPO SQ gastric support- Avoid Nephrotoxics monitor renal parameters Adjust BP meds- per orders ALE LOBATO Oct 07, 2017 14:15
[2017-10-07] MEDS ORDERED: HydrALAZINE 25mg tab ORAL PRN (14:30)
[2017-10-07] MEDS ORDERED: Iron Sucrose 200 MG in NS 110 ML IV ONE (15:30)
[2017-10-07 16:18] VITALS: BP 122/60
--- NOTE | 2017-10-07 17:00 | Consultation ---
DATE OF CONSULTATION: 10/07/2017 CARDIOLOGY CONSULTATION CONSULTING PHYSICIAN: José Manuel Lemos M.D. REFERRING PHYSICIAN: Mirela Medina M.D. REASON FOR REFERRAL: Congestive heart failure. HISTORY OF PRESENT ILLNESS: This is an elderly female, who has been here to the hospital apparently before. The patient presented to the hospital because of three days of shortness of breath. Shortness of breath seems to be waking her up at night. She uses three pillows at times when she gets short of breath, she sits up, and watches TV. She has had a poor time sleeping. She has had swelling in her legs for long time, but that is not new, but the shortness of breath is new. The patient denies any chest pain, pressure, or tightness in her chest. No palpitations and no dizziness on standing. PAST MEDICAL HISTORY: Positive for history of diastolic heart failure with severe diastolic dysfunction as well as bradycardia secondary to medication, renal failure, hypertension, and she apparently did have a stent placed at that time. She has history of diabetes mellitus and high blood pressure. She has had a history of three prior heart strokes. No asthma. No emphysema. Some kidney dysfunction and liver problems. She has had history of anemia before, hyperlipidemia, gastroesophageal reflux disease, bradycardia, chronic kidney disease, cataract extraction, and hypertensive urgency. ALLERGIES: Benazepril, Lasix, nifedipine, and nitroglycerin. She has had previous bradycardia in relationship with labetalol as well as clonidine and one of her medication was discontinued. SOCIAL HISTORY: She does not smoke and never did. She does not drink and never did. She lives at home with her daughter. REVIEW OF SYSTEMS: GASTROINTESTINAL: She denies. GENITOURINARY: She denies. PULMONARY: She denies coughing or wheezing or sputum production. CONSTITUTIONAL: She denies. NEUROLOGIC: She denies. PHYSICAL EXAMINATION: GENERAL: Shows to be elderly female, obese, and in no respiratory distress. NECK: Supple. No jugular venous distention. LUNGS: Crackles noted bilaterally approximately third of the way up. CARDIAC: Regular rate and rhythm. No heaves, thrills, gallops, or rubs are noted. ABDOMEN: Soft and obese. Positive bowel sounds. EXTREMITIES: Chronic venous stasis changes with edema in the posterior dependent position and lying position in posterior part of the leg all the way up to the area above the knee. NEUROLOGICAL: She is awake, alert, responsive, and in no distress. LABORATORY VALUES: White count of 11.2 with a hemoglobin of 8. She has had hemoglobin levels as low as 7.7 before and a platelet count of 192,000 and sedimentation rate of 104. Her INR was 7.3 with a PTT of 84. Her sodium is 137, potassium 4.3, chloride 104, bicarbonate of 18, BUN of 128, and a creatinine of 3.9. Her glucose of 332, was 431 yesterday. Iron 14 with 5% saturation. Two sets of cardiac enzymes so far are negative here and B12 was 872. Folic acid of 11.3. ProBNP of 3800. Total protein of 9.9. Urinalysis is 2 to 4 WBCs and RBCs and 1+ leukocyte esterase. Chest x-ray performed in the emergency room shows cardiomegaly and bilateral interstitial congestion. Chest x-ray on initial presentation to the emergency room shows tachycardia and possible atrial fibrillation at a rate of 118, but telemetry shows sinus with PACs, likely paroxysmal episodes of atrial fibrillation and she is on anticoagulation with supratherapeutic INR of 7. ASSESSMENT: 1. Paroxysmal episodes of atrial fibrillation at this time in sinus. 2. Coagulopathy with INR of 7. 3. Diastolic heart failure. 4. Severe diastolic dysfunction history. 5. History of bradycardia secondary to medications. 6. Renal failure/azotemia. 7. Hypertension. 8. Multiple drug intolerances. PLAN: Dr. Medina, this patient was seen in cardiac consultation. The patient has evidence of congestive heart failure on examination. She did get diuretic Lasix last night. She reports an allergic reaction to Lasix on the record. In light of the elevated BUN, I am hesitant to diurese more although may be able to use Bumex and Demadex. We will await Nephrology evaluation for possible dialysis. She will have an echocardiogram. Keep off of Coumadin for now for the time being because of her severe coagulopathy. She may need vitamin K especially if she needs dialysis catheter placement. I will administer low doses today. José Manuel Lemos M.D. DR: KOKI JOB#: [id number] CC:
[2017-10-07] MEDS: cloNIDine 0.2mg Tab ORAL SCH ×2 (17:07→23:58)
[2017-10-07 20:00] VITALS: BP 131/60
[2017-10-07] MEDS: Atorvastatin 20mg tab ORAL SCH (21:16)
[2017-10-08] VITALS (7 sets, daily range): BP systolic 121–144; BP diastolic 50–64
[2017-10-08] MEDS: NovoLOG Insulin Flexpen SUBQ SCH ×4 (06:10→21:43)
[2017-10-08] MEDS: cloNIDine 0.2mg Tab ORAL SCH ×3 (08:00→23:54)
[2017-10-08 08:11] LABS: MEAN CORPUSCULAR HEMOGLOBIN 25.4 PG (27.0-31.0); MEAN CORPUSCULAR HGB CONC 31.3 G/DL (32.0-36.0); MEAN CORPUSCULAR VOLUME 81 FL (80-99); MEAN PLATELET VOLUME 9.7 FL (6.5-10.1); PLATELET COUNT 190 K/UL (150-450); RED BLOOD COUNT 2.99 M/UL (4.20-5.40); RED CELL DISTRIBUTION WIDTH 16.1 % (11.6-14.8); WHITE BLOOD COUNT 15.1 K/UL (4.8-10.8)
[2017-10-08 08:22] LABS: ALANINE AMINOTRANSFERASE 21 U/L (12-78); ALBUMIN/GLOBULIN RATIO 0.7 (1.0-2.7); ANION GAP 13 mmol/L (5-15); ASPARTATE AMINO TRANSFERASE 17 U/L (15-37); CALCIUM 9.1 MG/DL (8.5-10.1); CARBON DIOXIDE 19 MMOL/L (21-32); CHLORIDE 104 MMOL/L (98-107); CHOLESTEROL 128 MG/DL (< 200); CHOLESTEROL/HDL RATIO 2.7 (3.3-4.4); CREATININE 3.9 MG/DL (0.55-1.30); CRP QUANT 15.3 mg/dL (0.00-0.90); GLOMERULAR FILTRATION RATE 11.8 mL/min (>60); MAGNESIUM 1.8 MG/DL (1.8-2.4); PHOSPHORUS 3.6 MG/DL (2.5-4.9); POTASSIUM 4.2 MMOL/L (3.5-5.1); SODIUM 136 MMOL/L (136-145); THYROID STIMULATING HORMONE 1.585 uiU/mL (0.360-3.740); TOTAL PROTEIN 7.9 G/DL (6.4-8.2); URIC ACID 7.1 MG/DL (2.6-7.2)
[2017-10-08 08:24] LABS: BILIRUBIN,DIRECT 0.4 MG/DL (0.0-0.3)
[2017-10-08 08:32] LABS: HEMOGLOBIN A1C 12.8 % (4.3-6.0)
[2017-10-08 10:55] LABS: MEAN CORPUSCULAR HEMOGLOBIN 24.7 PG (27.0-31.0); MEAN CORPUSCULAR HGB CONC 30.4 G/DL (32.0-36.0); MEAN CORPUSCULAR VOLUME 81 FL (80-99); MEAN PLATELET VOLUME 8.8 FL (6.5-10.1); PLATELET COUNT 181 K/UL (150-450); RED BLOOD COUNT 3.05 M/UL (4.20-5.40); RED CELL DISTRIBUTION WIDTH 15.9 % (11.6-14.8)
[2017-10-08 11:08] LABS: BAND NEUTROPHILS % (MANUAL) 0 % (0-8); BASOPHILS % (MANUAL) 0 % (0-2); EOSINOPHILS % (MANUAL) 0 % (0-3); LYMPHOCYTES % (MANUAL) 4 % (20-45); NEUTROPHILS % (MANUAL) 92 % (45-75); PLATELET ESTIMATE ADEQUATE; PLATELET MORPHOLOGY NORMAL; TOTAL CELLS COUNTED 100
[2017-10-08 11:09] LABS: ANISOCYTOSIS 1+
[2017-10-08 11:10] LABS: HYPOCHROMASIA 1+
[2017-10-08 11:28] LABS: ANISOCYTOSIS 1+; BAND NEUTROPHILS % (MANUAL) 0 % (0-8); BASOPHILS % (MANUAL) 0 % (0-2); EOSINOPHILS % (MANUAL) 0 % (0-3); HYPOCHROMASIA 1+; LYMPHOCYTES % (MANUAL) 5 % (20-45); NEUTROPHILS % (MANUAL) 90 % (45-75); PLATELET ESTIMATE ADEQUATE; PLATELET MORPHOLOGY NORMAL; TOTAL CELLS COUNTED 100
--- NOTE | 2017-10-08 11:55 | Nephrology Progress Note ---
Assessment/Plan Problem List: (1) CKD (chronic kidney disease) (2) Acute on chronic renal insufficiency (3) Anemia Assessment status: Acute renal failure- Previously on HD February ? Underlying CKD due to DM and HTN Anemia: Etiology? Low Iron, CKD Ureteropelvic junction calculus Atrial arrhythmia UTI Plan Plan: Velasquez in [facility] cardiac status Transfused 2 units Slow Hydrate IV Iron EPO SQ gastric support- Avoid Nephrotoxics monitor renal parameters Adjust BP meds- per orders Previous TAMIE kidney- Mild right hydronephrosis, presumably from proximal right ureteral stone described on CT scan performed earlier the same day. Previous 2 D echo Ej Fx 60% Subjective ROS Limited/Unobtainable: No Constitutional: Reports: malaise, weakness Objective Objective Last 24 Hour Vital Signs Date Time Temp Pulse Resp B/P (MAP) Pulse Ox O2 Delivery O2 Flow Rate FiO2 10/08/17 11:42 98.7 79 18 143/59 96 Nasal Cannula 4.0 10/08/17 09:10 73 121/50 10/08/17 09:10 73 121/50 10/08/17 08:26 99.7 73 20 121/50 92 Nasal Cannula 4.0 10/08/17 08:00 121/50 10/08/17 08:00 84 10/08/17 07:50 94 Nasal Cannula 5.0 40 10/08/17 07:50 Nasal Cannula 5.0 40 10/08/17 07:49 75 20 Nasal Cannula 5.0 40 10/08/17 05:15 77 20 96 Nasal Cannula 4.0 36 10/08/17 05:14 36 10/08/17 05:03 75 24 95 Nasal Cannula 4.0 36 10/08/17 04:00 70 10/08/17 04:00 98.2 73 22 137/61 93 Nasal Cannula 5.0 10/08/17 00:00 62 10/08/17 00:00 97.9 60 18 127/60 96 Nasal Cannula 5.0 10/07/17 23:58 127/60 10/07/17 21:16 64 133/59 10/07/17 20:00 97.3 60 26 131/60 93 Nasal Cannula 5.0 10/07/17 20:00 61 10/07/17 19:40 Nasal Cannula 4.0 36 10/07/17 19:39 96 Nasal Cannula 4.0 36 10/07/17 19:38 72 20 Nasal Cannula 4.0 36 10/07/17 18:19 67 133/59 10/07/17 17:07 135/64 10/07/17 16:18 97.5 62 20 122/60 97 Nasal Cannula 5.0 10/07/17 16:00 62 10/07/17 13:52 78 156/69 10/07/17 12:00 68 Intake and Output 10/08/17 10/09/17 19:00 07:00 Intake Total 120 ml Balance 120 ml Intake Oral 120 ml Laboratory Tests 10/08/17 04:00: Urine Eosinophils None seen, Urine Random Sodium < 10L 10/08/17 07:30: White Blood Count 15.1H, Red Blood Count 2.99L, Hemoglobin 7.6L, Hematocrit 24.2L, Mean Corpuscular Volume 81, Mean Corpuscular Hemoglobin 25.4L, Mean Corpuscular Hemoglobin Concent 31.3L, Red Cell Distribution Width 16.1H, Platelet Count 190, Mean Platelet Volume 9.7, Neutrophils (%) (Auto) , Lymphocytes (%) (Auto) , Monocytes (%) (Auto) , Eosinophils (%) (Auto) , Basophils (%) (Auto) , Differential Total Cells Counted 100, Neutrophils % ( Manual) 92H, Lymphocytes % (Manual) 4L, Monocytes % (Manual) 4, Eosinophils % ( Manual) 0, Basophils % (Manual) 0, Band Neutrophils 0, Platelet Estimate Adequate, Platelet Morphology Normal, Hypochromasia 1+, Anisocytosis 1+, Sodium Level 136, Potassium Level 4.2, Chloride Level 104, Carbon Dioxide Level 19L, Anion Gap 13, Blood Urea Nitrogen 117H, Creatinine 3.9H, Estimat Glomerular Filtration Rate 11.8, Glucose Level 255H, Hemoglobin A1c 12.8H, Uric Acid 7.1, Calcium Level 9.1, Phosphorus Level 3.6, Magnesium Level 1.8, Total Bilirubin 1.8H, Direct Bilirubin 0.4H, Gamma Glutamyl Transpeptidase 30, Aspartate Amino Transf (AST/SGOT) 17, Alanine Aminotransferase (ALT/SGPT) 21, Alkaline Phosphatase 90, Total Creatine Kinase 502H, Troponin I 0.014, C-Reactive Protein , Quantitative 15.3H, Pro-B-Type Natriuretic Peptide 6603H, Total Protein 7.9, Albumin 3.2L, Globulin 4.7, Albumin/Globulin Ratio 0.7L, Triglycerides Level 67 , Cholesterol Level 128, LDL Cholesterol 65, HDL Cholesterol 48, Cholesterol/ HDL Ratio 2.7L, Thyroid Stimulating Hormone (TSH) 1.585 10/08/17 10:25: White Blood Count 15.0H, Red Blood Count 3.05L, Hemoglobin 7.5L, Hematocrit 24.7L, Mean Corpuscular Volume 81, Mean Corpuscular Hemoglobin 24.7L, Mean Corpuscular Hemoglobin Concent 30.4L, Red Cell Distribution Width 15.9H, Platelet Count 181, Mean Platelet Volume 8.8, Neutrophils (%) (Auto) , Lymphocytes (%) (Auto) , Monocytes (%) (Auto) , Eosinophils (%) (Auto) , Basophils (%) (Auto) , Differential Total Cells Counted 100, Neutrophils % ( Manual) 90H, Lymphocytes % (Manual) 5L, Monocytes % (Manual) 5, Eosinophils % ( Manual) 0, Basophils % (Manual) 0, Band Neutrophils 0, Platelet Estimate Adequate, Platelet Morphology Normal, Hypochromasia 1+, Anisocytosis 1+ Height (Feet): 5 Height (Inches): 3.00 Weight (Pounds): 268 General Appearance: no apparent distress, lethargic Cardiovascular: normal rate Respiratory/Chest: decreased breath sounds Abdomen: soft, distended Extremities: other - 2-3 + edema ALE LOBATO Oct 08, 2017 11:55
[2017-10-08] MEDS ORDERED: Heparin 2000 units/Ns 1000ml INJ ONE (13:00)
[2017-10-08] MEDS ORDERED: Lidocaine 1% Plain 30 ml INJ ONE (13:00)
--- NOTE | 2017-10-08 13:15 | Consultation ---
DATE OF CONSULTATION: 10/07/2017 HEMATOLOGY/ONCOLOGY CONSULTATION CONSULTING PHYSICIAN: Jonathan Hawk M.D. REQUESTING PHYSICIAN: Mirela Medina M.D. REASON FOR CONSULTATION: Evaluation of coagulopathy. IDENTIFYING DATA: Dear Dr. Medina, The patient is a pleasant -qdha-pun female with past medical history significant for diastolic heart failure, history of bradycardia, history of BOBBY, hypertension, history of stent placed in the past, diabetes mellitus, and high blood pressure, at this time presents with shortness of breath. It has been ongoing. Given diuresis. The patient has a history of being seen in the past. I in fact evaluated her approximately one year ago. She presented with coagulopathy with INR about 6. So, Hematology service was consulted. PAST MEDICAL HISTORY: Diastolic heart failure, bradycardia, BOBBY, hypertension, stent placement, diabetes mellitus, high blood pressure, issues in the past, hyperlipidemia, and GERD. ALLERGIES: Benazepril, Lasix, nifedipine, and nitroglycerin. SOCIAL HISTORY: No alcohol, tobacco, or illicit drug use. Lives at home with daughter. REVIEW OF SYSTEMS: CONSTITUTIONAL: No fevers or chills. Does have shortness of breath. SKIN: No rashes, bumps, or itching. HEENT: No headache, hearing or vision changes. BREASTS: No lumps, pain, or discharge. PULMONARY: No cough, but some shortness of breath is noted. GASTROINTESTINAL: No nausea, vomiting, or diarrhea. GENITOURINARY: No dysuria, frequency, or urgency. MUSCULOSKELETAL: No joint swelling, muscle pain, or trauma. PHYSICAL EXAMINATION: GENERAL: No acute distress. VITAL SIGNS: Reviewed. PULMONARY: Decreased breath sounds. CARDIOVASCULAR: Regular rate. No S3 or S4. ABDOMEN: Soft, nontender, and nondistended. EXTREMITIES: No cyanosis, clubbing, or edema. LABORATORY DATA: Currently WBC is 11.3, hemoglobin 8, hematocrit 25, and platelets 192,000. INR 7.3, prothrombin time . ASSESSMENT AND RECOMMENDATIONS: 1. Coagulopathy, likely secondary to Coumadin accumulation and administer vitamin K. May take several days for INR level to improve given accumulation of Coumadin, especially if the patient is fluid overloaded. 2. Anemia, secondary to chronic disease. Continue to closely monitor. completed. ESR elevated. Iron panel showing percent saturation of 5%, TIBC of 273, and ferritin of 196. 3. Leukocytosis, likely secondary to reactive process. 4. being diuresed. 5. Acute kidney injury and azotemia. 6. Multiple drug intolerance. 7. Patient has consultation with Dr. Ramos . I appreciate the consultation. Jonathan Hawk M.D. DR: Stiven JOB#: [id number] CC:
--- NOTE | 2017-10-08 15:40 | Pulmonology Progress Note ---
Assessment/Plan Problems: (1) Acute exacerbation of CHF (congestive heart failure) (2) Acute on chronic renal insufficiency (3) Coagulopathy (4) Diabetes (5) HTN (hypertension) (6) Morbid obesity Assessment/Plan awaiting renal appreciated bun decreasing cardiology evaluation appreciated sliding scale Endo to see, BS remains high d/w Dr. Walls who will be taking over from tomorrow for nephrology Subjective ROS Limited/Unobtainable: No Interval Events: no change, still dyspnic Constitutional: Reports: no symptoms HEENT: Repors: no symptoms Respiratory: Reports: no symptoms Allergies: Coded Allergies: BENAZEPRIL (Verified Allergy, Intermediate, Shortness of Breath, 07/01/14) NIFEDIPINE (Verified Allergy, Intermediate, Shortness of Breath, 06/28/14) NITROGLYCERIN (Verified Allergy, Intermediate, Shortness of Breath, 06/28/14 ) SOB and BLE swelling Objective Last 24 Hour Vital Signs Date Time Temp Pulse Resp B/P (MAP) Pulse Ox O2 Delivery O2 Flow Rate FiO2 10/08/17 12:00 73 10/08/17 11:42 98.7 79 18 143/59 96 Nasal Cannula 4.0 10/08/17 09:10 73 121/50 10/08/17 09:10 73 121/50 10/08/17 08:26 99.7 73 20 121/50 92 Nasal Cannula 4.0 10/08/17 08:00 121/50 10/08/17 08:00 84 10/08/17 07:50 94 Nasal Cannula 5.0 40 10/08/17 07:50 Nasal Cannula 5.0 40 10/08/17 07:49 75 20 Nasal Cannula 5.0 40 10/08/17 05:15 77 20 96 Nasal Cannula 4.0 36 10/08/17 05:14 36 10/08/17 05:03 75 24 95 Nasal Cannula 4.0 36 10/08/17 04:00 70 10/08/17 04:00 98.2 73 22 137/61 93 Nasal Cannula 5.0 10/08/17 00:00 62 10/08/17 00:00 97.9 60 18 127/60 96 Nasal Cannula 5.0 10/07/17 23:58 127/60 10/07/17 21:16 64 133/59 10/07/17 20:00 97.3 60 26 131/60 93 Nasal Cannula 5.0 10/07/17 20:00 61 10/07/17 19:40 Nasal Cannula 4.0 36 10/07/17 19:39 96 Nasal Cannula 4.0 36 10/07/17 19:38 72 20 Nasal Cannula 4.0 36 10/07/17 18:19 67 133/59 10/07/17 17:07 135/64 10/07/17 16:18 97.5 62 20 122/60 97 Nasal Cannula 5.0 10/07/17 16:00 62 Intake and Output 10/08/17 10/09/17 19:00 07:00 Intake Total 570 ml Balance 570 ml Intake Oral 220 ml IV Total 350 ml General Appearance: WD/WN HEENT: normocephalic, atraumatic Respiratory/Chest: chest wall non-tender, crackles/rales Breasts: no masses Cardiovascular: normal peripheral pulses, normal rate Abdomen: normal bowel sounds, soft, non tender Extremities: other - massive edema Skin: rash Neurologic/Psychiatric: abnormal gait Lymphatic: no neck adenopathy Laboratory Tests 10/08/17 04:00: Urine Eosinophils None seen, Urine Random Sodium < 10L 10/08/17 07:30: White Blood Count 15.1H, Red Blood Count 2.99L, Hemoglobin 7.6L, Hematocrit 24.2L, Mean Corpuscular Volume 81, Mean Corpuscular Hemoglobin 25.4L, Mean Corpuscular Hemoglobin Concent 31.3L, Red Cell Distribution Width 16.1H, Platelet Count 190, Mean Platelet Volume 9.7, Neutrophils (%) (Auto) , Lymphocytes (%) (Auto) , Monocytes (%) (Auto) , Eosinophils (%) (Auto) , Basophils (%) (Auto) , Differential Total Cells Counted 100, Neutrophils % ( Manual) 92H, Lymphocytes % (Manual) 4L, Monocytes % (Manual) 4, Eosinophils % ( Manual) 0, Basophils % (Manual) 0, Band Neutrophils 0, Platelet Estimate Adequate, Platelet Morphology Normal, Hypochromasia 1+, Anisocytosis 1+, Sodium Level 136, Potassium Level 4.2, Chloride Level 104, Carbon Dioxide Level 19L, Anion Gap 13, Blood Urea Nitrogen 117H, Creatinine 3.9H, Estimat Glomerular Filtration Rate 11.8, Glucose Level 255H, Hemoglobin A1c 12.8H, Uric Acid 7.1, Calcium Level 9.1, Phosphorus Level 3.6, Magnesium Level 1.8, Total Bilirubin 1.8H, Direct Bilirubin 0.4H, Gamma Glutamyl Transpeptidase 30, Aspartate Amino Transf (AST/SGOT) 17, Alanine Aminotransferase (ALT/SGPT) 21, Alkaline Phosphatase 90, Total Creatine Kinase 502H, Troponin I 0.014, C-Reactive Protein , Quantitative 15.3H, Pro-B-Type Natriuretic Peptide 6603H, Total Protein 7.9, Albumin 3.2L, Globulin 4.7, Albumin/Globulin Ratio 0.7L, Triglycerides Level 67 , Cholesterol Level 128, LDL Cholesterol 65, HDL Cholesterol 48, Cholesterol/ HDL Ratio 2.7L, Thyroid Stimulating Hormone (TSH) 1.585 10/08/17 10:25: White Blood Count 15.0H, Red Blood Count 3.05L, Hemoglobin 7.5L, Hematocrit 24.7L, Mean Corpuscular Volume 81, Mean Corpuscular Hemoglobin 24.7L, Mean Corpuscular Hemoglobin Concent 30.4L, Red Cell Distribution Width 15.9H, Platelet Count 181, Mean Platelet Volume 8.8, Neutrophils (%) (Auto) , Lymphocytes (%) (Auto) , Monocytes (%) (Auto) , Eosinophils (%) (Auto) , Basophils (%) (Auto) , Differential Total Cells Counted 100, Neutrophils % ( Manual) 90H, Lymphocytes % (Manual) 5L, Monocytes % (Manual) 5, Eosinophils % ( Manual) 0, Basophils % (Manual) 0, Band Neutrophils 0, Platelet Estimate Adequate, Platelet Morphology Normal, Hypochromasia 1+, Anisocytosis 1+ Current Medications Medications (Trade) Dose Ordered Sig/Ifeanyi Route PRN Reason Start Time Stop Time Status Last Admin Dose Admin Acetaminophen (Tylenol) 650 mg Q4H PRN ORAL Fever 10/06/17 21:45 11/05/17 21:44 Albuterol/ Ipratropium (Albuterol/ Ipratropium) 3 ml EVERY 4 HOURS PRN HHN Shortness of Breath 10/06/17 21:45 10/11/17 21:44 10/08/17 05:15 Amlodipine Besylate (Norvasc) 10 mg BID ORAL 10/07/17 09:00 11/06/17 08:59 10/08/17 09:10 Atorvastatin Calcium (Lipitor) 40 mg BEDTIME ORAL 10/07/17 22:00 11/06/17 21:59 10/07/17 21:16 Carvedilol (Coreg) 3.125 mg EVERY 12 HOURS ORAL 10/07/17 09:00 11/06/17 08:59 10/08/17 09:10 Chlorhexidine Gluconate (Madyson-Hex 2%) 1 applic DAILY@2000 TOPIC 10/08/17 20:00 11/07/17 19:59 Clonidine HCl (Catapres) 0.2 mg Q8H ORAL 10/07/17 16:00 11/06/17 15:59 10/07/17 17:07 Dextrose (Dextrose 50%) STAT PRN IV Hypoglycemia 10/06/17 21:45 11/05/17 21:44 Epoetin Chaim (Procrit (for non ESRD use)) 10,000 units FRI-WED-FRI SUBQ 10/08/17 21:00 11/07/17 20:59 Hydralazine HCl (Apresoline) 25 mg Q4H PRN ORAL SBP > OR = 160 10/07/17 14:30 11/06/17 14:29 Insulin Aspart (NovoLOG) BEFORE MEALS AND HS SUBQ 10/07/17 06:30 11/06/17 06:29 10/08/17 12:02 Iron Sucrose 100 mg/Sodium Chloride 60 ml @ 240 mls/hr BEDTIME IV 10/08/17 21:00 10/12/17 21:14 Ondansetron HCl (Zofran) 4 mg Q6H PRN IVP Nausea & Vomiting 10/06/17 21:45 11/05/17 21:44 Polyethylene Glycol (Miralax) 17 gm DAILYPRN PRN ORAL Constipation 10/06/17 21:45 11/05/17 21:44 Temazepam (Restoril) 15 mg HSPRN PRN ORAL Insomnia 10/06/17 21:45 10/13/17 21:44 JEAN CLAUDE SUTTON Oct 08, 2017 15:40
--- NOTE | 2017-10-08 16:54 | Cardiology Report ---
APPROVED REPORT EKG Measurement Heart [id number] Atrial fibrillation with rapid ventricular response Low voltage QRS Abnormal ECG
[2017-10-08] MEDS ORDERED: Dyna-Hex 2% Top Sol 2oz TOPIC SCH (20:00)
[2017-10-08] MEDS: Iron Sucrose 100 MG in NS 55 ML IV SCH (21:00)
[2017-10-08] MEDS: Atorvastatin 20mg tab ORAL SCH (21:40)
[2017-10-08] MEDS: Epogen (for non ESRD use) SUBQ SCH (21:41)
--- NOTE | 2017-10-08 22:23 | General Progress Note ---
Assessment/Plan Assessment/Plan 1. Coagulopathy, likely secondary to Coumadin accumulation May take several days for INR level to improve given accumulation of Coumadin, especially if the patient is fluid overloaded. 2. Anemia, secondary to chronic disease. Continue to closely monitor. ESR elevated. Iron panel showing percent saturation of 5%, TIBC of 273, and ferritin of 196. --> transfuse as needed to hgb above 7 3. Leukocytosis, likely secondary to reactive process. 5. Acute kidney injury and azotemia. 6. Multiple drug intolerance. Subjective Allergies: Coded Allergies: BENAZEPRIL (Verified Allergy, Intermediate, Shortness of Breath, 07/01/14) NIFEDIPINE (Verified Allergy, Intermediate, Shortness of Breath, 06/28/14) NITROGLYCERIN (Verified Allergy, Intermediate, Shortness of Breath, 06/28/14 ) SOB and BLE swelling All Systems: reviewed and negative except above Subjective NAD Objective Last 24 Hour Vital Signs Date Time Temp Pulse Resp B/P (MAP) Pulse Ox O2 Delivery O2 Flow Rate FiO2 10/08/17 21:40 89 159/70 10/08/17 19:44 Nasal Cannula 4.0 36 10/08/17 19:44 94 Nasal Cannula 4.0 36 10/08/17 19:43 74 22 Nasal Cannula 4.0 36 10/08/17 17:22 74 130/55 10/08/17 16:00 72 10/08/17 16:00 130/55 10/08/17 15:44 98.1 70 18 136/64 93 Nasal Cannula 4.0 10/08/17 12:00 73 10/08/17 11:42 98.7 79 18 143/59 96 Nasal Cannula 4.0 10/08/17 09:10 73 121/50 10/08/17 09:10 73 121/50 10/08/17 08:26 99.7 73 20 121/50 92 Nasal Cannula 4.0 10/08/17 08:00 121/50 10/08/17 08:00 84 10/08/17 07:50 94 Nasal Cannula 5.0 40 10/08/17 07:50 Nasal Cannula 5.0 40 10/08/17 07:49 75 20 Nasal Cannula 5.0 40 10/08/17 05:15 77 20 96 Nasal Cannula 4.0 36 10/08/17 05:14 36 10/08/17 05:03 75 24 95 Nasal Cannula 4.0 36 10/08/17 04:00 70 10/08/17 04:00 98.2 73 22 137/61 93 Nasal Cannula 5.0 10/08/17 00:00 62 10/08/17 00:00 97.9 60 18 127/60 96 Nasal Cannula 5.0 10/07/17 23:58 127/60 Intake and Output 10/08/17 10/09/17 19:00 07:00 Intake Total 870 ml Output Total 600 ml Balance 270 ml Intake Oral 520 ml IV Total 350 ml Output Urine Total 600 ml Laboratory Tests 10/08/17 04:00: Urine Eosinophils None seen, Urine Random Sodium < 10L 10/08/17 07:30: White Blood Count 15.1H, Red Blood Count 2.99L, Hemoglobin 7.6L, Hematocrit 24.2L, Mean Corpuscular Volume 81, Mean Corpuscular Hemoglobin 25.4L, Mean Corpuscular Hemoglobin Concent 31.3L, Red Cell Distribution Width 16.1H, Platelet Count 190, Mean Platelet Volume 9.7, Neutrophils (%) (Auto) , Lymphocytes (%) (Auto) , Monocytes (%) (Auto) , Eosinophils (%) (Auto) , Basophils (%) (Auto) , Differential Total Cells Counted 100, Neutrophils % ( Manual) 92H, Lymphocytes % (Manual) 4L, Monocytes % (Manual) 4, Eosinophils % ( Manual) 0, Basophils % (Manual) 0, Band Neutrophils 0, Platelet Estimate Adequate, Platelet Morphology Normal, Hypochromasia 1+, Anisocytosis 1+, Sodium Level 136, Potassium Level 4.2, Chloride Level 104, Carbon Dioxide Level 19L, Anion Gap 13, Blood Urea Nitrogen 117H, Creatinine 3.9H, Estimat Glomerular Filtration Rate 11.8, Glucose Level 255H, Hemoglobin A1c 12.8H, Uric Acid 7.1, Calcium Level 9.1, Phosphorus Level 3.6, Magnesium Level 1.8, Total Bilirubin 1.8H, Direct Bilirubin 0.4H, Gamma Glutamyl Transpeptidase 30, Aspartate Amino Transf (AST/SGOT) 17, Alanine Aminotransferase (ALT/SGPT) 21, Alkaline Phosphatase 90, Total Creatine Kinase 502H, Troponin I 0.014, C-Reactive Protein , Quantitative 15.3H, Pro-B-Type Natriuretic Peptide 6603H, Total Protein 7.9, Albumin 3.2L, Globulin 4.7, Albumin/Globulin Ratio 0.7L, Triglycerides Level 67 , Cholesterol Level 128, LDL Cholesterol 65, HDL Cholesterol 48, Cholesterol/ HDL Ratio 2.7L, Thyroid Stimulating Hormone (TSH) 1.585 10/08/17 10:25: White Blood Count 15.0H, Red Blood Count 3.05L, Hemoglobin 7.5L, Hematocrit 24.7L, Mean Corpuscular Volume 81, Mean Corpuscular Hemoglobin 24.7L, Mean Corpuscular Hemoglobin Concent 30.4L, Red Cell Distribution Width 15.9H, Platelet Count 181, Mean Platelet Volume 8.8, Neutrophils (%) (Auto) , Lymphocytes (%) (Auto) , Monocytes (%) (Auto) , Eosinophils (%) (Auto) , Basophils (%) (Auto) , Differential Total Cells Counted 100, Neutrophils % ( Manual) 90H, Lymphocytes % (Manual) 5L, Monocytes % (Manual) 5, Eosinophils % ( Manual) 0, Basophils % (Manual) 0, Band Neutrophils 0, Platelet Estimate Adequate, Platelet Morphology Normal, Hypochromasia 1+, Anisocytosis 1+ Height (Feet): 5 Height (Inches): 3.00 Weight (Pounds): 268 General Appearance: lethargic EENT: normal ENT inspection Neck: normal inspection Cardiovascular: regular rhythm Abdomen: no organomegaly Neurologic: normal mood/affect Jonathan Hawk Oct 08, 2017 22:23
[2017-10-09] VITALS (7 sets, daily range): BP systolic 128–150; BP diastolic 49–80
[2017-10-09] MEDS: NovoLOG Insulin Flexpen SUBQ SCH ×5 (06:28→22:15)
[2017-10-09 07:43] LABS: MEAN CORPUSCULAR HEMOGLOBIN 25.9 PG (27.0-31.0); MEAN CORPUSCULAR HGB CONC 31.6 G/DL (32.0-36.0); MEAN CORPUSCULAR VOLUME 82 FL (80-99); MEAN PLATELET VOLUME 8.5 FL (6.5-10.1); PLATELET COUNT 172 K/UL (150-450); RED BLOOD COUNT 3.35 M/UL (4.20-5.40); WHITE BLOOD COUNT 12.7 K/UL (4.8-10.8)
[2017-10-09 08:02] LABS: INR 1.6 (0.9-1.1); PROTHROMBIN TIME 16.6 SEC (9.30-11.50)
[2017-10-09] MEDS: cloNIDine 0.2mg Tab ORAL SCH ×2 (08:21→15:54)
[2017-10-09 08:24] LABS: ALANINE AMINOTRANSFERASE 22 U/L (12-78); ALBUMIN/GLOBULIN RATIO 0.6 (1.0-2.7); ANION GAP 15 mmol/L (5-15); ASPARTATE AMINO TRANSFERASE 20 U/L (15-37); CALCIUM 8.9 MG/DL (8.5-10.1); CARBON DIOXIDE 17 MMOL/L (21-32); CHLORIDE 103 MMOL/L (98-107); GLOMERULAR FILTRATION RATE 11.4 mL/min (>60); POTASSIUM 4.5 MMOL/L (3.5-5.1); SODIUM 135 MMOL/L (136-145); URIC ACID 7.1 MG/DL (2.6-7.2)
[2017-10-09 08:45] LABS: ANISOCYTOSIS 1+; BAND NEUTROPHILS % (MANUAL) 0 % (0-8); BASOPHILS % (MANUAL) 0 % (0-2); EOSINOPHILS % (MANUAL) 0 % (0-3); HYPOCHROMASIA 2+; LYMPHOCYTES % (MANUAL) 4 % (20-45); METAMYELOCYTES % 1 % (0-0); NEUTROPHILS % (MANUAL) 93 % (45-75); PLATELET ESTIMATE ADEQUATE; PLATELET MORPHOLOGY NORMAL; TOTAL CELLS COUNTED 100
[2017-10-09 08:49] LABS: BILIRUBIN,DIRECT 0.5 MG/DL (0.0-0.3)
--- NOTE | 2017-10-09 09:46 | Consultation ---
Consult Note Consult Note ID CONSULT: Talon# [id number] Assessment/Plan ASSESSMENT: 57 y/o female with: // Probable BLE cellulitis - chronic BLE lymphedema - doppler(-) DVT // h/o UTI / pyelonephritis - screening UA neg // Negative HIV // Leukocytosis - improved, afebrile // Acute on chronic diastolic CHF exacerbation // Severe pulmonary HTN // ARF on CKD - improved // Coagulopathy, m/l 2/2 coumadin // PAF // Indirect hyperbilirubinemia - hepatitis panel pending // Elevated ESR, CRP // DM2 - HbA1c 12.8% // Psoriasis // Morbid obesity // No ABX allergies // Full Code PLAN: - start rocephin d# 1 - monitor CBC, temperatures - monitor BMP - BLE elevation, compression - diuresis Thanks! Will follow MAGALY SINCLAIR Oct 09, 2017 09:46
[2017-10-09] MEDS: cefTRIAXone 1 GM in D5W 55 ML IVPB SCH (11:37)
--- NOTE | 2017-10-09 13:28 | Pulmonology Progress Note ---
Assessment/Plan Problems: (1) Cellulitis (2) Acute exacerbation of CHF (congestive heart failure) (3) Acute on chronic renal insufficiency (4) Coagulopathy (5) Pulmonary hypertension (6) Morbid obesity (7) HTN (hypertension) (8) Diabetes Assessment/Plan renal consult appreciated 24 hour urine collection undersay ID evaluation reviewed, cardiology evaluation appreciated sliding scale f/u INR f/u renal recommendations in terms of HD Subjective ROS Limited/Unobtainable: No Constitutional: Reports: no symptoms Allergies: Coded Allergies: BENAZEPRIL (Verified Allergy, Intermediate, Shortness of Breath, 07/01/14) NIFEDIPINE (Verified Allergy, Intermediate, Shortness of Breath, 06/28/14) NITROGLYCERIN (Verified Allergy, Intermediate, Shortness of Breath, 06/28/14 ) SOB and BLE swelling Objective Last 24 Hour Vital Signs Date Time Temp Pulse Resp B/P (MAP) Pulse Ox O2 Delivery O2 Flow Rate FiO2 10/09/17 12:10 60 20 Nasal Cannula 4.0 36 10/09/17 12:10 Nasal Cannula 4.0 36 10/09/17 12:10 60 Nasal Cannula 4.0 36 10/09/17 12:00 61 10/09/17 11:24 97.1 56 18 136/56 96 Nasal Cannula 4.0 10/09/17 08:21 131/49 10/09/17 08:20 73 131/49 10/09/17 08:20 73 131/49 10/09/17 08:00 73 10/09/17 08:00 97.9 73 18 131/49 97 Nasal Cannula 4.0 10/09/17 04:00 98.2 68 24 145/63 Nasal Cannula 5.0 10/09/17 04:00 70 10/09/17 00:00 97.5 70 18 135/60 95 Nasal Cannula 5.0 10/09/17 00:00 74 10/08/17 23:54 152/66 10/08/17 21:40 89 159/70 10/08/17 20:00 70 10/08/17 20:00 97.3 18 144/55 99 Room Air 5.0 10/08/17 19:44 Nasal Cannula 4.0 36 10/08/17 19:44 94 Nasal Cannula 4.0 36 10/08/17 19:43 74 22 Nasal Cannula 4.0 36 10/08/17 17:22 74 130/55 10/08/17 16:00 72 10/08/17 16:00 130/55 10/08/17 15:44 98.1 70 18 136/64 93 Nasal Cannula 4.0 Intake and Output 10/09/17 10/10/17 19:00 07:00 Intake Total 205 ml Balance 205 ml Intake Oral 150 ml IV Total 55 ml General Appearance: other - obese HEENT: normocephalic, atraumatic Respiratory/Chest: chest wall non-tender, lungs clear Breasts: no masses Cardiovascular: normal peripheral pulses Abdomen: normal bowel sounds, no organomegaly Extremities: no cyanosis, no clubbing Skin: no rash Laboratory Tests 10/09/17 05:00: Urine Eosinophils None seen 10/09/17 06:40: White Blood Count 12.7H, Red Blood Count 3.35L, Hemoglobin 8.7L, Hematocrit 27.4L, Mean Corpuscular Volume 82, Mean Corpuscular Hemoglobin 25.9L, Mean Corpuscular Hemoglobin Concent 31.6L, Red Cell Distribution Width 16.0H, Platelet Count 172, Mean Platelet Volume 8.5, Neutrophils (%) (Auto) , Lymphocytes (%) (Auto) , Monocytes (%) (Auto) , Eosinophils (%) (Auto) , Basophils (%) (Auto) , Differential Total Cells Counted 100, Neutrophils % ( Manual) 93H, Lymphocytes % (Manual) 4L, Monocytes % (Manual) 2, Eosinophils % ( Manual) 0, Basophils % (Manual) 0, Metamyelocytes % 1H, Band Neutrophils 0, Platelet Estimate Adequate, Platelet Morphology Normal, Hypochromasia 2+, Anisocytosis 1+, Prothrombin Time 16.6H, Prothromb Time International Ratio 1.6H , Sodium Level 135L, Potassium Level 4.5, Chloride Level 103, Carbon Dioxide Level 17L, Anion Gap 15, Blood Urea Nitrogen 119H, Creatinine 4.0H, Estimat Glomerular Filtration Rate 11.4, Glucose Level 359#H, Uric Acid 7.1, Calcium Level 8.9, Total Bilirubin 2.9H, Direct Bilirubin 0.5H, Aspartate Amino Transf ( AST/SGOT) 20, Alanine Aminotransferase (ALT/SGPT) 22, Alkaline Phosphatase 93, Total Protein 8.0, Albumin 3.1L, Globulin 4.9, Albumin/Globulin Ratio 0.6L, Hepatitis B Surface Antigen [Pending], Hepatitis B Surface Antibody [Pending], Hepatitis C Antibody [Pending], HIV (1&2) Antibody Rapid Negative Current Medications Medications (Trade) Dose Ordered Sig/Ifeanyi Route PRN Reason Start Time Stop Time Status Last Admin Dose Admin Acetaminophen (Tylenol) 650 mg Q4H PRN ORAL Fever 10/06/17 21:45 11/05/17 21:44 Albuterol/ Ipratropium (Albuterol/ Ipratropium) 3 ml EVERY 4 HOURS PRN HHN Shortness of Breath 10/06/17 21:45 10/11/17 21:44 10/08/17 05:15 Amlodipine Besylate (Norvasc) 10 mg BID ORAL 10/07/17 09:00 11/06/17 08:59 10/09/17 08:20 Atorvastatin Calcium (Lipitor) 40 mg BEDTIME ORAL 10/07/17 22:00 11/06/17 21:59 10/08/17 21:40 Carvedilol (Coreg) 3.125 mg EVERY 12 HOURS ORAL 10/07/17 09:00 11/06/17 08:59 10/09/17 08:20 Ceftriaxone Sodium 1 gm/ Dextrose 55 ml @ 110 mls/hr DAILY IVPB 10/09/17 11:00 10/16/17 10:59 10/09/17 11:37 Clonidine HCl (Catapres) 0.2 mg Q8H ORAL 10/07/17 16:00 11/06/17 15:59 10/09/17 08:21 Dextrose (Dextrose 50%) STAT PRN IV Hypoglycemia 10/06/17 21:45 11/05/17 21:44 Epoetin Chaim (Procrit (for non ESRD use)) 10,000 units MON-WED-FRI SUBQ 10/08/17 21:00 11/07/17 20:59 10/08/17 21:41 Hydralazine HCl (Apresoline) 25 mg Q4H PRN ORAL SBP > OR = 160 10/07/17 14:30 11/06/17 14:29 Insulin Aspart (NovoLOG) BEFORE MEALS AND HS SUBQ 10/07/17 06:30 11/06/17 06:29 10/09/17 11:42 Iron Sucrose 100 mg/Sodium Chloride 60 ml @ 240 mls/hr BEDTIME IV 10/08/17 21:00 10/12/17 21:14 Ondansetron HCl (Zofran) 4 mg Q6H PRN IVP Nausea & Vomiting 10/06/17 21:45 11/05/17 21:44 Polyethylene Glycol (Miralax) 17 gm DAILYPRN PRN ORAL Constipation 10/06/17 21:45 11/05/17 21:44 Temazepam (Restoril) 15 mg HSPRN PRN ORAL Insomnia 10/06/17 21:45 10/13/17 21:44 JEAN CLAUDE SUTTON Oct 09, 2017 13:28
--- NOTE | 2017-10-09 15:15 | Consultation ---
DATE OF CONSULTATION: 10/09/2017 INFECTIOUS DISEASE CONSULTATION REQUESTING PHYSICIAN: Mirela Medina M.D. REASON FOR CONSULTATION: Cellulitis. HISTORY OF PRESENT ILLNESS: This is a 57-year-old female, admitted on 10/06/2017 with shortness of breath for three days. Workup was consistent with acute on chronic diastolic congestive heart failure. Hospital course was complicated by acute renal failure and coagulopathy due to Coumadin use as well as leukocytosis. The patient has been afebrile. Screening urinalysis is benign and on exam, has evidence of possible bilateral lower extremity cellulitis. She is currently not receiving any antibiotic therapy and ID now consulted to assist in management. PAST MEDICAL HISTORY: 1. Hypertension. 2. Hyperlipidemia. 3. Chronic anemia. 4. Diabetes type 2, uncontrolled. Hemoglobin A1c of 12.8%. 5. Chronic gastritis. 6. Chronic kidney disease. 7. Paroxysmal atrial fibrillation, on Coumadin. 8. Chronic diastolic congestive heart failure. 9. Severe pulmonary hypertension. 10. Chronic bilateral lower extremity lymphedema. 11. Morbid obesity. 12. History of kidney stones. 13. History of stroke. PAST SURGICAL HISTORY: 1. x2. 2. Cataract surgery. MEDICATIONS: 1. No antibiotics. 2. Procrit. 3. Iron sucrose. 4. Lipitor. 5. Clonidine. 6. Hydralazine. 7. Norvasc. 8. Coreg. 9. Insulin. ALLERGIES: 1. Benazepril. 2. Cefepime. 3. Nitroglycerin. SOCIAL HISTORY: Denies active tobacco, alcohol, or illicit drug abuse. FAMILY HISTORY: Reviewed and noncontributory. REVIEW OF SYSTEMS: As per history of present illness. Ten systems reviewed, all pertinent positives and negatives noted. PHYSICAL EXAMINATION: GENERAL: No apparent distress. Nontoxic appearing and obese. VITAL SIGNS: Maximum temperature 98.8 degrees, blood pressure 131/49, heart rate in the 70s, respiratory rate 18, and saturating 97% on four liters nasal cannula. CARDIOVASCULAR: Irregularly irregular. No murmurs. PULMONARY: Bilateral crackles. ABDOMEN: Bowel sounds present. Soft, nondistended, and nontender. EXTREMITIES: Bilateral lower extremity erythema, edema and warmth. SKIN: Dry scaly plaques. NEUROLOGICAL: Alert and oriented x3. Nonfocal. LABORATORY AND DIAGNOSTIC DATA: White blood cell count 12.7 decreased from 15 with left shift, hemoglobin 8.7, and platelets 172. Sodium 135, potassium 4.5, chloride 103, bicarbonate 17, BUN 118 and creatinine 4. ESR 104. CRP 15.3. Total bilirubin is 2.9, direct bilirubin 0.5. Urinalysis is benign. Microbiology, none. Imaging, 1. On 10/07/2017, bilateral lower extremity Doppler ultrasound negative for DVT. 2. On 10/07/2017, chest x-ray with bilateral interstitial edema. 3. On 10/07/2017, echocardiogram ejection fraction of 60% to 65% with biatrial enlargement and moderate diastolic dysfunction. ASSESSMENT: 1. Probable bilateral lower extremity cellulitis in the setting of chronic bilateral lower extremity lymphedema. A Doppler ultrasound is negative for DVT. 2. History of urinary tract infection and pyelonephritis with culture positive for gram-negative yoon and a group B strep. Screening urinalysis was benign and the patient is asymptomatic. 3. Negative human immunodeficiency virus. 4. Leukocytosis, improved and afebrile. 5. Acute on chronic diastolic congestive heart failure. 6. Severe pulmonary hypertension. 7. Acute renal failure on chronic kidney disease, improved. 8. Coagulopathy most likely secondary to Coumadin use. 9. Paroxysmal atrial fibrillation. 10. Indirect hyperbilirubinemia. Hepatitis panel is pending. 11. Elevated ESR and CRP. 12. Diabetes type 2 with a hemoglobin A1c of 12.8%. 13. Psoriasis. 14. Morbid obesity. 15. No antibiotic allergies. 16. Full Code. PLAN: 1. Start Rocephin day #1. 2. Monitor CBC and temperatures. 3. Monitor BMP. 4. Bilateral lower extremity elevation and compression. 5. Diuresis. Thank you. We will follow. Varun Lloyd M.D. DR: TARI JOB#: [id number] CC: Mirela Medina M.D.; Fax#: [phone] Shane Cope M.D; FAX#: [phone]
--- NOTE | 2017-10-09 15:25 | General Progress Note ---
Assessment/Plan Assessment/Plan 1. Coagulopathy, likely secondary to Coumadin accumulation May take several days for INR level to improve given accumulation of Coumadin, especially if the patient is fluid overloaded. 2. Anemia, secondary to chronic disease. Continue to closely monitor. ESR elevated. Iron panel showing percent saturation of 5%, TIBC of 273, and ferritin of 196. --> transfuse as needed to hgb above 7 --> s/p transfusion, HH improved. continue to watch counts 3. Leukocytosis, likely secondary to reactive process. 5. Acute kidney injury and azotemia. 6. Multiple drug intolerance. Subjective Allergies: Coded Allergies: BENAZEPRIL (Verified Allergy, Intermediate, Shortness of Breath, 07/01/14) NIFEDIPINE (Verified Allergy, Intermediate, Shortness of Breath, 06/28/14) NITROGLYCERIN (Verified Allergy, Intermediate, Shortness of Breath, 06/28/14 ) SOB and BLE swelling All Systems: reviewed and negative except above Subjective sleepy, resting in bed Objective Last 24 Hour Vital Signs Date Time Temp Pulse Resp B/P (MAP) Pulse Ox O2 Delivery O2 Flow Rate FiO2 10/09/17 12:10 60 20 Nasal Cannula 4.0 36 10/09/17 12:10 Nasal Cannula 4.0 36 10/09/17 12:10 60 Nasal Cannula 4.0 36 10/09/17 12:00 61 10/09/17 11:24 97.1 56 18 136/56 96 Nasal Cannula 4.0 10/09/17 08:21 131/49 10/09/17 08:20 73 131/49 10/09/17 08:20 73 131/49 10/09/17 08:00 73 10/09/17 08:00 97.9 73 18 131/49 97 Nasal Cannula 4.0 10/09/17 04:00 98.2 68 24 145/63 Nasal Cannula 5.0 10/09/17 04:00 70 10/09/17 00:00 97.5 70 18 135/60 95 Nasal Cannula 5.0 10/09/17 00:00 74 10/08/17 23:54 152/66 10/08/17 21:40 89 159/70 10/08/17 20:00 70 10/08/17 20:00 97.3 18 144/55 99 Room Air 5.0 10/08/17 19:44 Nasal Cannula 4.0 36 10/08/17 19:44 94 Nasal Cannula 4.0 36 10/08/17 19:43 74 22 Nasal Cannula 4.0 36 10/08/17 17:22 74 130/55 10/08/17 16:00 72 10/08/17 16:00 130/55 10/08/17 15:44 98.1 70 18 136/64 93 Nasal Cannula 4.0 Intake and Output 10/09/17 10/10/17 19:00 07:00 Intake Total 205 ml Balance 205 ml Intake Oral 150 ml IV Total 55 ml Laboratory Tests 10/09/17 05:00: Urine Eosinophils None seen 10/09/17 06:40: White Blood Count 12.7H, Red Blood Count 3.35L, Hemoglobin 8.7L, Hematocrit 27.4L, Mean Corpuscular Volume 82, Mean Corpuscular Hemoglobin 25.9L, Mean Corpuscular Hemoglobin Concent 31.6L, Red Cell Distribution Width 16.0H, Platelet Count 172, Mean Platelet Volume 8.5, Neutrophils (%) (Auto) , Lymphocytes (%) (Auto) , Monocytes (%) (Auto) , Eosinophils (%) (Auto) , Basophils (%) (Auto) , Differential Total Cells Counted 100, Neutrophils % ( Manual) 93H, Lymphocytes % (Manual) 4L, Monocytes % (Manual) 2, Eosinophils % ( Manual) 0, Basophils % (Manual) 0, Metamyelocytes % 1H, Band Neutrophils 0, Platelet Estimate Adequate, Platelet Morphology Normal, Hypochromasia 2+, Anisocytosis 1+, Prothrombin Time 16.6H, Prothromb Time International Ratio 1.6H , Sodium Level 135L, Potassium Level 4.5, Chloride Level 103, Carbon Dioxide Level 17L, Anion Gap 15, Blood Urea Nitrogen 119H, Creatinine 4.0H, Estimat Glomerular Filtration Rate 11.4, Glucose Level 359#H, Uric Acid 7.1, Calcium Level 8.9, Total Bilirubin 2.9H, Direct Bilirubin 0.5H, Aspartate Amino Transf ( AST/SGOT) 20, Alanine Aminotransferase (ALT/SGPT) 22, Alkaline Phosphatase 93, Total Protein 8.0, Albumin 3.1L, Globulin 4.9, Albumin/Globulin Ratio 0.6L, Hepatitis B Surface Antigen [Pending], Hepatitis B Surface Antibody [Pending], Hepatitis C Antibody [Pending], HIV (1&2) Antibody Rapid Negative Height (Feet): 5 Height (Inches): 3.00 Weight (Pounds): 273 General Appearance: no apparent distress EENT: normal ENT inspection Neck: non-tender Cardiovascular: normal peripheral pulses Respiratory/Chest: decreased breath sounds Extremities: non-tender 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
--- NOTE | 2017-10-09 16:51 | Diagnostic Imaging Report ---
APPROVED REPORT CPT Code: 92249 Present Symptoms Shortness of breath Comments: R/O DVT Comments Technically difficult study due to vessel depth and obesity (thigh and calf area). BILATERAL: Imaging reveals a patent deep venous system bilaterally. There is no evidence of thrombus within the femoral, or popliteal segments. The greater saphenous veins are also within normal limits. Doppler indicates normal spontaneous flow within these segments. The distal superficial femoral and calf veins were not well visualized.
[2017-10-09] MEDS ORDERED: Levemir Flexpen SUBQ SCH (18:00)
--- NOTE | 2017-10-09 18:21 | Cardiology Progress Note ---
Assessment/Plan Assessment/Plan 1. Paroxysmal episodes of atrial fibrillation at this time in sinus. 2. Coagulopathy with INR of 7. 3. Diastolic heart failure. 4. Severe diastolic dysfunction history. 5. History of bradycardia secondary to medications. 6. Renal failure/azotemia. 7. Hypertension. 8. Multiple drug intolerances. feel better bu still evidence of heart failure on exam echo noted d/w dr tamayo who has followed pt before diuretics / dialysis per dr tamayo urine na low ef normal but sig diastlic dysfucntion Subjective Cardiovascular: Denies: chest pain, lightheadedness Respiratory: Reports: shortness of breath - but is better Gastrointestinal/Abdominal: Denies: abdominal pain Genitourinary: Denies: burning Objective Last 24 Hour Vital Signs Date Time Temp Pulse Resp B/P (MAP) Pulse Ox O2 Delivery O2 Flow Rate FiO2 10/09/17 17:45 54 150/80 10/09/17 16:00 54 10/09/17 15:54 150/80 10/09/17 15:45 97.5 60 18 150/80 94 Nasal Cannula 4.0 10/09/17 12:10 60 20 Nasal Cannula 4.0 36 10/09/17 12:10 Nasal Cannula 4.0 36 10/09/17 12:10 60 Nasal Cannula 4.0 36 10/09/17 12:00 61 10/09/17 11:24 97.1 56 18 136/56 96 Nasal Cannula 4.0 10/09/17 08:21 131/49 10/09/17 08:20 73 131/49 10/09/17 08:20 73 131/49 10/09/17 08:00 73 10/09/17 08:00 97.9 73 18 131/49 97 Nasal Cannula 4.0 10/09/17 04:00 98.2 68 24 145/63 Nasal Cannula 5.0 10/09/17 04:00 70 10/09/17 00:00 97.5 70 18 135/60 95 Nasal Cannula 5.0 10/09/17 00:00 74 10/08/17 23:54 152/66 10/08/17 21:40 89 159/70 10/08/17 20:00 70 10/08/17 20:00 97.3 18 144/55 99 Room Air 5.0 10/08/17 19:44 Nasal Cannula 4.0 36 10/08/17 19:44 94 Nasal Cannula 4.0 36 10/08/17 19:43 74 22 Nasal Cannula 4.0 36 General Appearance: alert Neck: supple Cardiovascular: normal rate, regular rhythm Respiratory/Chest: crackles/rales Abdomen: normal bowel sounds, non tender, soft Extremities: severe edema Intake and Output 10/09/17 10/10/17 19:00 07:00 Intake Total 480 ml Balance 480 ml Intake Oral 425 ml IV Total 55 ml Laboratory Tests Test 10/09/17 05:00 10/09/17 06:40 Urine Eosinophils None seen White Blood Count 12.7 K/UL (4.8-10.8) H Red Blood Count 3.35 M/UL (4.20-5.40) L Hemoglobin 8.7 G/DL (12.0-16.0) L Hematocrit 27.4 % (37.0-47.0) L Mean Corpuscular Volume 82 FL (80-99) Mean Corpuscular Hemoglobin 25.9 PG (27.0-31.0) L Mean Corpuscular Hemoglobin Concent 31.6 G/DL (32.0-36.0) L Red Cell Distribution Width 16.0 % (11.6-14.8) H Platelet Count 172 K/UL (150-450) Mean Platelet Volume 8.5 FL (6.5-10.1) Neutrophils (%) (Auto) % (45.0-75.0) Lymphocytes (%) (Auto) % (20.0-45.0) Monocytes (%) (Auto) % (1.0-10.0) Eosinophils (%) (Auto) % (0.0-3.0) Basophils (%) (Auto) % (0.0-2.0) Differential Total Cells Counted 100 Neutrophils % (Manual) 93 % (45-75) H Lymphocytes % (Manual) 4 % (20-45) L Monocytes % (Manual) 2 % (1-10) Eosinophils % (Manual) 0 % (0-3) Basophils % (Manual) 0 % (0-2) Metamyelocytes % 1 % (0-0) H Band Neutrophils 0 % (0-8) Platelet Estimate Adequate Platelet Morphology Normal Hypochromasia 2+ Anisocytosis 1+ Prothrombin Time 16.6 SEC (9.30-11.50) H Prothromb Time International Ratio 1.6 (0.9-1.1) H Sodium Level 135 MMOL/L (136-145) L Potassium Level 4.5 MMOL/L (3.5-5.1) Chloride Level 103 MMOL/L (98-107) Carbon Dioxide Level 17 MMOL/L (21-32) L Anion Gap 15 mmol/L (5-15) Blood Urea Nitrogen 119 mg/dL (7-18) H Creatinine 4.0 MG/DL (0.55-1.30) H Estimat Glomerular Filtration Rate 11.4 mL/min (>60) Glucose Level 359 MG/DL (74-106) #H Uric Acid 7.1 MG/DL (2.6-7.2) Calcium Level 8.9 MG/DL (8.5-10.1) Total Bilirubin 2.9 MG/DL (0.2-1.0) H Direct Bilirubin 0.5 MG/DL (0.0-0.3) H Aspartate Amino Transf (AST/SGOT) 20 U/L (15-37) Alanine Aminotransferase (ALT/SGPT) 22 U/L (12-78) Alkaline Phosphatase 93 U/L (46-116) Total Protein 8.0 G/DL (6.4-8.2) Albumin 3.1 G/DL (3.4-5.0) L Globulin 4.9 g/dL Albumin/Globulin Ratio 0.6 (1.0-2.7) L Hepatitis B Surface Antigen Pending Hepatitis B Surface Antibody Pending Hepatitis C Antibody Pending HIV (1&2) Antibody Rapid Negative (NEGATIVE) JESSICA ACUNA Oct 09, 2017 18:21
--- NOTE | 2017-10-09 18:27 | Nephrology Progress Note ---
Assessment/Plan Problem List: (1) CKD (chronic kidney disease) stage 5, GFR less than 15 ml/min (2) Acute on chronic renal insufficiency (3) Morbid obesity (4) Coagulopathy (5) Pulmonary hypertension (6) HTN (hypertension) (7) Diabetes Plan bun/creat 70/2.2 on 09/24 in my office, higher now from coagulopathy, likely bloood in gi tract, prior diuretics /1. Hopefully labs will return close to baseline and we can hold off dialysis a few months. She will need elective av fistula in the near future. 24 hr urines collected to review. Hold diuretics for bnow. d/w dr broussard Subjective Constitutional: Reports: weakness HEENT: Reports: no symptoms Genitourinary: Reports: no symptoms Neurologic/Psychiatric: Reports: no symptoms Subjective feels better, no current sob,nausea Objective Objective Last 24 Hour Vital Signs Date Time Temp Pulse Resp B/P (MAP) Pulse Ox O2 Delivery O2 Flow Rate FiO2 10/09/17 17:45 54 150/80 10/09/17 16:00 54 10/09/17 15:54 150/80 10/09/17 15:45 97.5 60 18 150/80 94 Nasal Cannula 4.0 10/09/17 12:10 60 20 Nasal Cannula 4.0 36 10/09/17 12:10 Nasal Cannula 4.0 36 10/09/17 12:10 60 Nasal Cannula 4.0 36 10/09/17 12:00 61 10/09/17 11:24 97.1 56 18 136/56 96 Nasal Cannula 4.0 10/09/17 08:21 131/49 10/09/17 08:20 73 131/49 10/09/17 08:20 73 131/49 10/09/17 08:00 73 10/09/17 08:00 97.9 73 18 131/49 97 Nasal Cannula 4.0 10/09/17 04:00 98.2 68 24 145/63 Nasal Cannula 5.0 10/09/17 04:00 70 10/09/17 00:00 97.5 70 18 135/60 95 Nasal Cannula 5.0 10/09/17 00:00 74 10/08/17 23:54 152/66 10/08/17 21:40 89 159/70 10/08/17 20:00 70 10/08/17 20:00 97.3 18 144/55 99 Room Air 5.0 10/08/17 19:44 Nasal Cannula 4.0 36 10/08/17 19:44 94 Nasal Cannula 4.0 36 10/08/17 19:43 74 22 Nasal Cannula 4.0 36 Intake and Output 10/09/17 10/10/17 19:00 07:00 Intake Total 480 ml Balance 480 ml Intake Oral 425 ml IV Total 55 ml Laboratory Tests 10/09/17 05:00: Urine Eosinophils None seen 10/09/17 06:40: White Blood Count 12.7H, Red Blood Count 3.35L, Hemoglobin 8.7L, Hematocrit 27.4L, Mean Corpuscular Volume 82, Mean Corpuscular Hemoglobin 25.9L, Mean Corpuscular Hemoglobin Concent 31.6L, Red Cell Distribution Width 16.0H, Platelet Count 172, Mean Platelet Volume 8.5, Neutrophils (%) (Auto) , Lymphocytes (%) (Auto) , Monocytes (%) (Auto) , Eosinophils (%) (Auto) , Basophils (%) (Auto) , Differential Total Cells Counted 100, Neutrophils % ( Manual) 93H, Lymphocytes % (Manual) 4L, Monocytes % (Manual) 2, Eosinophils % ( Manual) 0, Basophils % (Manual) 0, Metamyelocytes % 1H, Band Neutrophils 0, Platelet Estimate Adequate, Platelet Morphology Normal, Hypochromasia 2+, Anisocytosis 1+, Prothrombin Time 16.6H, Prothromb Time International Ratio 1.6H , Sodium Level 135L, Potassium Level 4.5, Chloride Level 103, Carbon Dioxide Level 17L, Anion Gap 15, Blood Urea Nitrogen 119H, Creatinine 4.0H, Estimat Glomerular Filtration Rate 11.4, Glucose Level 359#H, Uric Acid 7.1, Calcium Level 8.9, Total Bilirubin 2.9H, Direct Bilirubin 0.5H, Aspartate Amino Transf ( AST/SGOT) 20, Alanine Aminotransferase (ALT/SGPT) 22, Alkaline Phosphatase 93, Total Protein 8.0, Albumin 3.1L, Globulin 4.9, Albumin/Globulin Ratio 0.6L, Hepatitis B Surface Antigen [Pending], Hepatitis B Surface Antibody [Pending], Hepatitis C Antibody [Pending], HIV (1&2) Antibody Rapid Negative Height (Feet): 5 Height (Inches): 3.00 Weight (Pounds): 273 General Appearance: no apparent distress, morbidly obese EENT: normal ENT inspection Neck: normal alignment Cardiovascular: normal rate, regular rhythm, systolic murmur Respiratory/Chest: lungs clear Abdomen: non tender, soft Extremities: moderate edema 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
[2017-10-09 18:30] LABS: GLOMERULAR FILTRATION RATE 11.4 mL/min (>60)
[2017-10-09 19:08] LABS: CREATININE CLEARANCE,URINE 30 mL/min (71-151)
[2017-10-09] MEDS ORDERED: Tubing IV Secondary IV ONE (19:32)
[2017-10-09] MEDS: Atorvastatin 20mg tab ORAL SCH (21:55)
[2017-10-09] MEDS: Iron Sucrose 100 MG in NS 55 ML IV SCH (21:55)
[2017-10-09] MEDS: Levemir Flexpen SUBQ SCH (21:57)
[2017-10-10] MEDS: cloNIDine 0.2mg Tab ORAL SCH ×3 (00:14→16:00)
[2017-10-10 04:00] VITALS: BP 144/76
[2017-10-10] MEDS: NovoLOG Insulin Flexpen SUBQ SCH ×7 (06:54→21:00)
[2017-10-10 08:00] VITALS: BP 138/57
[2017-10-10 08:32] LABS: INR 1.2 (0.9-1.1); PROTHROMBIN TIME 12.6 SEC (9.30-11.50)
[2017-10-10 08:42] LABS: ANION GAP 13 mmol/L (5-15); CALCIUM 8.9 MG/DL (8.5-10.1); CARBON DIOXIDE 20 MMOL/L (21-32); CHLORIDE 104 MMOL/L (98-107); CREATININE 4.3 MG/DL (0.55-1.30); GLOMERULAR FILTRATION RATE 10.5 mL/min (>60); POTASSIUM 4.4 MMOL/L (3.5-5.1); SODIUM 137 MMOL/L (136-145); URIC ACID 7.6 MG/DL (2.6-7.2)
[2017-10-10] MEDS: cefTRIAXone 1 GM in D5W 55 ML IVPB SCH (08:49)
[2017-10-10] MEDS: Levemir Flexpen SUBQ SCH ×2 (08:52→21:00)
--- NOTE | 2017-10-10 08:54 | Pulmonology Progress Note ---
Assessment/Plan Assessment/Plan ASSESSMENT Acute diastolic CHF exacerbation acute on chronic renal failure Coagulopathy HTN DM out of control Probably BLE cellulitis in setting of chronic BLE lymphedema Severe pulmonary HTN PAF morbid obesity anemia of chronic disease, s/p blood transfusion coccyx st 2 decub ulcer POA PLAN OF CARE tele cardio follows ECHO with pEF 60-65% and RVSP of 64 c/w severe pulmonary HTN renal parameters worse, creat up to 4.3 hold on diuretic nephro follows 24 hr urine done BUE mapping today as ordered by trust and estates attorney per nephro will need HD soon and AV fistula O2 HHN prn ID follows, on empiric abx Monitor INR, heme follows, INR down to 1.2 . ? resume Coumadin, Anemia w/up noted, on EPO and Venofer s/p blood transfusion 2 u PRBC BP management with BB, CCB and Clonidine BS management with SS of insulin, [id number] not at goal, started on short acting premeal Novolog and long acting Levemir determine need for home O2: get pulse ox on RA if below 88% will qualified case discussed and evaluated by supervising physician Subjective Allergies: Coded Allergies: BENAZEPRIL (Verified Allergy, Intermediate, Shortness of Breath, 07/01/14) NIFEDIPINE (Verified Allergy, Intermediate, Shortness of Breath, 06/28/14) NITROGLYCERIN (Verified Allergy, Intermediate, Shortness of Breath, 06/28/14 ) SOB and BLE swelling Subjective creat worse INR down to 1.2 no chest pain + SOB Objective Last 24 Hour Vital Signs Date Time Temp Pulse Resp B/P (MAP) Pulse Ox O2 Delivery O2 Flow Rate FiO2 10/10/17 08:00 97.7 56 20 138/57 97 Nasal Cannula 5.0 10/10/17 04:00 97.7 59 20 144/76 98 Nasal Cannula 4.0 10/10/17 04:00 56 10/10/17 00:14 132/76 10/10/17 00:00 51 10/09/17 23:55 97.7 55 18 135/63 98 Nasal Cannula 4.0 10/09/17 21:55 58 128/66 10/09/17 20:00 97.9 58 20 128/66 96 Nasal Cannula 4.0 10/09/17 20:00 56 10/09/17 19:22 Nasal Cannula 3.0 32 10/09/17 19:21 93 Nasal Cannula 3.0 32 10/09/17 19:21 72 22 Nasal Cannula 3.0 32 10/09/17 17:45 54 150/80 10/09/17 16:00 54 10/09/17 15:54 150/80 10/09/17 15:45 97.5 60 18 150/80 94 Nasal Cannula 4.0 10/09/17 12:10 60 20 Nasal Cannula 4.0 36 10/09/17 12:10 Nasal Cannula 4.0 36 10/09/17 12:10 60 Nasal Cannula 4.0 36 10/09/17 12:00 61 10/09/17 11:24 97.1 56 18 136/56 96 Nasal Cannula 4.0 General Appearance: other - morbidly obese Indonesian speaking female in NAD, HEENT: normocephalic, atraumatic, anicteric, mucous membranes moist, other - O2 via NC Respiratory/Chest: lungs clear, no respiratory distress, no accessory muscle use Cardiovascular: normal rate, regular rhythm, no JVD Abdomen: normal bowel sounds, soft, non tender - obese Extremities: other - + 3 edema BLE Neurologic/Psychiatric: abnormal gait, alert, oriented x 3, responsive, normal mood/affect Laboratory Tests 10/09/17 18:00: Creatinine 4.0H, Estimat Glomerular Filtration Rate 11.4 10/10/17 07:47: Creatinine 4.3H, Estimat Glomerular Filtration Rate 10.5, Prothrombin Time 12.6H , Prothromb Time International Ratio 1.2H, Sodium Level 137, Potassium Level 4.4 , Chloride Level 104, Carbon Dioxide Level 20L, Anion Gap 13, Blood Urea Nitrogen 126H, Glucose Level 258#H, Uric Acid 7.6H, Calcium Level 8.9 Current Medications Medications (Trade) Dose Ordered Sig/Ifeanyi Route PRN Reason Start Time Stop Time Status Last Admin Dose Admin Acetaminophen (Tylenol) 650 mg Q4H PRN ORAL Fever 10/06/17 21:45 11/05/17 21:44 Albuterol/ Ipratropium (Albuterol/ Ipratropium) 3 ml EVERY 4 HOURS PRN HHN Shortness of Breath 10/06/17 21:45 10/11/17 21:44 10/08/17 05:15 Amlodipine Besylate (Norvasc) 10 mg BID ORAL 10/07/17 09:00 11/06/17 08:59 10/09/17 17:45 Atorvastatin Calcium (Lipitor) 40 mg BEDTIME ORAL 10/07/17 22:00 11/06/17 21:59 10/09/17 21:55 Carvedilol (Coreg) 3.125 mg EVERY 12 HOURS ORAL 10/07/17 09:00 11/06/17 08:59 10/09/17 21:55 Ceftriaxone Sodium 1 gm/ Dextrose 55 ml @ 110 mls/hr DAILY IVPB 10/09/17 11:00 10/16/17 10:59 10/09/17 11:37 Clonidine HCl (Catapres) 0.2 mg Q8H ORAL 10/07/17 16:00 11/06/17 15:59 10/10/17 00:14 Dextrose (Dextrose 50%) STAT PRN IV Hypoglycemia 10/06/17 21:45 11/05/17 21:44 Epoetin Chaim (Procrit (for non ESRD use)) 10,000 units FRI-FRI-FRI SUBQ 10/08/17 21:00 11/07/17 20:59 10/08/17 21:41 Hydralazine HCl (Apresoline) 25 mg Q4H PRN ORAL SBP > OR = 160 10/07/17 14:30 11/06/17 14:29 Insulin Aspart (NovoLOG) BEFORE MEALS AND HS SUBQ 10/07/17 06:30 11/06/17 06:29 10/10/17 06:55 Insulin Aspart (NovoLOG) 12 units NOVOTIAC SUBQ 10/10/17 06:30 11/09/17 06:29 10/10/17 06:54 Insulin Detemir (Levemir) 18 units Q12HR SUBQ 10/09/17 21:00 11/08/17 20:59 10/09/17 21:57 Iron Sucrose 100 mg/Sodium Chloride 60 ml @ 240 mls/hr BEDTIME IV 10/08/17 21:00 10/12/17 21:14 10/09/17 21:55 Ondansetron HCl (Zofran) 4 mg Q6H PRN IVP Nausea & Vomiting 10/06/17 21:45 11/05/17 21:44 Polyethylene Glycol (Miralax) 17 gm DAILYPRN PRN ORAL Constipation 10/06/17 21:45 11/05/17 21:44 Temazepam (Restoril) 15 mg HSPRN PRN ORAL Insomnia 10/06/17 21:45 10/13/17 21:44 Kendall ([facility])Kyleigh NP Oct 10, 2017 08:54
[2017-10-10 12:00] VITALS: BP 131/61
--- NOTE | 2017-10-10 12:42 | Infectious Diseases Prog Note ---
Assessment/Plan Assessment/Plan ASSESSMENT: 57 y/o female with: // Probable BLE cellulitis - chronic BLE lymphedema - doppler(-) DVT // h/o UTI / pyelonephritis - screening UA neg // Negative HIV // Leukocytosis - improved, afebrile // Acute on chronic diastolic CHF exacerbation // Severe pulmonary HTN // ARF on CKD - improved // Coagulopathy, m/l 2/2 coumadin // PAF // Indirect hyperbilirubinemia - hepatitis panel neg // Elevated ESR, CRP // DM2 - HbA1c 12.8% // Psoriasis // Morbid obesity // No ABX allergies // Full Code PLAN: - continue rocephin d# 2 / - monitor CBC, temperatures - monitor BMP - BLE elevation, compression - diuresis Subjective Allergies: Coded Allergies: BENAZEPRIL (Verified Allergy, Intermediate, Shortness of Breath, 07/01/14) NIFEDIPINE (Verified Allergy, Intermediate, Shortness of Breath, 06/28/14) NITROGLYCERIN (Verified Allergy, Intermediate, Shortness of Breath, 06/28/14 ) SOB and BLE swelling Subjective remains afebrile leukocytosis improved Objective Vital Signs Last 24 Hour Vital Signs Date Time Temp Pulse Resp B/P (MAP) Pulse Ox O2 Delivery O2 Flow Rate FiO2 10/10/17 12:00 97.5 55 21 131/61 97 Nasal Cannula 2.0 10/10/17 08:56 56 138/57 10/10/17 08:46 138/57 10/10/17 08:46 56 138/57 10/10/17 08:00 97.7 56 20 138/57 97 Nasal Cannula 5.0 10/10/17 08:00 54 10/10/17 07:03 Nasal Cannula 4.0 36 10/10/17 07:03 60 22 Nasal Cannula 4.0 36 10/10/17 07:03 93 Nasal Cannula 4.0 36 10/10/17 04:00 97.7 59 20 144/76 98 Nasal Cannula 4.0 10/10/17 04:00 56 10/10/17 00:14 132/76 10/10/17 00:00 51 10/09/17 23:55 97.7 55 18 135/63 98 Nasal Cannula 4.0 10/09/17 21:55 58 128/66 10/09/17 20:00 97.9 58 20 128/66 96 Nasal Cannula 4.0 10/09/17 20:00 56 10/09/17 19:22 Nasal Cannula 3.0 32 10/09/17 19:21 93 Nasal Cannula 3.0 32 10/09/17 19:21 72 22 Nasal Cannula 3.0 32 10/09/17 17:45 54 150/80 10/09/17 16:00 54 10/09/17 15:54 150/80 10/09/17 15:45 97.5 60 18 150/80 94 Nasal Cannula 4.0 Height (Feet): 5 Height (Inches): 3.00 Weight (Pounds): 267 General Appearance: no acute distress Respiratory/Chest: no respiratory distress Cardiovascular: normal rate, regular rhythm Abdomen: normal bowel sounds, soft, non tender, non distended Extremities: other - BLE erythema, edema, warmth Laboratory Tests Test 10/09/17 18:00 10/10/17 07:47 Creatinine 4.0 MG/DL (0.55-1.30) H 4.3 MG/DL (0.55-1.30) H Estimat Glomerular Filtration Rate 11.4 mL/min (>60) 10.5 mL/min (>60) Prothrombin Time 12.6 SEC (9.30-11.50) H Prothromb Time International Ratio 1.2 (0.9-1.1) H Sodium Level 137 MMOL/L (136-145) Potassium Level 4.4 MMOL/L (3.5-5.1) Chloride Level 104 MMOL/L (98-107) Carbon Dioxide Level 20 MMOL/L (21-32) L Anion Gap 13 mmol/L (5-15) Blood Urea Nitrogen 126 mg/dL (7-18) H Glucose Level 258 MG/DL (74-106) #H Uric Acid 7.6 MG/DL (2.6-7.2) H Calcium Level 8.9 MG/DL (8.5-10.1) Current Medications Medications (Trade) Dose Ordered Sig/Ifeanyi Route PRN Reason Start Time Stop Time Status Last Admin Dose Admin Acetaminophen (Tylenol) 650 mg Q4H PRN ORAL Fever 10/06/17 21:45 11/05/17 21:44 Albuterol/ Ipratropium (Albuterol/ Ipratropium) 3 ml EVERY 4 HOURS PRN HHN Shortness of Breath 10/06/17 21:45 10/11/17 21:44 10/08/17 05:15 Amlodipine Besylate (Norvasc) 10 mg BID ORAL 10/07/17 09:00 11/06/17 08:59 10/10/17 08:56 Atorvastatin Calcium (Lipitor) 40 mg BEDTIME ORAL 10/07/17 22:00 11/06/17 21:59 10/09/17 21:55 Carvedilol (Coreg) 3.125 mg EVERY 12 HOURS ORAL 10/07/17 09:00 11/06/17 08:59 10/10/17 08:46 Ceftriaxone Sodium 1 gm/ Dextrose 55 ml @ 110 mls/hr DAILY IVPB 10/09/17 11:00 10/16/17 10:59 10/10/17 08:49 Clonidine HCl (Catapres) 0.2 mg Q8H ORAL 10/07/17 16:00 11/06/17 15:59 10/10/17 08:46 Dextrose (Dextrose 50%) STAT PRN IV Hypoglycemia 10/06/17 21:45 11/05/17 21:44 Epoetin Chaim (Procrit (for non ESRD use)) 10,000 units FRI-FRI-FRI SUBQ 10/08/17 21:00 11/07/17 20:59 10/08/17 21:41 Hydralazine HCl (Apresoline) 25 mg Q4H PRN ORAL SBP > OR = 160 10/07/17 14:30 11/06/17 14:29 Insulin Aspart (NovoLOG) BEFORE MEALS AND HS SUBQ 10/07/17 06:30 11/06/17 06:29 10/10/17 11:32 Insulin Aspart (NovoLOG) 12 units NOVOTIAC SUBQ 10/10/17 06:30 11/09/17 06:29 10/10/17 11:32 Insulin Detemir (Levemir) 18 units Q12HR SUBQ 10/09/17 21:00 11/08/17 20:59 10/10/17 08:52 Iron Sucrose 100 mg/Sodium Chloride 60 ml @ 240 mls/hr BEDTIME IV 10/08/17 21:00 10/12/17 21:14 10/09/17 21:55 Ondansetron HCl (Zofran) 4 mg Q6H PRN IVP Nausea & Vomiting 10/06/17 21:45 11/05/17 21:44 Polyethylene Glycol (Miralax) 17 gm DAILYPRN PRN ORAL Constipation 10/06/17 21:45 11/05/17 21:44 Sodium Chloride 750 ml @ 150 mls/hr Q5H ONCE IV 10/10/17 10:00 10/10/17 14:59 10/10/17 10:13 Temazepam (Restoril) 15 mg HSPRN PRN ORAL Insomnia 10/06/17 21:45 10/13/17 21:44 MAGALY SINCLAIR Oct 10, 2017 12:42
[2017-10-10] MEDS ORDERED: Albuterol/Ipratropium 3ml neb HHN PRN (12:45)
[2017-10-10 16:00] VITALS: BP 127/60
--- NOTE | 2017-10-10 16:59 | General Progress Note ---
Assessment/Plan Assessment/Plan 1. Coagulopathy, likely secondary to Coumadin accumulation INR improved. 2. Anemia, secondary to chronic disease. Continue to closely monitor. ESR elevated. Iron panel showing percent saturation of 5%, TIBC of 273, and ferritin of 196. --> transfuse as needed to hgb above 7 --> s/p transfusion, HH improved. continue to watch counts 3. Leukocytosis, likely secondary to reactive process. 5. Acute kidney injury and azotemia. 6. Multiple drug intolerance. Subjective Allergies: Coded Allergies: BENAZEPRIL (Verified Allergy, Intermediate, Shortness of Breath, 07/01/14) NIFEDIPINE (Verified Allergy, Intermediate, Shortness of Breath, 06/28/14) NITROGLYCERIN (Verified Allergy, Intermediate, Shortness of Breath, 06/28/14 ) SOB and BLE swelling All Systems: reviewed and negative except above Subjective HH improved Objective Last 24 Hour Vital Signs Date Time Temp Pulse Resp B/P (MAP) Pulse Ox O2 Delivery O2 Flow Rate FiO2 10/10/17 16:00 127/60 10/10/17 16:00 97.5 58 20 127/60 95 Nasal Cannula 2.0 10/10/17 12:00 52 10/10/17 12:00 97.5 55 21 131/61 97 Nasal Cannula 2.0 10/10/17 08:56 56 138/57 10/10/17 08:46 138/57 10/10/17 08:46 56 138/57 10/10/17 08:00 97.7 56 20 138/57 97 Nasal Cannula 5.0 10/10/17 08:00 54 10/10/17 07:03 Nasal Cannula 4.0 36 10/10/17 07:03 60 22 Nasal Cannula 4.0 36 10/10/17 07:03 93 Nasal Cannula 4.0 36 10/10/17 04:00 97.7 59 20 144/76 98 Nasal Cannula 4.0 10/10/17 04:00 56 10/10/17 00:14 132/76 10/10/17 00:00 51 10/09/17 23:55 97.7 55 18 135/63 98 Nasal Cannula 4.0 10/09/17 21:55 58 128/66 10/09/17 20:00 97.9 58 20 128/66 96 Nasal Cannula 4.0 10/09/17 20:00 56 10/09/17 19:22 Nasal Cannula 3.0 32 10/09/17 19:21 93 Nasal Cannula 3.0 32 10/09/17 19:21 72 22 Nasal Cannula 3.0 32 10/09/17 17:45 54 150/80 Intake and Output 10/10/17 10/11/17 19:00 07:00 Intake Total 805 ml Balance 805 ml IV Total 805 ml Laboratory Tests 10/09/17 18:00: Creatinine 4.0H, Estimat Glomerular Filtration Rate 11.4 10/10/17 07:47: Creatinine 4.3H, Estimat Glomerular Filtration Rate 10.5, Prothrombin Time 12.6H , Prothromb Time International Ratio 1.2H, Sodium Level 137, Potassium Level 4.4 , Chloride Level 104, Carbon Dioxide Level 20L, Anion Gap 13, Blood Urea Nitrogen 126H, Glucose Level 258#H, Uric Acid 7.6H, Calcium Level 8.9 Height (Feet): 5 Height (Inches): 3.00 Weight (Pounds): 267 General Appearance: WD/WN EENT: normal ENT inspection Neck: non-tender Respiratory/Chest: chest wall non-tender Extremities: non-tender Edema: trace edema Jonathan Hawk Oct 10, 2017 16:59
--- NOTE | 2017-10-10 17:29 | Nephrology Progress Note ---
Assessment/Plan Problem List: (1) CKD (chronic kidney disease) stage 5, GFR less than 15 ml/min (2) Acute on chronic renal insufficiency (3) Morbid obesity (4) Coagulopathy (5) Pulmonary hypertension (6) HTN (hypertension) (7) Diabetes (8) Anemia in chronic kidney disease (9) CHF (congestive heart failure), NYHA class II (10) Lymphedema Plan bun/creat 70/2.2 on 09/24 in my office, higher now from coagulopathy, likely bloood in gi tract, prior diuretics [id number]. Hopefully labs will return close to baseline and we can hold off dialysis a few months. She will need elective av fistula in the near future. DR Haider Douglas trying to schedule vascular surgery for 10/13. 24 hr urines creatinine clearance 30 better than expected. . Hold diuretics for now. d/w dr broussard+Adam Subjective Constitutional: Reports: weakness HEENT: Reports: no symptoms Genitourinary: Reports: no symptoms Neurologic/Psychiatric: Reports: no symptoms Subjective feels better, no current sob,nausea, sat 92-94% RA Objective Objective Last 24 Hour Vital Signs Date Time Temp Pulse Resp B/P (MAP) Pulse Ox O2 Delivery O2 Flow Rate FiO2 10/10/17 17:03 58 127/60 10/10/17 16:00 127/60 10/10/17 16:00 97.5 58 20 127/60 95 Nasal Cannula 2.0 10/10/17 12:00 52 10/10/17 12:00 97.5 55 21 131/61 97 Nasal Cannula 2.0 10/10/17 08:56 56 138/57 10/10/17 08:46 138/57 10/10/17 08:46 56 138/57 10/10/17 08:00 97.7 56 20 138/57 97 Nasal Cannula 5.0 10/10/17 08:00 54 10/10/17 07:03 Nasal Cannula 4.0 36 10/10/17 07:03 60 22 Nasal Cannula 4.0 36 10/10/17 07:03 93 Nasal Cannula 4.0 36 10/10/17 04:00 97.7 59 20 144/76 98 Nasal Cannula 4.0 10/10/17 04:00 56 10/10/17 00:14 132/76 10/10/17 00:00 51 10/09/17 23:55 97.7 55 18 135/63 98 Nasal Cannula 4.0 10/09/17 21:55 58 128/66 10/09/17 20:00 97.9 58 20 128/66 96 Nasal Cannula 4.0 10/09/17 20:00 56 10/09/17 19:22 Nasal Cannula 3.0 32 10/09/17 19:21 93 Nasal Cannula 3.0 32 10/09/17 19:21 72 22 Nasal Cannula 3.0 32 10/09/17 17:45 54 150/80 Intake and Output 10/10/17 10/11/17 19:00 07:00 Intake Total 805 ml Balance 805 ml IV Total 805 ml Laboratory Tests 10/09/17 18:00: Creatinine 4.0H, Estimat Glomerular Filtration Rate 11.4 10/10/17 07:47: Creatinine 4.3H, Estimat Glomerular Filtration Rate 10.5, Prothrombin Time 12.6H , Prothromb Time International Ratio 1.2H, Sodium Level 137, Potassium Level 4.4 , Chloride Level 104, Carbon Dioxide Level 20L, Anion Gap 13, Blood Urea Nitrogen 126H, Glucose Level 258#H, Uric Acid 7.6H, Calcium Level 8.9 Height (Feet): 5 Height (Inches): 3.00 Weight (Pounds): 267 General Appearance: no apparent distress, morbidly obese EENT: normal ENT inspection Neck: normal alignment Cardiovascular: normal rate, regular rhythm Respiratory/Chest: lungs clear Abdomen: non tender, soft Extremities: moderate edema 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
[2017-10-10] MEDS ORDERED: Sodium Chloride 500ML 500 ML IVPB ONE (17:30)
--- NOTE | 2017-10-10 17:41 | Cardiology Progress Note ---
Assessment/Plan Assessment/Plan 1. Paroxysmal episodes of atrial fibrillation at this time in sinus. 2. Coagulopathy with INR of 7. 3. Diastolic heart failure. 4. Severe diastolic dysfunction history. 5. History of bradycardia secondary to medications. 6. Renal failure/azotemia. 7. Hypertension. 8. Multiple drug intolerances. feel better bu still evidence of heart failure on exam echo noted d/w dr tamayo who has followed pt before diuretics / dialysis per dr tamayo urine na low ef normal but sig diastlic dysfucntion dr tamayo making arrangemt for avf soon to allwo dialysis ham doctor Subjective Cardiovascular: Denies: chest pain, lightheadedness, palpitations Respiratory: Reports: shortness of breath - better Gastrointestinal/Abdominal: Denies: abdominal pain Genitourinary: Denies: burning Subjective she definateley feel better she indicates ! Objective Last 24 Hour Vital Signs Date Time Temp Pulse Resp B/P (MAP) Pulse Ox O2 Delivery O2 Flow Rate FiO2 10/10/17 17:03 58 127/60 10/10/17 16:00 127/60 10/10/17 16:00 97.5 58 20 127/60 95 Nasal Cannula 2.0 10/10/17 12:00 52 10/10/17 12:00 97.5 55 21 131/61 97 Nasal Cannula 2.0 10/10/17 08:56 56 138/57 10/10/17 08:46 138/57 10/10/17 08:46 56 138/57 10/10/17 08:00 97.7 56 20 138/57 97 Nasal Cannula 5.0 10/10/17 08:00 54 10/10/17 07:03 Nasal Cannula 4.0 36 10/10/17 07:03 60 22 Nasal Cannula 4.0 36 10/10/17 07:03 93 Nasal Cannula 4.0 36 10/10/17 04:00 97.7 59 20 144/76 98 Nasal Cannula 4.0 10/10/17 04:00 56 10/10/17 00:14 132/76 10/10/17 00:00 51 10/09/17 23:55 97.7 55 18 135/63 98 Nasal Cannula 4.0 10/09/17 21:55 58 128/66 10/09/17 20:00 97.9 58 20 128/66 96 Nasal Cannula 4.0 10/09/17 20:00 56 10/09/17 19:22 Nasal Cannula 3.0 32 10/09/17 19:21 93 Nasal Cannula 3.0 32 10/09/17 19:21 72 22 Nasal Cannula 3.0 32 10/09/17 17:45 54 150/80 General Appearance: no apparent distress, alert Cardiovascular: normal rate, regular rhythm Respiratory/Chest: crackles/rales - base Abdomen: non tender, soft Extremities: severe edema Intake and Output 10/10/17 10/11/17 19:00 07:00 Intake Total 805 ml Balance 805 ml IV Total 805 ml Laboratory Tests Test 10/09/17 18:00 10/10/17 07:47 Creatinine 4.0 MG/DL (0.55-1.30) H 4.3 MG/DL (0.55-1.30) H Estimat Glomerular Filtration Rate 11.4 mL/min (>60) 10.5 mL/min (>60) Prothrombin Time 12.6 SEC (9.30-11.50) H Prothromb Time International Ratio 1.2 (0.9-1.1) H Sodium Level 137 MMOL/L (136-145) Potassium Level 4.4 MMOL/L (3.5-5.1) Chloride Level 104 MMOL/L (98-107) Carbon Dioxide Level 20 MMOL/L (21-32) L Anion Gap 13 mmol/L (5-15) Blood Urea Nitrogen 126 mg/dL (7-18) H Glucose Level 258 MG/DL (74-106) #H Uric Acid 7.6 MG/DL (2.6-7.2) H Calcium Level 8.9 MG/DL (8.5-10.1) JESSICA ACUNA Oct 10, 2017 17:41
[2017-10-10 20:32] VITALS: BP 123/52
[2017-10-10] MEDS: Iron Sucrose 100 MG in NS 55 ML IV SCH (21:44)
[2017-10-10] MEDS: Atorvastatin 20mg tab ORAL SCH (21:45)
[2017-10-10] MEDS: Epogen (for non ESRD use) SUBQ SCH (21:46)
[2017-10-11] VITALS (7 sets, daily range): BP systolic 103–154; BP diastolic 60–71
[2017-10-11] MEDS: cloNIDine 0.2mg Tab ORAL SCH ×2 (00:29→08:33)
--- NOTE | 2017-10-11 06:43 | Anethesia Preoperative Eval ---
Anesthesia Pre-op PMH/ROS General Date of Evaluation: Oct 11, 2017 Time of Evaluation: 06:01 Anesthesiologist: Shar ASA Score: ASA 4 Mallampati Score Class I : Soft palate, uvula, fauces, pillars visible Class II: Soft palate, uvula, fauces visible Class III: Soft palate, base of uvula visible Class IV: Only hard plate visible Mallampati Classification: Class III Surgeon: Misael Diagnosis: Renal Failure Surgical Procedure: L Arm AV Fistula Anesthesia History: none Family History: no anesthesia problems Allergies: Coded Allergies: BENAZEPRIL (Verified Allergy, Intermediate, Shortness of Breath, 07/01/14) NIFEDIPINE (Verified Allergy, Intermediate, Shortness of Breath, 06/28/14) NITROGLYCERIN (Verified Allergy, Intermediate, Shortness of Breath, 06/28/14 ) SOB and BLE swelling Medications: see eMAR Past Medical History Cardiovascular: Reports: HTN, other - CHF, HL Gastrointestinal/Genitourinary: Reports: GERD, CRI, ESRD - Dialysis Neurologic/Psychiatric: Reports: CVA, other - Cerebral Vascular Disease Endocrine: Reports: DM HEENT: Reports: cataract (L), cataract (R) Hematology/Immune: Reports: anemia Musculoskeletal/Integumentary: Reports: edema PSxH Narrative: C/SX2 Anesthesia Pre-op Phys. Exam Physician Exam Last Vital Signs Date Time Temp Pulse Resp B/P (MAP) Pulse Ox O2 Delivery O2 Flow Rate FiO2 10/11/17 05:08 97.0 62 22 149/60 96 Nasal Cannula 3.0 36 Constitutional: NAD Neurologic: CN 2-12 intact Cardiovascular: RRR Respiratory: CTA Gastrointestinal: S/NT/ND Airway Exam Mallampati Score: Class III MO: limited ROM: limited Teeth: missing, intact Anesthesia Pre-op A/P Labs Coagulation Test 10/10/17 07:47 Prothrombin Time 12.6 SEC (9.30-11.50) H Prothromb Time International Ratio 1.2 (0.9-1.1) H Chemistry Test 10/10/17 07:47 Sodium Level 137 MMOL/L (136-145) Potassium Level 4.4 MMOL/L (3.5-5.1) Chloride Level 104 MMOL/L (98-107) Carbon Dioxide Level 20 MMOL/L (21-32) L Anion Gap 13 mmol/L (5-15) Blood Urea Nitrogen 126 mg/dL (7-18) H Creatinine 4.3 MG/DL (0.55-1.30) H Estimat Glomerular Filtration Rate 10.5 mL/min (>60) Glucose Level 258 MG/DL (74-106) #H Uric Acid 7.6 MG/DL (2.6-7.2) H Calcium Level 8.9 MG/DL (8.5-10.1) Risk Assessment & Plan Assessment: ASA 4 Plan: GA Status Change Before Surgery: No Pre-Antibiotics Drug: Minor Chawla MD Oct 11, 2017 06:43
[2017-10-11] MEDS: NovoLOG Insulin Flexpen SUBQ SCH ×7 (07:16→22:18)
[2017-10-11 07:36] LABS: BASOPHILS % (AUTO) 1.1 % (0.0-2.0); EOSINOPHILS % (AUTO) 7.1 % (0.0-3.0); LYMPHOCYTES % (AUTO) 10.5 % (20.0-45.0); MEAN CORPUSCULAR HGB CONC 31.9 G/DL (32.0-36.0); MEAN CORPUSCULAR VOLUME 82 FL (80-99); MEAN PLATELET VOLUME 7.9 FL (6.5-10.1); MONOCYTES % (AUTO) 5.3 % (1.0-10.0); NEUTROPHILS % (AUTO) 75.9 % (45.0-75.0); PLATELET COUNT 210 K/UL (150-450); RED BLOOD COUNT 3.33 M/UL (4.20-5.40); RED CELL DISTRIBUTION WIDTH 16.5 % (11.6-14.8); WHITE BLOOD COUNT 9.7 K/UL (4.8-10.8)
[2017-10-11 07:48] LABS: ANION GAP 13 mmol/L (5-15); CALCIUM 8.8 MG/DL (8.5-10.1); CARBON DIOXIDE 19 MMOL/L (21-32); CHLORIDE 106 MMOL/L (98-107); CREATININE 4.1 MG/DL (0.55-1.30); GLOMERULAR FILTRATION RATE 11.1 mL/min (>60); POTASSIUM 4.8 MMOL/L (3.5-5.1); SODIUM 138 MMOL/L (136-145)
[2017-10-11] MEDS: cefTRIAXone 1 GM in D5W 55 ML IVPB SCH (08:33)
--- NOTE | 2017-10-11 08:34 | Infectious Diseases Prog Note ---
Assessment/Plan Assessment/Plan ASSESSMENT: 57 y/o female with: // ? Pneum vs CHF Cxray : bilateral interstitial edema, unchanged. The heart size is normal // ? BLE cellulitis pt has chronic BLE lymphedema and skin changes - doppler(-) DVT // h/o UTI / pyelonephritis - screening UA neg // Negative HIV // Leukocytosis -PS // afebrile // HIV and Hep B/C: Neg // Acute on chronic diastolic CHF exacerbation // Severe pulmonary HTN // ARF on CKD - improved // Coagulopathy, m/l 2/2 coumadin // PAF // Indirect hyperbilirubinemia - hepatitis panel neg // Elevated ESR, CRP // DM2 - HbA1c 12.8% // Psoriasis // Morbid obesity // No ABX allergies // Full Code PLAN: - change Rocephin d# 3 to Levaquin d# 1 / 5 - monitor CBC, temperatures - monitor BMP - BLE elevation, compression Subjective Allergies: Coded Allergies: BENAZEPRIL (Verified Allergy, Intermediate, Shortness of Breath, 07/01/14) NIFEDIPINE (Verified Allergy, Intermediate, Shortness of Breath, 06/28/14) NITROGLYCERIN (Verified Allergy, Intermediate, Shortness of Breath, 06/28/14 ) SOB and BLE swelling Subjective afebrile Objective Vital Signs Last 24 Hour Vital Signs Date Time Temp Pulse Resp B/P (MAP) Pulse Ox O2 Delivery O2 Flow Rate FiO2 10/11/17 08:25 97.0 61 20 145/62 97 Room Air 10/11/17 04:00 52 10/11/17 00:48 97.5 62 22 139/66 98 Nasal Cannula 3.0 10/11/17 00:29 150/88 10/11/17 00:00 59 10/10/17 21:00 55 123/52 10/10/17 20:58 Room Air 10/10/17 20:57 55 18 Room Air 10/10/17 20:57 96 Room Air 10/10/17 20:32 97.0 56 22 123/52 94 Room Air 10/10/17 20:00 55 10/10/17 17:03 58 127/60 10/10/17 16:00 127/60 10/10/17 16:00 97.5 58 20 127/60 95 Nasal Cannula 2.0 10/10/17 16:00 59 11/17/17 12:00 52 10/10/17 12:00 97.5 55 21 131/61 97 Nasal Cannula 2.0 10/10/17 08:56 56 138/57 10/10/17 08:46 138/57 10/10/17 08:46 56 138/57 Height (Feet): 5 Height (Inches): 3.00 Weight (Pounds): 275 HEENT: mucous membranes moist Respiratory/Chest: normal breath sounds Cardiovascular: regular rhythm Abdomen: no organomegaly Laboratory Tests Test 10/11/17 05:40 White Blood Count 9.7 K/UL (4.8-10.8) Red Blood Count 3.33 M/UL (4.20-5.40) L Hemoglobin 8.6 G/DL (12.0-16.0) L Hematocrit 27.1 % (37.0-47.0) L Mean Corpuscular Volume 82 FL (80-99) Mean Corpuscular Hemoglobin 26.0 PG (27.0-31.0) L Mean Corpuscular Hemoglobin Concent 31.9 G/DL (32.0-36.0) L Red Cell Distribution Width 16.5 % (11.6-14.8) H Platelet Count 210 K/UL (150-450) Mean Platelet Volume 7.9 FL (6.5-10.1) Neutrophils (%) (Auto) 75.9 % (45.0-75.0) H Lymphocytes (%) (Auto) 10.5 % (20.0-45.0) L Monocytes (%) (Auto) 5.3 % (1.0-10.0) Eosinophils (%) (Auto) 7.1 % (0.0-3.0) H Basophils (%) (Auto) 1.1 % (0.0-2.0) Sodium Level 138 MMOL/L (136-145) Potassium Level 4.8 MMOL/L (3.5-5.1) Chloride Level 106 MMOL/L (98-107) Carbon Dioxide Level 19 MMOL/L (21-32) L Anion Gap 13 mmol/L (5-15) Blood Urea Nitrogen 130 mg/dL (7-18) H Creatinine 4.1 MG/DL (0.55-1.30) H Estimat Glomerular Filtration Rate 11.1 mL/min (>60) Glucose Level 210 MG/DL (74-106) H Calcium Level 8.8 MG/DL (8.5-10.1) Current Medications Medications (Trade) Dose Ordered Sig/Ifeanyi Route PRN Reason Start Time Stop Time Status Last Admin Dose Admin Acetaminophen (Tylenol) 650 mg Q4H PRN ORAL Fever 10/06/17 21:45 11/05/17 21:44 Albuterol/ Ipratropium (Albuterol/ Ipratropium) 3 ml Q4H PRN HHN Shortness of Breath 10/10/17 12:45 10/15/17 12:44 Amlodipine Besylate (Norvasc) 10 mg BID ORAL 10/07/17 09:00 11/06/17 08:59 10/10/17 17:03 Atorvastatin Calcium (Lipitor) 40 mg BEDTIME ORAL 10/07/17 22:00 11/06/17 21:59 10/10/17 21:45 Carvedilol (Coreg) 3.125 mg EVERY 12 HOURS ORAL 10/07/17 09:00 11/06/17 08:59 10/10/17 08:46 Ceftriaxone Sodium 1 gm/ Dextrose 55 ml @ 110 mls/hr DAILY IVPB 10/09/17 11:00 10/16/17 10:59 10/10/17 08:49 Clonidine HCl (Catapres) 0.2 mg Q8H ORAL 10/07/17 16:00 11/06/17 15:59 10/11/17 00:29 Dextrose (Dextrose 50%) STAT PRN IV Hypoglycemia 10/06/17 21:45 11/05/17 21:44 Epoetin Chaim (Procrit (for non ESRD use)) 10,000 units FRI-WED-FRI SUBQ 10/08/17 21:00 11/07/17 20:59 10/10/17 21:46 Hydralazine HCl (Apresoline) 25 mg Q4H PRN ORAL SBP > OR = 160 10/07/17 14:30 11/06/17 14:29 Insulin Aspart (NovoLOG) BEFORE MEALS AND HS SUBQ 10/07/17 06:30 11/06/17 06:29 10/11/17 07:17 Insulin Aspart (NovoLOG) 16 units NOVOTIAC SUBQ 10/11/17 06:30 11/10/17 06:29 10/11/17 07:16 Insulin Detemir (Levemir) 26 units Q12HR SUBQ 10/10/17 21:00 11/09/17 20:59 Iron Sucrose 100 mg/Sodium Chloride 60 ml @ 240 mls/hr BEDTIME IV 10/08/17 21:00 10/12/17 21:14 10/10/17 21:44 Ondansetron HCl (Zofran) 4 mg Q6H PRN IVP Nausea & Vomiting 10/06/17 21:45 11/05/17 21:44 Polyethylene Glycol (Miralax) 17 gm DAILYPRN PRN ORAL Constipation 10/06/17 21:45 11/05/17 21:44 Temazepam (Restoril) 15 mg HSPRN PRN ORAL Insomnia 10/06/17 21:45 10/13/17 21:44 NICOLE OH M.D. Oct 11, 2017 08:34
[2017-10-11] MEDS: Levemir Flexpen SUBQ SCH (08:36)
[2017-10-11] MEDS ORDERED: NS 275ml ONE (10:39)
[2017-10-11] MEDS ORDERED: Tubing IV Secondary IV ONE (10:39)
[2017-10-11] MEDS ORDERED: NS 500ML ONE (10:39)
[2017-10-11] MEDS ORDERED: Tubing Blood Filter IV ONE (10:39)
--- NOTE | 2017-10-11 11:46 | Nephrology Progress Note ---
Assessment/Plan Problem List: (1) CKD (chronic kidney disease) stage 5, GFR less than 15 ml/min (2) Acute on chronic renal insufficiency (3) Morbid obesity (4) Coagulopathy (5) Pulmonary hypertension (6) HTN (hypertension) (7) Diabetes (8) Anemia in chronic kidney disease (9) CHF (congestive heart failure), NYHA class II (10) Lymphedema Plan bun/creat 70/2.2 on 09/24 in my office, higher now from coagulopathy, likely bloood in gi tract, prior diuretics [id number]. Hopefully labs will return close to baseline and we can hold off dialysis a few months. She will need elective av fistula in the near future. DR Haider Douglas trying to schedule vascular surgery for 10/13. 24 hr urines creatinine clearance 30 better than expected. . Hold diuretics for now. + hydrate d/w dr broussard+Adam Subjective Constitutional: Reports: weakness HEENT: Reports: no symptoms Genitourinary: Reports: no symptoms Neurologic/Psychiatric: Reports: no symptoms Subjective feels better, no current sob,nausea, sat 92-94% RA Objective Objective Last 24 Hour Vital Signs Date Time Temp Pulse Resp B/P (MAP) Pulse Ox O2 Delivery O2 Flow Rate FiO2 10/11/17 08:34 61 145/62 10/11/17 08:33 145/62 10/11/17 08:33 61 145/62 10/11/17 08:25 97.0 61 20 145/62 97 Room Air 10/11/17 08:00 60 10/11/17 07:40 Room Air 10/11/17 07:40 96 Room Air 10/11/17 07:40 60 16 Room Air 10/11/17 04:00 52 10/11/17 00:48 97.5 62 22 139/66 98 Nasal Cannula 3.0 10/11/17 00:29 150/88 10/11/17 00:00 59 10/10/17 21:00 55 123/52 10/10/17 20:58 Room Air 10/10/17 20:57 55 18 Room Air 10/10/17 20:57 96 Room Air 10/10/17 20:32 97.0 56 22 123/52 94 Room Air 10/10/17 20:00 55 10/10/17 17:03 58 127/60 10/10/17 16:00 127/60 10/10/17 16:00 97.5 58 20 127/60 95 Nasal Cannula 2.0 10/10/17 16:00 59 10/10/17 12:00 52 10/10/17 12:00 97.5 55 21 131/61 97 Nasal Cannula 2.0 Intake and Output 10/11/17 10/12/17 19:00 07:00 Intake Total 120 ml Balance 120 ml Intake Oral 120 ml # Voids 1 Laboratory Tests 10/11/17 05:40: White Blood Count 9.7, Red Blood Count 3.33L, Hemoglobin 8.6L, Hematocrit 27.1L , Mean Corpuscular Volume 82, Mean Corpuscular Hemoglobin 26.0L, Mean Corpuscular Hemoglobin Concent 31.9L, Red Cell Distribution Width 16.5H, Platelet Count 210, Mean Platelet Volume 7.9, Neutrophils (%) (Auto) 75.9H, Lymphocytes (%) (Auto) 10.5L, Monocytes (%) (Auto) 5.3, Eosinophils (%) (Auto) 7.1H, Basophils (%) (Auto) 1.1, Sodium Level 138, Potassium Level 4.8, Chloride Level 106, Carbon Dioxide Level 19L, Anion Gap 13, Blood Urea Nitrogen 130H, Creatinine 4.1H, Estimat Glomerular Filtration Rate 11.1, Glucose Level 210H, Calcium Level 8.8 Height (Feet): 5 Height (Inches): 3.00 Weight (Pounds): 275 General Appearance: no apparent distress, morbidly obese EENT: PERRL/EOMI Neck: non-tender, normal alignment Cardiovascular: normal rate, regular rhythm Respiratory/Chest: lungs clear Abdomen: non tender Extremities: moderate edema 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
[2017-10-11] MEDS: HydrALAZINE 50mg tab ORAL SCH ×2 (12:30→17:24)
--- NOTE | 2017-10-11 15:32 | Pulmonology Progress Note ---
Assessment/Plan Assessment/Plan ASSESSMENT Acute diastolic CHF exacerbation acute on chronic renal failure Coagulopathy HTN DM out of control Probably BLE cellulitis in setting of chronic BLE lymphedema Severe pulmonary HTN PAF morbid obesity anemia of chronic disease, s/p blood transfusion coccyx st 2 decub ulcer POA PLAN OF CARE tele cardio follows ECHO with pEF 60-65% and RVSP of 64 c/w severe pulmonary HTN closely monitor renal parameters creat 4.1 , after 1 L of IVF hold on diuretic nephro follows 24 hr urine done cr clear 30 per nephro will need HD soon and elective AV fistula O2 HHN prn ID follows, on empiric abx Monitor INR, heme follows, INR down to 1.2 . Anemia w/up noted, on EPO and Venofer s/p blood transfusion 2 u PRBC BP management with BB, CCB and Hydralazine ( Clonidine stopped by nephro) BS management with SS of insulin, [id number] not at goal, started on short acting premeal Novolog and changed from Levemir to NPH as per nephro not qualified for home O2 case discussed and evaluated by supervising physician Subjective Allergies: Coded Allergies: BENAZEPRIL (Verified Allergy, Intermediate, Shortness of Breath, 07/01/14) NIFEDIPINE (Verified Allergy, Intermediate, Shortness of Breath, 06/28/14) NITROGLYCERIN (Verified Allergy, Intermediate, Shortness of Breath, 06/28/14 ) SOB and BLE swelling Subjective leukocytosis resolved on RA pulse oximetry stable creat down to 4.1 s/p 1 L of fluids no chest pain + SOB Objective Last 24 Hour Vital Signs Date Time Temp Pulse Resp B/P (MAP) Pulse Ox O2 Delivery O2 Flow Rate FiO2 10/11/17 12:00 55 10/11/17 11:48 97.9 50 20 133/61 100 Room Air 10/11/17 08:34 61 145/62 10/11/17 08:33 145/62 10/11/17 08:33 61 145/62 10/11/17 08:25 97.0 61 20 145/62 97 Room Air 10/11/17 08:00 60 10/11/17 07:40 Room Air 10/11/17 07:40 96 Room Air 10/11/17 07:40 60 16 Room Air 10/11/17 04:00 52 10/11/17 00:48 97.5 62 22 139/66 98 Nasal Cannula 3.0 10/11/17 00:29 150/88 10/11/17 00:00 59 10/10/17 21:00 55 123/52 10/10/17 20:58 Room Air 10/10/17 20:57 55 18 Room Air 10/10/17 20:57 96 Room Air 10/10/17 20:32 97.0 56 22 123/52 94 Room Air 10/10/17 20:00 55 10/10/17 17:03 58 127/60 10/10/17 16:00 127/60 10/10/17 16:00 97.5 58 20 127/60 95 Nasal Cannula 2.0 10/10/17 16:00 59 Intake and Output 10/11/17 10/12/17 19:00 07:00 Intake Total 240 ml Balance 240 ml Intake Oral 240 ml # Voids 2 Objective General Appearance: other - morbidly obese Slovenian speaking female in NAD, HEENT: normocephalic, atraumatic, anicteric, mucous membranes moist, other - O2 via NC Respiratory/Chest: lungs clear, no respiratory distress, no accessory muscle use Cardiovascular: normal rate, regular rhythm, no JVD Abdomen: normal bowel sounds, soft, non tender - obese Extremities: + 3 edema BLE Neurologic/Psychiatric: abnormal gait, alert, oriented x 3, responsive, normal mood/affect Laboratory Tests 10/11/17 05:40: White Blood Count 9.7, Red Blood Count 3.33L, Hemoglobin 8.6L, Hematocrit 27.1L , Mean Corpuscular Volume 82, Mean Corpuscular Hemoglobin 26.0L, Mean Corpuscular Hemoglobin Concent 31.9L, Red Cell Distribution Width 16.5H, Platelet Count 210, Mean Platelet Volume 7.9, Neutrophils (%) (Auto) 75.9H, Lymphocytes (%) (Auto) 10.5L, Monocytes (%) (Auto) 5.3, Eosinophils (%) (Auto) 7.1H, Basophils (%) (Auto) 1.1, Sodium Level 138, Potassium Level 4.8, Chloride Level 106, Carbon Dioxide Level 19L, Anion Gap 13, Blood Urea Nitrogen 130H, Creatinine 4.1H, Estimat Glomerular Filtration Rate 11.1, Glucose Level 210H, Calcium Level 8.8 Current Medications Medications (Trade) Dose Ordered Sig/Ifeanyi Route PRN Reason Start Time Stop Time Status Last Admin Dose Admin Acetaminophen (Tylenol) 650 mg Q4H PRN ORAL Fever 10/06/17 21:45 11/05/17 21:44 Albuterol/ Ipratropium (Albuterol/ Ipratropium) 3 ml Q4H PRN HHN Shortness of Breath 10/10/17 12:45 10/15/17 12:44 Amlodipine Besylate (Norvasc) 10 mg BID ORAL 10/07/17 09:00 11/06/17 08:59 10/11/17 08:34 Atorvastatin Calcium (Lipitor) 40 mg BEDTIME ORAL 10/11/17 21:00 11/10/17 20:59 Carvedilol (Coreg) 3.125 mg EVERY 12 HOURS ORAL 10/07/17 09:00 11/06/17 08:59 10/11/17 08:33 Dextrose (Dextrose 50%) STAT PRN IV Hypoglycemia 10/06/17 21:45 11/05/17 21:44 Epoetin Chaim (Procrit (for non ESRD use)) 10,000 units MON-FRI-FRI SUBQ 10/08/17 21:00 11/07/17 20:59 10/10/17 21:46 Hydralazine HCl (Apresoline) 50 mg Q6HR ORAL 10/11/17 12:30 11/10/17 12:29 Insulin Aspart (NovoLOG) BEFORE MEALS AND HS SUBQ 10/07/17 06:30 11/06/17 06:29 10/11/17 12:06 Insulin Aspart (NovoLOG) 16 units NOVOTIAC SUBQ 10/11/17 06:30 11/10/17 06:29 10/11/17 12:07 Insulin Human NPH (Humulin N) 22 units BIAC SUBQ 10/11/17 16:30 11/10/17 16:29 Iron Sucrose 100 mg/Sodium Chloride 60 ml @ 240 mls/hr BEDTIME IV 10/08/17 21:00 10/12/17 21:14 10/10/17 21:44 Levofloxacin 100 ml @ 100 mls/hr Q48H IVPB 10/13/17 17:00 10/20/17 16:59 Levofloxacin 150 ml @ 100 mls/hr ONCE ONCE IVPB 10/11/17 17:00 10/11/17 18:29 Ondansetron HCl (Zofran) 4 mg Q6H PRN IVP Nausea & Vomiting 10/06/17 21:45 11/05/17 21:44 Polyethylene Glycol (Miralax) 17 gm DAILYPRN PRN ORAL Constipation 10/06/17 21:45 11/05/17 21:44 Temazepam (Restoril) 15 mg HSPRN PRN ORAL Insomnia 10/06/17 21:45 10/13/17 21:44 Kendall GonzalezKyleigh rondon NP Oct 11, 2017 15:32
[2017-10-11] MEDS ORDERED: Insulin NPH SUBQ SCH (16:30)
--- NOTE | 2017-10-11 18:24 | Cardiology Progress Note ---
Assessment/Plan Assessment/Plan Her rhythm is stable on Amiodarone overall her respiratory status improving Subjective Subjective the patient has dyspnea, but feels better, than yesterday she has a questions about her Le edema Objective Last 24 Hour Vital Signs Date Time Temp Pulse Resp B/P (MAP) Pulse Ox O2 Delivery O2 Flow Rate FiO2 10/11/17 15:42 97.2 58 20 103/71 98 Room Air 10/11/17 12:00 55 10/11/17 11:48 97.9 50 20 133/61 100 Room Air 10/11/17 08:34 61 145/62 10/11/17 08:33 145/62 10/11/17 08:33 61 145/62 10/11/17 08:25 97.0 61 20 145/62 97 Room Air 10/11/17 08:00 60 10/11/17 07:40 Room Air 10/11/17 07:40 96 Room Air 10/11/17 07:40 60 16 Room Air 10/11/17 04:00 52 10/11/17 00:48 97.5 62 22 139/66 98 Nasal Cannula 3.0 10/11/17 00:29 150/88 10/11/17 00:00 59 10/10/17 21:00 55 123/52 10/10/17 20:58 Room Air 10/10/17 20:57 55 18 Room Air 10/10/17 20:57 96 Room Air 10/10/17 20:32 97.0 56 22 123/52 94 Room Air 10/10/17 20:00 55 General Appearance: moderate distress EENT: PERRL/EOMI Neck: JVD Rhythm: NSR Cardiovascular: normal rate Respiratory/Chest: crackles/rales Abdomen: distended Extremities: severe edema - with pretibial skin changes 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 Intake and Output 10/11/17 10/12/17 19:00 07:00 Intake Total 360 ml Balance 360 ml Intake Oral 360 ml # Voids 3 Laboratory Tests Test 10/11/17 05:40 White Blood Count 9.7 K/UL (4.8-10.8) Red Blood Count 3.33 M/UL (4.20-5.40) L Hemoglobin 8.6 G/DL (12.0-16.0) L Hematocrit 27.1 % (37.0-47.0) L Mean Corpuscular Volume 82 FL (80-99) Mean Corpuscular Hemoglobin 26.0 PG (27.0-31.0) L Mean Corpuscular Hemoglobin Concent 31.9 G/DL (32.0-36.0) L Red Cell Distribution Width 16.5 % (11.6-14.8) H Platelet Count 210 K/UL (150-450) Mean Platelet Volume 7.9 FL (6.5-10.1) Neutrophils (%) (Auto) 75.9 % (45.0-75.0) H Lymphocytes (%) (Auto) 10.5 % (20.0-45.0) L Monocytes (%) (Auto) 5.3 % (1.0-10.0) Eosinophils (%) (Auto) 7.1 % (0.0-3.0) H Basophils (%) (Auto) 1.1 % (0.0-2.0) Sodium Level 138 MMOL/L (136-145) Potassium Level 4.8 MMOL/L (3.5-5.1) Chloride Level 106 MMOL/L (98-107) Carbon Dioxide Level 19 MMOL/L (21-32) L Anion Gap 13 mmol/L (5-15) Blood Urea Nitrogen 130 mg/dL (7-18) H Creatinine 4.1 MG/DL (0.55-1.30) H Estimat Glomerular Filtration Rate 11.1 mL/min (>60) Glucose Level 210 MG/DL (74-106) H Calcium Level 8.8 MG/DL (8.5-10.1) JAMIE HANNAH Oct 11, 2017 18:24
[2017-10-11] MEDS: Insulin NPH SUBQ SCH (20:07)
[2017-10-11] MEDS: Iron Sucrose 100 MG in NS 55 ML IV SCH (21:20)
--- NOTE | 2017-10-11 21:48 | General Progress Note ---
Assessment/Plan Assessment/Plan 1. Coagulopathy, likely secondary to Coumadin accumulation INR improved. 2. Anemia, secondary to chronic disease. Continue to closely monitor. ESR elevated. Iron panel showing percent saturation of 5%, TIBC of 273, and ferritin of 196. --> transfuse as needed to hgb above 7 --> s/p transfusion, HH improved. continue to watch counts 3. Leukocytosis, likely secondary to reactive process. WBC count normalized 5. Acute kidney injury and azotemia. 6. Multiple drug intolerance. Subjective Allergies: Coded Allergies: BENAZEPRIL (Verified Allergy, Intermediate, Shortness of Breath, 07/01/14) NIFEDIPINE (Verified Allergy, Intermediate, Shortness of Breath, 06/28/14) NITROGLYCERIN (Verified Allergy, Intermediate, Shortness of Breath, 06/28/14 ) SOB and BLE swelling All Systems: reviewed and negative except above Subjective breathing improved Objective Last 24 Hour Vital Signs Date Time Temp Pulse Resp B/P (MAP) Pulse Ox O2 Delivery O2 Flow Rate FiO2 10/11/17 20:00 97.5 62 22 154/64 94 Nasal Cannula 2.0 10/11/17 19:30 62 16 Room Air 21 10/11/17 19:30 95 Room Air 21 10/11/17 19:30 Room Air 21 10/11/17 18:00 58 103/71 10/11/17 16:00 57 10/11/17 15:42 97.2 58 20 103/71 98 Room Air 10/11/17 12:00 55 10/11/17 11:48 97.9 50 20 133/61 100 Room Air 10/11/17 08:34 61 145/62 10/11/17 08:33 145/62 10/11/17 08:33 61 145/62 10/11/17 08:25 97.0 61 20 145/62 97 Room Air 10/11/17 08:00 60 10/11/17 07:40 Room Air 10/11/17 07:40 96 Room Air 10/11/17 07:40 60 16 Room Air 10/11/17 04:00 52 10/11/17 00:48 97.5 62 22 139/66 98 Nasal Cannula 3.0 10/11/17 00:29 150/88 10/11/17 00:00 59 Intake and Output 10/11/17 10/12/17 19:00 07:00 Intake Total 360 ml Balance 360 ml Intake Oral 360 ml # Voids 3 Laboratory Tests 10/11/17 05:40: White Blood Count 9.7, Red Blood Count 3.33L, Hemoglobin 8.6L, Hematocrit 27.1L , Mean Corpuscular Volume 82, Mean Corpuscular Hemoglobin 26.0L, Mean Corpuscular Hemoglobin Concent 31.9L, Red Cell Distribution Width 16.5H, Platelet Count 210, Mean Platelet Volume 7.9, Neutrophils (%) (Auto) 75.9H, Lymphocytes (%) (Auto) 10.5L, Monocytes (%) (Auto) 5.3, Eosinophils (%) (Auto) 7.1H, Basophils (%) (Auto) 1.1, Sodium Level 138, Potassium Level 4.8, Chloride Level 106, Carbon Dioxide Level 19L, Anion Gap 13, Blood Urea Nitrogen 130H, Creatinine 4.1H, Estimat Glomerular Filtration Rate 11.1, Glucose Level 210H, Calcium Level 8.8 Height (Feet): 5 Height (Inches): 3.00 Weight (Pounds): 275 General Appearance: no apparent distress EENT: normal ENT inspection Neck: normal alignment Cardiovascular: normal rate Respiratory/Chest: lungs clear Abdomen: no organomegaly Extremities: inflammation Edema: 2+ Leg (L), 2+ Leg (R) 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
[2017-10-11] MEDS: Atorvastatin 20mg tab ORAL SCH (22:15)
[2017-10-12 00:30] VITALS: BP 135/62
[2017-10-12 04:00] VITALS: BP 150/64
[2017-10-12] MEDS: HydrALAZINE 50mg tab ORAL SCH ×4 (06:00→17:45)
[2017-10-12] MEDS: NovoLOG Insulin Flexpen SUBQ SCH ×7 (06:30→22:22)
[2017-10-12] MEDS: Insulin NPH SUBQ SCH ×2 (06:30→16:30)
[2017-10-12 07:24] LABS: BASOPHILS % (AUTO) 0.6 % (0.0-2.0); EOSINOPHILS % (AUTO) 7.8 % (0.0-3.0); LYMPHOCYTES % (AUTO) 11.4 % (20.0-45.0); MEAN CORPUSCULAR HGB CONC 32.7 G/DL (32.0-36.0); MEAN CORPUSCULAR VOLUME 80 FL (80-99); MEAN PLATELET VOLUME 7.9 FL (6.5-10.1); MONOCYTES % (AUTO) 5.8 % (1.0-10.0); NEUTROPHILS % (AUTO) 74.4 % (45.0-75.0); PLATELET COUNT 249 K/UL (150-450); RED BLOOD COUNT 3.57 M/UL (4.20-5.40); RED CELL DISTRIBUTION WIDTH 16.4 % (11.6-14.8); WHITE BLOOD COUNT 9.8 K/UL (4.8-10.8)
[2017-10-12 07:35] LABS: ANION GAP 13 mmol/L (5-15); CARBON DIOXIDE 19 MMOL/L (21-32); CHLORIDE 107 MMOL/L (98-107); GLOMERULAR FILTRATION RATE 11.4 mL/min (>60); POTASSIUM 4.3 MMOL/L (3.5-5.1); SODIUM 139 MMOL/L (136-145)
[2017-10-12 07:44] LABS: INR 1.2 (0.9-1.1); PROTHROMBIN TIME 12.7 SEC (9.30-11.50)
[2017-10-12 07:53] LABS: CALCIUM 8.8 MG/DL (8.5-10.1)
[2017-10-12 08:54] VITALS: BP 164/88
--- NOTE | 2017-10-12 10:56 | Pulmonology Progress Note ---
Assessment/Plan Assessment/Plan ASSESSMENT Acute diastolic CHF exacerbation acute on chronic renal failure Coagulopathy HTN DM out of control Probably BLE cellulitis in setting of chronic BLE lymphedema Severe pulmonary HTN PAF morbid obesity anemia of chronic disease, s/p blood transfusion coccyx st 2 decub ulcer POA PLAN OF CARE tele cardio follows ECHO with pEF 60-65% and RVSP of 64 c/w severe pulmonary HTN closely monitor renal parameters creat 4.0 , hold on diuretic nephro follows 24 hr urine done cr clear 30 per nephro will need HD soon and elective AV fistula O2 HHN prn ID follows, on empiric abx Monitor INR, heme follows, INR down to 1.2 , coagulopathy resolved . Anemia w/up noted, on EPO and Venofer s/p blood transfusion 2 u PRBC BP management with BB, CCB and Hydralazine ( Clonidine stopped by nephro) , BS management with SS of insulin, [id number] not at goal, started on short acting premeal Novolog and changed from Levemir to NPH as per nephro not qualified for home O2 case discussed and evaluated by supervising physician Subjective Allergies: Coded Allergies: BENAZEPRIL (Verified Allergy, Intermediate, Shortness of Breath, 07/01/14) NIFEDIPINE (Verified Allergy, Intermediate, Shortness of Breath, 06/28/14) NITROGLYCERIN (Verified Allergy, Intermediate, Shortness of Breath, 06/28/14 ) SOB and BLE swelling Subjective leukocytosis resolved on RA pulse oximetry stable visibly SOB , no chest pain on RA pulse ox 96% sitting on the chair creat down to 4.0 Objective Last 24 Hour Vital Signs Date Time Temp Pulse Resp B/P (MAP) Pulse Ox O2 Delivery O2 Flow Rate FiO2 10/12/17 09:24 63 164/88 10/12/17 09:24 63 164/88 10/12/17 08:54 97.9 63 20 164/88 96 Room Air 10/12/17 08:00 64 10/12/17 07:34 Room Air 10/12/17 07:33 96 Room Air 21 10/12/17 07:30 64 16 Room Air 21 10/12/17 04:00 97.7 61 20 150/64 97 Room Air 10/12/17 04:00 59 10/12/17 00:30 97.3 58 21 135/62 97 Room Air 10/12/17 00:00 59 10/11/17 22:14 62 154/64 10/11/17 20:00 97.5 62 22 154/64 94 Nasal Cannula 2.0 10/11/17 20:00 69 10/11/17 19:30 62 16 Room Air 21 10/11/17 19:30 95 Room Air 21 10/11/17 19:30 Room Air 21 10/11/17 18:00 58 103/71 10/11/17 16:00 57 10/11/17 15:42 97.2 58 20 103/71 98 Room Air 10/11/17 12:00 55 10/11/17 11:48 97.9 50 20 133/61 100 Room Air Intake and Output 10/12/17 10/13/17 19:00 07:00 Intake Total 120 ml Balance 120 ml Intake Oral 120 ml Objective General Appearance: other - morbidly obese Bulgarian speaking female in NAD, HEENT: normocephalic, atraumatic, anicteric, mucous membranes moist, Respiratory/Chest: lungs clear, no respiratory distress, no accessory muscle use Cardiovascular: normal rate, regular rhythm, no JVD Abdomen: normal bowel sounds, soft, non tender - obese Extremities: + 3 edema BLE Neurologic/Psychiatric: abnormal gait, alert, oriented x 3, responsive, normal mood/affect Laboratory Tests 10/12/17 05:35: White Blood Count 9.8, Red Blood Count 3.57L, Hemoglobin 9.3L, Hematocrit 28.4L , Mean Corpuscular Volume 80, Mean Corpuscular Hemoglobin 26.0L, Mean Corpuscular Hemoglobin Concent 32.7, Red Cell Distribution Width 16.4H, Platelet Count 249, Mean Platelet Volume 7.9, Neutrophils (%) (Auto) 74.4, Lymphocytes (%) (Auto) 11.4L, Monocytes (%) (Auto) 5.8, Eosinophils (%) (Auto) 7.8H, Basophils (%) (Auto) 0.6, Prothrombin Time 12.7H, Prothromb Time International Ratio 1.2H, Sodium Level 139, Potassium Level 4.3, Chloride Level 107, Carbon Dioxide Level 19L, Anion Gap 13, Blood Urea Nitrogen 121H, Creatinine 4.0H, Estimat Glomerular Filtration Rate 11.4, Glucose Level 125H, Calcium Level 8.8 Current Medications Medications (Trade) Dose Ordered Sig/Ifeanyi Route PRN Reason Start Time Stop Time Status Last Admin Dose Admin Acetaminophen (Tylenol) 650 mg Q4H PRN ORAL Fever 10/06/17 21:45 11/05/17 21:44 Albuterol/ Ipratropium (Albuterol/ Ipratropium) 3 ml Q4H PRN HHN Shortness of Breath 10/10/17 12:45 10/15/17 12:44 Amlodipine Besylate (Norvasc) 10 mg BID ORAL 10/07/17 09:00 11/06/17 08:59 10/12/17 09:24 Atorvastatin Calcium (Lipitor) 40 mg BEDTIME ORAL 10/11/17 21:00 11/10/17 20:59 10/11/17 22:15 Carvedilol (Coreg) 3.125 mg EVERY 12 HOURS ORAL 10/07/17 09:00 11/06/17 08:59 10/12/17 09:24 Dextrose (Dextrose 50%) STAT PRN IV Hypoglycemia 10/06/17 21:45 11/05/17 21:44 Epoetin Chaim (Procrit (for non ESRD use)) 10,000 units MON-WED-FRI SUBQ 10/08/17 21:00 11/07/17 20:59 10/10/17 21:46 Hydralazine HCl (Apresoline) 50 mg Q6HR ORAL 10/11/17 12:30 11/10/17 12:29 Insulin Aspart (NovoLOG) BEFORE MEALS AND HS SUBQ 10/07/17 06:30 11/06/17 06:29 10/11/17 22:18 Insulin Aspart (NovoLOG) 16 units NOVOTIAC SUBQ 10/11/17 06:30 11/10/17 06:29 10/11/17 12:07 Insulin Human NPH (Humulin N) 22 units BIAC SUBQ 10/11/17 19:30 11/10/17 19:29 10/11/17 20:07 Iron Sucrose 100 mg/Sodium Chloride 60 ml @ 240 mls/hr BEDTIME IV 10/08/17 21:00 10/12/17 21:14 10/11/17 21:20 Levofloxacin 100 ml @ 100 mls/hr Q48H IVPB 10/13/17 17:00 10/20/17 16:59 Ondansetron HCl (Zofran) 4 mg Q6H PRN IVP Nausea & Vomiting 10/06/17 21:45 11/05/17 21:44 Polyethylene Glycol (Miralax) 17 gm DAILYPRN PRN ORAL Constipation 10/06/17 21:45 11/05/17 21:44 Temazepam (Restoril) 15 mg HSPRN PRN ORAL Insomnia 10/06/17 21:45 10/13/17 21:44 Kendall JonesFour [facility]s Psychiatric HospitalKyleigh Berman NP Oct 12, 2017 10:56
--- NOTE | 2017-10-12 11:49 | Nephrology Progress Note ---
Assessment/Plan Problem List: (1) CKD (chronic kidney disease) stage 5, GFR less than 15 ml/min (2) Acute on chronic renal insufficiency (3) Morbid obesity (4) Coagulopathy (5) Pulmonary hypertension (6) HTN (hypertension) (7) Diabetes (8) Anemia in chronic kidney disease (9) CHF (congestive heart failure), NYHA class II (10) Lymphedema Plan bun/creat 70/2.2 on 09/24 in my office, higher now from coagulopathy, likely bloood in gi tract, prior diuretics [id number]. Hopefully labs will return close to baseline and we can hold off dialysis a few months. She will need elective av fistula in the near future. DR Haider Douglas trying to schedule vascular surgery for 10/13. 24 hr urines creatinine clearance 30 better than expected. . Hold diuretics for now. + hydrate d/w dr broussard+Adam Subjective Constitutional: Reports: weakness HEENT: Reports: no symptoms Neurologic/Psychiatric: Reports: no symptoms Subjective feels better, no current sob,nausea, sat 92-94% RA Objective Objective Last 24 Hour Vital Signs Date Time Temp Pulse Resp B/P (MAP) Pulse Ox O2 Delivery O2 Flow Rate FiO2 10/12/17 09:24 63 164/88 10/12/17 09:24 63 164/88 10/12/17 08:54 97.9 63 20 164/88 96 Room Air 10/12/17 08:00 64 10/12/17 07:34 Room Air 10/12/17 07:33 96 Room Air 10/12/17 07:30 64 16 Room Air 10/12/17 04:00 97.7 61 20 150/64 97 Room Air 10/12/17 04:00 59 10/12/17 00:30 97.3 58 21 135/62 97 Room Air 10/12/17 00:00 59 10/11/17 22:14 62 154/64 10/11/17 20:00 97.5 62 22 154/64 94 Nasal Cannula 2.0 10/11/17 20:00 69 10/11/17 19:30 62 16 Room Air 21 10/11/17 19:30 95 Room Air 21 10/11/17 19:30 Room Air 21 10/11/17 18:00 58 103/71 11/18/17 16:00 57 10/11/17 15:42 97.2 58 20 103/71 98 Room Air 10/11/17 12:00 55 Intake and Output 10/12/17 10/13/17 19:00 07:00 Intake Total 120 ml Balance 120 ml Intake Oral 120 ml Laboratory Tests 10/12/17 05:35: White Blood Count 9.8, Red Blood Count 3.57L, Hemoglobin 9.3L, Hematocrit 28.4L , Mean Corpuscular Volume 80, Mean Corpuscular Hemoglobin 26.0L, Mean Corpuscular Hemoglobin Concent 32.7, Red Cell Distribution Width 16.4H, Platelet Count 249, Mean Platelet Volume 7.9, Neutrophils (%) (Auto) 74.4, Lymphocytes (%) (Auto) 11.4L, Monocytes (%) (Auto) 5.8, Eosinophils (%) (Auto) 7.8H, Basophils (%) (Auto) 0.6, Prothrombin Time 12.7H, Prothromb Time International Ratio 1.2H, Sodium Level 139, Potassium Level 4.3, Chloride Level 107, Carbon Dioxide Level 19L, Anion Gap 13, Blood Urea Nitrogen 121H, Creatinine 4.0H, Estimat Glomerular Filtration Rate 11.4, Glucose Level 125H, Calcium Level 8.8 Height (Feet): 5 Height (Inches): 3.00 Weight (Pounds): 275 General Appearance: no apparent distress, morbidly obese EENT: normal ENT inspection Neck: normal alignment Cardiovascular: normal rate, regular rhythm Respiratory/Chest: lungs clear Abdomen: non tender, soft Extremities: moderate edema 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
[2017-10-12] MEDS ORDERED: Sodium Chloride 500ML 500 ML IVPB ONE (12:00)
[2017-10-12 12:36] VITALS: BP 159/79
--- NOTE | 2017-10-12 13:16 | Wound Nurse Progress Note ---
Wound RN Progress Note Wound Consult Reassessment done on Sacrococcygeal pressure ulcer. Stage II pressure ulcer RESOLVED. NITIN PECK RN Oct 12, 2017 13:16
[2017-10-12 15:54] VITALS: BP 136/55
--- NOTE | 2017-10-12 18:53 | Cardiology Progress Note ---
Assessment/Plan Assessment/Plan no changes, creatinine unchanged Subjective Subjective no significant changes still has dyspnea with two pillows no chest pain, no palpitations Objective Last 24 Hour Vital Signs Date Time Temp Pulse Resp B/P (MAP) Pulse Ox O2 Delivery O2 Flow Rate FiO2 10/12/17 17:45 136/55 10/12/17 17:44 64 136/55 10/12/17 15:54 97.7 64 20 136/55 95 Nasal Cannula 3.0 10/12/17 12:36 97.0 62 20 159/79 95 Room Air 10/12/17 12:00 65 10/12/17 09:24 63 164/88 10/12/17 09:24 63 164/88 10/12/17 08:54 97.9 63 20 164/88 96 Room Air 10/12/17 08:00 64 10/12/17 07:34 Room Air 21 10/12/17 07:33 96 Room Air 21 10/12/17 07:30 64 16 Room Air 21 10/12/17 04:00 97.7 61 20 150/64 97 Room Air 10/12/17 04:00 59 10/12/17 00:30 97.3 58 21 135/62 97 Room Air 10/12/17 00:00 59 10/11/17 22:14 62 154/64 10/11/17 20:00 97.5 62 22 154/64 94 Nasal Cannula 2.0 10/11/17 20:00 69 10/11/17 19:30 62 16 Room Air 21 10/11/17 19:30 95 Room Air 21 10/11/17 19:30 Room Air 21 General Appearance: mild distress EENT: PERRL/EOMI Neck: JVD Rhythm: NSR Cardiovascular: normal rate Respiratory/Chest: crackles/rales - at bases bilaterally Abdomen: soft, distended Extremities: other - moderate edema, skin cobblestone appearance, no erythema Intake and Output 10/12/17 10/13/17 19:00 07:00 Intake Total 360 ml Balance 360 ml Intake Oral 360 ml # Voids 2 Laboratory Tests Test 10/12/17 05:35 White Blood Count 9.8 K/UL (4.8-10.8) Red Blood Count 3.57 M/UL (4.20-5.40) L Hemoglobin 9.3 G/DL (12.0-16.0) L Hematocrit 28.4 % (37.0-47.0) L Mean Corpuscular Volume 80 FL (80-99) Mean Corpuscular Hemoglobin 26.0 PG (27.0-31.0) L Mean Corpuscular Hemoglobin Concent 32.7 G/DL (32.0-36.0) Red Cell Distribution Width 16.4 % (11.6-14.8) H Platelet Count 249 K/UL (150-450) Mean Platelet Volume 7.9 FL (6.5-10.1) Neutrophils (%) (Auto) 74.4 % (45.0-75.0) Lymphocytes (%) (Auto) 11.4 % (20.0-45.0) L Monocytes (%) (Auto) 5.8 % (1.0-10.0) Eosinophils (%) (Auto) 7.8 % (0.0-3.0) H Basophils (%) (Auto) 0.6 % (0.0-2.0) Prothrombin Time 12.7 SEC (9.30-11.50) H Prothromb Time International Ratio 1.2 (0.9-1.1) H Sodium Level 139 MMOL/L (136-145) Potassium Level 4.3 MMOL/L (3.5-5.1) Chloride Level 107 MMOL/L (98-107) Carbon Dioxide Level 19 MMOL/L (21-32) L Anion Gap 13 mmol/L (5-15) Blood Urea Nitrogen 121 mg/dL (7-18) H Creatinine 4.0 MG/DL (0.55-1.30) H Estimat Glomerular Filtration Rate 11.4 mL/min (>60) Glucose Level 125 MG/DL (74-106) H Calcium Level 8.8 MG/DL (8.5-10.1) JAMIE HANNAH Oct 12, 2017 18:53
[2017-10-12] MEDS ORDERED: NS 500ML ONE (19:01)
[2017-10-12] MEDS ORDERED: Tubing IV Secondary IV ONE (19:01)
[2017-10-12 20:00] VITALS: BP 142/73
--- NOTE | 2017-10-12 22:00 | Consultation ---
DATE OF CONSULTATION: 10/12/2017 ENDOCRINOLOGY CONSULTATION CONSULTING PHYSICIAN: Vinay Cruz M.D. REFERRING PHYSICIAN: Mirela Medina M.D. REASON FOR CONSULTATION: Diabetes management. HISTORY OF PRESENT ILLNESS: The patient is a 57-year-old female with longstanding history of insulin-dependent diabetes for the past 30 years, who was admitted to the hospital with respiratory distress and dyspnea. The patient was found to be volume overloaded and with urinary tract infection and was admitted to the floor for observation and treatment. I was called to manage diabetes. MEDICATIONS: As an outpatient: 1. NPH 15 units b.i.d. 2. Humalog insulin 8 units b.i.d. For the rest, refer to medication reconciliation form. PAST MEDICAL HISTORY: 1. Insulin-dependent diabetes. 2. Hypertension. 3. Chronic kidney disease. 4. History of CVA. REVIEW OF SYSTEMS: As per HPI. LABORATORY VALUES: WBC 9, hemoglobin 8.6, hematocrit 27, and platelets of 210,000. Sodium 138, potassium 4.8, chloride 106, bicarbonate 19, BUN 13, creatinine , anion gap 13. Hemoglobin A1c of 12.8. PHYSICAL EXAMINATION: VITAL SIGNS: Blood pressure 150/64, heart rate 61, temperature 97.7, and pulse of 59. HEENT: Pupils equal and reactive to light. Sclerae are anicteric. NECK: No JVD. No thyromegaly. LUNGS: Clear. ABDOMEN: Positive bowel sounds. Soft. EXTREMITIES: No clubbing or cyanosis. She has 2+ lower extremity edema. DIAGNOSES: 1. Acute kidney injury on chronic renal failure. 2. Diabetes, out of control. 3. Obesity. 4. Hypertension. 5. Anemia. 6. Lymphedema. PLAN: Diabetes will be controlled with insulin regimen. The patient will have bolus using Levemir and NovoLog insulin. The dosage will be adjusted to keep glucose under the acceptable range. I will follow her during the hospital stay. Thank you, Dr. Medina, for the courtesy of this consultation. Vinay Cruz M.D. DR: RN/A JOB#: [id number] CC:
[2017-10-12] MEDS: Atorvastatin 20mg tab ORAL SCH (22:18)
--- NOTE | 2017-10-12 22:28 | General Progress Note ---
Assessment/Plan Assessment/Plan 1. Coagulopathy, likely secondary to Coumadin accumulation INR improved. 2. Anemia, secondary to chronic disease. Continue to closely monitor. ESR elevated. Iron panel showing percent saturation of 5%, TIBC of 273, and ferritin of 196. --> transfuse as needed to hgb above 7 --> s/p transfusion, HH improved. continue to watch counts 3. Leukocytosis, likely secondary to reactive process. WBC count normalized 5. Acute kidney injury and azotemia. 6. Multiple drug intolerance. Subjective Allergies: Coded Allergies: BENAZEPRIL (Verified Allergy, Intermediate, Shortness of Breath, 07/01/14) NIFEDIPINE (Verified Allergy, Intermediate, Shortness of Breath, 06/28/14) NITROGLYCERIN (Verified Allergy, Intermediate, Shortness of Breath, 06/28/14 ) SOB and BLE swelling All Systems: reviewed and negative except above Subjective NAD Objective Last 24 Hour Vital Signs Date Time Temp Pulse Resp B/P (MAP) Pulse Ox O2 Delivery O2 Flow Rate FiO2 10/12/17 22:18 69 142/73 10/12/17 20:00 97.0 69 22 142/73 90 Nasal Cannula 3.0 10/12/17 19:30 92 Nasal Cannula 2.0 28 10/12/17 19:30 68 16 Nasal Cannula 2.0 28 10/12/17 19:30 Nasal Cannula 2.0 28 10/12/17 17:45 136/55 10/12/17 17:44 64 136/55 10/12/17 16:00 67 10/12/17 15:54 97.7 64 20 136/55 95 Nasal Cannula 3.0 10/12/17 12:36 97.0 62 20 159/79 95 Room Air 10/12/17 12:00 65 10/12/17 09:24 63 164/88 10/12/17 09:24 63 164/88 10/12/17 08:54 97.9 63 20 164/88 96 Room Air 10/12/17 08:00 64 10/12/17 07:34 Room Air 10/12/17 07:33 96 Room Air 10/12/17 07:30 64 16 Room Air 21 10/12/17 04:00 97.7 61 20 150/64 97 Room Air 10/12/17 04:00 59 10/12/17 00:30 97.3 58 21 135/62 97 Room Air 10/12/17 00:00 59 Intake and Output 10/12/17 10/13/17 19:00 07:00 Intake Total 360 ml Balance 360 ml Intake Oral 360 ml # Voids 2 Laboratory Tests 10/12/17 05:35: White Blood Count 9.8, Red Blood Count 3.57L, Hemoglobin 9.3L, Hematocrit 28.4L , Mean Corpuscular Volume 80, Mean Corpuscular Hemoglobin 26.0L, Mean Corpuscular Hemoglobin Concent 32.7, Red Cell Distribution Width 16.4H, Platelet Count 249, Mean Platelet Volume 7.9, Neutrophils (%) (Auto) 74.4, Lymphocytes (%) (Auto) 11.4L, Monocytes (%) (Auto) 5.8, Eosinophils (%) (Auto) 7.8H, Basophils (%) (Auto) 0.6, Prothrombin Time 12.7H, Prothromb Time International Ratio 1.2H, Sodium Level 139, Potassium Level 4.3, Chloride Level 107, Carbon Dioxide Level 19L, Anion Gap 13, Blood Urea Nitrogen 121H, Creatinine 4.0H, Estimat Glomerular Filtration Rate 11.4, Glucose Level 125H, Calcium Level 8.8 Height (Feet): 5 Height (Inches): 3.00 Weight (Pounds): 275 General Appearance: no apparent distress EENT: normal ENT inspection Respiratory/Chest: decreased breath sounds 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
[2017-10-13] VITALS (7 sets, daily range): BP systolic 136–159; BP diastolic 62–74
[2017-10-13] MEDS: HydrALAZINE 50mg tab ORAL SCH ×4 (06:00→18:00)
[2017-10-13] MEDS: NovoLOG Insulin Flexpen SUBQ SCH ×7 (06:38→20:48)
--- NOTE | 2017-10-13 07:37 | General Progress Note ---
Assessment/Plan Problem List: (1) Morbid obesity ICD Codes: E66.01 - Morbid (severe) obesity due to excess calories SNOMED: 278833422, 03142808115718 (2) Accelerated hypertension ICD Codes: I10 - Accelerated hypertension SNOMED: 74826963 (3) Iron deficiency anemia ICD Codes: D50.9 - Iron deficiency anemia SNOMED: 14319652 (4) Acute on chronic renal insufficiency ICD Codes: N17.9 - Acute on chronic renal insufficiency; N18.9 - Chronic kidney disease, unspecified SNOMED: 273568162 (5) Lymphedema ICD Codes: I89.0 - Lymphedema, not elsewhere classified SNOMED: 662387477 (6) Uncontrolled diabetes mellitus ICD Codes: E11.65 - Uncontrolled diabetes mellitus SNOMED: 037233653 Assessment/Plan insulin was held yesterday in expectation of procedure continue NPH bid and Novolog as scheduled + SSI Subjective ROS Limited/Unobtainable: Yes Allergies: Coded Allergies: BENAZEPRIL (Verified Allergy, Intermediate, Shortness of Breath, 07/01/14) NIFEDIPINE (Verified Allergy, Intermediate, Shortness of Breath, 06/28/14) NITROGLYCERIN (Verified Allergy, Intermediate, Shortness of Breath, 06/28/14 ) SOB and BLE swelling Subjective events noted Objective Last 24 Hour Vital Signs Date Time Temp Pulse Resp B/P (MAP) Pulse Ox O2 Delivery O2 Flow Rate FiO2 10/13/17 06:00 146/69 10/13/17 04:22 97.0 66 20 146/69 98 Nasal Cannula 2.0 10/13/17 04:00 64 10/13/17 00:06 96.9 62 21 155/70 Nasal Cannula 3.0 10/13/17 00:00 155/70 10/12/17 22:18 69 142/73 10/12/17 20:00 97.0 69 22 142/73 90 Nasal Cannula 3.0 10/12/17 20:00 70 10/12/17 19:30 92 Nasal Cannula 2.0 28 10/12/17 19:30 68 16 Nasal Cannula 2.0 28 10/12/17 19:30 Nasal Cannula 2.0 28 10/12/17 17:45 136/55 10/12/17 17:44 64 136/55 10/12/17 16:00 67 10/12/17 15:54 97.7 64 20 136/55 95 Nasal Cannula 3.0 10/12/17 12:36 97.0 62 20 159/79 95 Room Air 10/12/17 12:00 65 10/12/17 09:24 63 164/88 10/12/17 09:24 63 164/88 10/12/17 08:54 97.9 63 20 164/88 96 Room Air 10/12/17 08:00 64 Height (Feet): 5 Height (Inches): 3.00 Weight (Pounds): 275 General Appearance: no apparent distress Neck: normal alignment Cardiovascular: normal rate Respiratory/Chest: lungs clear Abdomen: normal bowel sounds Pelvis: normal external exam Objective Current Medications Medications (Trade) Dose Ordered Sig/Ifeanyi Route PRN Reason Start Time Stop Time Status Last Admin Dose Admin Acetaminophen (Tylenol) 650 mg Q4H PRN ORAL Fever 10/06/17 21:45 11/05/17 21:44 Albuterol/ Ipratropium (Albuterol/ Ipratropium) 3 ml Q4H PRN HHN Shortness of Breath 10/10/17 12:45 10/15/17 12:44 Amlodipine Besylate (Norvasc) 10 mg BID ORAL 10/07/17 09:00 11/06/17 08:59 10/12/17 17:44 Atorvastatin Calcium (Lipitor) 40 mg BEDTIME ORAL 10/11/17 21:00 11/10/17 20:59 10/12/17 22:18 Carvedilol (Coreg) 3.125 mg EVERY 12 HOURS ORAL 10/07/17 09:00 11/06/17 08:59 10/12/17 22:18 Dextrose (Dextrose 50%) STAT PRN IV Hypoglycemia 10/06/17 21:45 11/05/17 21:44 Epoetin Chaim (Procrit (for non ESRD use)) 10,000 units MON-WED-FRI SUBQ 10/08/17 21:00 11/07/17 20:59 10/10/17 21:46 Hydralazine HCl (Apresoline) 50 mg Q6HR ORAL 10/11/17 12:30 11/10/17 12:29 Insulin Aspart (NovoLOG) BEFORE MEALS AND HS SUBQ 10/07/17 06:30 11/06/17 06:29 10/13/17 06:38 Insulin Aspart (NovoLOG) 16 units NOVOTIAC SUBQ 10/11/17 06:30 11/10/17 06:29 10/13/17 06:38 Insulin Human NPH (Humulin N) 22 units BIAC SUBQ 10/11/17 19:30 11/10/17 19:29 10/11/17 20:07 Levofloxacin 100 ml @ 100 mls/hr Q48H IVPB 10/13/17 17:00 10/20/17 16:59 Non-Formulary Medication (Non-Formulary Med) 1 ea BID ORAL 10/13/17 07:30 11/12/17 07:29 UNV Ondansetron HCl (Zofran) 4 mg Q6H PRN IVP Nausea & Vomiting 10/06/17 21:45 11/05/17 21:44 Polyethylene Glycol (Miralax) 17 gm DAILYPRN PRN ORAL Constipation 10/06/17 21:45 11/05/17 21:44 Temazepam (Restoril) 15 mg HSPRN PRN ORAL Insomnia 10/06/17 21:45 10/13/17 21:44 Item Value Date Time Bedside Blood Glucose 214 mg/dl H 10/13/17 0638 Bedside Blood Glucose 168 mg/dl H 10/12/17 2222 Bedside Blood Glucose 269 mg/dl H 10/12/17 1743 Bedside Blood Glucose 194 mg/dl H 10/12/17 1154 AMY LOPEZ Oct 13, 2017 07:37
[2017-10-13] MEDS: Insulin NPH SUBQ SCH ×2 (07:42→16:30)
[2017-10-13 08:32] LABS: BASOPHILS % (AUTO) 0.7 % (0.0-2.0); EOSINOPHILS % (AUTO) 5.9 % (0.0-3.0); LYMPHOCYTES % (AUTO) 8.9 % (20.0-45.0); MEAN CORPUSCULAR HEMOGLOBIN 25.4 PG (27.0-31.0); MEAN CORPUSCULAR HGB CONC 31.3 G/DL (32.0-36.0); MEAN CORPUSCULAR VOLUME 81 FL (80-99); MEAN PLATELET VOLUME 7.5 FL (6.5-10.1); MONOCYTES % (AUTO) 3.4 % (1.0-10.0); NEUTROPHILS % (AUTO) 81.2 % (45.0-75.0); PLATELET COUNT 228 K/UL (150-450); RED BLOOD COUNT 3.54 M/UL (4.20-5.40); RED CELL DISTRIBUTION WIDTH 16.9 % (11.6-14.8); WHITE BLOOD COUNT 9.9 K/UL (4.8-10.8)
[2017-10-13 09:01] LABS: ANION GAP 16 mmol/L (5-15); CALCIUM 9.1 MG/DL (8.5-10.1); CARBON DIOXIDE 16 MMOL/L (21-32); CHLORIDE 107 MMOL/L (98-107); CREATININE 3.9 MG/DL (0.55-1.30); GLOMERULAR FILTRATION RATE 11.8 mL/min (>60); POTASSIUM 4.7 MMOL/L (3.5-5.1); SODIUM 139 MMOL/L (136-145)
--- NOTE | 2017-10-13 09:51 | Infectious Diseases Prog Note ---
Assessment/Plan Assessment/Plan ASSESSMENT: 57 y/o female with: // ? Pneum vs CHF Cxray : bilateral interstitial edema, unchanged. The heart size is normal // ? BLE cellulitis pt has chronic BLE lymphedema and skin changes - doppler(-) DVT // h/o UTI / pyelonephritis - screening UA neg // Negative HIV // Leukocytosis -PS // afebrile // HIV and Hep B/C: Neg // Acute on chronic diastolic CHF exacerbation // Severe pulmonary HTN // ARF on CKD - improved // Coagulopathy, m/l 2/2 coumadin // PAF // Indirect hyperbilirubinemia - hepatitis panel neg // Elevated ESR, CRP // DM2 - HbA1c 12.8% // Psoriasis // Morbid obesity // No ABX allergies // Full Code PLAN: - Continue Levaquin abx d#03/30 -10/11 SP Ceftriaxone #3 - monitor CBC, temperatures - monitor BMP - BLE elevation, compression Subjective Allergies: Coded Allergies: BENAZEPRIL (Verified Allergy, Intermediate, Shortness of Breath, 07/01/14) NIFEDIPINE (Verified Allergy, Intermediate, Shortness of Breath, 06/28/14) NITROGLYCERIN (Verified Allergy, Intermediate, Shortness of Breath, 06/28/14 ) SOB and BLE swelling Subjective afebrile VSS no leukocytosis Objective Vital Signs Last 24 Hour Vital Signs Date Time Temp Pulse Resp B/P (MAP) Pulse Ox O2 Delivery O2 Flow Rate FiO2 10/13/17 09:15 100 159/72 10/13/17 09:15 100 159/72 10/13/17 08:22 97.9 80 20 159/72 97 Nasal Cannula 4.0 10/13/17 08:00 82 10/13/17 06:00 95 Room Air 10/13/17 06:00 146/69 10/13/17 04:22 97.0 66 20 146/69 98 Nasal Cannula 2.0 10/13/17 04:00 64 10/13/17 00:06 96.9 62 21 155/70 Nasal Cannula 3.0 10/13/17 00:00 155/70 10/12/17 22:18 69 142/73 10/12/17 20:00 97.0 69 22 142/73 90 Nasal Cannula 3.0 10/12/17 20:00 70 10/12/17 19:30 92 Nasal Cannula 2.0 28 10/12/17 19:30 68 16 Nasal Cannula 2.0 28 10/12/17 19:30 Nasal Cannula 2.0 28 10/12/17 17:45 136/55 10/12/17 17:44 64 136/55 10/12/17 16:00 67 10/12/17 15:54 97.7 64 20 136/55 95 Nasal Cannula 3.0 10/12/17 12:36 97.0 62 20 159/79 95 Room Air 10/12/17 12:00 65 Height (Feet): 5 Height (Inches): 3.00 Weight (Pounds): 238 Objective GENERAL: No apparent distress. Nontoxic appearing and obese. CARDIOVASCULAR: Irregularly irregular. No murmurs. PULMONARY: Bilateral crackles. ABDOMEN: Bowel sounds present. Soft, nondistended, and nontender. EXTREMITIES: Bilateral lower extremity erythema, edema and warmth> venous stasis changes SKIN: Dry scaly plaques. NEUROLOGICAL: Alert and oriented x3. Nonfocal. Laboratory Tests Test 10/13/17 08:10 White Blood Count 9.9 K/UL (4.8-10.8) Red Blood Count 3.54 M/UL (4.20-5.40) L Hemoglobin 9.0 G/DL (12.0-16.0) L Hematocrit 28.8 % (37.0-47.0) L Mean Corpuscular Volume 81 FL (80-99) Mean Corpuscular Hemoglobin 25.4 PG (27.0-31.0) L Mean Corpuscular Hemoglobin Concent 31.3 G/DL (32.0-36.0) L Red Cell Distribution Width 16.9 % (11.6-14.8) H Platelet Count 228 K/UL (150-450) Mean Platelet Volume 7.5 FL (6.5-10.1) Neutrophils (%) (Auto) 81.2 % (45.0-75.0) H Lymphocytes (%) (Auto) 8.9 % (20.0-45.0) L Monocytes (%) (Auto) 3.4 % (1.0-10.0) Eosinophils (%) (Auto) 5.9 % (0.0-3.0) H Basophils (%) (Auto) 0.7 % (0.0-2.0) Sodium Level 139 MMOL/L (136-145) Potassium Level 4.7 MMOL/L (3.5-5.1) Chloride Level 107 MMOL/L (98-107) Carbon Dioxide Level 16 MMOL/L (21-32) L Anion Gap 16 mmol/L (5-15) H Blood Urea Nitrogen 116 mg/dL (7-18) H Creatinine 3.9 MG/DL (0.55-1.30) H Estimat Glomerular Filtration Rate 11.8 mL/min (>60) Glucose Level 261 MG/DL (74-106) #H Calcium Level 9.1 MG/DL (8.5-10.1) Current Medications Medications (Trade) Dose Ordered Sig/Ifeanyi Route PRN Reason Start Time Stop Time Status Last Admin Dose Admin Acetaminophen (Tylenol) 650 mg Q4H PRN ORAL Fever 10/06/17 21:45 11/05/17 21:44 Albuterol/ Ipratropium (Albuterol/ Ipratropium) 3 ml Q4H PRN HHN Shortness of Breath 10/10/17 12:45 10/15/17 12:44 Amlodipine Besylate (Norvasc) 10 mg BID ORAL 10/07/17 09:00 11/06/17 08:59 10/13/17 09:15 Atorvastatin Calcium (Lipitor) 40 mg BEDTIME ORAL 10/11/17 21:00 11/10/17 20:59 10/12/17 22:18 Carvedilol (Coreg) 3.125 mg EVERY 12 HOURS ORAL 10/07/17 09:00 11/06/17 08:59 10/13/17 09:15 Dextrose (Dextrose 50%) STAT PRN IV Hypoglycemia 10/06/17 21:45 11/05/17 21:44 Epoetin Chaim (Procrit (for non ESRD use)) 10,000 units FRI-FRI-FRI SUBQ 10/08/17 21:00 11/07/17 20:59 10/10/17 21:46 Ferrous Gluconate (Fergon) 324 mg BIDBL ORAL 10/13/17 11:30 11/12/17 11:29 Hydralazine HCl (Apresoline) 50 mg Q6HR ORAL 10/11/17 12:30 11/10/17 12:29 Insulin Aspart (NovoLOG) BEFORE MEALS AND HS SUBQ 10/07/17 06:30 11/06/17 06:29 10/13/17 06:38 Insulin Aspart (NovoLOG) 16 units NOVOTIAC SUBQ 10/11/17 06:30 11/10/17 06:29 10/13/17 06:38 Insulin Human NPH (Humulin N) 22 units BIAC SUBQ 10/11/17 19:30 11/10/17 19:29 10/13/17 07:42 Levofloxacin 100 ml @ 100 mls/hr Q48H IVPB 10/13/17 17:00 10/20/17 16:59 Ondansetron HCl (Zofran) 4 mg Q6H PRN IVP Nausea & Vomiting 10/06/17 21:45 11/05/17 21:44 Polyethylene Glycol (Miralax) 17 gm DAILYPRN PRN ORAL Constipation 10/06/17 21:45 11/05/17 21:44 Temazepam (Restoril) 15 mg HSPRN PRN ORAL Insomnia 10/06/17 21:45 10/13/17 21:44 Sanaz Gaspar M.D. Oct 13, 2017 09:51
[2017-10-13] MEDS ORDERED: Ferrous Gluconate 324 MG TAB ORAL SCH (11:30)
--- NOTE | 2017-10-13 13:47 | Pulmonology Progress Note ---
Assessment/Plan Problems: (1) Cellulitis (2) Acute exacerbation of CHF (congestive heart failure) (3) Acute on chronic renal insufficiency (4) Coagulopathy (5) Pulmonary hypertension (6) Morbid obesity (7) HTN (hypertension) (8) Diabetes Assessment/Plan to be seen by vascular surgery 24 hour urine collection underway cardiology evaluation appreciated sliding scale f/u INR Subjective ROS Limited/Unobtainable: No Interval Events: still short of breath Allergies: Coded Allergies: BENAZEPRIL (Verified Allergy, Intermediate, Shortness of Breath, 07/01/14) NIFEDIPINE (Verified Allergy, Intermediate, Shortness of Breath, 06/28/14) NITROGLYCERIN (Verified Allergy, Intermediate, Shortness of Breath, 06/28/14 ) SOB and BLE swelling Objective Last 24 Hour Vital Signs Date Time Temp Pulse Resp B/P (MAP) Pulse Ox O2 Delivery O2 Flow Rate FiO2 10/13/17 12:13 97.5 92 20 139/74 97 Nasal Cannula 4.0 10/13/17 10:28 Nasal Cannula 4.0 36 10/13/17 10:28 100 Nasal Cannula 4.0 36 10/13/17 10:27 76 18 Nasal Cannula 4.0 36 10/13/17 09:15 100 159/72 10/13/17 09:15 100 159/72 10/13/17 08:22 97.9 80 20 159/72 97 Nasal Cannula 4.0 10/13/17 08:00 82 10/13/17 06:00 95 Room Air 10/13/17 06:00 146/69 10/13/17 04:22 97.0 66 20 146/69 98 Nasal Cannula 2.0 10/13/17 04:00 64 10/13/17 00:06 96.9 62 21 155/70 Nasal Cannula 3.0 10/13/17 00:00 155/70 10/12/17 22:18 69 142/73 10/12/17 20:00 97.0 69 22 142/73 90 Nasal Cannula 3.0 10/12/17 20:00 70 10/12/17 19:30 92 Nasal Cannula 2.0 28 10/12/17 19:30 68 16 Nasal Cannula 2.0 28 10/12/17 19:30 Nasal Cannula 2.0 28 10/12/17 17:45 136/55 11/19/17 17:44 64 136/55 10/12/17 16:00 67 10/12/17 15:54 97.7 64 20 136/55 95 Nasal Cannula 3.0 Intake and Output 10/13/17 10/14/17 19:00 07:00 Intake Total 120 ml Balance 120 ml Intake Oral 120 ml General Appearance: WD/WN HEENT: normocephalic, atraumatic Respiratory/Chest: chest wall non-tender, lungs clear Cardiovascular: normal peripheral pulses, normal rate Abdomen: normal bowel sounds, soft, non tender Genitourinary: normal external genitalia Extremities: no cyanosis Skin: no lesions 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 normal Lymphatic: no neck adenopathy Laboratory Tests 10/13/17 08:10: White Blood Count 9.9, Red Blood Count 3.54L, Hemoglobin 9.0L, Hematocrit 28.8L , Mean Corpuscular Volume 81, Mean Corpuscular Hemoglobin 25.4L, Mean Corpuscular Hemoglobin Concent 31.3L, Red Cell Distribution Width 16.9H, Platelet Count 228, Mean Platelet Volume 7.5, Neutrophils (%) (Auto) 81.2H, Lymphocytes (%) (Auto) 8.9L, Monocytes (%) (Auto) 3.4, Eosinophils (%) (Auto) 5.9H, Basophils (%) (Auto) 0.7, Sodium Level 139, Potassium Level 4.7, Chloride Level 107, Carbon Dioxide Level 16L, Anion Gap 16H, Blood Urea Nitrogen 116H, Creatinine 3.9H, Estimat Glomerular Filtration Rate 11.8, Glucose Level 261#H, Calcium Level 9.1 Current Medications Medications (Trade) Dose Ordered Sig/Ifeanyi Route PRN Reason Start Time Stop Time Status Last Admin Dose Admin Acetaminophen (Tylenol) 650 mg Q4H PRN ORAL Fever 10/06/17 21:45 11/05/17 21:44 Albuterol/ Ipratropium (Albuterol/ Ipratropium) 3 ml Q4H PRN HHN Shortness of Breath 10/10/17 12:45 10/15/17 12:44 Amlodipine Besylate (Norvasc) 10 mg BID ORAL 10/07/17 09:00 11/06/17 08:59 10/13/17 09:15 Atorvastatin Calcium (Lipitor) 40 mg BEDTIME ORAL 10/11/17 21:00 11/10/17 20:59 10/12/17 22:18 Carvedilol (Coreg) 3.125 mg EVERY 12 HOURS ORAL 10/07/17 09:00 11/06/17 08:59 10/13/17 09:15 Dextrose (Dextrose 50%) STAT PRN IV Hypoglycemia 10/06/17 21:45 11/05/17 21:44 Epoetin Chaim (Procrit (for non ESRD use)) 10,000 units FRI-FRI-FRI SUBQ 10/08/17 21:00 11/07/17 20:59 10/10/17 21:46 Ferrous Gluconate (Fergon) 324 mg BIDBL ORAL 10/13/17 11:30 11/12/17 11:29 10/13/17 13:07 Hydralazine HCl (Apresoline) 50 mg Q6HR ORAL 10/11/17 12:30 11/10/17 12:29 Insulin Aspart (NovoLOG) BEFORE MEALS AND HS SUBQ 10/07/17 06:30 11/06/17 06:29 10/13/17 13:10 Insulin Aspart (NovoLOG) 16 units NOVOTIAC SUBQ 10/11/17 06:30 11/10/17 06:29 10/13/17 13:13 Insulin Human NPH (Humulin N) 22 units BIAC SUBQ 10/11/17 19:30 11/10/17 19:29 10/13/17 07:42 Levofloxacin 100 ml @ 100 mls/hr Q48H IVPB 10/13/17 17:00 10/20/17 16:59 Ondansetron HCl (Zofran) 4 mg Q6H PRN IVP Nausea & Vomiting 10/13/17 18:00 11/05/17 21:44 Ondansetron HCl (Zofran) 4 mg Q6H PRN ORAL Nausea & Vomiting 10/13/17 18:00 11/12/17 17:59 Polyethylene Glycol (Miralax) 17 gm DAILYPRN PRN ORAL Constipation 10/06/17 21:45 11/05/17 21:44 Temazepam (Restoril) 15 mg HSPRN PRN ORAL Insomnia 10/06/17 21:45 10/13/17 21:44 JEAN CLAUDE SUTTON Oct 13, 2017 13:47
--- NOTE | 2017-10-13 14:02 | Nephrology Progress Note ---
Assessment/Plan Problem List: (1) CKD (chronic kidney disease) stage 5, GFR less than 15 ml/min (2) Acute on chronic renal insufficiency (3) Morbid obesity (4) Coagulopathy (5) Pulmonary hypertension (6) HTN (hypertension) (7) Diabetes (8) Anemia in chronic kidney disease (9) CHF (congestive heart failure), NYHA class II (10) Lymphedema Plan bun/creat 70/2.2 on 09/24 in my office, higher now from coagulopathy, likely bloood in gi tract, prior diuretics [id number]. Hopefully labs will return close to baseline and we can hold off dialysis a few months. She will need elective av fistula in the near future. DR Haider Douglas trying to schedule vascular surgery for 10/13. 24 hr urines creatinine clearance 30 better than expected. . Hold diuretics for now. + hydrate d/w dr broussard+Adam, now with nausea and emesis, symptomatic care, if not improving will need dialysis soon Subjective Constitutional: Reports: weakness HEENT: Reports: no symptoms Genitourinary: Reports: no symptoms Neurologic/Psychiatric: Reports: no symptoms Subjective feels better, no current sob,no has nausea, sat 92-94% RA Objective Objective Last 24 Hour Vital Signs Date Time Temp Pulse Resp B/P (MAP) Pulse Ox O2 Delivery O2 Flow Rate FiO2 10/13/17 12:13 97.5 92 20 139/74 97 Nasal Cannula 4.0 10/13/17 10:28 Nasal Cannula 4.0 36 10/13/17 10:28 100 Nasal Cannula 4.0 36 10/13/17 10:27 76 18 Nasal Cannula 4.0 36 10/13/17 09:15 100 159/72 10/13/17 09:15 100 159/72 10/13/17 08:22 97.9 80 20 159/72 97 Nasal Cannula 4.0 10/13/17 08:00 82 10/13/17 06:00 95 Room Air 10/13/17 06:00 146/69 10/13/17 04:22 97.0 66 20 146/69 98 Nasal Cannula 2.0 10/13/17 04:00 64 10/13/17 00:06 96.9 62 21 155/70 Nasal Cannula 3.0 10/13/17 00:00 155/70 10/12/17 22:18 69 142/73 11/19/17 20:00 97.0 69 22 142/73 90 Nasal Cannula 3.0 10/12/17 20:00 70 10/12/17 19:30 92 Nasal Cannula 2.0 28 10/12/17 19:30 68 16 Nasal Cannula 2.0 28 10/12/17 19:30 Nasal Cannula 2.0 28 10/12/17 17:45 136/55 10/12/17 17:44 64 136/55 10/12/17 16:00 67 10/12/17 15:54 97.7 64 20 136/55 95 Nasal Cannula 3.0 Intake and Output 10/13/17 10/14/17 18:59 06:59 Intake Total 120 ml Balance 120 ml Intake Oral 120 ml Laboratory Tests 10/13/17 08:10: White Blood Count 9.9, Red Blood Count 3.54L, Hemoglobin 9.0L, Hematocrit 28.8L , Mean Corpuscular Volume 81, Mean Corpuscular Hemoglobin 25.4L, Mean Corpuscular Hemoglobin Concent 31.3L, Red Cell Distribution Width 16.9H, Platelet Count 228, Mean Platelet Volume 7.5, Neutrophils (%) (Auto) 81.2H, Lymphocytes (%) (Auto) 8.9L, Monocytes (%) (Auto) 3.4, Eosinophils (%) (Auto) 5.9H, Basophils (%) (Auto) 0.7, Sodium Level 139, Potassium Level 4.7, Chloride Level 107, Carbon Dioxide Level 16L, Anion Gap 16H, Blood Urea Nitrogen 116H, Creatinine 3.9H, Estimat Glomerular Filtration Rate 11.8, Glucose Level 261#H, Calcium Level 9.1 Height (Feet): 5 Height (Inches): 3.00 Weight (Pounds): 238 General Appearance: no apparent distress, morbidly obese EENT: normal ENT inspection Cardiovascular: normal rate, regular rhythm Respiratory/Chest: lungs clear, normal breath sounds Abdomen: non tender, soft Extremities: moderate edema KATHRIN GASPAR Oct 13, 2017 14:02
[2017-10-13] MEDS: Pantoprazole Inj IVP SCH ×2 (15:00→21:00)
[2017-10-13] MEDS: Sucralfate 1gm tab ORAL SCH ×2 (15:33→21:00)
--- NOTE | 2017-10-13 15:54 | General Progress Note ---
Assessment/Plan Assessment/Plan 1. Coagulopathy, likely secondary to Coumadin accumulation. INR improved. 2. Anemia, secondary to chronic disease. Continue to closely monitor. ESR elevated. Iron panel showing percent saturation of 5%, TIBC of 273, and ferritin of 196. --> transfuse as needed to hgb above 7 --> s/p transfusion, HH improved. continue to watch counts 3. Leukocytosis, likely secondary to reactive process. WBC count normalized 5. CHF exacerbation 6. Pulmonary HTN 7. Multiple drug intolerance. Subjective Constitutional: Reports: no symptoms HEENT: Reports: no symptoms Cardiovascular: Reports: no symptoms Gastrointestinal/Abdominal: Reports: nausea, vomiting Endocrine: Reports: no symptoms Allergies: Coded Allergies: BENAZEPRIL (Verified Allergy, Intermediate, Shortness of Breath, 07/01/14) NIFEDIPINE (Verified Allergy, Intermediate, Shortness of Breath, 06/28/14) NITROGLYCERIN (Verified Allergy, Intermediate, Shortness of Breath, 06/28/14 ) SOB and BLE swelling Subjective nauseous Objective Last 24 Hour Vital Signs Date Time Temp Pulse Resp B/P (MAP) Pulse Ox O2 Delivery O2 Flow Rate FiO2 10/13/17 14:00 136/72 10/13/17 12:13 97.5 92 20 139/74 97 Nasal Cannula 4.0 10/13/17 10:28 Nasal Cannula 4.0 36 10/13/17 10:28 100 Nasal Cannula 4.0 36 10/13/17 10:27 76 18 Nasal Cannula 4.0 36 10/13/17 09:15 100 159/72 10/13/17 09:15 100 159/72 10/13/17 08:22 97.9 80 20 159/72 97 Nasal Cannula 4.0 10/13/17 08:00 82 10/13/17 06:00 95 Room Air 10/13/17 06:00 146/69 10/13/17 04:22 97.0 66 20 146/69 98 Nasal Cannula 2.0 10/13/17 04:00 64 10/13/17 00:06 96.9 62 21 155/70 Nasal Cannula 3.0 10/13/17 00:00 155/70 10/12/17 22:18 69 142/73 10/12/17 20:00 97.0 69 22 142/73 90 Nasal Cannula 3.0 10/12/17 20:00 70 10/12/17 19:30 92 Nasal Cannula 2.0 28 10/12/17 19:30 68 16 Nasal Cannula 2.0 28 10/12/17 19:30 Nasal Cannula 2.0 28 10/12/17 17:45 136/55 10/12/17 17:44 64 136/55 10/12/17 16:00 67 10/12/17 15:54 97.7 64 20 136/55 95 Nasal Cannula 3.0 Intake and Output 10/13/17 10/14/17 19:00 07:00 Intake Total 120 ml Balance 120 ml Intake Oral 120 ml Laboratory Tests 10/13/17 08:10: White Blood Count 9.9, Red Blood Count 3.54L, Hemoglobin 9.0L, Hematocrit 28.8L , Mean Corpuscular Volume 81, Mean Corpuscular Hemoglobin 25.4L, Mean Corpuscular Hemoglobin Concent 31.3L, Red Cell Distribution Width 16.9H, Platelet Count 228, Mean Platelet Volume 7.5, Neutrophils (%) (Auto) 81.2H, Lymphocytes (%) (Auto) 8.9L, Monocytes (%) (Auto) 3.4, Eosinophils (%) (Auto) 5.9H, Basophils (%) (Auto) 0.7, Sodium Level 139, Potassium Level 4.7, Chloride Level 107, Carbon Dioxide Level 16L, Anion Gap 16H, Blood Urea Nitrogen 116H, Creatinine 3.9H, Estimat Glomerular Filtration Rate 11.8, Glucose Level 261#H, Calcium Level 9.1 Height (Feet): 5 Height (Inches): 3.00 Weight (Pounds): 238 General Appearance: no apparent distress EENT: normal ENT inspection Neck: non-tender, normal alignment Cardiovascular: normal peripheral pulses, normal rate Respiratory/Chest: chest wall non-tender 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
--- NOTE | 2017-10-13 18:15 | Cardiology Progress Note ---
Assessment/Plan Assessment/Plan 1. Paroxysmal episodes of atrial fibrillation at this time in sinus. 2. Coagulopathy with INR of 7. 3. Diastolic heart failure. 4. Severe diastolic dysfunction history. 5. History of bradycardia secondary to medications. 6. Renal failure/azotemia. 7. Hypertension. 8. Multiple drug intolerances. rn called me vjtigaustin pt allergic to hydralazine ef normal but sig diastlic dysfunction dr tamayo making arrangement for avf soon to allwo dialysis half-way i have reviewed pmds noted at [facility] pt indicates she dose take norvasc but is not taking hydralazine for 2 years she indicated clonidine tts 2 patch an labetalol but labetalol not work very much she say so i will not add labetalol will dc hydralazine adn use tts patch she say she takes at home Subjective Cardiovascular: Reports: lightheadedness - occasioanl , Denies: chest pain Respiratory: Reports: shortness of breath Gastrointestinal/Abdominal: Denies: abdominal pain Genitourinary: Denies: burning Objective Last 24 Hour Vital Signs Date Time Temp Pulse Resp B/P (MAP) Pulse Ox O2 Delivery O2 Flow Rate FiO2 10/13/17 16:14 97.7 64 20 155/69 95 Nasal Cannula 2.0 10/13/17 16:00 73 10/13/17 14:00 136/72 10/13/17 12:13 97.5 92 20 139/74 97 Nasal Cannula 4.0 10/13/17 12:00 78 10/13/17 10:28 Nasal Cannula 4.0 36 10/13/17 10:28 100 Nasal Cannula 4.0 36 10/13/17 10:27 76 18 Nasal Cannula 4.0 36 10/13/17 09:15 100 159/72 10/13/17 09:15 100 159/72 10/13/17 08:22 97.9 80 20 159/72 97 Nasal Cannula 4.0 10/13/17 08:00 82 10/13/17 06:00 95 Room Air 10/13/17 06:00 146/69 10/13/17 04:22 97.0 66 20 146/69 98 Nasal Cannula 2.0 10/13/17 04:00 64 10/13/17 00:06 96.9 62 21 155/70 Nasal Cannula 3.0 10/13/17 00:00 155/70 10/12/17 22:18 69 142/73 10/12/17 20:00 97.0 69 22 142/73 90 Nasal Cannula 3.0 10/12/17 20:00 70 10/12/17 19:30 92 Nasal Cannula 2.0 28 10/12/17 19:30 68 16 Nasal Cannula 2.0 28 10/12/17 19:30 Nasal Cannula 2.0 28 General Appearance: no apparent distress, alert, obese Neck: supple Cardiovascular: normal rate, regular rhythm Respiratory/Chest: lungs clear, crackles/rales - few Abdomen: normal bowel sounds, non tender, soft Extremities: severe edema Intake and Output 10/13/17 10/14/17 19:00 07:00 Intake Total 120 ml Balance 120 ml Intake Oral 120 ml # Voids 3 Laboratory Tests Test 10/13/17 08:10 White Blood Count 9.9 K/UL (4.8-10.8) Red Blood Count 3.54 M/UL (4.20-5.40) L Hemoglobin 9.0 G/DL (12.0-16.0) L Hematocrit 28.8 % (37.0-47.0) L Mean Corpuscular Volume 81 FL (80-99) Mean Corpuscular Hemoglobin 25.4 PG (27.0-31.0) L Mean Corpuscular Hemoglobin Concent 31.3 G/DL (32.0-36.0) L Red Cell Distribution Width 16.9 % (11.6-14.8) H Platelet Count 228 K/UL (150-450) Mean Platelet Volume 7.5 FL (6.5-10.1) Neutrophils (%) (Auto) 81.2 % (45.0-75.0) H Lymphocytes (%) (Auto) 8.9 % (20.0-45.0) L Monocytes (%) (Auto) 3.4 % (1.0-10.0) Eosinophils (%) (Auto) 5.9 % (0.0-3.0) H Basophils (%) (Auto) 0.7 % (0.0-2.0) Sodium Level 139 MMOL/L (136-145) Potassium Level 4.7 MMOL/L (3.5-5.1) Chloride Level 107 MMOL/L (98-107) Carbon Dioxide Level 16 MMOL/L (21-32) L Anion Gap 16 mmol/L (5-15) H Blood Urea Nitrogen 116 mg/dL (7-18) H Creatinine 3.9 MG/DL (0.55-1.30) H Estimat Glomerular Filtration Rate 11.8 mL/min (>60) Glucose Level 261 MG/DL (74-106) #H Calcium Level 9.1 MG/DL (8.5-10.1) JESSICA ACUNA Oct 13, 2017 18:15
[2017-10-13] MEDS: Atorvastatin 20mg tab ORAL SCH (20:43)
[2017-10-13] MEDS: Epogen (for non ESRD use) SUBQ SCH (20:44)
[2017-10-14 00:14] VITALS: BP 157/61
[2017-10-14 04:19] VITALS: BP 156/85
[2017-10-14] MEDS: Insulin NPH SUBQ SCH ×2 (06:30→16:35)
[2017-10-14] MEDS: NovoLOG Insulin Flexpen SUBQ SCH ×6 (06:30→16:50)
[2017-10-14 08:00] VITALS: BP 151/69
[2017-10-14] MEDS: Sucralfate 1gm tab ORAL SCH ×2 (08:09→13:01)
[2017-10-14] MEDS: Pantoprazole Inj IVP SCH (08:09)
[2017-10-14 08:19] LABS: BASOPHILS % (AUTO) 0.9 % (0.0-2.0); EOSINOPHILS % (AUTO) 2.7 % (0.0-3.0); LYMPHOCYTES % (AUTO) 9.7 % (20.0-45.0); MEAN CORPUSCULAR HEMOGLOBIN 25.9 PG (27.0-31.0); MEAN CORPUSCULAR HGB CONC 31.4 G/DL (32.0-36.0); MEAN CORPUSCULAR VOLUME 82 FL (80-99); MONOCYTES % (AUTO) 5.3 % (1.0-10.0); NEUTROPHILS % (AUTO) 81.4 % (45.0-75.0); PLATELET COUNT 253 K/UL (150-450); RED BLOOD COUNT 3.39 M/UL (4.20-5.40); RED CELL DISTRIBUTION WIDTH 17.9 % (11.6-14.8)
[2017-10-14 08:47] LABS: ALANINE AMINOTRANSFERASE 27 U/L (12-78); ALBUMIN/GLOBULIN RATIO 0.7 (1.0-2.7); ANION GAP 14 mmol/L (5-15); ASPARTATE AMINO TRANSFERASE 14 U/L (15-37); CALCIUM 9.1 MG/DL (8.5-10.1); CARBON DIOXIDE 18 MMOL/L (21-32); CHLORIDE 109 MMOL/L (98-107); CREATININE 3.5 MG/DL (0.55-1.30); GLOMERULAR FILTRATION RATE 13.4 mL/min (>60); POTASSIUM 4.8 MMOL/L (3.5-5.1); SODIUM 141 MMOL/L (136-145); TOTAL PROTEIN 7.7 G/DL (6.4-8.2)
[2017-10-14 08:59] LABS: BILIRUBIN,DIRECT 0.3 MG/DL (0.0-0.3)
--- NOTE | 2017-10-14 09:03 | Nephrology Progress Note ---
Assessment/Plan Problem List: (1) CKD (chronic kidney disease) stage 5, GFR less than 15 ml/min (2) Acute on chronic renal insufficiency (3) Morbid obesity (4) Coagulopathy (5) Pulmonary hypertension (6) HTN (hypertension) (7) Diabetes (8) Anemia in chronic kidney disease (9) CHF (congestive heart failure), NYHA class II (10) Lymphedema Plan bun/creat 70/2.2 on 09/24 in my office, higher now from coagulopathy, likely bloood in gi tract, prior diuretics /1. Hopefully labs will return close to baseline and we can hold off dialysis a few months. She will need elective av fistula in the near future. DR Haider Douglas trying to schedule vascular surgery for 10/13. 24 hr urines creatinine clearance 30 better than expected. . Hold diuretics for now. + hydrate d/w dr broussard+Zarrabi, now with nausea and emesis 10/13 better so far 10/14 , symptomatic care, if not improving will need dialysis soon but bun and creat trending lo0wer now Subjective Constitutional: Reports: weakness HEENT: Reports: no symptoms Genitourinary: Reports: no symptoms Neurologic/Psychiatric: Reports: no symptoms Subjective feels better, no current sob, has less nausea, sat 92-94% RA Objective Objective Last 24 Hour Vital Signs Date Time Temp Pulse Resp B/P (MAP) Pulse Ox O2 Delivery O2 Flow Rate FiO2 10/14/17 08:15 68 151/69 10/14/17 08:08 68 151/69 10/14/17 08:00 97.9 68 20 151/69 94 Room Air 10/14/17 04:19 97.0 68 20 156/85 97 Room Air 10/14/17 04:00 67 10/14/17 00:14 97.0 67 20 157/61 99 Room Air 10/14/17 00:00 66 10/13/17 20:43 69 147/62 10/13/17 20:29 96.8 69 20 147/62 98 Room Air 10/13/17 20:00 70 10/13/17 19:43 147/52 10/13/17 19:05 97 Nasal Cannula 4.0 36 10/13/17 19:05 Nasal Cannula 4.0 36 10/13/17 19:00 72 22 Nasal Cannula 3.0 32 10/13/17 16:14 97.7 64 20 155/69 95 Nasal Cannula 2.0 10/13/17 16:00 73 10/13/17 14:00 136/72 10/13/17 12:13 97.5 92 20 139/74 97 Nasal Cannula 4.0 10/13/17 12:00 78 10/13/17 10:28 Nasal Cannula 4.0 36 10/13/17 10:28 100 Nasal Cannula 4.0 36 10/13/17 10:27 76 18 Nasal Cannula 4.0 36 10/13/17 09:15 100 159/72 10/13/17 09:15 100 159/72 Intake and Output 10/14/17 10/15/17 19:00 07:00 Intake Total 125 ml Balance 125 ml IV Total 125 ml Laboratory Tests 10/14/17 07:05: White Blood Count 11.0H, Red Blood Count 3.39L, Hemoglobin 8.8L, Hematocrit 28.0L, Mean Corpuscular Volume 82, Mean Corpuscular Hemoglobin 25.9L, Mean Corpuscular Hemoglobin Concent 31.4L, Red Cell Distribution Width 17.9H, Platelet Count 253, Mean Platelet Volume 8.0, Neutrophils (%) (Auto) 81.4H, Lymphocytes (%) (Auto) 9.7L, Monocytes (%) (Auto) 5.3, Eosinophils (%) (Auto) 2.7, Basophils (%) (Auto) 0.9, Sodium Level 141, Potassium Level 4.8, Chloride Level 109H, Carbon Dioxide Level 18L, Anion Gap 14, Blood Urea Nitrogen 104H, Creatinine 3.5H, Estimat Glomerular Filtration Rate 13.4, Glucose Level 268H, Calcium Level 9.1, Total Bilirubin 1.2H, Direct Bilirubin 0.3, Aspartate Amino Transf (AST/SGOT) 14L, Alanine Aminotransferase (ALT/SGPT) 27, Alkaline Phosphatase 112, Total Protein 7.7, Albumin 3.2L, Globulin 4.5, Albumin/ Globulin Ratio 0.7L Height (Feet): 5 Height (Inches): 3.00 Weight (Pounds): 274 General Appearance: no apparent distress, morbidly obese EENT: normal ENT inspection Neck: normal alignment Cardiovascular: normal rate Respiratory/Chest: lungs clear Abdomen: normal bowel sounds Extremities: moderate edema 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
--- NOTE | 2017-10-14 11:29 | Infectious Diseases Prog Note ---
Assessment/Plan Assessment/Plan ASSESSMENT: 57 y/o female with: // ? Pneum vs CHF , s/p Rx Cxray : bilateral interstitial edema, unchanged. The heart size is normal // S/p BLE cellulitis ,now chronic BLE lymphedema and skin changes - doppler(-) DVT // h/o UTI / pyelonephritis - screening UA neg // Negative HIV // Leukocytosis -, mild- clinically unchanged // afebrile // HIV and Hep B/C: Neg // Acute on chronic diastolic CHF exacerbation // Severe pulmonary HTN // ARF on CKD - improved, may need HD // Coagulopathy, m/l 2/2 coumadin // PAF // Indirect hyperbilirubinemia - hepatitis panel neg // Elevated ESR, CRP // DM2 - HbA1c 12.8% // Psoriasis // Morbid obesity // No ABX allergies // Full Code PLAN: - Continue to monitor off abx -10/13 SP Levaquin #3 -10/11 SP Ceftriaxone #3 - monitor CBC, temperatures; Trend WBC, repeat cultures if worsened - monitor BMP - BLE elevation, compression Subjective Allergies: Coded Allergies: BENAZEPRIL (Verified Allergy, Intermediate, Shortness of Breath, 07/01/14) NIFEDIPINE (Verified Allergy, Intermediate, Shortness of Breath, 06/28/14) NITROGLYCERIN (Verified Allergy, Intermediate, Shortness of Breath, 06/28/14 ) SOB and BLE swelling AMLODIPINE (Verified Allergy, Unknown, 10/13/17) nasea and vomiting HYDRALAZINE (Verified Allergy, Unknown, 10/13/17) feet become swallen Subjective afebrile VSS mild leukocytosis may need HD Objective Vital Signs Last 24 Hour Vital Signs Date Time Temp Pulse Resp B/P (MAP) Pulse Ox O2 Delivery O2 Flow Rate FiO2 10/14/17 08:15 68 151/69 10/14/17 08:08 68 151/69 10/14/17 08:00 68 10/14/17 08:00 97.9 68 20 151/69 94 Room Air 10/14/17 07:50 64 18 Room Air 21 10/14/17 07:50 Room Air 10/14/17 07:40 95 Room Air 21 10/14/17 04:19 97.0 68 20 156/85 97 Room Air 10/14/17 04:00 67 10/14/17 00:14 97.0 67 20 157/61 99 Room Air 10/14/17 00:00 66 10/13/17 20:43 69 147/62 10/13/17 20:29 96.8 69 20 147/62 98 Room Air 10/13/17 20:00 70 10/13/17 19:43 147/52 10/13/17 19:05 97 Nasal Cannula 4.0 36 10/13/17 19:05 Nasal Cannula 4.0 36 10/13/17 19:00 72 22 Nasal Cannula 3.0 32 10/13/17 16:14 97.7 64 20 155/69 95 Nasal Cannula 2.0 10/13/17 16:00 73 10/13/17 14:00 136/72 10/13/17 12:13 97.5 92 20 139/74 97 Nasal Cannula 4.0 10/13/17 12:00 78 Height (Feet): 5 Height (Inches): 3.00 Weight (Pounds): 274 Objective GENERAL: No apparent distress. Nontoxic appearing and obese. CARDIOVASCULAR: Irregularly irregular. No murmurs. PULMONARY: Bilateral crackles. ABDOMEN: Bowel sounds present. Soft, nondistended, and nontender. EXTREMITIES: Bilateral lower extremity with chronic venous stasis changes SKIN: Dry scaly plaques. NEUROLOGICAL: Alert and oriented x3. Nonfocal. Laboratory Tests Test 10/14/17 07:05 White Blood Count 11.0 K/UL (4.8-10.8) H Red Blood Count 3.39 M/UL (4.20-5.40) L Hemoglobin 8.8 G/DL (12.0-16.0) L Hematocrit 28.0 % (37.0-47.0) L Mean Corpuscular Volume 82 FL (80-99) Mean Corpuscular Hemoglobin 25.9 PG (27.0-31.0) L Mean Corpuscular Hemoglobin Concent 31.4 G/DL (32.0-36.0) L Red Cell Distribution Width 17.9 % (11.6-14.8) H Platelet Count 253 K/UL (150-450) Mean Platelet Volume 8.0 FL (6.5-10.1) Neutrophils (%) (Auto) 81.4 % (45.0-75.0) H Lymphocytes (%) (Auto) 9.7 % (20.0-45.0) L Monocytes (%) (Auto) 5.3 % (1.0-10.0) Eosinophils (%) (Auto) 2.7 % (0.0-3.0) Basophils (%) (Auto) 0.9 % (0.0-2.0) Sodium Level 141 MMOL/L (136-145) Potassium Level 4.8 MMOL/L (3.5-5.1) Chloride Level 109 MMOL/L (98-107) H Carbon Dioxide Level 18 MMOL/L (21-32) L Anion Gap 14 mmol/L (5-15) Blood Urea Nitrogen 104 mg/dL (7-18) H Creatinine 3.5 MG/DL (0.55-1.30) H Estimat Glomerular Filtration Rate 13.4 mL/min (>60) Glucose Level 268 MG/DL (74-106) H Calcium Level 9.1 MG/DL (8.5-10.1) Total Bilirubin 1.2 MG/DL (0.2-1.0) H Direct Bilirubin 0.3 MG/DL (0.0-0.3) Aspartate Amino Transf (AST/SGOT) 14 U/L (15-37) L Alanine Aminotransferase (ALT/SGPT) 27 U/L (12-78) Alkaline Phosphatase 112 U/L (46-116) Total Protein 7.7 G/DL (6.4-8.2) Albumin 3.2 G/DL (3.4-5.0) L Globulin 4.5 g/dL Albumin/Globulin Ratio 0.7 (1.0-2.7) L Current Medications Medications (Trade) Dose Ordered Sig/Ifeanyi Route PRN Reason Start Time Stop Time Status Last Admin Dose Admin Acetaminophen (Tylenol) 650 mg Q4H PRN ORAL Fever 10/06/17 21:45 11/05/17 21:44 Albuterol/ Ipratropium (Albuterol/ Ipratropium) 3 ml Q4H PRN HHN Shortness of Breath 10/10/17 12:45 10/15/17 12:44 Amlodipine Besylate (Norvasc) 10 mg BID ORAL 10/07/17 09:00 11/06/17 08:59 10/13/17 09:15 Atorvastatin Calcium (Lipitor) 40 mg BEDTIME ORAL 10/11/17 21:00 11/10/17 20:59 10/13/17 20:43 Carvedilol (Coreg) 3.125 mg EVERY 12 HOURS ORAL 10/07/17 09:00 11/06/17 08:59 10/14/17 08:08 Clonidine HCl (Catapres TTS-3) 1 patch QWEEK@1800 TDERMAL 10/13/17 19:00 11/12/17 18:59 10/13/17 19:43 Dextrose (Dextrose 50%) STAT PRN IV Hypoglycemia 10/06/17 21:45 11/05/17 21:44 Epoetin Chaim (Procrit (for non ESRD use)) 10,000 units FRI-FRI-FRI SUBQ 10/08/17 21:00 11/07/17 20:59 10/13/17 20:44 Insulin Aspart (NovoLOG) BEFORE MEALS AND HS SUBQ 10/07/17 06:30 11/06/17 06:29 10/14/17 06:38 Insulin Aspart (NovoLOG) 16 units NOVOTIAC SUBQ 10/11/17 06:30 11/10/17 06:29 10/13/17 13:13 Insulin Human NPH (Humulin N) 22 units BIAC SUBQ 10/11/17 19:30 11/10/17 19:29 10/13/17 07:42 Ondansetron HCl (Zofran) 4 mg Q6H PRN IVP Nausea & Vomiting 10/13/17 18:00 11/05/17 21:44 Ondansetron HCl (Zofran) 4 mg Q6H PRN ORAL Nausea & Vomiting 10/13/17 18:00 11/12/17 17:59 Pantoprazole (Protonix) 40 mg EVERY 12 HOURS IVP 10/13/17 15:00 11/12/17 14:59 10/14/17 08:09 Polyethylene Glycol (Miralax) 17 gm DAILYPRN PRN ORAL Constipation 10/06/17 21:45 11/05/17 21:44 Sodium Chloride 1,000 ml @ 50 mls/hr Q20H IV 10/14/17 10:00 11/13/17 09:59 10/14/17 10:00 Sucralfate (Carafate) 1 gm FOUR TIMES A DAY ORAL 10/13/17 15:00 11/12/17 14:59 10/14/17 08:09 Sanaz Gaspar M.D. Oct 14, 2017 11:29
[2017-10-14 12:00] VITALS: BP 150/61
[2017-10-14] MEDS ORDERED: NOVOLIN N100 UNIT/1 SUBQ (12:28)
[2017-10-14] MEDS ORDERED: NOVOLOG100 UNITS1 SUBQ (12:28)
[2017-10-14] MEDS ORDERED: ZOFRAN4 M1 ORAL (12:28)
--- NOTE | 2017-10-14 12:34 | Pulmonology Progress Note ---
Assessment/Plan Problems: (1) Cellulitis (2) Acute exacerbation of CHF (congestive heart failure) (3) Acute on chronic renal insufficiency (4) Coagulopathy (5) Pulmonary hypertension (6) Morbid obesity (7) HTN (hypertension) (8) Diabetes Assessment/Plan to be seen by vascular surgery 24 hour urine collection underway cardiology evaluation appreciated sliding scale f/u INR feeling much better, creatinine clearance was 30 pt will have outpatient f/u with the Dr. Walls and Dr. Douglas for Fistual placement Subjective ROS Limited/Unobtainable: No Constitutional: Reports: no symptoms HEENT: Repors: no symptoms Respiratory: Reports: no symptoms Allergies: Coded Allergies: BENAZEPRIL (Verified Allergy, Intermediate, Shortness of Breath, 07/01/14) NIFEDIPINE (Verified Allergy, Intermediate, Shortness of Breath, 06/28/14) NITROGLYCERIN (Verified Allergy, Intermediate, Shortness of Breath, 06/28/14 ) SOB and BLE swelling AMLODIPINE (Verified Allergy, Unknown, 10/13/17) nasea and vomiting HYDRALAZINE (Verified Allergy, Unknown, 10/13/17) feet become swallen Objective Last 24 Hour Vital Signs Date Time Temp Pulse Resp B/P (MAP) Pulse Ox O2 Delivery O2 Flow Rate FiO2 10/14/17 12:00 98.1 71 19 150/61 91 Room Air 10/14/17 08:15 68 151/69 10/14/17 08:08 68 151/69 10/14/17 08:00 68 10/14/17 08:00 97.9 68 20 151/69 94 Room Air 10/14/17 07:50 64 18 Room Air 10/14/17 07:50 Room Air 10/14/17 07:40 95 Room Air 21 10/14/17 04:19 97.0 68 20 156/85 97 Room Air 10/14/17 04:00 67 10/14/17 00:14 97.0 67 20 157/61 99 Room Air 10/14/17 00:00 66 10/13/17 20:43 69 147/62 10/13/17 20:29 96.8 69 20 147/62 98 Room Air 10/13/17 20:00 70 10/13/17 19:43 147/52 10/13/17 19:05 97 Nasal Cannula 4.0 36 10/13/17 19:05 Nasal Cannula 4.0 36 10/13/17 19:00 72 22 Nasal Cannula 3.0 32 10/13/17 16:14 97.7 64 20 155/69 95 Nasal Cannula 2.0 10/13/17 16:00 73 10/13/17 14:00 136/72 Intake and Output 10/14/17 10/15/17 19:00 07:00 Intake Total 350 ml Balance 350 ml IV Total 350 ml General Appearance: WD/WN HEENT: normocephalic, atraumatic Respiratory/Chest: chest wall non-tender, lungs clear Breasts: no masses Abdomen: normal bowel sounds, no organomegaly, non distended Extremities: no cyanosis, no clubbing Skin: no rash Lymphatic: other - + lymphedema Laboratory Tests 10/14/17 07:05: White Blood Count 11.0H, Red Blood Count 3.39L, Hemoglobin 8.8L, Hematocrit 28.0L, Mean Corpuscular Volume 82, Mean Corpuscular Hemoglobin 25.9L, Mean Corpuscular Hemoglobin Concent 31.4L, Red Cell Distribution Width 17.9H, Platelet Count 253, Mean Platelet Volume 8.0, Neutrophils (%) (Auto) 81.4H, Lymphocytes (%) (Auto) 9.7L, Monocytes (%) (Auto) 5.3, Eosinophils (%) (Auto) 2.7, Basophils (%) (Auto) 0.9, Sodium Level 141, Potassium Level 4.8, Chloride Level 109H, Carbon Dioxide Level 18L, Anion Gap 14, Blood Urea Nitrogen 104H, Creatinine 3.5H, Estimat Glomerular Filtration Rate 13.4, Glucose Level 268H, Calcium Level 9.1, Total Bilirubin 1.2H, Direct Bilirubin 0.3, Aspartate Amino Transf (AST/SGOT) 14L, Alanine Aminotransferase (ALT/SGPT) 27, Alkaline Phosphatase 112, Total Protein 7.7, Albumin 3.2L, Globulin 4.5, Albumin/ Globulin Ratio 0.7L Current Medications Medications (Trade) Dose Ordered Sig/Ifeanyi Route PRN Reason Start Time Stop Time Status Last Admin Dose Admin Acetaminophen (Tylenol) 650 mg Q4H PRN ORAL Fever 10/06/17 21:45 11/05/17 21:44 Albuterol/ Ipratropium (Albuterol/ Ipratropium) 3 ml Q4H PRN HHN Shortness of Breath 10/10/17 12:45 10/15/17 12:44 Amlodipine Besylate (Norvasc) 10 mg BID ORAL 10/07/17 09:00 11/06/17 08:59 10/13/17 09:15 Atorvastatin Calcium (Lipitor) 40 mg BEDTIME ORAL 10/11/17 21:00 11/10/17 20:59 10/13/17 20:43 Carvedilol (Coreg) 3.125 mg EVERY 12 HOURS ORAL 10/07/17 09:00 11/06/17 08:59 10/14/17 08:08 Clonidine HCl (Catapres TTS-3) 1 patch QWEEK@1800 TDERMAL 10/13/17 19:00 11/12/17 18:59 10/13/17 19:43 Dextrose (Dextrose 50%) STAT PRN IV Hypoglycemia 10/06/17 21:45 11/05/17 21:44 Epoetin Chaim (Procrit (for non ESRD use)) 10,000 units FRI-FRI-FRI SUBQ 10/08/17 21:00 11/07/17 20:59 10/13/17 20:44 Insulin Aspart (NovoLOG) BEFORE MEALS AND HS SUBQ 10/07/17 06:30 11/06/17 06:29 10/14/17 11:39 Insulin Aspart (NovoLOG) 16 units NOVOTIAC SUBQ 10/11/17 06:30 11/10/17 06:29 10/14/17 11:40 Insulin Human NPH (Humulin N) 22 units BIAC SUBQ 10/11/17 19:30 11/10/17 19:29 10/13/17 07:42 Ondansetron HCl (Zofran) 4 mg Q6H PRN IVP Nausea & Vomiting 10/13/17 18:00 11/05/17 21:44 Ondansetron HCl (Zofran) 4 mg Q6H PRN ORAL Nausea & Vomiting 10/13/17 18:00 11/12/17 17:59 Pantoprazole (Protonix) 40 mg EVERY 12 HOURS IVP 10/13/17 15:00 11/12/17 14:59 10/14/17 08:09 Polyethylene Glycol (Miralax) 17 gm DAILYPRN PRN ORAL Constipation 10/06/17 21:45 11/05/17 21:44 Sodium Chloride 1,000 ml @ 50 mls/hr Q20H IV 10/14/17 10:00 11/13/17 09:59 10/14/17 10:00 Sucralfate (Carafate) 1 gm FOUR TIMES A DAY ORAL 10/13/17 15:00 11/12/17 14:59 10/14/17 08:09 JEAN CLAUDE SUTTON Oct 14, 2017 12:34
--- NOTE | 2017-10-14 13:33 | Cardiology Progress Note ---
Assessment/Plan Assessment/Plan 1. Paroxysmal episodes of atrial fibrillation at this time in sinus. 2. Coagulopathy with INR of 7. 3. Diastolic heart failure. 4. Severe diastolic dysfunction history. 5. History of bradycardia secondary to medications. 6. Renal failure/azotemia. 7. Hypertension. 8. Multiple drug intolerances. ef normal but sig diastolic dysfunction dr tamayo making arrangement for avf soon to allow dialysis [facility] terminal agent bp seem ok although has room for improved controlled with dialysis her bp should be better controlled eventually i reviewed the med for bp with pt agreed no pericardial friction rub Subjective Cardiovascular: Denies: chest pain, lightheadedness Respiratory: Denies: shortness of breath Gastrointestinal/Abdominal: Denies: abdominal pain Genitourinary: Denies: burning Subjective feels better Objective Last 24 Hour Vital Signs Date Time Temp Pulse Resp B/P (MAP) Pulse Ox O2 Delivery O2 Flow Rate FiO2 10/14/17 12:00 70 10/14/17 12:00 98.1 71 19 150/61 91 Room Air 10/14/17 08:15 68 151/69 10/14/17 08:08 68 151/69 10/14/17 08:00 68 10/14/17 08:00 97.9 68 20 151/69 94 Room Air 10/14/17 07:50 64 18 Room Air 10/14/17 07:50 Room Air 10/14/17 07:40 95 Room Air 21 10/14/17 04:19 97.0 68 20 156/85 97 Room Air 10/14/17 04:00 67 10/14/17 00:14 97.0 67 20 157/61 99 Room Air 10/14/17 00:00 66 10/13/17 20:43 69 147/62 10/13/17 20:29 96.8 69 20 147/62 98 Room Air 10/13/17 20:00 70 10/13/17 19:43 147/52 10/13/17 19:05 97 Nasal Cannula 4.0 36 10/13/17 19:05 Nasal Cannula 4.0 36 10/13/17 19:00 72 22 Nasal Cannula 3.0 32 10/13/17 16:14 97.7 64 20 155/69 95 Nasal Cannula 2.0 10/13/17 16:00 73 10/13/17 14:00 136/72 General Appearance: no apparent distress, alert Neck: supple Cardiovascular: normal rate Respiratory/Chest: lungs clear, normal breath sounds Abdomen: normal bowel sounds, non tender, soft Extremities: severe edema Intake and Output 10/14/17 10/15/17 19:00 07:00 Intake Total 400 ml Balance 400 ml IV Total 400 ml Laboratory Tests Test 10/14/17 07:05 White Blood Count 11.0 K/UL (4.8-10.8) H Red Blood Count 3.39 M/UL (4.20-5.40) L Hemoglobin 8.8 G/DL (12.0-16.0) L Hematocrit 28.0 % (37.0-47.0) L Mean Corpuscular Volume 82 FL (80-99) Mean Corpuscular Hemoglobin 25.9 PG (27.0-31.0) L Mean Corpuscular Hemoglobin Concent 31.4 G/DL (32.0-36.0) L Red Cell Distribution Width 17.9 % (11.6-14.8) H Platelet Count 253 K/UL (150-450) Mean Platelet Volume 8.0 FL (6.5-10.1) Neutrophils (%) (Auto) 81.4 % (45.0-75.0) H Lymphocytes (%) (Auto) 9.7 % (20.0-45.0) L Monocytes (%) (Auto) 5.3 % (1.0-10.0) Eosinophils (%) (Auto) 2.7 % (0.0-3.0) Basophils (%) (Auto) 0.9 % (0.0-2.0) Sodium Level 141 MMOL/L (136-145) Potassium Level 4.8 MMOL/L (3.5-5.1) Chloride Level 109 MMOL/L (98-107) H Carbon Dioxide Level 18 MMOL/L (21-32) L Anion Gap 14 mmol/L (5-15) Blood Urea Nitrogen 104 mg/dL (7-18) H Creatinine 3.5 MG/DL (0.55-1.30) H Estimat Glomerular Filtration Rate 13.4 mL/min (>60) Glucose Level 268 MG/DL (74-106) H Calcium Level 9.1 MG/DL (8.5-10.1) Total Bilirubin 1.2 MG/DL (0.2-1.0) H Direct Bilirubin 0.3 MG/DL (0.0-0.3) Aspartate Amino Transf (AST/SGOT) 14 U/L (15-37) L Alanine Aminotransferase (ALT/SGPT) 27 U/L (12-78) Alkaline Phosphatase 112 U/L (46-116) Total Protein 7.7 G/DL (6.4-8.2) Albumin 3.2 G/DL (3.4-5.0) L Globulin 4.5 g/dL Albumin/Globulin Ratio 0.7 (1.0-2.7) L JESSICA ACUNA Oct 14, 2017 13:33
--- NOTE | 2017-10-14 14:16 | General Progress Note ---
Assessment/Plan Assessment/Plan 1. Coagulopathy, likely secondary to Coumadin accumulation. INR improved. 2. Anemia, secondary to chronic disease. Continue to closely monitor. ESR elevated. Iron panel showing percent saturation of 5%, TIBC of 273, and ferritin of 196. --> transfuse as needed to hgb above 7 --> s/p transfusion, HH improved. continue to watch counts 3. Leukocytosis, likely secondary to reactive process. WBC count normalized 5. CHF exacerbation 6. Pulmonary HTN 7. Multiple drug intolerance. Subjective Allergies: Coded Allergies: BENAZEPRIL (Verified Allergy, Intermediate, Shortness of Breath, 07/01/14) NIFEDIPINE (Verified Allergy, Intermediate, Shortness of Breath, 06/28/14) NITROGLYCERIN (Verified Allergy, Intermediate, Shortness of Breath, 06/28/14 ) SOB and BLE swelling AMLODIPINE (Verified Allergy, Unknown, 10/13/17) nasea and vomiting HYDRALAZINE (Verified Allergy, Unknown, 10/13/17) feet become swallen All Systems: reviewed and negative except above Subjective feeling better today, without nausea. No fevers or chills Objective Last 24 Hour Vital Signs Date Time Temp Pulse Resp B/P (MAP) Pulse Ox O2 Delivery O2 Flow Rate FiO2 10/14/17 12:00 70 10/14/17 12:00 98.1 71 19 150/61 91 Room Air 10/14/17 08:15 68 151/69 10/14/17 08:08 68 151/69 10/14/17 08:00 68 10/14/17 08:00 97.9 68 20 151/69 94 Room Air 10/14/17 07:50 64 18 Room Air 10/14/17 07:50 Room Air 10/14/17 07:40 95 Room Air 21 10/14/17 04:19 97.0 68 20 156/85 97 Room Air 10/14/17 04:00 67 10/14/17 00:14 97.0 67 20 157/61 99 Room Air 10/14/17 00:00 66 10/13/17 20:43 69 147/62 10/13/17 20:29 96.8 69 20 147/62 98 Room Air 10/13/17 20:00 70 10/13/17 19:43 147/52 10/13/17 19:05 97 Nasal Cannula 4.0 36 10/13/17 19:05 Nasal Cannula 4.0 36 10/13/17 19:00 72 22 Nasal Cannula 3.0 32 10/13/17 16:14 97.7 64 20 155/69 95 Nasal Cannula 2.0 10/13/17 16:00 73 Intake and Output 10/14/17 10/15/17 19:00 07:00 Intake Total 400 ml Balance 400 ml IV Total 400 ml Laboratory Tests 10/14/17 07:05: White Blood Count 11.0H, Red Blood Count 3.39L, Hemoglobin 8.8L, Hematocrit 28.0L, Mean Corpuscular Volume 82, Mean Corpuscular Hemoglobin 25.9L, Mean Corpuscular Hemoglobin Concent 31.4L, Red Cell Distribution Width 17.9H, Platelet Count 253, Mean Platelet Volume 8.0, Neutrophils (%) (Auto) 81.4H, Lymphocytes (%) (Auto) 9.7L, Monocytes (%) (Auto) 5.3, Eosinophils (%) (Auto) 2.7, Basophils (%) (Auto) 0.9, Sodium Level 141, Potassium Level 4.8, Chloride Level 109H, Carbon Dioxide Level 18L, Anion Gap 14, Blood Urea Nitrogen 104H, Creatinine 3.5H, Estimat Glomerular Filtration Rate 13.4, Glucose Level 268H, Calcium Level 9.1, Total Bilirubin 1.2H, Direct Bilirubin 0.3, Aspartate Amino Transf (AST/SGOT) 14L, Alanine Aminotransferase (ALT/SGPT) 27, Alkaline Phosphatase 112, Total Protein 7.7, Albumin 3.2L, Globulin 4.5, Albumin/ Globulin Ratio 0.7L Height (Feet): 5 Height (Inches): 3.00 Weight (Pounds): 274 General Appearance: no apparent distress EENT: normal ENT inspection Neck: normal alignment Cardiovascular: normal peripheral pulses Abdomen: non tender Extremities: non-tender 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
[2017-10-14 16:00] VITALS: BP 153/56
--- NOTE | 2017-10-14 16:24 | Diagnostic Imaging Report ---
Indication:Abdominal pain Technique: Grayscale and duplex Doppler imaging of the abdomen performed. Comparison: None Findings: The liver, demonstrated part of the pancreas, gallbladder, aorta and IVC, both kidneys, spleen appear unremarkable. There is a 1 cm left renal cyst. CBD is 6 mm. There is no biliary ductal dilatation identified. Doppler evaluation of the main portal vein shows patency. There is no ascites. No hydronephrosis seen. Impression: No acute findings. Left renal cyst
--- NOTE | 2017-10-16 10:39 | Discharge Summary ---
Discharge Summary Hospital Course Date of Admission Oct 06, 2017 at 20:02 Date of Discharge Oct 14, 2017 at 17:00 Admitting Diagnosis congested heart failure/ exacerbation HPI Melissa Means is a 57 year old female who was admitted on Oct 06, 2017 at 20: 02 for Congestive Heart Failure,Exacerbation Hospital Course [id number] Discharge Discharge Disposition Patient was discharged to Home (01) Discharge Diagnoses: Amanda Lassiter NP Oct 16, 2017 10:39
--- NOTE | 2017-10-16 18:45 | Discharge Summary 2 SIG ---
DATE OF ADMISSION: 10/06/2017 DATE OF DISCHARGE: 10/14/2017 CONSULTANTS: 1. José Manuel Lemos M.D. 2. Kong Walls M.D. 3. Sanaz Gaspar M.D. 4. Jonathan Hawk M.D. 5. Vinay Cruz M.D. BRIEF HOSPITAL COURSE: The patient is a 57-year-old female with history of congestive heart failure, hypertension, diabetes mellitus, and chronic kidney disease, presented to [facility] complaining of three days of shortness of breath that was worsened with lying flat. She also complained of worsening bilateral lower extremity edema for the past week and claims to have been compliant with Lasix. On evaluation at ED, the patient was tachypneic. She was in atrial fibrillation with RVR. Chest x-ray showed cardiomegaly with bilateral pulmonary vascular congestion. She was given Lasix x1. Blood work showed hemoglobin 9.1, hematocrit 31, platelets were 16. INR was noted to be supratherapeutic at 7.2. She was admitted to telemetry for acute exacerbation of CHF; respiratory distress; CKD, creatinine 4.2; and coagulopathy. ProBNP was elevated at 3800. On EKG showed atrial fibrillation, but telemetry data showed PACs, likely paroxysmal episodes of atrial fibrillation. She had supratherapeutic INR and was given vitamin K. She was started empirically on Rocephin for probable bilateral lower extremity cellulitis in the setting of chronic bilateral lower extremity lymphedema. Venous duplex of lower extremity was negative for DVT. Echocardiogram done showed normal EF, however, has significant diastolic dysfunction. The patient had worsening kidney function. Diuretics were placed on hold. The patient will need elective AV fistula in the future and has a possible scheduled vascular surgery this month. A 24-hour urine creatinine clearance was 30. She had episodes of drop in hemoglobin and was given 2 units of packed RBC blood transfusion. Blood sugars were elevated. Hemoglobin A1c was 12.8. She was started on NovoLog and Levemir. She was given Epogen and Venofer for anemia. She came in with stage II decubitus ulcer on the coccyx and was given wound care. Her INR improved post vitamin K administration and creatinine levels were downtrending. She received three days of Levaquin and ceftriaxone, and was eventually taken off antibiotic treatment. She came in with a pressure sore, wound care was rendered. She was eventually cleared for discharge home. FINAL DIAGNOSES: 1. Acute exacerbation of diastolic congestive heart failure. 2. Acute lower extremity cellulitis. 3. Coagulopathy with supratherapeutic INR, likely secondary to Coumadin. 4. Anemia secondary to chronic disease. 5. Acute anemia requiring blood transfusion. 6. Pulmonary hypertension. 7. Paroxysmal atrial fibrillation. 8. History of bradycardia to medications. 9. Possible pneumonia status post treatment. 10. Diabetes mellitus type 2 out of control. 11. Psoriasis. 12. Morbid obesity. 13. Chronic lymphedema. 14. Chronic kidney disease stage 5. 15. Hypertension. 16. Coccyx stage II decubitus ulcer, present on admission. DISPOSITION: The patient was discharged home. DISCHARGE MEDICATIONS: Refer to med list. FOLLOWUP: Follow up with Dr. Walls and Dr. Douglas for fistula placement. Mirela Medina M.D. I have been assigned to dictate discharge summary on this account and I was not involved in the patient's management. Amanda Lassiter N.P. DR: FLORES JOB#: [id number] CC: TAMIKO
--- NOTE | 2017-10-16 23:12 | Diagnostic Imaging Report ---
APPROVED REPORT CPT Code: 46925 Present Symptoms Comments: Upper extremity vein mapping venous duplex pre-operative assessment for dialysis fistula placement. Vein Measurements(cm) Cephalic Basilic Right LeftRight Left 0.19Upper Arm0.580.57Mid Upper Arm0.50 0.20Mid Upper Arm0.340.55Antecubital Fossa0.30 0.30Upper Forearm0.21 0.19Antecubital Fossa0.310.71Rzhoa9.15 0.14Upper Forearm0.28 0.68Rndmf9.37 The cephalic and basilic veins of both arms were imaged and measured to evaluate as a potential graft for dialysis access. Measurements are as above.
--- NOTE | 2017-10-18 23:45 | Consultation ---
DATE OF CONSULTATION: 10/11/2017 I was asked to see this patient by Dr. Kong Walls for evaluation of end-stage renal disease and assessment for AV access. HISTORY OF PRESENT ILLNESS: She is a 57-year-old lady who has a history of diabetes and ureteral stones. On 03/13/2017, she was admitted to [facility] where she had renal failure and required a single dialysis. A renal stent was placed that was subsequently removed. There is a history of congestive heart failure and atrial fibrillation for which she was treated with warfarin. She has had several CVAs in the past with minimal symptoms. Her most recent laboratory work was potassium of 5.3, BUN 77, and creatinine of 2.87. She is a somewhat obese lady who currently has swelling of her left arm, which is likely due to infiltration of an ID and lymphedema. Duplex scan was carried out in preparation for access surgery, which showed that her basilic vein in the right arm was most likely target for dialysis access. A central line was present in her cephalic vein, which was removed. Since she presently has lymphedema in the left arm and had a central line removed from her cephalic vein, Dr. Walls decided to postpone her surgery and re-evaluate her as an outpatient. Thank you for asking me to see her in consultation. Haider Douglas M.D. DR: PETER JOB#: [id number] CC:
[2017-10-29] MEDS ORDERED: NOVOLOG100 UNIT/3 SUBQ (08:48)
== END 2017-10-14 17:00 | disposition home or self-care (01) | DRG 291 ==
LOC: EMR 19:30 → 2E 20:02 → EDBEDREQ 21:08
PROC: 30233N1 Transfusion of Nonautologous Red Blood Cells into Peripheral Vein, Percutaneous Approach (ICD-10-PCS; principal; 2017-10-08)
DX: I50.33 Acute on chronic diastolic (congestive) heart failure (principal); J18.9 Pneumonia, unspecified organism; N18.5 Chronic kidney disease, stage 5; I12.0 Hypertensive chronic kidney disease with stage 5 chronic kidney disease or end stage renal disease; D68.9 Coagulation defect, unspecified; L89.152 Pressure ulcer of sacral region, stage 2; N17.9 Acute kidney failure, unspecified; L03.115 Cellulitis of right lower limb; L03.116 Cellulitis of left lower limb; Z68.42 Body mass index [BMI] 45.0-49.9, adult; N13.2 Hydronephrosis with renal and ureteral calculous obstruction; N39.0 Urinary tract infection, site not specified; I27.20 Pulmonary hypertension, unspecified; E11.22 Type 2 diabetes mellitus with diabetic chronic kidney disease; E66.01 Morbid (severe) obesity due to excess calories; I48.0 Paroxysmal atrial fibrillation; I89.0 Lymphedema, not elsewhere classified; D63.8 Anemia in other chronic diseases classified elsewhere; D64.9 Anemia, unspecified; L40.9 Psoriasis, unspecified; E11.65 Type 2 diabetes mellitus with hyperglycemia; E78.5 Hyperlipidemia, unspecified; D72.829 Elevated white blood cell count, unspecified; Z86.73 Personal history of transient ischemic attack (TIA), and cerebral infarction without residual deficits; T45.515A Adverse effect of anticoagulants, initial encounter; Y92.019 Unspecified place in single-family (private) house as the place of occurrence of the external cause; Z79.4 Long term (current) use of insulin; Z79.01 Long term (current) use of anticoagulants
CPT/HCPCS: 36415; 71010; 76700; 80048; 80053; 80061; 81003; 81050; 82248; 82550; 82553; 82575; 82607; 82728; 82746; 82962; 82977; 83036; 83540; 83550; 83615; 83735; 83880; 84100; 84156; 84300; 84443; 84484; 84550; 85007; 85025; 85044; 85060; 85610; 85651; 85730; 86140; 86703; 86803; 86850; 86870; 86900; 86901; 86904; 86920; 87340; 87517; 89050; 93005; 93306; 93922; 93970; 94640; 94664; 94760; J1815; J2405; J7620; S5561

== ENCOUNTER 2017-10-30 07:48 | Day surgery (SDC) | payer MEDICARE, MEDICAID ==
--- NOTE | 2017-10-28 19:32 | History and Physical Report ---
DATE OF ADMISSION: 10/29/2017 REFERRING PHYSICIAN: Haider Douglas M.D. CHIEF COMPLAINT/REASON FOR HOSPITALIZATION: The patient admitted for dialysis access placement. HISTORY OF PRESENT ILLNESS: The patient has diabetic nephropathy and chronic kidney disease stage 4 to 5. She was admitted for dialysis access in anticipation of future need for dialysis. She has severe hypertension, insulin-dependent diabetes, morbid obesity, chronic lymphedema, pulmonary hypertension, and diastolic congestive heart failure. She was recently hospitalized with bleeding from Coumadin and the BUN rise to the 120s, but recently, BUN has been in the 60s. She is less short of breath at this time. Generally feeling well and mood has been prepared for surgery. PAST SURGICAL HISTORY: Stenting of kidneys in the past apparently after some obstruction. CURRENT MEDICATIONS: As follows: Amlodipine 10 mg b.i.d., atorvastatin 10 mg daily, Humalog 20 units b.i.d., NPH 22 units b.i.d., clonidine three pills b.i.d. 0.2 mg each, carvedilol 3.125 mg b.i.d., Lasix 40 mg daily, doxazosin 8 mg b.i.d., calcitriol 25 micrograms daily, and doxycycline 100 mg b.i.d. ALLERGIES: She states she is intolerant to benazepril, nifedipine, nitroglycerin, but it is not clear if these are true allergies. HABITS: She is a nondrinker and nonsmoker. SOCIAL HISTORY: She lives with her daughter. 02:05 from [place]. FAMILY HISTORY: Mother is , had cancer of the uterus and diabetes. Father is following an accident. REVIEW OF SYSTEMS: HEENT: She has cataracts and 02:21 shots in the eyes presumed from diabetic retinopathy. Stable vision. Hearing is good. ENDOCRINE: History of diabetes. No known thyroid disease. PULMONARY: She has dyspnea on exertion. No asthma or TB. CARDIAC: History of diastolic congestive heart failure. No angina or [place]. GASTROINTESTINAL: 02:4 chronic abdominal pain. No ulcers or GI bleeding. GENITOURINARY: No prior history of kidney stones. GYNECOLOGIC: She had normal Pap smear within the last 2 years. NEUROLOGIC: She has had three cerebrovascular accidents with minimal symptoms, transient with decreased vision in the right eye. PHYSICAL EXAMINATION: GENERAL: The patient is alert, obese lady, in no acute distress. VITAL SIGNS: Reviewed on the computer. HEENT: Sclerae are nonicteric. Ocular motions intact in all directions. Oral mucosa moist. NECK: No adenopathy. LUNGS: Clear. HEART: Regular rhythm with a 2/6 systolic ejection murmur. ABDOMEN: Obese and soft. No organomegaly. EXTREMITIES: A 1 to 2+ chronic lymphedema and very mild erythema and dryness to the skin in the legs. NEUROLOGIC: She is alert and oriented. Cranial nerves are intact. She moves all extremities. IMPRESSION: 1. Diabetic nephropathy and chronic kidney disease stage 5 for dialysis access. 2. Chronic lymphedema. 3. Diastolic congestive heart failure. 4. Pulmonary hypertension. 5. Anemia of chronic disease. 6. History of severe hypertension. PLAN: The patient's laboratories and clinical status were stable for the above surgery. She has increased risk due to her cardiopulmonary disease and obesity, but she is currently stable for the above. Thank you so much. Kong Walls M.D. DR: LOCO JOB#: [id number] CC:
--- NOTE | 2017-10-29 07:56 | Nephrology Progress Note ---
Assessment/Plan Assessment see dictation stable for surgery KATHRIN GASPAR Oct 29, 2017 07:56
[2017-10-29 08:40] VITALS: BP 146/67
[2017-10-30] VITALS (12 sets, daily range): BP systolic 133–143; BP diastolic 51–71
[~2017-10-30] VITALS: Ht 160 cm; Wt 113.9 kg
[~2017-10-30 07:48] MED LIST changes: +Bacitracin 50000 Units Vial ONE; +Bupivacaine 0.5% Inj 30 ml vial INJ ONE; +CARVEDILOL3.125 MG ORAL; +Heparin 5000 units/ml inj ONE; +Lidocaine 2% MPF 5ml Vial INJ ONE; +NOVOLIN N100 UNIT/1 SUBQ; +NeoSporin Gu Irrig 1ml Amp IRRIG ONE; +Surgicel 4in x 8in TOPIC ONE; +Thrombin 5000 units TOPIC ONE; +ZOFRAN4 M1 ORAL
--- NOTE | 2017-10-30 08:48 | Anethesia Preoperative Eval ---
Anesthesia Pre-op PMH/ROS General Date of Evaluation: Oct 30, 2017 Time of Evaluation: 10:30 Anesthesiologist: Padmini ASA Score: ASA 3 Mallampati Score Class I : Soft palate, uvula, fauces, pillars visible Class II: Soft palate, uvula, fauces visible Class III: Soft palate, base of uvula visible Class IV: Only hard plate visible Mallampati Classification: Class II Surgeon: Misael Diagnosis: ESRD Surgical Procedure: AV Fistula Creation Anesthesia History: none Family History: no anesthesia problems Allergies: Coded Allergies: BENAZEPRIL (Verified Allergy, Intermediate, Shortness of Breath, 07/01/14) NIFEDIPINE (Verified Allergy, Intermediate, Shortness of Breath, 06/28/14) NITROGLYCERIN (Verified Allergy, Intermediate, Shortness of Breath, 06/28/14 ) SOB and BLE swelling AMLODIPINE (Verified Allergy, Unknown, 10/13/17) nasea and vomiting HYDRALAZINE (Verified Allergy, Unknown, 10/13/17) feet become swallen ACETAMINOPHEN (Verified Adverse Reaction, Severe, 10/29/17) severe immediate vomiting HYDROCODONE (Verified Adverse Reaction, Severe, 10/29/17) severe immediate vomiting Past Medical History Cardiovascular: Reports: HTN Gastrointestinal/Genitourinary: Reports: ESRD Anesthesia Pre-op Phys. Exam Physician Exam Last Vital Signs Date Time Temp Pulse Resp B/P (MAP) Pulse Ox O2 Delivery O2 Flow Rate FiO2 10/30/17 08:11 98.0 57 18 141/71 99 Room Air Constitutional: NAD Neurologic: CN 2-12 intact Cardiovascular: RRR Respiratory: CTA Gastrointestinal: S/NT/ND Airway Exam Mallampati Score: Class II MO: full ROM: full Teeth: intact Anesthesia Pre-op A/P Risk Assessment & Plan Plan: MAC Local Status Change Before Surgery: No Pre-Antibiotics Drug: Ancef Given Within 1 Hr of Incision: Yes Time Given: 10:45 Jagdeep Washington M.D. Oct 30, 2017 08:48
[2017-10-30] MEDS ORDERED: Thrombin 5000 units TOPIC ONE (11:56)
[2017-10-30] MEDS ORDERED: Lidocaine 2% MPF 5ml Vial INJ ONE ×2 (11:57→12:21)
[2017-10-30] MEDS ORDERED: NeoSporin Gu Irrig 1ml Amp IRRIG ONE (11:57)
[2017-10-30] MEDS ORDERED: Heparin 5000 units/ml inj ONE (11:57)
[2017-10-30] MEDS ORDERED: Bacitracin 50000 Units Vial ONE (11:57)
[2017-10-30] MEDS ORDERED: Bupivacaine 0.5% Inj 30 ml vial INJ ONE ×2 (11:57→12:11)
[2017-10-30] MEDS ORDERED: Propofol 200mg/20ml IV ONE (12:11)
[2017-10-30] MEDS ORDERED: Midazolam 2mg/2ml Inj ONE (12:45)
[2017-10-30] MEDS ORDERED: Metoclopramide 10mg/2ml Inj ONE (12:45)
[2017-10-30] MEDS ORDERED: Glycopyrrolate 0.2mg/ml 1ml Vial ONE (12:45)
[2017-10-30] MEDS ORDERED: fentaNYL 100 mcg/2 mL IV ONE (12:45)
--- NOTE | 2017-10-30 13:21 | Pre-Procedure Note/Attestation ---
Pre-Procedure Note/Attestation Complete Prior to Procedure Planned Procedure: left Procedure Narrative: left arm avf Indications for Procedure Pre-Operative Diagnosis: esrd Attestation I attest that I discussed the nature of the procedure; its benefits; risks and complications; and alternatives (and the risks and benefits of such alternatives ), prior to the procedure, with the patient (or the patient's legal accounting representative). I attest that, if there was a reasonable possibility of needing a blood transfusion, the patient (or the patient's legal accounting representative) was given the [facility] standardized written summary, pursuant to the [place] Blood Safety Act ([place] Health and Safety Code # 1645, as amended). I attest that I re-evaluated the patient just prior to the surgery and that there has been no change in the patient's H&P, except as documented below:none DICK WOODS Oct 30, 2017 13:21
--- NOTE | 2017-10-30 14:26 | Immediate Post-Op Evaluation ---
Immediate Post-Op Evalulation Immediate Post-Op Evalulation Procedure: Let AV Fistula Creation Date of Evaluation: Oct 30, 2017 Time of Evaluation: 17:00 IV Fluids: 500 Blood Products: 0 Estimated Blood Loss: 10 Urinary Output: 0 Blood Pressure Systolic: 133 Blood Pressure Diastolic: 68 Pulse Rate: 70 Respiratory Rate: 18 O2 Sat by Pulse Oximetry: 99 Temperature (Fahrenheit): 97.4 Pain Score (1-10): 0 Nausea: No Vomiting: No Patient Status: awake, reacts, patent Hydration Status: adequate Drug: Ancef Time Given: 13:25 Jagdeep Washington M.D. Oct 30, 2017 14:26
--- NOTE | 2017-10-30 14:28 | 48 Hour Post Anesthesia Eval ---
Post Anesthesia Evaluation Procedure: Let AV Fistula Creation Date of Evaluation: Nov 01, 2017 Time of Evaluation: 10:00 Blood Pressure Systolic: 134 0: 65 Pulse Rate: 70 Respiratory Rate: 18 Temperature (Fahrenheit): 98 O2 Sat by Pulse Oximetry: 99 Airway: patent Nausea: No Vomiting: No Pain Intensity: 0 Hydration Status: adequate Mental Status/LOC: patient returned to baseline Post-Anesthesia Complications: none Follow-up care needed: patient intructions given Jagdeep Washington M.D. Oct 30, 2017 14:28
[2017-10-30] MEDS ORDERED: DiphenhydrAMINE 50mg/ml Inj IVP PRN (14:30)
[2017-10-30] MEDS ORDERED: Metoclopramide 10mg/2ml Inj IVP PRN (14:30)
[2017-10-30] MEDS ORDERED: Ketorolac 30mg Inj IV PRN (14:30)
[2017-10-30] MEDS ORDERED: Midazolam 2mg/2ml Inj IVP PRN (14:30)
[2017-10-30] MEDS ORDERED: fentaNYL 100 mcg/2 mL IV PRN (14:30)
--- NOTE | 2017-10-30 15:23 | Brief Operative Note ---
Immediate Post Operative Note Operative Note Pre-op Diagnosis: esrd Procedure: brachio basilic avf Post-op Diagnosis: esrd Surgeon: kadi Carton Waxing Machine Operator: none Anesthesia: general Specimen: none Complications: none Condition: stable Fluids: minimal Estimated Blood Loss: minimal Drains: none Implant(s) used?: DICK Juarez Oct 30, 2017 15:23
--- NOTE | 2017-10-30 15:26 | Discharge Instructions ---
Discharge Instructions For Surgical Patients Dressing Care: may change Elevate: left leg with pillow May shower: No For Congestive Heart Failure Reminder Report to your physician any weight gain of 5 pounds or more in one week. DICK WOODS Oct 30, 2017 15:26
--- NOTE | 2017-10-30 20:15 | Operative Note - Dictated ---
DATE OF OPERATION: 10/30/2017 PROCEDURE: Left arm brachiobasilic AV fistula. PREOPERATIVE DIAGNOSIS: End-stage renal disease. POSTOPERATIVE DIAGNOSIS: End-stage renal disease. SURGEON: Haider Douglas M.D. DESCRIPTION OF PROCEDURE: In the supine position, under general anesthesia, the patient was prepped and draped in the usual fashion. A vertical incision was made over the marked basilic vein and by means of blunt and sharp dissection, the smallish basilic vein was isolated from the surrounding tissues. It was divided distally using a medium clip. It was then transected and dilated with heparinized saline. A 3.5 mm dilator was easily passed into the vein. Dissecting beneath the lacertus fibrosus, the brachial artery was isolated from the surrounding tissues. It was of adequate size. An end-to-side anastomosis was created between artery and vein using a running suture of 6-0 Prolene. The tourniquet technique was used. When the tourniquet was released, there was a satisfactory Doppler signal over the fistula. The wound was closed in layers using interrupted Vicryl for subcutaneous and yvon for the skin. With dressing in place, she left the operating room in satisfactory condition. Haider Douglas M.D. DR: PETER JOB#: [id number] CC:
--- NOTE | 2017-11-06 10:56 | Cardiology Report ---
APPROVED REPORT EKG Measurement Heart [id number] Sinus bradycardia Otherwise normal ECG
== END 2017-10-30 17:55 | disposition home or self-care (01) ==
LOC: SUR 07:48
DX: I13.2 Hypertensive heart and chronic kidney disease with heart failure and with stage 5 chronic kidney disease, or end stage renal disease (principal); E11.22 Type 2 diabetes mellitus with diabetic chronic kidney disease; N18.6 End stage renal disease; I50.30 Unspecified diastolic (congestive) heart failure; I89.0 Lymphedema, not elsewhere classified; D63.1 Anemia in chronic kidney disease; E66.01 Morbid (severe) obesity due to excess calories; Z79.4 Long term (current) use of insulin; Z68.41 Body mass index [BMI] 40.0-44.9, adult; Z88.8 Allergy status to other drugs, medicaments and biological substances; Z83.3 Family history of diabetes mellitus; Z80.59 Family history of malignant neoplasm of other urinary tract organ
CPT/HCPCS: 36415; 36819; 82962; 84132; 93005; J0690; J1644; J1885; J2250; J2405; J2704; J2765; J3010; J3490; 94003; 94150

== ENCOUNTER 2018-04-14 18:04 | Emergency (ER) | payer MEDICARE, MEDICAID ==
[~2018-04-14] VITALS: Ht 172.7 cm; Wt 109.8 kg
[~2018-04-14 18:04] MED LIST changes: -Bacitracin 50000 Units Vial ONE; -Bupivacaine 0.5% Inj 30 ml vial INJ ONE; +CALCITRIOL0.25 MCG PO; +DOXAZOSIN MESYLA4 MG ORAL; +HUMALOG 75/255 UNIT1 SUBQ; +HYDRALAZINE HCL50 MG ORAL; -Heparin 5000 units/ml inj ONE; -Lidocaine 2% MPF 5ml Vial INJ ONE; -NeoSporin Gu Irrig 1ml Amp IRRIG ONE; -Surgicel 4in x 8in TOPIC ONE; -Thrombin 5000 units TOPIC ONE
[2018-04-14 18:36] LABS: BASOPHILS % (AUTO) 1.2 % (0.0-2.0); EOSINOPHILS % (AUTO) 3.7 % (0.0-3.0); HEMATOCRIT 34.9 % (37.0-47.0); HEMOGLOBIN 11.3 G/DL (12.0-16.0); LYMPHOCYTES % (AUTO) 12.1 % (20.0-45.0); MEAN CORPUSCULAR VOLUME 86 FL (80-99); MONOCYTES % (AUTO) 4.3 % (1.0-10.0); NEUTROPHILS % (AUTO) 78.8 % (45.0-75.0); PLATELET COUNT 105 K/UL (150-450); RED BLOOD COUNT 4.04 M/UL (4.20-5.40); RED CELL DISTRIBUTION WIDTH 15.2 % (11.6-14.8); WHITE BLOOD COUNT 9.9 K/UL (4.8-10.8)
[2018-04-14 18:50] LABS: ANION GAP 12 mmol/L (5-15); BLOOD UREA NITROGEN 56 mg/dL (7-18); CALCIUM 9.4 MG/DL (8.5-10.1); CARBON DIOXIDE 26 MMOL/L (21-32); CHLORIDE 98 MMOL/L (98-107); CREATININE 5.4 MG/DL (0.55-1.30); POTASSIUM 4.7 MMOL/L (3.5-5.1); SODIUM 136 MMOL/L (136-145)
[2018-04-14 18:58] VITALS: BP 140/60
[2018-04-14 19:04] LABS: ALANINE AMINOTRANSFERASE 30 U/L (12-78); ALBUMIN 4.1 G/DL (3.4-5.0); ALBUMIN/GLOBULIN RATIO 0.8 (1.0-2.7); ALKALINE PHOSPHATASE 127 U/L (46-116); ASPARTATE AMINO TRANSFERASE 32 U/L (15-37); BILIRUBIN,TOTAL 1.4 MG/DL (0.2-1.0); CKMB 0.9 NG/ML (0.0-3.6); CREATINE KINASE 85 U/L (26-308)
[2018-04-14 19:08] LABS: BILIRUBIN,DIRECT 0.4 MG/DL (0.0-0.3)
[2018-04-14] MEDS ORDERED: NOVOLOG100 UNIT/4 SQ (19:12)
[2018-04-14] MEDS ORDERED: NOVOLIN 70100 UNIT/1 SUBQ (19:12)
--- NOTE | 2018-04-14 19:34 | Emergency Room Report ---
History of Present Illness General Chief Complaint: Syncope Source: Patient, EMS Present Illness HPI Patient persist with a syncopal episode Reports that she was 17 minutes into her dialysis Patient started feeling lightheaded And essentially had a syncopal episode Patient's daughter is here reports that this happened about one month ago She feels that when they take off too much fluid And when she does not have oxygen this happens Patient at this time denies any chest pain denies any short of breath denies any palpitations Denies any back or flank pain Allergies: Coded Allergies: BENAZEPRIL (Verified Allergy, Intermediate, Shortness of Breath, 07/01/14) NIFEDIPINE (Verified Allergy, Intermediate, Shortness of Breath, 06/28/14) NITROGLYCERIN (Verified Allergy, Intermediate, Shortness of Breath, 06/28/14 ) SOB and BLE swelling AMLODIPINE (Verified Allergy, Unknown, 10/13/17) nasea and vomiting HYDRALAZINE (Verified Allergy, Unknown, 10/13/17) feet become swallen ACETAMINOPHEN (Verified Adverse Reaction, Severe, 10/29/17) severe immediate vomiting HYDROCODONE (Verified Adverse Reaction, Severe, 10/29/17) severe immediate vomiting Patient History Past Medical History: see triage record Pertinent Family History: none Last Menstrual Period: Post Reviewed Nursing Documentation: PMH: Agreed; PSxH: Agreed Nursing Documentation-PMH Hx Cardiac Problems: No - High cholesterol Hx Hypertension: Yes Hx Diabetes: Yes - Type 2 Hx Cancer: No Hx Gastrointestinal Problems: Yes Hx Dialysis: Yes - Tues, Thurs, Sat Hx Neurological Problems: Yes Hx Cerebrovascular Accident: Yes - 2011 Hx Speech Problem: Yes Hx Dizziness: Yes Hx Numbness: Yes - LUE DUE TO STROKE, DENIES NUMBNESS TODAY 10/29/2017 Hx Weakness: Yes - LUE DUE TO STROKE,DENIES WEAKNESS TODAY Review of Systems All Other Systems: negative except mentioned in HPI Physical Exam Vital Signs Date Time Temp Pulse Resp B/P (MAP) Pulse Ox O2 Delivery O2 Flow Rate FiO2 04/14/18 18:06 98.7 68 16 152/65 99 Room Air 98.8 Sp02 EP Interpretation: reviewed, normal General Appearance: well appearing, no apparent distress Head: normocephalic, atraumatic Eyes: bilateral eye PERRL, bilateral eye EOMI ENT: hearing grossly normal, normal pharynx, TMs + canals normal, uvula midline Neck: full range of motion, supple, no meningismus, no bony tend Respiratory: lungs clear, normal breath sounds, no rhonchi, no respiratory distress, no retraction, no accessory muscle use Cardiovascular #1: normal peripheral pulses, regular rate, rhythm, no edema, no gallop, no JVD, no murmur Gastrointestinal: normal bowel sounds, non tender, soft, no mass, no organomegaly, non-distended, no guarding, no hernia, no pulsatile mass, no rebound Genitourinary: no CVA tenderness Musculoskeletal: normal inspection Neurologic: oriented x3, responsive, 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 III-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 nml as tested, motor strength/ tone normal, sensory intact Psychiatric: mood/affect normal Skin: normal color, no rash, warm/dry, palpation normal Lymphatic: normal inspection, no adenopathy Medical Decision Making Diagnostic Impression: Primary Impression: Syncope ER Course Patient is a fairly complex patient with multiple differential to consideration including but not limited to cardiac cardiopulmonary and vascular emergencies Patient remains hemodynamically stable We did obtain baseline blood work which are appropriate Hemoglobin along with electrolytes Patient at this time asking to go home reports that she feels well at baseline levels Given the hemodynamic stability and the repeat presentation patient is stable for close outpatient follow-up Labs Test 04/14/18 18:25 White Blood Count 9.9 K/UL (4.8-10.8) Red Blood Count 4.04 M/UL (4.20-5.40) Hemoglobin 11.3 G/DL (12.0-16.0) Hematocrit 34.9 % (37.0-47.0) Mean Corpuscular Volume 86 FL (80-99) Mean Corpuscular Hemoglobin 28.1 PG (27.0-31.0) Mean Corpuscular Hemoglobin Concent 32.5 G/DL (32.0-36.0) Red Cell Distribution Width 15.2 % (11.6-14.8) Platelet Count 105 K/UL (150-450) Mean Platelet Volume 7.9 FL (6.5-10.1) Neutrophils (%) (Auto) 78.8 % (45.0-75.0) Lymphocytes (%) (Auto) 12.1 % (20.0-45.0) Monocytes (%) (Auto) 4.3 % (1.0-10.0) Eosinophils (%) (Auto) 3.7 % (0.0-3.0) Basophils (%) (Auto) 1.2 % (0.0-2.0) Sodium Level 136 MMOL/L (136-145) Potassium Level 4.7 MMOL/L (3.5-5.1) Chloride Level 98 MMOL/L (98-107) Carbon Dioxide Level 26 MMOL/L (21-32) Anion Gap 12 mmol/L (5-15) Blood Urea Nitrogen 56 mg/dL (7-18) Creatinine 5.4 MG/DL (0.55-1.30) Estimat Glomerular Filtration Rate 8.1 mL/min (>60) Glucose Level 265 MG/DL (74-106) Calcium Level 9.4 MG/DL (8.5-10.1) Total Bilirubin 1.4 MG/DL (0.2-1.0) Direct Bilirubin 0.4 MG/DL (0.0-0.3) Aspartate Amino Transf (AST/SGOT) 32 U/L (15-37) Alanine Aminotransferase (ALT/SGPT) 30 U/L (12-78) Alkaline Phosphatase 127 U/L (46-116) Total Creatine Kinase 85 U/L (26-308) Creatine Kinase MB 0.9 NG/ML (0.0-3.6) Creatine Kinase MB Relative Index 1.0 Troponin I 0.000 ng/mL (0.000-0.056) Total Protein 9.1 G/DL (6.4-8.2) Albumin 4.1 G/DL (3.4-5.0) Globulin 5.0 g/dL Albumin/Globulin Ratio 0.8 (1.0-2.7) Lipase 177 U/L (73-393) EKG Diagnostic Results Rate: normal Rhythm: NSR ST Segments: no acute changes Rhythm Strip Diag. Results EP Interpretation: yes Rate: 67 Rhythm: NSR, no PVC's, no ectopy Last Vital Signs Date Time Temp Pulse Resp B/P (MAP) Pulse Ox O2 Delivery O2 Flow Rate FiO2 04/14/18 18:58 98.8 56 15 140/60 97 Room Air 98.8 Status: improved Disposition: HOME, SELF-CARE Condition: Improved Patient Instructions: Syncope Additional Instructions: Patient is provided with the discharge instructions notified to follow up with primary doctor in the next 2-3 days otherwise return to the er with any worsening symptoms. Please note that this report is being documented using DRAGON technology. This can lead to erroneous entry secondary to incorrect interpretation by the dictating instrument. Adali Ortiz DO April 14, 2018 19:34
[2018-04-14 19:37] VITALS: BP 148/60
[2018-04-14 19:38] VITALS: BP 148/60
--- NOTE | 2018-04-15 16:41 | Cardiology Report ---
APPROVED REPORT EKG Measurement Heart [id number] P27 [id number] Sinus rhythm Low voltage QRS RSR' or QR pattern in V1 suggests right ventricular conduction delay Borderline ECG
== END 2018-04-14 19:38 | disposition home or self-care (01) ==
LOC: EDBD 18:04 → EMR 18:40
DX: R55 Syncope and collapse (principal); E11.9 Type 2 diabetes mellitus without complications; I10 Essential (primary) hypertension; I69.334 Monoplegia of upper limb following cerebral infarction affecting left non-dominant side; Z88.6 Allergy status to analgesic agent; Z88.8 Allergy status to other drugs, medicaments and biological substances
CPT/HCPCS: 36415; 80053; 82248; 82550; 82553; 83690; 84484; 85025; 93005; 99283